=== PATIENT | female | born 1945 | race Caucasian/White ===

== ENCOUNTER → 2018-02-20 10:33 | Outpatient (CLI) | payer MEDICARE, OTHER, SELFPAY ==
[2018-02-20 10:48] LABS: Color, Urine Yellow (Yellow); Glucose, Dipstick Normal (Normal); Ketone-Dipstick Negative (Negative); Leukocyte Esterase-Dipstick 100 /ul (Negative); Nitrite-Dipstick Negative (Negative); Occult Blood-Urine 10 /ul (Negative); Protein-Dipstick 15 mg/dl (Negative); Specific Gravity, Urine 1.015 (1.002-1.030); Urine Bilirubin Dipstick Negative (Negative); Urine Clarity Sl. Cloudy (Clear); Urine Urobilinogen Normal (Normal)
== END ==
PROVIDERS: Visit Provider Family Medicine
DX: R30.0 Dysuria (principal)
CPT/HCPCS: 81002

== ENCOUNTER → 2018-05-22 10:32 | Outpatient (CLI) | payer MEDICARE, OTHER, SELFPAY ==
[2018-05-22 10:36] LABS: Bacteria 0 SEEN /hpf (None Seen); Mucous, Urine 0 SEEN /hpf (<or=2+); Red Blood Cells-Urine 0 SEEN /hpf (0-5); White Blood Cells 0 SEEN /hpf (0-5)
[2018-05-22 11:12] LABS: Color, Urine Yellow (Yellow); Glucose, Dipstick Normal (Normal); Ketone-Dipstick Negative (Negative); Leukocyte Esterase-Dipstick 25 /ul (Negative); Nitrite-Dipstick Negative (Negative); Occult Blood-Urine 25 /ul (Negative); Protein-Dipstick Negative (Negative); Urine Bilirubin Dipstick Negative (Negative); Urine Clarity Sl. Cloudy (Clear); Urine Urobilinogen Normal (Normal)
[2018-05-22 12:55] LABS: Squamous Epithelial Cells - UA 5-10 SEEN /hpf (5-10)
== END ==
PROVIDERS: Family Provider Family Medicine; PCP Family Medicine; Visit Provider Family Medicine
DX: R30.0 Dysuria (principal)
CPT/HCPCS: 81001

== ENCOUNTER → 2018-06-18 16:00 | Outpatient (CLI) | payer MEDICARE, OTHER, SELFPAY ==
--- NOTE | 2018-06-19 | LES_PTH ---
PATIENT: AMADO HILARIO LOC: [facility] U#:[id number] AGE/SX: 80/F ROOM: RE06/18/[address]: Dr. Jose Roberto Clark, : 1945 BED: DIS: SPEC #: [id number] RECD: 06/19/18 13:22 STATUS: RACIEL GUZMAN #: [id number] DOC: 06/19/18 00:[address]: Jose Roberto Clark DEPT: SURGICAL PATHOLOGY RECD BY: Bao Quiroga Tissues: Skin of arm Procedures: Special Stain Group I Surgery Specimen Level IV AFB Stain (control) GMS Stain (control) HEADER OPERATION: Not noted PRE-OP DIAGNOSIS: L98.9 TISSUE SUBMITTED: Right arm MICROSCOPIC DIAGNOSIS Right arm lesion, shave biopsy: Palisaded granuloma, favor granuloma annulare. See comment. Dermal chronic inflammation. Special stains for acid fast bacilli and fungi are negative for organisms; matched controls are appropriate. SJ:jaun 06/20/18 COMMENT Differential diagnosis also includes rheumatoid nodule or necrobiosis lipoidica. Case has been reviewed in consultation with Dr. Shepard who concurs with the above diagnosis. IDC:AM MICROSCOPIC DESCRIPTION Slides are reviewed. GROSS DESCRIPTION Received is one container labeled with the patient's name and not further designated. The specimen consists of two pieces of gresham-white skin measuring 0.3 x 0.3 x 0.1 cm and 0.8 x 0.3 x 0.1 cm. The entire specimen is submitted in one cassette. / SJ:jaun 06/19/18 TC:5 CPT: 69095, 11802 x2
== END ==
PROVIDERS: Family Provider Family Medicine; PCP Family Medicine; Referring Provider Family Medicine; Visit Provider Family Medicine
DX: L98.9 Disorder of the skin and subcutaneous tissue, unspecified (principal)
CPT/HCPCS: 88305; 88312

== ENCOUNTER → 2018-11-21 11:07 | Outpatient (CLI) | payer MEDICARE, OTHER, SELFPAY ==
[2018-11-21 10:42] VITALS: BMI 27.4
[2018-11-21 12:51] LABS: ALB/GLOB Ratio 1.1 RATIO (0.9-2.4); AST(SGOT) 20 U/L (15-37); Alanine Aminotransfer ALT/SGPT 33 U/L (13-56); Albumin, Serum 4.1 g/dL (3.2-5.0); Alkaline Phosphatase 93 U/L (45-117); Anion Gap 8 (5-15); BUN 18 mg/dL (7-18); BUN/Creat Ratio 20.8 RATIO (10-20); Chloride 103 mmol/L (98-107); Creatinine, Serum 0.87 mg/dL (0.55-1.02); EST Glomerular Filtration Rate 68 mL/min (>60); Est Glom Filt Rate - Afr Amer 83 mL/min (>60); Globulin 3.7 g/dL (2.2-4.2); Glucose 106 mg/dL (74-106); Potassium 4.3 mmol/L (3.5-5.1); Protein, Total 7.8 g/dL (6.4-8.2); Sodium Level 136 mmol/L (136-145); Thyroid Stim Hormone (TSH) 1.86 uIU/mL (0.358-3.74)
[2018-11-21 13:00] LABS: Cholesterol 250 mg/dL (200); High Density Lipoprotein 62 mg/dL; Triglycerides 108 mg/dL; Very Low Density Lipoprotein 22 mg/dL (5-40)
== END ==
PROVIDERS: Family Provider Family Medicine; PCP Family Medicine; Visit Provider Family Medicine
DX: D51.0 Vitamin B12 deficiency anemia due to intrinsic factor deficiency (principal); E03.9 Hypothyroidism, unspecified; E78.5 Hyperlipidemia, unspecified; E78.2 Mixed hyperlipidemia
CPT/HCPCS: 36415; 80053; 80061; 84443

== ENCOUNTER → 2019-02-20 | Outpatient (CLI) | payer MEDICARE, OTHER, SELFPAY ==
[2019-02-20 10:33] VITALS: BMI 27.4
== END | disposition home or self-care (01) ==
LOC: LABSPEC 14:41
PROVIDERS: Family Provider Family Medicine; PCP Family Medicine; Referring Provider Nurse Practitioner Women's Health; Visit Provider Nurse Practitioner Women's Health
DX: N94.9 Unspecified condition associated with female genital organs and menstrual cycle (principal)
CPT/HCPCS: 87070; 87205

== ENCOUNTER → 2019-06-11 | Outpatient (CLI) | payer MEDICARE, OTHER, SELFPAY ==
[2019-06-11 09:38] VITALS: BMI 28.8
[2019-06-11 13:33] LABS: Cholesterol 225 mg/dL (200); High Density Lipoprotein 55 mg/dL; Triglycerides 121 mg/dL; Very Low Density Lipoprotein 24 mg/dL (5-40)
[2019-06-11 13:38] LABS: Vitamin D,25 Hydroxy 60.7 ng/mL (29.95-100.01)
== END | disposition home or self-care (01) ==
LOC: BIMLAB 10:20
PROVIDERS: Family Provider Family Medicine; PCP Family Medicine; Visit Provider Family Medicine
DX: E78.5 Hyperlipidemia, unspecified (principal); E55.9 Vitamin D deficiency, unspecified
CPT/HCPCS: 36415; 80061; 82306

== ENCOUNTER → 2020-04-14 16:14 | Outpatient (CLI) | payer MEDICARE, OTHER, SELFPAY ==
[2020-04-14 15:38] VITALS: BMI 28.3
[2020-04-14 17:13] LABS: Absolute Lymphocyte Count 1.65 X10^3/uL (0.83-4.51); Absolute Neutrophil Count 5.3 X10^3/uL (2.0-7.7); Basophil# 0.03 X10^3/uL; Basophil% 0.4 % (0-1); Eosinophil# 0.11 X10^3/uL; Eosinophils% 1.4 % (0-5); Hematocrit 39.7 % (37-47); Hemoglobin 12.7 g/dL (12.0-15.0); Lymphocyte # 1.65 X10^3/ul (4.0); Lymphocyte % 21.6 % (19-41); Mean Corpuscular Volume 103.1 fL (81-99); Mean Platelet Vol. 10.9 fl (6.2-12.0); Monocyte# 0.51 X10^3/uL; Monocyte% 6.7 % (0-10); NRBC Flagged by Analyzer 0 % (0-5); Neutrophil # 5.32 X10^3/uL (2.7-7.7); Neutrophil % 69.6 % (47-70); Platelet Count 304 K/mm3 (150-450); RBC Distribution Width CV 13.2 % (11.6-14.6); RBC Distribution Width SD 50.2 fl (35.1-43.9); Red Blood Count 3.85 M/mm3 (4.2-5.4); White Blood Count 7.6 K/mm3 (4.4-11.0)
[2020-04-14 18:09] LABS: ALB/GLOB Ratio 1.1 RATIO (0.9-2.4); AST(SGOT) 20 U/L (15-37); Alanine Aminotransfer ALT/SGPT 30 U/L (13-56); Albumin, Serum 3.9 g/dL (3.2-5.0); Alkaline Phosphatase 88 U/L (45-117); Anion Gap 5 (5-15); BUN 20 mg/dL (7-18); BUN/Creat Ratio 26.9 RATIO (10-20); Chloride 105 mmol/L (98-107); Cholesterol 227 mg/dL (200); Creatinine, Serum 0.74 mg/dL (0.55-1.02); EST Glomerular Filtration Rate 81 mL/min (>60); Est Glom Filt Rate - Afr Amer 98 mL/min (>60); Globulin 3.7 g/dL (2.2-4.2); Glucose 95 mg/dL (74-106); High Density Lipoprotein 59 mg/dL; Protein, Total 7.6 g/dL (6.4-8.2); Sodium Level 138 mmol/L (136-145); Triglycerides 180 mg/dL; Very Low Density Lipoprotein 36 mg/dL (5-40)
== END ==
PROVIDERS: PCP Family Medicine; Referring Provider Family Medicine; Visit Provider Family Medicine
DX: E78.2 Mixed hyperlipidemia (principal); M54.6 Pain in thoracic spine; G89.29 Other chronic pain
CPT/HCPCS: 36415; 80053; 80061; 85025

== ENCOUNTER → 2020-04-27 | Outpatient (CLI) | payer MEDICARE, OTHER, SELFPAY ==
[2020-04-27 14:38] VITALS: BMI 27.7
[2020-04-27 15:21] LABS: Mucous, Urine 0 SEEN /hpf (<or=2+); Red Blood Cells-Urine 0 SEEN /hpf (0-5); White Blood Cells 0 SEEN /hpf (0-5)
[2020-04-27 17:06] LABS: Color, Urine Yellow (Yellow); Glucose, Dipstick Normal (Normal); Ketone-Dipstick 5 mg/dl (Negative); Leukocyte Esterase-Dipstick 25 /ul (Negative); Nitrite-Dipstick Negative (Negative); Occult Blood-Urine Negative /ul (Negative); Protein-Dipstick 15 mg/dl (Negative); Urine Bilirubin Dipstick Negative (Negative); Urine Clarity Cloudy (Clear); Urine Urobilinogen 1 mg/dl (Normal)
[2020-04-27 17:16] LABS: Squamous Epithelial Cells - UA 10-25 SEEN /hpf (5-10)
[2020-04-27 17:17] LABS: Bacteria 1+ /hpf (None Seen)
== END | disposition home or self-care (01) ==
LOC: LABSPEC 15:15
PROVIDERS: PCP Family Medicine; Referring Provider Nurse Practitioner Family; Visit Provider Nurse Practitioner Family
DX: M54.9 Dorsalgia, unspecified (principal); G89.29 Other chronic pain; R30.0 Dysuria
CPT/HCPCS: 81001; 87086; 87088; 87186

== ENCOUNTER → 2020-04-29 | Outpatient (CLI) | payer MEDICARE, OTHER, SELFPAY ==
[2020-04-29 16:10] VITALS: BMI 27.7
[2020-04-29 17:19] LABS: Absolute Lymphocyte Count 0.39 X10^3/uL (0.83-4.51); Absolute Neutrophil Count 5.9 X10^3/uL (2.0-7.7); Basophil# 0.02 X10^3/uL; Basophil% 0.3 % (0-1); Eosinophil# 0.08 X10^3/uL; Eosinophils% 1.2 % (0-5); Hematocrit 39.1 % (37-47); Hemoglobin 12.8 g/dL (12.0-15.0); Lymphocyte # 0.39 X10^3/ul (4.0); Lymphocyte % 5.8 % (19-41); Mean Corp Hgb Conc 32.7 g/dL (32-36); Mean Corpuscular Hgb 33.1 pg (27.0-32.0); Mean Platelet Vol. 10.9 fl (6.2-12.0); Monocyte# 0.34 X10^3/uL; NRBC Flagged by Analyzer 0 % (0-5); Neutrophil # 5.92 X10^3/uL (2.7-7.7); Neutrophil % 87.4 % (47-70); POSITIVE DIFFERENTIAL YES; Platelet Count 259 K/mm3 (150-450); RBC Distribution Width CV 13.2 % (11.6-14.6); RBC Distribution Width SD 48.8 fl (35.1-43.9); Red Blood Count 3.87 M/mm3 (4.2-5.4); White Blood Count 6.8 K/mm3 (4.4-11.0)
[2020-04-29 17:26] LABS: Differential Indicated SCAN CRITERIA MET
[2020-04-29 18:06] LABS: Differential Comment SCANNED
[2020-04-29 18:18] LABS: Anion Gap 7 (5-15); BUN 16 mg/dL (7-18); BUN/Creat Ratio 18.1 RATIO (10-20); Calcium,Total 9.1 mg/dL (8.5-10.1); Chloride 101 mmol/L (98-107); Creatinine, Serum 0.88 mg/dL (0.55-1.02); EST Glomerular Filtration Rate 67 mL/min (>60); Est Glom Filt Rate - Afr Amer 81 mL/min (>60); Glucose 109 mg/dL (74-106); Potassium 3.5 mmol/L (3.5-5.1); Sodium Level 134 mmol/L (136-145)
== END | disposition home or self-care (01) ==
LOC: BIMLAB 16:33
PROVIDERS: PCP Family Medicine; Referring Provider Internal Medicine; Visit Provider Internal Medicine
DX: N39.0 Urinary tract infection, site not specified (principal)
CPT/HCPCS: 36415; 80048; 85025

== ENCOUNTER 2020-05-06 13:20 | Emergency (ER) | payer MEDICARE, OTHER, SELFPAY ==
[2020-04-29 16:10] VITALS: BMI 27.7
[2020-05-06 13:21] VITALS: BP 125/70; PULSE 88; RESP 18; TEMP 36.6; O2SAT 97; BMI 25.4
[2020-05-06 13:22] VITALS: BP 125/70; PULSE 88; RESP 17; TEMP 36.6; O2SAT 97
[2020-05-06 13:58] LABS: Mucous, Urine 0 SEEN /hpf (<or=2+); White Blood Cells 0 SEEN /hpf (0-5)
[2020-05-06 14:04] LABS: Color, Urine SEE COMMENT BELOW (Yellow); Glucose, Dipstick Normal (Normal); Ketone-Dipstick Negative (Negative); Leukocyte Esterase-Dipstick Negative /ul (Negative); Nitrite-Dipstick Positive (Negative); Occult Blood-Urine 10 /ul (Negative); Protein-Dipstick 30 mg/dl (Negative); Specific Gravity, Urine 1.015 (1.002-1.030); Urine Bilirubin Dipstick 6 mg/dL (Negative); Urine Clarity Clear (Clear); Urine Urobilinogen 8 mg/dl (Normal)
[2020-05-06 14:09] LABS: Squamous Epithelial Cells - UA 10-25 SEEN /hpf (5-10)
--- NOTE | 2020-05-06 14:09 | ED.VISSUMM ---
- ER Visit Summary Date of Service: 05/06/20 Chief Complaint: Dysuria History of Present Illness: The patient is a 75 F who presents with dysuria that is been getting worse over the past 10 to 12 days. Patient states she was seen by her primary care physician who diagnosed her with a urinary tract infection. Patient states she had a culture done on that urine specimen. Patient states she was placed on Cipro. Patient states she has had minimal improvement with this. Patient denies any fevers or chills. Patient admits to nausea but denies any vomiting. Patient does admit to some bilateral low back pain. Patient also admits to some urinary frequency. Physical Examination: Vital signs are stable. Patient is afebrile. Patient is in no acute distress. Oral mucosa is pink and moist. Neck is supple. Trachea is midline. There is no JVD noted. Heart was regular rate and rhythm. Lungs are clear and equal bilaterally. Abdomen is soft. Bowel sounds are normal. There is no tenderness. There is no rebound or guarding noted. Skin is warm dry. Cranial nerves II through XII are intact. There are no focal motor or sensory deficits noted. Extremities are intact. There is no calf tenderness or edema. Test Results: CBC and comprehensive metabolic profile were within normal limits. Urinalysis shows positive nitrates with 10-25 epithelial cells. Occult blood was 10. There were 0 white blood cells and 0 red blood cells. Emergency Department Course and Treatment: Patient was given a dose of Rocephin initially. Patient was advised of her results. I discussed with the patient that this urine specimen appears to be contaminated. I reviewed her prior urine culture which was sensitive to Cipro. Patient states that she has gotten vaginal yeast infections with antibiotics in the past. Patient was advised that her dysuria may be due to a vaginal candidiasis. Patient was given a dose of Diflucan here. Patient was instructed to follow-up with her primary care physician in 5 to 7 days. Patient was advised she may need a repeat dose of the Diflucan if she is still having dysuria at that time. Patient understood and was agreeable with the plan. All questions were answered. Disposition: Discharge home Impression: 1. Dysuria 2. Vaginal candidiasis This note was generated with Opicosation software. It may contain incorrect words, spelling, and punctuation that were not noted in review of the chart prior to signing ED Disposition - Plan for ED Patient: Disposition: Home or Assisted Living Diagnosis: Dysuria, Vaginal candidiasis Instructions: ED Dysuria Uncertain Cause, ED ROMELIA VAGINITIS Referrals: Jose Roberto Clark DO [Primary Care Provider] - 5-7 Days
[2020-05-06 14:10] LABS: Bacteria RARE /hpf (None Seen)
[2020-05-06 14:11] LABS: Absolute Lymphocyte Count 2.41 X10^3/uL (0.83-4.51); Absolute Neutrophil Count 4.8 X10^3/uL (2.0-7.7); Basophil# 0.04 X10^3/uL; Basophil% 0.5 % (0-1); Eosinophil# 0.12 X10^3/uL; Eosinophils% 1.5 % (0-5); Hematocrit 39.1 % (37-47); Hemoglobin 12.7 g/dL (12.0-15.0); Lymphocyte # 2.41 X10^3/ul (4.0); Lymphocyte % 30.9 % (19-41); Mean Corp Hgb Conc 32.5 g/dL (32-36); Mean Corpuscular Hgb 33.1 pg (27.0-32.0); Mean Corpuscular Volume 101.8 fL (81-99); Monocyte# 0.38 X10^3/uL; Monocyte% 4.9 % (0-10); NRBC Flagged by Analyzer 0 % (0-5); Neutrophil # 4.78 X10^3/uL (2.7-7.7); Neutrophil % 61.4 % (47-70); Platelet Count 360 K/mm3 (150-450); RBC Distribution Width CV 13.2 % (11.6-14.6); RBC Distribution Width SD 49.2 fl (35.1-43.9); Red Blood Count 3.84 M/mm3 (4.2-5.4); White Blood Count 7.8 K/mm3 (4.4-11.0)
[2020-05-06 14:11] LABS: Red Blood Cells-Urine 0-5 SEEN /hpf (0-5)
[2020-05-06 14:26] LABS: AST(SGOT) 27 U/L (15-37); Alanine Aminotransfer ALT/SGPT 68 U/L (13-56); Albumin, Serum 3.7 g/dL (3.2-5.0); Alkaline Phosphatase 103 U/L (45-117); Anion Gap 3 (5-15); BUN 21 mg/dL (7-18); BUN/Creat Ratio 25.2 RATIO (10-20); Calcium,Total 9.2 mg/dL (8.5-10.1); Chloride 104 mmol/L (98-107); Creatinine, Serum 0.83 mg/dL (0.55-1.02); EST Glomerular Filtration Rate 71 mL/min (>60); Est Glom Filt Rate - Afr Amer 86 mL/min (>60); Estimated Creatinine Clearance 49.19 ml/min; Globulin 3.6 g/dL (2.2-4.2); Glucose 105 mg/dL (74-106); Potassium 4.1 mmol/L (3.5-5.1); Protein, Total 7.3 g/dL (6.4-8.2); Sodium Level 136 mmol/L (136-145)
[2020-05-06] MEDS: Ceftriaxone 1 GM/50 ML BAG IV (14:33)
[2020-05-06 15:52] VITALS: BP 162/67; PULSE 77; RESP 18; O2SAT 97
[2020-05-06] MEDS: Fluconazole 100 MG Tablet 150 MG PO (15:56)
== END 2020-05-06 15:58 | disposition home or self-care (01) ==
PROVIDERS: Emergency Provider Emergency Medicine; PCP Family Medicine
DX: B37.3 Candidiasis of vulva and vagina (principal); R30.0 Dysuria; E06.3 Autoimmune thyroiditis; Z87.440 Personal history of urinary (tract) infections; Z72.0 Tobacco use; Z79.899 Other long term (current) drug therapy
CPT/HCPCS: 80053; 81001; 85025; 96365; 96366; 99283; J7050; A4216

== ENCOUNTER → 2020-05-25 | Outpatient (CLI) | payer MEDICARE, OTHER, SELFPAY ==
[2020-05-25 16:32] VITALS: BMI 25.4
[2020-05-25 16:46] LABS: Mucous, Urine 0 SEEN /hpf (<or=2+); Red Blood Cells-Urine 0 SEEN /hpf (0-5); White Blood Cells 0 SEEN /hpf (0-5)
[2020-05-25 17:02] LABS: Color, Urine Yellow (Yellow); Glucose, Dipstick Normal (Normal); Ketone-Dipstick Negative (Negative); Leukocyte Esterase-Dipstick Negative /ul (Negative); Nitrite-Dipstick Negative (Negative); Occult Blood-Urine Negative /ul (Negative); Protein-Dipstick Negative (Negative); Urine Bilirubin Dipstick Negative (Negative); Urine Clarity Cloudy (Clear); Urine Urobilinogen Normal (Normal)
[2020-05-25 17:08] LABS: Squamous Epithelial Cells - UA 10-25 SEEN /hpf (5-10)
[2020-05-25 17:09] LABS: Bacteria 1+ /hpf (None Seen)
== END | disposition home or self-care (01) ==
LOC: LABSPEC 16:42
PROVIDERS: PCP Family Medicine; Referring Provider Nurse Practitioner Family; Visit Provider Nurse Practitioner Family
DX: R30.0 Dysuria (principal)
CPT/HCPCS: 81001; 87077; 87086; 87088; 87186

== ENCOUNTER → 2020-06-03 | Outpatient (CLI) | payer MEDICARE, OTHER, SELFPAY ==
[2020-06-03 15:03] VITALS: BMI 25.4
[2020-06-03 15:35] LABS: Bacteria 0 SEEN /hpf (None Seen); Mucous, Urine 0 SEEN /hpf (<or=2+); White Blood Cells 0 SEEN /hpf (0-5)
[2020-06-03 17:22] LABS: Color, Urine Yellow (Yellow); Glucose, Dipstick Normal (Normal); Ketone-Dipstick Negative (Negative); Leukocyte Esterase-Dipstick Negative /ul (Negative); Nitrite-Dipstick Negative (Negative); Occult Blood-Urine 10 /ul (Negative); Protein-Dipstick Negative (Negative); Specific Gravity, Urine 1.015 (1.002-1.030); Urine Bilirubin Dipstick Negative (Negative); Urine Clarity Sl. Cloudy (Clear); Urine Urobilinogen Normal (Normal)
[2020-06-03 17:50] LABS: Red Blood Cells-Urine 0-5 SEEN /hpf (0-5); Squamous Epithelial Cells - UA 0-5 SEEN /hpf (5-10)
== END | disposition home or self-care (01) ==
LOC: BIMLAB 15:34
PROVIDERS: PCP Family Medicine; Referring Provider Family Medicine; Visit Provider Family Medicine
DX: N39.0 Urinary tract infection, site not specified (principal)
CPT/HCPCS: 81001; 87086; 87088

== ENCOUNTER → 2020-07-01 | Outpatient (CLI) | payer MEDICARE, OTHER, SELFPAY ==
[2020-07-01 11:01] VITALS: BMI 26.4
[2020-07-01 11:24] LABS: Mucous, Urine 0 SEEN /hpf (<or=2+); Red Blood Cells-Urine 0 SEEN /hpf (0-5); White Blood Cells 0 SEEN /hpf (0-5)
[2020-07-01 12:16] LABS: Color, Urine Yellow (Yellow); Glucose, Dipstick Normal (Normal); Ketone-Dipstick Negative (Negative); Leukocyte Esterase-Dipstick Negative /ul (Negative); Nitrite-Dipstick Negative (Negative); Occult Blood-Urine Negative /ul (Negative); Protein-Dipstick Negative (Negative); Urine Bilirubin Dipstick Negative (Negative); Urine Clarity Sl. Cloudy (Clear); Urine Urobilinogen Normal (Normal)
[2020-07-01 12:26] LABS: Bacteria RARE /hpf (None Seen); Squamous Epithelial Cells - UA 5-10 SEEN /hpf (5-10)
== END | disposition home or self-care (01) ==
LOC: LABSPEC 11:23
PROVIDERS: PCP Family Medicine; Referring Provider Family Medicine; Visit Provider Family Medicine
DX: N34.3 Urethral syndrome, unspecified (principal); R30.0 Dysuria
CPT/HCPCS: 81001; 87077; 87086; 87088; 87186

== ENCOUNTER → 2020-07-22 | Outpatient (CLI) | payer MEDICARE, OTHER, SELFPAY ==
[2020-07-20 15:15] VITALS: BMI 26.2
[2020-07-22 11:50] LABS: Bacteria 0 SEEN /hpf (None Seen); Mucous, Urine 0 SEEN /hpf (<or=2+); Red Blood Cells-Urine 0 SEEN /hpf (0-5); White Blood Cells 0 SEEN /hpf (0-5)
[2020-07-22 13:04] LABS: Color, Urine Straw (Yellow); Glucose, Dipstick Normal (Normal); Ketone-Dipstick Negative (Negative); Leukocyte Esterase-Dipstick Negative /ul (Negative); Nitrite-Dipstick Negative (Negative); Occult Blood-Urine Negative /ul (Negative); Protein-Dipstick Negative (Negative); Urine Bilirubin Dipstick Negative (Negative); Urine Clarity Sl. Cloudy (Clear); Urine Urobilinogen Normal (Normal)
[2020-07-22 13:11] LABS: Squamous Epithelial Cells - UA 5-10 SEEN /hpf (5-10)
== END | disposition home or self-care (01) ==
LOC: LABSPEC 11:50
PROVIDERS: PCP Family Medicine; Referring Provider Family Medicine; Visit Provider Family Medicine
DX: R30.0 Dysuria (principal)
CPT/HCPCS: 81001

== ENCOUNTER → 2020-08-17 | Outpatient (CLI) | payer MEDICARE, OTHER, SELFPAY ==
[2020-08-17 11:38] VITALS: BMI 26.6
== END | disposition home or self-care (01) ==
LOC: LABSPEC 16:48
PROVIDERS: PCP Family Medicine; Visit Provider Obstetrics & Gynecology
DX: N89.8 Other specified noninflammatory disorders of vagina (principal)
CPT/HCPCS: 87070; 87205

== ENCOUNTER → 2021-02-01 13:43 | Outpatient (CLI) | payer MEDICARE, OTHER, SELFPAY ==
[2021-02-01 13:16] VITALS: BMI 26.7
[2021-02-01 15:47] LABS: Absolute Lymphocyte Count 1.62 X10^3/uL (0.83-4.51); Absolute Neutrophil Count 5.1 X10^3/uL (2.0-7.7); Basophil# 0.04 X10^3/uL; Basophil% 0.6 % (0-1); Eosinophils% 1.4 % (0-5); Hematocrit 39.2 % (37-47); Hemoglobin 12.8 g/dL (12.0-15.0); Lymphocyte # 1.62 X10^3/ul (0.83-4.51); Lymphocyte % 22.4 % (19-41); Mean Corp Hgb Conc 32.7 g/dL (32-36); Mean Corpuscular Hgb 33.6 pg (27.0-32.0); Mean Corpuscular Volume 102.9 fL (81-99); Monocyte# 0.38 X10^3/uL; Monocyte% 5.2 % (0-10); NRBC Flagged by Analyzer 0 % (0-5); Neutrophil # 5.08 X10^3/uL (2.7-7.7); Neutrophil % 70.1 % (47-70); Platelet Count 325 K/mm3 (150-450); RBC Distribution Width CV 12.9 % (11.6-14.6); RBC Distribution Width SD 48.9 fl (35.1-43.9); Red Blood Count 3.81 M/mm3 (4.2-5.4); White Blood Count 7.2 K/mm3 (4.4-11.0)
[2021-02-01 16:55] LABS: Anion Gap 5 (5-15); BUN 23 mg/dL (7-18); BUN/Creat Ratio 27.7 RATIO (10-20); Calcium,Total 9.6 mg/dL (8.5-10.1); Chloride 103 mmol/L (98-107); Creatinine, Serum 0.83 mg/dL (0.55-1.02); EST Glomerular Filtration Rate 71 mL/min (>60); Est Glom Filt Rate - Afr Amer 86 mL/min (>60); Glucose 95 mg/dL (74-106); Potassium 4.2 mmol/L (3.5-5.1); Sodium Level 134 mmol/L (136-145); T4 Free Direct 1.29 ng/dL (0.76-1.46); Thyroid Stim Hormone (TSH) 0.84 uIU/mL (0.358-3.74)
== END ==
PROVIDERS: PCP Family Medicine; Referring Provider Family Medicine; Visit Provider Family Medicine
DX: E03.9 Hypothyroidism, unspecified (principal); R55 Syncope and collapse
CPT/HCPCS: 36415; 80048; 84439; 84443; 85025

== ENCOUNTER → 2021-02-08 | Outpatient (CLI) | payer MEDICARE, OTHER, SELFPAY ==
[2021-02-08 13:31] VITALS: BMI 26.7
[2021-02-08 18:12] LABS: Bacteria 0 SEEN /hpf (None Seen); Mucous, Urine 0 SEEN /hpf (<or=2+); Red Blood Cells-Urine 0 SEEN /hpf (0-5)
[2021-02-08 18:30] LABS: Color, Urine Yellow (Yellow); Glucose, Dipstick Normal (Normal); Ketone-Dipstick 5 mg/dl (Negative); Leukocyte Esterase-Dipstick 25 /ul (Negative); Nitrite-Dipstick Negative (Negative); Occult Blood-Urine Negative /ul (Negative); Protein-Dipstick 30 mg/dl (Negative); Urine Bilirubin Dipstick Negative (Negative); Urine Clarity Sl. Cloudy (Clear); Urine Urobilinogen Normal (Normal)
[2021-02-08 18:44] LABS: Squamous Epithelial Cells - UA 0-5 SEEN /hpf (5-10); White Blood Cells 0-5 SEEN /hpf (0-5)
== END | disposition home or self-care (01) ==
LOC: LABSPEC 18:11
PROVIDERS: PCP Family Medicine; Visit Provider Physician Assistant
DX: R30.0 Dysuria (principal); N76.0 Acute vaginitis
CPT/HCPCS: 81001; 87077; 87086; 87088; 87186

== ENCOUNTER → 2021-03-18 | Outpatient (CLI) | payer MEDICARE, OTHER, SELFPAY ==
[2021-03-18 15:18] VITALS: BMI 26.7
== END | disposition home or self-care (01) ==
LOC: LABSPEC 16:33
PROVIDERS: PCP Family Medicine; Visit Provider Obstetrics & Gynecology
DX: R30.0 Dysuria (principal)
CPT/HCPCS: 87086; 87088; 87186

== ENCOUNTER → 2021-03-28 | Outpatient (CLI) | payer MEDICARE, OTHER, SELFPAY ==
[2021-03-28 13:47] VITALS: BMI 26.7
== END | disposition home or self-care (01) ==
LOC: LABSPEC 15:41
PROVIDERS: PCP Family Medicine; Referring Provider Obstetrics & Gynecology; Visit Provider Obstetrics & Gynecology
DX: N76.0 Acute vaginitis (principal); R30.9 Painful micturition, unspecified
CPT/HCPCS: 87070; 87086; 87088; 87205

== ENCOUNTER → 2021-04-14 | Outpatient (CLI) | payer MEDICARE, OTHER, SELFPAY ==
[2021-04-14 12:55] VITALS: BMI 26.7
== END | disposition home or self-care (01) ==
LOC: LABSPEC 15:49
PROVIDERS: PCP Family Medicine; Referring Provider Obstetrics & Gynecology; Visit Provider Obstetrics & Gynecology
DX: R30.0 Dysuria (principal)
CPT/HCPCS: 87086; 87088

== ENCOUNTER 2021-09-15 14:05 | Outpatient (CLI) | payer MEDICARE, OTHER, SELFPAY | END 2021-09-15 23:59 | disposition short-term general hospital (02) | LOC: LABSPEC 14:06 | PROVIDERS: PCP Family Medicine; Referring Provider Nurse Practitioner Family; Visit Provider Nurse Practitioner Family | DX: Z11.52 Encounter for screening for COVID-19 (principal) | CPT/HCPCS: 87635; U0003; U0005 ==

== ENCOUNTER 2021-09-19 14:38 | Emergency (ER) | payer MEDICARE, OTHER, SELFPAY ==
[2021-09-19 14:39] VITALS: BP 129/78; PULSE 91; RESP 20; TEMP 35.8; O2SAT 91; BMI 26.0
[2021-09-19 15:06] VITALS: BP 129/78; PULSE 91; RESP 20; TEMP 35.8; O2SAT 91
--- NOTE | 2021-09-19 15:11 | EDS_ITS ---
HPI History of Present Illness Chief Complaint: General Illness Informant: patient Onset/Context/Timing Onset: Days Context: Gradual Onset Timing: Continuous Current Severity: Mild Maximum Severity: Mild Narrative Narrative: 76-year-old female history of COPD, Crohn's and breast cancer 2009. Never had a DVT or PE. He is vaccinated against COVID. was recently hospitalized and discharged with COVID. She states she tested negative last . But has had just body aches not feeling well. She denies any vomiting or diarrhea. Really no significant fevers. No dysuria. Denies any abdominal pain. Prior similar symptoms: No Recent Illness/Hospitalization: No [facility] Medical History (Updated 09/19/21 @ 15:[address] Emiliano Larson MD) Chronic back pain Chronic bronchitis COPD (chronic obstructive pulmonary disease) Crohns disease GERD (gastroesophageal reflux disease) Frances's disease History of breast cancer History of colon polyps Hyperlipemia Hypothyroidism IBS (irritable bowel syndrome) Vitamin D deficiency Home Medications cyanocobalamin (vitamin B-12) 1,000 mcg/mL injection solution 100 mcg IM ONCE #1 ml 12/10/19 [Clinic Last Taken Unknown] estradiol 1 g VAGINAL QWEEK #42.5 g 11/24/20 [Rx Last Taken Unknown] escitalopram oxalate 20 mg tablet 20 mg PO DAILY #90 tablet 12/22/20 [Rx Last Taken Unknown] mometasone 0.1 % topical ointment 1 applic TOPICAL .COMPLEX #45 g 03/26/21 [Rx Last Taken Unknown] buspirone 7.5 mg tablet 7.5 mg PO TID #270 tab 04/04/21 [Rx Last Taken Unknown] levothyroxine 175 mcg tablet 175 mcg PO QDAY #90 tab 04/04/21 [Rx Last Taken Unknown] omeprazole 20 mg capsule,delayed release 20 mg PO DAILY #90 cap 04/04/21 [Rx Last Taken Unknown] gabapentin 100 mg capsule 100 mg PO QHS 05/18/21 [History Last Taken Unknown] cholecalciferol (vitamin D3) 1,250 mcg (50,000 unit) capsule 50,000 unit PO QWEEK #20 cap 06/15/21 [Rx Last Taken Unknown] budesonide-formoterol HFA 160 mcg-4.5 mcg/actuation aerosol inhaler 2 puff INHALATION BID #10.2 g 06/28/21 [Rx Last Taken Unknown] fluconazole 150 mg tablet 150 mg PO Q3D #2 tab 07/27/21 [Rx Last Taken Unknown] azithromycin 250 mg tablet See Rx Instructions PO .COMPLEX #6 tab 08/25/21 [Rx Last Taken Unknown] methylprednisolone 4 mg tablets in a dose pack See Rx Instructions PO PER PKG DIR #21 tab 08/25/21 [Rx Last Taken Unknown] tramadol 50 mg tablet 50 mg PO Q6H PRN #120 tab 08/25/21 [Rx Last Taken Unknown] dexamethasone [Decadron] 6 mg PO DAILY 7 Days #7 tab 09/19/21 [Rx Last Taken Unknown] Allergy/AdvReac Type Severity Reaction Status Date / Time Sulfa (Sulfonamide Allergy Rash Verified 09/19/21 14:41 Antibiotics) tolterodine [From Detrol] AdvReac Severe Rash Verified 09/19/21 14:41 Family History Mother Breast cancer Heart disease Father Colon cancer Brother Cancer multiple myloma Sister Heart disease Surgical History H/O bilateral oophorectomy History of colonoscopy History of hysterectomy History of lumpectomy History of small bowel obstruction Social History Smoking Status: Light Smoker (<10/day) alcohol intake: never substance use type: does not use caffeine: Yes what type of physical activity do you participate in: walking frequency: daily seatbelt use: always do you feel safe at home: Yes additional social history: [employer] ROS ROS ED ROS Narrative Body aches. Short of breath. No vomiting or diarrhea. No fever. No chest pain. Review of Systems ROS Unobtainable: Denies due to encephalopathy Constitutional Constitutional ED: Denies chills or fever(s) Eyes Eyes: Denies change in vision ENT ENT ED: Denies ear pain or sore throat Cardiovascular Cardiovascular: Denies chest pain or palpitations Respiratory/Chest Respiratory/Chest: Reports dyspnea; Denies cough Gastrointestinal Gastrointestinal: Denies abdominal pain, diarrhea, nausea or vomiting Genitourinary Genitourinary ED: Denies dysuria or hematuria Musculoskeletal Musculoskeletal: Reports myalgias Integumentary Denies rash Neurologic Neurologic: Denies headache(s) Psychiatric Psychiatric: Denies depression Endocrine Endocrinology: Denies polyuria EXAM Physical Exam Narrative Exam Narrative: Vital signs are stable and afebrile. Pulse ox 91% on room air no signs hypoxia. 76-year-old female no acute distress. HEENT exam unremarkable. Neck nontender no JVD. Lungs few scattered expiratory wheezes no rales or rhonchi. No distress. Equal symmetrical. Heart regular rhythm rate about 90 no murmur. Abdomen soft nontender. Moving all 4 extremities. No edema. Calves nontender. Equal symmetrical divorce mediator strength and dorsi and plantar flexion. Neurologically she is awake and alert with no focal motor deficits. Const Vital Signs: 09/19/21 14:39 09/19/21 15:06 09/19/21 15:20 Temperature 96.5 F L 96.5 F L Temperature Source Temporal Temporal Pulse Rate 91 91 Respiratory Rate 20 H 20 H Respiratory Effort Short of Breath Respiratory Pattern Normal Blood Pressure 129/78 H 129/78 H Blood Pressure Mean 95 95 Pulse Ox 91 91 92 Oxygen Delivery Method Room Air Room Air Room Air Positive well nourished and well developed; Negative for obese, cachectic, contractures or unkempt General Appearance ED: well developed and NAD; Negative for unkempt, cachectic, contractures or pallor Nutritional Appearance: Negative for cachectic or obese HEENT Reports moist mucous membranes Negative for trauma or tenderness Eyes PERRL and EOMs intact bilaterally Neck no lymphadenopathy, supple and no JVD General: Negative for tenderness Chest Wall inspection of chest normal and palpation of chest normal Resp normal respiratory effort and No clear to auscultation bilaterally Effort and Inspection: Negative for pain with movement Auscultation: wheezes; Negative for rales or rhonchi Cardio regular rate, regular rhythm, S1 normal heart sound, S2 normal heart sound and no murmurs GI normal to inspection, nondistended, normoactive bowel sounds, non-tender, non- distended and no masses Auscultation: normoactive bowel sounds Palpation: soft; Negative for tender, guarding or rebound tenderness present Back/Spine no CVA tenderness General Back: Negative for CVA tenderness Cervical Spine: Negative for cervical spine tenderness Thoracic Spine / Upper Back: Negative for thoracic spinal tenderness or paraspinal muscle tenderness Extremity normal to inspection General Extremety ED: Negative for edema or tenderness General Extremity: Negative for edema Neuro oriented x3 and CN's II-XII intact bilaterally Sensorium / Orientation: alert Motor Exam: strength 5/5 throughout Psych mental status grossly normal Appearance: Negative for unkempt Attitude: No agitated Mood & Affect: Negative for depressed, anxious or tearful Skin no rashes or lesions noted and no wounds General Skin Exam: Negative for jaundice or pallor MDM MDM MDM Narrative Medical decision making narrative: 80-year-old female with COPD not feeling well has COVID recently. She is vaccinated. Repeat exam at 3:59 PM patient is doing well. She was given p.o. Decadron here. She will be discharged home with a prescription for Decadron. She and I discussed all of her test results. Lab Data Attestation: I reviewed the patient's lab results. Lab results narrative: Rapid COVID antigen test is positive. CBC shows a white count of 4. Hemoglobin 12.7. Platelets 289. Electrolytes are unremarkable. Troponin normal. Labs: Laboratory Results - last 24 hr 09/19/21 09/19/21 15:15 15:15 WBC 4.2 L RBC 3.92 L Hgb 12.7 Hct 39.1 MCV 99.7 H MCH 32.4 H MCHC 32.5 RDW Std Deviation 49.9 H RDW Coeff of Antony 13.6 Plt Count 289 MPV 10.3 Immature Gran % (Auto) 0.500 Neut % (Auto) 72.2 H Lymph % (Auto) 18.6 L [place] % (Auto) 8.3 Eos % (Auto) 0.2 Baso % (Auto) 0.2 Absolute Neuts (auto) 3.0 Absolute Lymphs (auto) 0.78 L Nucleated RBC % 0 Sodium 136 Potassium 3.7 Chloride 103 Carbon Dioxide 26.0 Anion Gap 7 BUN 20 H Creatinine 0.70 Estim Creat Clear Calc 40.21 Est GFR (MDRD) Af Amer 105 Est GFR (MDRD) Non-Af 86 BUN/Creatinine Ratio 28.5 H Glucose 97 Calcium 9.0 Troponin I High Sens 9 Radiography Chest X-Ray - ED: 1 View, Read by ED Physician, Normal, Heart, Mediastinum, Bony Structures, Right Infiltrate and Left Infiltrate Diagnostic Testing: Clinical Impression(s) from Imaging Studies Chest X-Ray 09/19/21 15:25 IMPRESSION: Findings suggestive of early bibasilar pulmonary infiltrates. Electronically Signed: Faustino Vega MD at 15:42 EST , Service support , Bibasilar infiltrates consistent with COVID pneumonitis. Single view interpreted by myself and the radiologist. Rhythm Strip Rhythm Strip: Sinus Rhythm Rate: 81 Ectopy: PAC(s) EKG Initial EKG: Attestation: I personally reviewed and interpreted this EKG as follows: Interpretation: Sinus Rhythm and No Acute Injury Pattern Comments: Normal sinus rhythm rate 81 no acute signs of IN or ischemia. PACs. Prior EKG tracings: not available for review Discharge Plan Triage Chief Complaint: General Illness ED Provider: Emiliano Larson Dx/Rx/DC Orders Clinical Impression: COVID-19, Crohns disease, COPD (chronic obstructive pulmonary disease) Instructions: Human Coronaviruses Prescriptions: New dexamethasone [Decadron] 6 mg tablet 6 mg PO DAILY 7 Days Qty: 7 RF: 0 No Action cyanocobalamin (vitamin B-12) 1,000 mcg/mL solution 100 mcg IM ONCE Qty: 1 RF: 0 estradiol 0.01 % (0.1 mg/gram) cream 1 g VAGINAL QWEEK Qty: 42.5 RF: 2 escitalopram oxalate [Lexapro] 20 mg tablet 20 mg PO DAILY Qty: 90 RF: 1 gabapentin 100 mg capsule 100 mg PO QHS RF: 0 cholecalciferol (vitamin D3) 1,250 mcg (50,000 unit) capsule 50,000 unit PO QWEEK Qty: 20 RF: 2 fluconazole [Diflucan] 150 mg tablet 150 mg PO Q3D Qty: 2 RF: 2 azithromycin 250 mg tablet See Rx Instructions PO .COMPLEX Qty: 6 RF: 0 methylprednisolone [Medrol (Ross)] 4 mg tablets,dose pack See Rx Instructions PO PER PKG DIR Qty: 21 RF: 0 tramadol 50 mg tablet 50 mg PO Q6H PRN (Reason: pain) Qty: 120 RF: 0 mometasone 0.1 % ointment 1 applic TOPICAL .COMPLEX Qty: 45 RF: 3 levothyroxine 175 mcg tablet 175 mcg PO QDAY Qty: 90 RF: 1 omeprazole 20 mg capsule,delayed release(DR/EC) 20 mg PO DAILY Qty: 90 RF: 1 buspirone 7.5 mg tablet 7.5 mg PO TID Qty: 270 RF: 1 Symbicort 160-4.5 mcg/actuation HFA aerosol inhaler 2 puff INHALATION BID Qty: 10.2 RF: 12 Primary Care Provider: Jose Roberto Clark Referrals: Jose Roberto Clark, DO [Primary Care Provider] - 1 Week if not improving Activity Restrictions/Additional Instructions: Plenty of fluids and rest. Tylenol for fever and body aches Decadron for the wheezing and COVID inflammation in your lungs. Follow-up with your doctor if not improving or return emergency department if feeling worse. Disposition Disposition: Home, Self Care
[2021-09-19 15:20] VITALS: O2SAT 92
--- NOTE | 2021-09-19 15:25 | RAD_ITS ---
STUDY: X-RAY CHEST REASON FOR EXAM: Female, 76 years old. Body aches. Shortness of breath. TECHNIQUE: Single AP portable view of the chest. COMPARISON: Comparison is made with prior study dated 12/16/2013. FINDINGS: EKG electrodes are seen. Surgical clips are seen in the right axillary region. Increased markings in the medial aspects of both lower lobes. This may represent early bibasilar infiltrates. There is no demonstrated pleural abnormality. Normal size heart. Normal mediastinum and yeni. Normal visualized pulmonary arteries. There is atherosclerotic calcification of the aortic arch with tortuosity. There are diffuse degenerative changes of the visualized thoracic spine. Normal visualized ribs, clavicles, and shoulders. There is no demonstrated abnormality of the visualized soft tissue structures of the upper abdomen. RAD/Chest 1 View (Portable) IMPRESSION: Findings suggestive of early bibasilar pulmonary infiltrates. Electronically Signed: Faustino Vega MD at 15:42 EST , Service support ,
[2021-09-19 15:29] LABS: Absolute Lymphocyte Count 0.78 X10^3/uL (0.83-4.51); Basophil# 0.01 X10^3/uL; Basophil% 0.2 % (0-1); Eosinophil# 0.01 X10^3/uL; Eosinophils% 0.2 % (0-5); Hematocrit 39.1 % (37-47); Hemoglobin 12.7 g/dL (12.0-15.0); Lymphocyte # 0.78 X10^3/ul (0.83-4.51); Lymphocyte % 18.6 % (19-41); Mean Corp Hgb Conc 32.5 g/dL (32-36); Mean Corpuscular Hgb 32.4 pg (27.0-32.0); Mean Corpuscular Volume 99.7 fL (81-99); Mean Platelet Vol. 10.3 fl (6.2-12.0); Monocyte# 0.35 X10^3/uL; Monocyte% 8.3 % (0-10); NRBC Flagged by Analyzer 0 % (0-5); Neutrophil # 3.03 X10^3/uL (2.7-7.7); Neutrophil % 72.2 % (47-70); Platelet Count 289 K/mm3 (150-450); RBC Distribution Width CV 13.6 % (11.6-14.6); RBC Distribution Width SD 49.9 fl (35.1-43.9); Red Blood Count 3.92 M/mm3 (4.2-5.4); White Blood Count 4.2 K/mm3 (4.4-11.0)
[2021-09-19 15:49] LABS: Anion Gap 7 (5-15); BUN 20 mg/dL (7-18); BUN/Creat Ratio 28.5 RATIO (10-20); Chloride 103 mmol/L (98-107); EST Glomerular Filtration Rate 86 mL/min (>60); Est Glom Filt Rate - Afr Amer 105 mL/min (>60); Estimated Creatinine Clearance 40.21 ml/min; Glucose 97 mg/dL (74-106); Potassium 3.7 mmol/L (3.5-5.1); Sodium Level 136 mmol/L (136-145); Troponin-I HS 9 pg/mL (3.0-54.0)
[2021-09-19] MEDS: dexAMETHasone 4 MG Tablet 6 MG PO (16:16)
[2021-09-19 16:23] VITALS: BP 121/80; PULSE 87; RESP 18; O2SAT 93
== END 2021-09-19 16:23 | disposition home or self-care (01) ==
PROVIDERS: Emergency Provider Emergency Medicine; PCP Family Medicine; Visit Provider Emergency Medicine
DX: U07.1 COVID-19 (principal); J44.9 Chronic obstructive pulmonary disease, unspecified; K50.90 Crohn's disease, unspecified, without complications; F17.200 Nicotine dependence, unspecified, uncomplicated; E78.5 Hyperlipidemia, unspecified; Z79.899 Other long term (current) drug therapy; E06.3 Autoimmune thyroiditis; E55.9 Vitamin D deficiency, unspecified; K21.9 Gastro-esophageal reflux disease without esophagitis; Z85.3 Personal history of malignant neoplasm of breast
CPT/HCPCS: 71045; 80048; 84484; 85025; 87426; 93005; 99285; A4216

== ENCOUNTER 2021-09-23 14:33 | Outpatient (CLI) | payer MEDICARE, OTHER, SELFPAY ==
[2021-09-23 14:52] VITALS: BP 164/79; PULSE 86; RESP 16; TEMP 36.6; O2SAT 96; BMI 24.7
[2021-09-23] MEDS: 0.9% Saline Lock 10 ML Syringe IV (14:58)
[2021-09-23 15:29] VITALS: BP 143/64; PULSE 66; RESP 16; TEMP 36.9; O2SAT 96
[2021-09-23 16:29] VITALS: BP 163/74; PULSE 68; RESP 16; TEMP 36.7; O2SAT 94
== END 2021-09-23 23:59 | disposition home or self-care (01) ==
LOC: MS3OUT 14:33 → MS3 14:34
PROVIDERS: PCP Family Medicine; Referring Provider Nurse Practitioner Adult Health; Visit Provider Nurse Practitioner Adult Health
DX: Z23 Encounter for immunization (principal); U07.1 COVID-19
CPT/HCPCS: J7050; M0245; Q0245; A4216

== ENCOUNTER → 2022-01-27 | Outpatient (CLI) | payer MEDICARE, OTHER, SELFPAY ==
--- NOTE | 2022-01-27 15:09 | RAD_ITS ---
STUDY: X-RAY - LEFT FOOT CLINICAL: Female, 76 years old. left big toe pain, brusing, fall TECHNIQUE: 3 view(s) of the foot. COMPARISON: None. FINDINGS: Normal talus, calcaneus, and tarsal bones. Normal visualized subtalar, talonavicular, calcaneocuboid, tarsal and tarsometatarsal articulations. There is demineralization of the metatarsi. There is degenerative arthrosis of the metatarsophalangeal joint of the hallux . Normal tibial and fibular sesamoid bones. Normal interphalangeal joint of the great toe. Nondisplaced fracture (longitudinal) at the base of the first distal phalanx extending to the articular surface best seen on oblique view. Normal second through fifth metatarsophalangeal joints. Normal interphalangeal joints and phalanges of the lesser toes. Soft tissue swelling of the first digit. RAD/Foot min 3 Views IMPRESSION: Nondisplaced fracture of the first distal phalanx. Electronically Signed: Sergio Greenfield MD ([place]) at 15:33 EDT Reading Location ID and State: [id number] , Service support ,
--- NOTE | 2022-01-27 15:15 | RAD_ITS ---
STUDY: X-RAY - NASAL BONES REASON FOR EXAM: Female, 76 years old. fall, nose pain, epistaxis TECHNIQUE: 3 view(s) of the nasal bones. COMPARISON: None. FINDINGS: There is a non-displaced transverse fracture of the nasal bones. Normal anterior nasal spine. There is non-specific soft tissue swelling. The remaining visualized osseous structures are normal. Normal visualized paranasal sinuses. RAD/Nasal Bones min 3 Views IMPRESSION: Nondisplaced nasal bone fracture. Electronically Signed: Sergio Greenfield MD ([place]) at 15:32 EDT Reading Location ID and State: [id number] , Service support ,
== END | disposition home or self-care (01) ==
LOC: RAD 14:58
PROVIDERS: PCP Family Medicine; Referring Provider Physician Assistant; Visit Provider Physician Assistant
DX: R04.0 Epistaxis (principal); J34.89 Other specified disorders of nose and nasal sinuses; M79.676 Pain in unspecified toe(s); W19.XXXA Unspecified fall, initial encounter
CPT/HCPCS: 70160; 73630

== ENCOUNTER 2022-02-03 13:53 | Outpatient (CLI) | payer MEDICARE, OTHER, SELFPAY | END 2022-02-03 23:59 | disposition home or self-care (01) | LOC: LABSPEC 13:54 | PROVIDERS: PCP Family Medicine; Referring Provider Physician Assistant; Visit Provider Physician Assistant | DX: S92.912A Unspecified fracture of left toe(s), initial encounter for closed fracture (principal); S91.209A Unspecified open wound of unspecified toe(s) with damage to nail, initial encounter; S91.109A Unspecified open wound of unspecified toe(s) without damage to nail, initial encounter | CPT/HCPCS: 87070; 87205 ==

== ENCOUNTER → 2022-02-08 | Outpatient (CLI) | payer MEDICARE, OTHER, SELFPAY | END | disposition home or self-care (01) | PROVIDERS: PCP Family Medicine; Visit Provider Podiatrist | DX: L03.032 Cellulitis of left toe (principal) | CPT/HCPCS: 87070; 87075; 87077; 87186; 87205 ==

== ENCOUNTER → 2022-03-30 | Outpatient (CLI) | payer MEDICARE, OTHER, SELFPAY ==
[2022-03-30 14:44] LABS: Bacteria 0 SEEN /hpf (None Seen); Mucous, Urine 0 SEEN /hpf (<or=2+); Red Blood Cells-Urine 0 SEEN /hpf (0-5)
[2022-03-30 15:14] LABS: Color, Urine Yellow (Yellow); Glucose, Dipstick Normal (Normal); Ketone-Dipstick Negative (Negative); Leukocyte Esterase-Dipstick Negative /ul (Negative); Nitrite-Dipstick Negative (Negative); Occult Blood-Urine Negative /ul (Negative); Protein-Dipstick Negative (Negative); Urine Bilirubin Dipstick Negative (Negative); Urine Clarity Clear (Clear); Urine Urobilinogen Normal (Normal); Urine pH 6.5 (5.0 - 8.0)
[2022-03-30 15:20] LABS: Squamous Epithelial Cells - UA 25-50 SEEN /hpf (5-10); White Blood Cells 0-5 SEEN /hpf (0-5)
== END | disposition home or self-care (01) ==
LOC: LABSPEC 14:42
PROVIDERS: PCP Family Medicine; Referring Provider Physician Assistant; Visit Provider Physician Assistant
DX: R30.0 Dysuria (principal)
CPT/HCPCS: 81001; 87077; 87086; 87088; 87186

== ENCOUNTER 2022-05-16 11:00 | Outpatient (RCR) | payer MEDICARE, OTHER, SELFPAY ==
--- NOTE | 2022-04-11 12:44 | HP.PTEVAL ---
Patient's Visit Information AMADO HILARIO is a 77 year old F referred to Physical Therapy by ALEJANDRA Mendoza with a diagnosis of [place]. Date of Evaluation: 04/11/22 Physical Therapist: GO Brito - Visit Plan Frequency: 2x /Week Duration: 2 Months Plan: 2X/ week for 8 weeks for LE strengthening, gait training, static and dynamic balance, endurance, gait training with HEP - Subjective Pt reports that she has been having some falls. She fell January 26 going into [facility] and broke her nose and her toe. She does not know what is causing this. She does not feel steady on her feet. She loves to walk and has not done that because she is afraid that she will fall. She has a cane and does use that if she has to walk a long ways. Then she got to thinking what if this is neurological. Sometimes if she tries to get up, she can not get up the first time. She loves summer and is not getting out much. She feels that her off balance started in the winter. Both her and her had COVID and that knocked her out for awhile and both of them were sick all WINTER. She feels that her legs are wobbly. She has bad vericose veins and she did have them done when she was in her 50's. 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 Sometimes she feels that her R foot is getting neuropathy. Pt has no dizziness. She struggled to step over the bathtub to get into the shower and now they have a walk in but she still stumbles backward. Laundry is in the basement cause she has almost fell BW carrying laundry up the steps. She does ride her mower. She has back pain and hand pain and thinks she is getting arthritis. She is sometimes SOB but not all the time. - Pain back pain Pain Intensity (Out of 10): 5 B hand pain Pain Intensity (Out of 10): 5 - Objective Gait: walks with wide base of support and increase veering from time to time. LE MMT: Hip flex R 14.9 and L 15.3 and R Knee flex 11.3 and L 14.5 and R knee ext 19.5 and L 16.2. Sit to stand: Pt is able to sit to stand without the use of her arms. FGA: 15. Heel and Toe raises: Pt struggles with toe raises on the L but able to do them B especially with UE support. Stairs: up and the stairs recip with 1 hand rail and descends the steps leading with the R and B hand rails due to knee pain. Pt does get SOB with exercises during the eval today. - Balance/Special Test Scores Functional Gait Assessment Score: 15 % Disability: 50.0000 Lower Extremity Functional Score: 43 - Goals Goal 1:: I HEP Goal Time Frame: 6-8 Weeks Goal 2:: Increase FGA by 5 points to decrease fall risk (score at time of eval was 14) Goal Time Frame: 6-8 Weeks Goal 3:: Be able to walk with smaller SHE and no veering walking 100 feet with SBA and least restrictive device Goal Time Frame: 6-8 Weeks Goal 4:: Increase LE strength by 1/2 muscle grade (at time of the eval: LE MMT: Hip flex R 14.9 and L 15.3 and R Knee flex 11.3 and L 14.5 and R knee ext 19.5 and L 16.2). Goal Time Frame: 6-8 Weeks Goal 5:: Feel confident to resume a walking program with least restrictive device. Goal Time Frame: 6-8 Weeks - Rehabilitation Potential Rehabilitation Potential: Good - Anticipated Interventions Patient/Client Instruction: Educate patient on: Condition, Plan of Care For the Purpose of:: To improve nutrient delivery to tissue, To increase oxygenation perfusion, To improve muscle performance and motor function, To improve ability to perform ADL's, To increase tolerance to activity/condition/position, To improve performance and independence with ADL's, To decrease level of supervision to perform tasks, To improve ability of physical actions for home/community/work/leisure, To improve gait and locomotor functions, To increase flexibility/ROM, To improve endurance, To improve balance, To improve safety with gait Therapeutic Exercise to Include: Strength training, Endurance training, Balance training, Coordination, Flexibilty training, Gait and locomotor training, Neuromotor development, Passive ROM For the Purpose of:: To improve nutrient delivery to tissue, To increase oxygenation perfusion, To improve muscle performance and motor function, To improve ability to perform ADL's, To increase tolerance to activity/condition/position, To improve performance and independence with ADL's, To decrease level of supervision to perform tasks, To improve gait and locomotor functions, To decrease soft tissue restriction, To increase flexibility/ROM, To improve endurance, To improve balance, To improve safety with gait Functional Training to Include: Gait training For the Purpose of:: To improve gait and locomotor functions, To improve safety with gait Thank you for the opportunity to evaluate your patient. For Medicare and Medicare HMO plans, please review the plan of care and approve it. It will need to be FAXED BACK to us at [phone] for Medicare purposes. For Medicare only, by signing this I certify the plan of care. Please let me know if there are questions or concerns regarding this plan of care. Physician Signature: Date:
--- NOTE | 2022-05-16 11:28 | HP.PTDCSUM ---
It has been my pleasure to treat AMADO HILARIO referred by ALEJANDRA Mendoza, with the diagnosis of [place] for a total of 10 visit(s). Discharge Date: Please see the following information for a summary of their discharge status. Subjective: Pt 10 min late. She had to go to a [employer] and had to go down 2 flights of stairs and she was downstairs and then walked up the 2 flights of stairs and it almost killed her. She was in so much pain that night cause everything was in pain. Pt has been waking up with her hands red and inflammed. She has an appointment today at 1:[address] Clakr's office. She is still staggering all over the kitchen and she keeps stubbing her toe with walking. At this point she wants to be discharged and will discuss this with the Dr that refer her here in Jun. She can do the exercises but she has pain more than anything and poor balance and stumbling especially on the steps (trouble lifting her leg up to clear her foot). Pt feel that the weather is contributing to her pain back pain Pain Intensity (Out of 10): 6 B hand pain Pain Intensity (Out of 10): 6 L LE Pain Intensity (Out of 10): 6 Overall pain Pain Intensity (Out of 10): 6 % Improvement: 50 Objective/Function: LE MMT: R hip flex 12.7 and L 13.1#. R knee ext 17.9# and L knee ext 18.9#. R knee flex 14.5# and L knee flex 19#. FGA: 18 Goal 1:: I HEP Goal Progress: Progressing Goal 2:: Increase FGA by 5 points to decrease fall risk (score at time of eval was 14) Goal Progress: Goal Met Goal 3:: Be able to walk with smaller SHE and no veering walking 100 feet with SBA and least restrictive device Goal Progress: Progressing Goal 4:: Increase LE strength by 1/2 muscle grade (at time of the eval: LE MMT: Hip flex R 14.9 and L 15.3 and R Knee flex 11.3 and L 14.5 and R knee ext 19.5 and L 16.2). Goal Progress: Goal Met Goal 5:: Feel confident to resume a walking program with least restrictive device. Goal Progress: Not Progressing Plan: 2X/ week for 8 weeks for LE strengthening, gait training, static and dynamic balance, endurance, gait training with HEP If there are questions or concerns regarding this patient's physical therapy, please feel free to call me at [phone]. Thank you for the referral of this patient. Sincerely, Kaitlin Rodriguez, MPT Balance/Gait/Functional tests - Balance/Special Test Scores Functional Gait Assessment Score: 18 % Disability: 40.0000 Lower Extremity Functional Score: 43
== END 2022-05-16 19:00 | disposition home or self-care (01) ==
LOC: PT 11:00
PROVIDERS: PCP Family Medicine; Referring Provider Physician Assistant; Visit Provider Physician Assistant
DX: R29.6 Repeated falls (principal)
CPT/HCPCS: 97110; 97161; 97530

== ENCOUNTER → 2022-05-16 | Outpatient (CLI) | payer MEDICARE, OTHER, SELFPAY | END | disposition home or self-care (01) | LOC: LABSPEC 13:48 | PROVIDERS: PCP Family Medicine; Referring Provider Physician Assistant; Visit Provider Physician Assistant | DX: R05.9 Cough, unspecified (principal); R06.02 Shortness of breath | CPT/HCPCS: 87635; U0003; U0005 ==

== ENCOUNTER → 2022-10-04 | Outpatient (CLI) | payer MEDICARE, OTHER, SELFPAY ==
[2022-10-04 16:39] LABS: Absolute Lymphocyte Count 1.25 X10^3/uL (0.83-4.51); Absolute Neutrophil Count 4.7 X10^3/uL (2.0-7.7); Basophil# 0.03 X10^3/uL; Basophil% 0.5 % (0-1); Eosinophils% 1.5 % (0-5); Hematocrit 38.9 % (37-47); Hemoglobin 12.6 g/dL (12.0-15.0); Lymphocyte # 1.25 X10^3/ul (0.83-4.51); Lymphocyte % 19.2 % (19-41); Mean Corp Hgb Conc 32.4 g/dL (32-36); Mean Corpuscular Hgb 32.7 pg (27.0-32.0); Mean Platelet Vol. 10.6 fl (6.2-12.0); Monocyte# 0.43 X10^3/uL; Monocyte% 6.6 % (0-10); NRBC Flagged by Analyzer 0 % (0-5); Neutrophil # 4.69 X10^3/uL (2.7-7.7); Neutrophil % 71.9 % (47-70); Platelet Count 374 K/mm3 (150-450); RBC Distribution Width CV 13.8 % (11.6-14.6); RBC Distribution Width SD 51.9 fl (35.1-43.9); Red Blood Count 3.85 M/mm3 (4.2-5.4); White Blood Count 6.5 K/mm3 (4.4-11.0)
[2022-10-04 16:49] LABS: ALB/GLOB Ratio 0.8 RATIO (0.9-2.4); AST(SGOT) 18 U/L (15-37); Alanine Aminotransfer ALT/SGPT 27 U/L (13-56); Albumin, Serum 3.6 g/dL (3.2-5.0); Alkaline Phosphatase 96 U/L (45-117); Anion Gap 5 (5-15); BUN 26 mg/dL (7-18); BUN/Creat Ratio 34.4 RATIO (10-20); Calcium,Total 9.3 mg/dL (8.5-10.1); Chloride 108 mmol/L (98-107); Cholesterol 226 mg/dL (200); Creatinine, Serum 0.76 mg/dL (0.55-1.02); EST Glomerular Filtration Rate 79 mL/min (>60); Est Glom Filt Rate - Afr Amer 96 mL/min (>60); Globulin 4.3 g/dL (2.2-4.2); Glucose 110 mg/dL (74-106); High Density Lipoprotein 51 mg/dL; Potassium 4.2 mmol/L (3.5-5.1); Protein, Total 7.9 g/dL (6.4-8.2); Sodium Level 139 mmol/L (136-145); Triglycerides 212 mg/dL; Very Low Density Lipoprotein 42 mg/dL (5-40)
== END | disposition home or self-care (01) ==
LOC: BIMLAB 15:22
PROVIDERS: PCP Family Medicine; Referring Provider Family Medicine; Visit Provider Family Medicine
DX: E55.9 Vitamin D deficiency, unspecified (principal); J42 Unspecified chronic bronchitis; D51.0 Vitamin B12 deficiency anemia due to intrinsic factor deficiency; E78.2 Mixed hyperlipidemia
CPT/HCPCS: 36415; 80053; 80061; 85025

== ENCOUNTER → 2022-10-05 | Outpatient (CLI) | payer MEDICARE, OTHER, SELFPAY ==
[2022-10-05 13:07] LABS: Mucous, Urine 0 SEEN /hpf (<or=2+); Red Blood Cells-Urine 0 SEEN /hpf (0-5); White Blood Cells 0 SEEN /hpf (0-5)
[2022-10-05 15:23] LABS: Color, Urine Yellow (Yellow); Glucose, Dipstick NEGATIVE (Normal); Ketone-Dipstick Negative (Negative); Urine Bilirubin Dipstick Negative (Negative); Urine Clarity Clear (Clear)
[2022-10-05 15:24] LABS: Bacteria 1+ /hpf (None Seen); Leukocyte Esterase-Dipstick Negative /ul (Negative); Nitrite-Dipstick Negative (Negative); Occult Blood-Urine Negative /ul (Negative); Protein-Dipstick Negative (Negative); Squamous Epithelial Cells - UA 0-5 SEEN /hpf (5-10); Urine Urobilinogen Normal (Normal)
== END | disposition home or self-care (01) ==
LOC: LABSPEC 13:06
PROVIDERS: PCP Family Medicine; Referring Provider Family Medicine; Visit Provider Family Medicine
DX: N39.0 Urinary tract infection, site not specified (principal)
CPT/HCPCS: 81001

== ENCOUNTER → 2022-12-01 | Outpatient (CLI) | payer MEDICARE, OTHER, SELFPAY | END | disposition home or self-care (01) | PROVIDERS: PCP Family Medicine; Visit Provider Advanced Practice Midwife | DX: N89.8 Other specified noninflammatory disorders of vagina (principal) | CPT/HCPCS: 87070; 87205 ==

== ENCOUNTER → 2023-10-05 | Outpatient (CLI) | payer MEDICARE, SELFPAY ==
--- OUTSIDE RECORDS SUMMARY | 2023-10-05 16:59 | XMS RPT_ITS | CCD ---
Author Name Unknown Address [address] [place] [address] Organization [facility] Care Team Providers Care Gas Substation Operator Name Role Phone GOOD CLARK Unavailable Unavailable GOOD CLARK Unavailable Unavailable Good Clark DO Primary Care Provider GOOD CLARK Primary Care Unavailable BREANNA HENSON Referring Unavailable BREANNA HENSON Attending Unavailable GOOD CLARK Primary Care Unavailable LOLA RICHARDSON Referring Unavailable GOOD CLARK Primary Care Unavailable BREANNA HENSON Referring Unavailable GOOD CLARK Primary Care Unavailable Allergies Allergy Classification Reported Allergen(s) Allergy Type Date of Onset Reaction(s) Facility (5 sources) Amoxicillin; Translations: [AMOXICILLIN] Drug Allergy 0 [facility], Itching [facility] (5 sources) Erythromycin; Translations: [ERYTHROMYCIN] Drug Allergy 0 [facility] Work Phone: (5 sources) Pethidine analog; Translations: [OPIOIDS-MEPERID INE AND RELATED] Propensity to adverse reactions [address] [facility] Work Phone: (5 sources) Propoxyphene; Translations: [PROPOXYPHENE] Drug Allergy [address] [facility] (5 sources) Sulfonamides (Antibiotic); Translations: [SULFA (SULFONAMIDE ANTIBIOTICS)] Propensity to adverse reactions 0 [facility] (5 sources) tolterodine; Translations: [TOLTERODINE] Drug Allergy [address] [facility] Medications Completed/Discontinued Medications Medication Drug Class(es) Dates Sig (Normalized) Sig (Original) [id number] 200 actuat albuterol 0.09 mg/actuat metered dose inhaler (4 sources) beta2-Adrenergic Agonist Start: 10-17-2021 take 2 puff(s) by inhalation every six hours as needed albuterol HFA (PROVENTIL HFA, VENTOLIN HFA) 90 mcg/actuation inhaler Inhale 2 Puffs as instructed every 6 hours as needed. 1 Inhaler 1 10/17/2021 Active Problems Active Problems Problem Classification Problem Date Documented Date Episodic/Chronic Anxiety disorders (4 sources) Anxiety state; Translations: [Generalized anxiety disorder] 06-24-2010 Chronic Cancer of breast (4 sources) Malignant neoplasm of female breast; Translations: [Malignant neoplasm of unspecified site of unspecified female breast] Onset: 12-31-2009 12-31-2009 Chronic Chronic obstructive pulmonary disease and bronchiectasis (4 sources) Emphysematous bronchitis; Translations: [Chronic obstructive pulmonary disease, unspecified] 11-10-2019 Chronic Complications of surgical procedures or medical care (4 sources) Menopausal symptom; Translations: [Symptomatic postprocedural ovarian failure] Onset: 01-25-2004 06-24-2010 Chronic Disorders of lipid metabolism (4 sources) Hyperlipidemia; Translations: [Hyperlipidemia, unspecified] 06-24-2010 Chronic Esophageal disorders (4 sources) Gastroesophageal reflux disease; Translations: [Gastro-esophageal reflux disease without esophagitis] Onset: 01-25-2004 06-24-2010 Chronic Nonmalignant breast conditions (4 sources) Fibrocystic changes of bilateral breasts; Translations: [Diffuse cystic mastopathy of right breast] Onset: 06-20-2016 06-20-2016 Chronic Nutritional deficiencies (4 sources) Vitamin D deficiency; Translations: [Vitamin D deficiency, unspecified] Onset: 09-14-2011 09-14-2011 Chronic Other and unspecified benign neoplasm (4 sources) History of polyp of colon; Translations: [Personal history of colonic polyps] 06-24-2010 Episodic Other screening for suspected conditions (not mental disorders or infectious disease) (3 sources) Patient encounter status; Translations: [Encounter for screening mammogram for malignant neoplasm of breast] Onset: 01-08-2023 Episodic Regional enteritis and ulcerative colitis (4 sources) Crohn's disease; Translations: [Crohn's disease, unspecified, without complications] Onset: 07-26-2012 07-26-2012 Chronic Substance-related disorders (4 sources) Tobacco user; Translations: [Nicotine dependence, unspecified, uncomplicated] Onset: 11-30-2003 06-24-2010 Chronic Thyroid disorders (4 sources) Hypothyroidism; Translations: [Hypothyroidism, unspecified] Onset: 07-26-2012 07-26-2012 Chronic Unclassified (1 source) Acute cough; Translations: [Acute cough] Onset: 01-23-2023 Past or Other Problems Problem Classification Problem Date Documented Date Episodic/Chronic Biliary tract disease (4 sources) Gallstone; Translations: [Calculus of gallbladder without cholecystitis without obstruction] Onset: 07-17-2012 07-17-2012 Episodic Cancer of breast (7 sources) History of malignant neoplasm of breast; Translations: [Personal history of malignant neoplasm of breast] Onset: 05-21-2014 Episodic Nonmalignant breast conditions (8 sources) Inflammatory disorder of breast; Translations: [Mastitis without abscess] Onset: 10-27-2004 06-24-2010 Episodic Other and unspecified benign neoplasm (4 sources) Benign tumor of breast; Translations: [Benign neoplasm of unspecified breast] Onset: 05-02-2004 06-24-2010 Episodic Other and unspecified benign neoplasm (4 sources) Benign neoplasm of skin of lower limb; Translations: [Other benign neoplasm of skin of unspecified lower limb, including hip] Onset: 09-20-2005 06-24-2010 Episodic Other non-traumatic joint disorders (4 sources) Shoulder pain; Translations: [Pain in right shoulder] Onset: 10-18-2015 10-18-2015 Episodic Spondylosis; intervertebral disc disorders; other back problems (4 sources) Lumbago with sciatica; Translations: [Lumbago with sciatica, left side] Onset: 10-18-2015 10-18-2015 Episodic Results Test Name Value Interpretation Reference Range Facil ity Vital Signs Date Time Vital Sign Value Performing Clinician Faci lity 02-07-2023 11:43-0400 Body height 158 cm Breanna Henson APRN.CNP Work Phone: [facility] 02-07-2023 11:43-0400 Body temperature 98.49 [degF] Breanna Henson APRN.CNP Work Phone: [facility] 02-07-2023 11:43-0400 Body weight 65.32 kg Breanna Henson APRN.VIDEO GAMES MECHANIC Work Phone: [facility] 02-07-2023 11:43-0400 Diastolic blood pressure 72 mm[Hg] Breanna Henson MANUFACTURING WORKER.VIDEO GAMES MECHANIC Work Phone: [facility] 02-07-2023 11:43-0400 Heart rate 89 /min Breanna Henson MANUFACTURING WORKER.VIDEO GAMES MECHANIC Work Phone: [facility] 02-07-2023 11:43-0400 SaO2% (BldA) [Mass fraction] 95 % Breanna Henson MANUFACTURING WORKER.VIDEO GAMES MECHANIC Work Phone: [facility] 02-07-2023 11:43-0400 Systolic blood pressure 141 mm[Hg] Breanna Henson MANUFACTURING WORKER.VIDEO GAMES MECHANIC Work Phone: [facility] Encounters Encounter Date Encounter Type Care Provider Facility Start: 02-07-2023 End: 02-07-2023 ambulatory GOOD CLARK Facility:[facility] Start: 02-07-2023 End: 02-07-2023 ambulatory Breanna Henson MANUFACTURING WORKER.VIDEO GAMES MECHANIC Work Phone: Hematology/Oncology Plan of Treatment Date Care Activity Detail Author Start: 04-15-2024 DIABETES SCREEN DIABETES SCREEN [facility] Start: 09-10-2022 ADVANCE DIRECTIVE DISCUSSION ADVANCE DIRECTIVE DISCUSSION [facility] Start: 09-10-2022 DEPRESSION ASSESSMENT DEPRESSION ASSESSMENT [facility] Start: 05-11-2022 Influenza vaccination INFLUENZA (#1) [facility] Start: 01-28-2021 COVID-19 VACCINE (3 - Booster for Pfizer series) COVID-19 VACCINE (3 - Booster for Pfizer series) [facility] Start: 2006 HEPATITIS B (1 of 3 - Risk 3-dose series) HEPATITIS B (1 of 3 - Risk 3-dose series) [facility] Start: 09-11-1999 Urine microalbumin profile DTAP,TDAP,TD (1 - Tdap) [facility] Start: 02-05-1996 SHINGRIX VACCINE (1 of 2) SHINGRIX VACCINE (1 of 2) [facility] Start: 02-05-1964 ANNUAL PCP TEAM CHRONIC DISEASE VISIT ANNUAL PCP TEAM CHRONIC DISEASE VISIT [facility] Start: 02-05-1964 HEPATITIS C SCREENING HEPATITIS C SCREENING [facility] Start: 02-05-1964 MMR (1 of 2 - Risk 2-dose series) MMR (1 of 2 - Risk 2-dose series) [facility] Start: 02-05-1956 MENINGOCOCCAL B: Consider based on risk (1 of 4 - Increased Risk Bexsero 2-dose series) MENINGOCOCCAL B: Consider based on risk (1 of 4 - Increased Risk Bexsero 2-dose series) [facility] Start: 02-05-1952 PNEUMOCOCCAL: 65+ (1 - PCV) PNEUMOCOCCAL: 65+ (1 - PCV) [facility] Start: 1947 HEPATITIS A (1 of 2 - Risk 2-dose series) HEPATITIS A (1 of 2 - Risk 2-dose series) [facility] End: 12-13-2023 DAMIAN SCREENING W AGUEDA DAMIAN SCREENING W AGUEDA Radiology Routine Personal history of breast cancer Encounter for screening mammogram for high-risk patient 1 Occurrences starting 11/14/2022 until 12/13/2023 [facility] Work Phone: Immunizations Immunization Date Immunization Notes Care Provider Phil bennett 06-29-2021 influenza, high dose seasonal, preservative-free Breanna Henson MANUFACTURING WORKER.VIDEO GAMES MECHANIC Work Phone: [facility] Work Phone: 12-03-2020 COVID-19 original vaccine, age 12+ yr, monovalent (PFIZER-BIONTECH - PURPLE TOP) Maybee Henson MANUFACTURING WORKER.VIDEO GAMES MECHANIC Work Phone: [facility] 11-12-2020 COVID-19 original vaccine, age 12+ yr, monovalent (PFIZER-BIONTECH - PURPLE TOP) Breanna Henson MANUFACTURING WORKER.VIDEO GAMES MECHANIC Work Phone: [facility] Work Phone: 06-24-2020 influenza, high dose seasonal, preservative-free Maybee Henson MANUFACTURING WORKER.VIDEO GAMES MECHANIC Work Phone: [facility] Work Phone: 06-23-2010 influenza virus vaccine, unspecified formulation Breanna Henson MANUFACTURING WORKER.VIDEO GAMES MECHANIC Work Phone: [facility] Work Phone: 09-10-1999 tetanus and diphther ia toxoids, adsorbed, preservative free, for adult use (2 Lf of tetanus toxoid and 2 Lf of diphtheria toxoid) Breanna Henson APRN.VIDEO GAMES MECHANIC Work Phone: [facility] Payers Date Payer Category Payer Medicare [id number] 2019 Unknown MMO MMO MEDICARE SUPPLEMENT [id number] 2019-Present [phone] [address] [place] [address] Indemnity [id number] 2017 Medicare [id number] 2011 Medicare MEDICARE MEDICAR E A AND B [id number] 2011-Present [phone] [place] [address] Medicare [id number] 2011 Medicare [id number] Social History Date Type Detail Facility Start: 04-15-2021 End: 01-23-2023 Tobacco smoking status NHIS Smokes tobacco daily [facility] History of tobacco use Cigarette Smoker C [facility] Start: 04-15-2021 End: 01-23-2023 Cigarettes smoked current (pack per day) - Reported 0.[address] [facility] Start: 04-15-2021 End: 01-23-2023 Tobacco use and exposure Smokeless tobacco non-user [facility] Start: 11-21-2021 End: 02-07-2023 Alcohol intake Current drinker of alcohol (finding) [facility] Start: 11-15-2020 End: 01-23-2023 Tobacco Comment Pt has cut back to 5-6 cigarettes daily[address] [facility] Start: 04-15-2021 Alcohol Comment social [facility] Start: 1945 Sex Assigned At Not on file C [facility] Clinical Notes 02-08-2011 to 02-20-2023 Breanna Henson APRN.CNP - 02/07/2023 11:52 AM EDTLetter - Mammography Coordinator - 01/08/2023 12:45 PM EDTAddendum Note - Chano Nino MD - 12/01/2022 1:25 PM EDT Note Date & Type Note Facility 02-20-2023 Note HNO ID: [id number] Author: Chano Nino MD Service: ? Author Type: Physician Type: Progress Notes Filed: 02/20/2023 12:42 PM Note Text: Telephone visit, 20 minutes, patient agreed I have communicated my name and active licensure. The patient's identity and physical location were verified at the time of this visit. Either the patient or their legal applications sales representative has been informed of the risks and benefits of -- and alternatives to -- treatment through a remote evaluation and consents to proceed with the evaluation remotely. This 78 year old female patient with Crohn's dsiease, s/p 2 resections, currently on no meds. 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 +abd pain, better with a bm. Moving bowels up 2x/day, but mostly every other day. On a stool softener, and mom one teaspoon daily. Wt stable, +bleeding. Labs and colonoscopy polyps in 2018 Constipation/Crohn's disease - Continue MoM nightly. Pt would prefer to wait for surveillance colonoscopy. Chano Nino MD [facility] 02-07-2023 Note HNO ID: [id number] Author: Breanna Henson APRN.[facility] Service: ? Author Type: Nurse Practitioner Type: Progress Notes Filed: 02/08/2023 12:40 PM Note Text: Chief Complaint Patient presents with: Established Patient HPI: Ana Hilario is a 78 year old female who presents here today for follow up breast cancer. Per Dr. Mayer's previous note: H/o underwent right partial mastectomy and SLN biopsy followed by limited axillary LN dissection and left partial mastectomy on 12/23/09. Previous therapy: 1) Dose dense AC followed by T completed 05/19/10. 2) Radiation completed 08/03/10. Started anastrozole after radiation, but had shaking panic attacks. Then changed to tamoxifen, but stopped end of July as she was having more panic attacks. They have eased since stopping tamoxifen. Started tamoxifen again March 2012, but then stopped again a few weeks later. She restarted for a few weeks then stopped again-fall 2011. Started tamoxifen again-05/2013. Admits to not taking regularly. Stopped tamoxifen again early 2014. Had colonoscopy December 2017. Next due in 2020. No new concerns today. Appetite: Too good. Energy level: Pretty. Denies fevers. Resp:+cough-on Doxy by PCP, denies sob Cardiac:denies chest pain/palpitations GI:+abd pain r/t crohn's disease-followed by Dr. Nino, +nausea-takes compazine prn, denies vomiting, bowels fluctuate :denies dysuria/hematuria Extrem:low back pain and leg pain-chronic Neuro:+neuropathy to feet- It's still there. I just keep walking. Endo:denies hot flashes Skin:denies rashes/lesions Heme:no recent rectal bleeding with the Crohn's. The ROS is otherwise negative. Past medical history, appointments, medications, allergies reviewed. No changes. EXAM: BP 141/72 Pulse 89 Temp 36.9 ?C (98.5 ?F) Ht 158 cm (5' 2.21 ) Wt 65.3 kg (144 lb) SpO2 95% BMI 26.16 kg/m? APPEARANCE Well appearing, alert, in no acute distress, well-hydrated, well nourished. HEART RRR with normal S1 and S2, no murmurs LUNG clear to auscultation BREAST FEMALE no mass/nodule b/l, multiple surgical scars b/l, b/l tenderness stable LYMPH NODES No cervical lymphadenopathy, No supraclavicular lymphadenopathy, and No axillary lymphadenopathy. ABDOMEN bowel sounds normoactive, soft, non-tender EXTREMITIES No edema NEURO Awake, alert and oriented x 3, Normal gait, and No involuntary motions. SKIN Skin color, texture, turgor normal, no suspicious rashes or lesions RADIOLOGY: Mammogram 01/08/23: IMPRESSION: BENIGN FINDING There is no mammographic evidence of malignancy. A 1 year screening mammogram is recommended. ASSESSMENT/PLAN: 1. 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 - No concerning findings on exam. - Pt. stopped AI/tamox therapy prematurely. - Reviewed mammogram with pt. - Follow up with GI/Dr. Nino. - Mammogram due in January 2024. - Follow up in one year. - Pt. aware to call office with any questions/concerns. The patient indicates understanding of these issues and agrees with the plan. All documentation from previous visit of 11/16/21-Dr. Mayer/myself was copied and pasted, documentation has been reviewed and edited as necessary for today's visit. Breanna Henson APRN.[facility] 02-07-2023 History of Presen t illness Narrative Chief Complaint Patient presents with: Established Patient HPI: Ana Hilario is a 78 year old female who presents here today for follow up breast cancer. Per Dr. Mayer's previous note: H/o underwent right partial mastectomy and SLN biopsy followed by limited axillary LN dissection and left partial mastectomy on 12/23/09. Previous therapy: 1) Dose dense AC followed by T completed 05/19/10. 2) Radiation completed 08/03/10. Started anastrozole after radiation, but had shaking panic attacks. Then changed to tamoxifen, but stopped end of July as she was having more panic attacks. They have eased since stopping tamoxifen. Started tamoxifen again March 2012, but then stopped again a few weeks later. She restarted for a few weeks then stopped again-fall 2011. Started tamoxifen again-05/2013. Admits to not taking regularly. Stopped tamoxifen again early 2014. Had colonoscopy December 2017. Next due in 2020. No new concerns today. Appetite: Too good. Energy level: Pretty. Denies fevers. Resp:+cough-on Doxy by PCP, denies sob Cardiac:denies chest pain/palpitations GI:+abd pain r/t crohn's disease-followed by Dr. Nino, +nausea-takes compazine prn, denies vomiting, bowels fluctuate :denies dysuria/hematuria Extrem:low back pain and leg pain-chronic Neuro:+neuropathy to feet- It's still there. I just keep walking. Endo:denies hot flashes Skin:denies rashes/lesions Heme:no recent rectal bleeding with the Crohn's. The ROS is otherwise negative. Past medical history, appointments, medications, allergies reviewed. No changes. EXAM: BP 141/72 Pulse 89 Temp 36.9 C (98.5 F) Ht 158 cm (5' 2.21 ) Wt 65.3 kg (144 lb) SpO2 95% BMI 26.16 kg/m APPEARANCE Well appearing, alert, in no acute distress, well-hydrated, well nourished. HEART RRR with normal S1 and S2, no murmurs LUNG clear to auscultation BREAST FEMALE no mass/nodule b/l, multiple surgical scars b/l, b/l tenderness stable LYMPH NODES No cervical lymphadenopathy, No supraclavicular lymphadenopathy, and No axillary lymphadenopathy. ABDOMEN bowel sounds normoactive, soft, non-tender EXTREMITIES No edema NEURO Awake, alert and oriented x 3, Normal gait, and No involuntary motions. SKIN Skin color, texture, turgor normal, no suspicious rashes or lesions RADIOLOGY: Mammogram 01/08/23: IMPRESSION: BENIGN FINDING There is no mammographic evidence of malignancy. A 1 year screening mammogram is recommended. ASSESSMENT/PLAN: 1. 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 - No concerning findings on exam. - Pt. stopped AI/tamox therapy prematurely. - Reviewed mammogram with pt. - Follow up with GI/Dr. Nino. - Mammogram due in January 2024. - Follow up in one year. - Pt. aware to call office with any questions/concerns. The patient indicates understanding of these issues and agrees with the plan. All documentation from previous visit of 11/16/21-Dr. Mayer/myself was copied and pasted, documentation has been reviewed and edited as necessary for today's visit. Breanna Henson APRN.[facility]AS[facility] documented in this encounter [facility] 01-23-2023 Note HNO ID: [id number] Author: RT Wendy(R) Service: Radiology Author Type: Technologist Type: Progress Notes Filed: 01/23/2023 1:34 PM Note Text: Radiology Service Progress Note PATIENT NAME: Ana Hilario DATE OF SERVICE: January 23, 2023 TIME: 1:24 PM PATIENT IDENTITY VERIFICATION COMPLETED USING TWO (2) IDENTIFIERS: Name and Date of confirmed by patient verbally. FALL SCREENING: Has the patient had 2 falls in the last year or 1 fall with injury or currently using an Ambulatory Assistive Device (Walker, Cane, Wheelchair, Crutches, etc.)? No PATIENT GENDER DATA: Female. status: : No status: NO. PATIENT RELEVANT IMPLANT DATA REVIEWED: Yes RADIOLOGY DEPARTMENT: General X-ray: Exam(s) Completed: Chest X-Ray PERIPHERAL IV DATA: Not applicable SIGNED BY: RT Wendy(R) January 23, 2023 1:24 PM [facility] 01-23-2023 Note HNO ID: [id number] Author: Lola Richardson APRN.VIDEO GAMES MECHANIC Service: ? Author Type: Nurse Practitioner Type: Progress Notes Filed: 01/23/2023 1:52 PM Note Text: CC: Patient presents with: Cough: Pt reported chest congestion x1 wk. HPI: Ana Hilario is a 77 year old female who presents to the office with complaint of chest congestion, head congestion, cough, nonproductive, and wheezing for a week. Symptoms are staying the same. Associated symptoms includes nasal congestion and facial pain/pressure. Denies fever, nausea, vomiting , and diarrhea. Treatments tried include nothing so far. with no relief of symptoms. Sick contacts: unknown. History of asthma, frequent episodes of bronchitis, chronic bronchitis, bronchiectasis or COPD: Yes COPD Smoker: No Seasonal/environmental allergies: No The ROS is otherwise negative. The patient's pmh, medications, allergies, and past visits are reviewed. PHYSICAL EXAM: BP 142/74 Pulse 102 Temp 36.4 ?C (97.6 ?F) (Tympanic) Resp 18 Wt 64.4 kg (142 lb) SpO2 97% BMI 25.76 kg/m? General appearance: alert, cooperative, pleasant, in no acute distress Head: Normocephalic Eyes: EOM's intact, conjunctiva pink and moist, no icterus, sclera white, non-injected Ears: Right ear: External ear/canal- Normal, TM - clear with good landmarks. Left ear: External ear/canal- Normal, TM - clear with good landmarks Oropharynx:moist without lesions, No erythema, exudates or tonsillar hypertrophy. Heart: Negative. RRR without obvious murmur, gallop, or rubs. No ectopy. Lungs: clear to auscultation, without rales or wheeze, good air exchange PAST MEDICAL HISTORY Diagnosis Date Anxiety states 1981 psych hospitalization Breast cancer (HCC) 2010 COPD with chronic bronchitis (HCC) Crohn's disease (HCC) Diffuse cystic mastopathy Hypothyroidism Incontinence of feces Irritable bowel syndrome Irritable bowel Other and unspecified hyperlipidemia good HDL Other and unspecified ovarian cyst bilateral oophorectomy Peritonitis and retroperitoneal infections Associated with an SBO Personal history of colonic polyps Colon polyps-TUBULAR ADENOMA Urinary incontinence PAST SURGICAL HISTORY Procedure Laterality Date ANTERIOR COLPORRAPHY RPR CYSTOCELE W/CYSTO 1995 Cystocele repair APPENDECTOMY 1974 BREAST BIOPSY INCISIONAL Left 12/23/2009 left breast with prior needle localization BREAST LEFT FINE NEEDLE ASPIRATION 09-21-03 left breast u/s guided FNA BX BREAST NEEDLE CORE W/O IMAGING GUIDANCE SPX right breast stereo bx. - benign COLONOSCOPY FLX DX W/COLLJ SPEC WHEN PFRMD 12/1998 Colonoscopy, 2 TA COLONOSCOPY FLX DX W/COLLJ SPEC WHEN PFRMD 02/09 Colonoscopy normal COLONOSCOPY FLX DX W/COLLJ SPEC WHEN PFRMD 02/2016 Colonoscopy COLONOSCOPY FLX DX W/COLLJ SPEC WHEN PFRMD 12/19/2017 Colonoscopy EXC BREAST LES PREOP PLMT RAD MARKER OPEN 1 LES Left 10-29-03 left breast with prior needle localization INSJ TUNNELED CTR VAD W/SUBQ PORT AGE 5 YR/> 5/30/06 Left Subclavian MASTECTOMY, PARTIAL Right 12/23/2009 right breast with prior needle localization; SLND MASTOTOMY W/EXPLORATION/DRAINAGE ABSCESS DEEP Left 10-26-04 left breast abscess I AND D NIPPLE EXPLORATION Left 04-26-04 left breast ductogram, left duct exc., and excision of left breast lesion. OOPHORECTOMY PARTIAL/TOTAL UNI/BI Bilateral oophrectomy- bilateral; cystocele and rectocele repair SALPINGO-OOPHORECTOMY COMPL/PRTL UNI/BI SPX 1995 Salpingo-oophorectomy for cysts TOTAL ABDOMINAL HYSTERECT W/WO RMVL TUBE OVARY 1991 Hysterectomy, COURTNEY for fibroids VAGINAL HYSTERECTOMY UTERUS 250 GM/< 1980's ALLERGIES Tolterodine, Amoxicillin, Erythromycin, Opioids-Meperidine And Related, Propoxyphene, and Sulfa (Sulfonamide Antibiotics) MEDICATIONS prochlorperazine (COMPAZINE) 5 mg tablet Take 2 tablets by mouth twice daily as needed. ascorbic acid, vitamin C, (VITAMIN C) 500 mg tablet Take 500 mg by mouth once daily. elderberry fruit (ELDERBERRY ORAL) Take 1 tablet by mouth once daily. ZINC ORAL Take 1 tablet by mouth once daily. albuterol HFA (PROVENTIL HFA, VENTOLIN HFA) 90 mcg/actuation inhaler Inhale 2 Puffs as instructed every 6 hours as needed. prochlorperazine (COMPAZINE) 10 mg tablet Take 1 tablet by mouth as needed. budesonide-formoterol (SYMBICORT) 160-4.5 mcg/actuation inhaler Inhale 2 Puffs as instructed twice daily. cholecalciferol, Vitamin D3, (VITAMIN D3) 1,250 mcg (50,000 unit) cap capsule Take 1 capsule by mouth one time a week. estradiol (ESTRACE) 0.01 % (0.1 mg/gram) vaginal cream Use 1 g vaginally two times a week. cyanocobalamin, vitamin B-12, 1,000 mcg/mL kit by INJECTION(UNSPECIFIED PARENTERAL ROUTES) route once every month. omeprazole (PRILOSEC) 20 mg capsule Take 1 capsule by mouth once daily. levothyroxine (SYNTHROID) 175 mcg tablet Take 175 mcg by mouth once daily. BUSPIRONE HCL 7.5 mg tablet Take 7.5 mg by mouth thre (more content not included)... [facility] 01-08-2023 Note HNO ID: [id number] Author: RT Danita(R) Service: ? Author Type: Technologist Type: Progress Notes Filed: 01/08/2023 10:37 AM Note Text: Radiology Service Progress Note PATIENT NAME: Ana Hilario DATE OF SERVICE: January 08, 2023 TIME: 10:36 AM PATIENT IDENTITY VERIFICATION COMPLETED USING TWO (2) IDENTIFIERS: Name and Date of confirmed by patient verbally. FALL SCREENING: Has the patient had 2 falls in the last year or 1 fall with injury or currently using an Ambulatory Assistive Device (Walker, Cane, Wheelchair, Crutches, etc.)? No PATIENT GENDER DATA: Female. status: : No status: NO. PATIENT RELEVANT IMPLANT DATA REVIEWED: Not Applicable RADIOLOGY DEPARTMENT: Mammography PERIPHERAL IV DATA: Not applicable SIGNED BY: RT Danita(R) January 08, 2023 10:36 AM [facility] 01-08-2023 Miscellaneous Notes January 09, 2023 PID: [id number] Ana Hilario [address] [place] [id number] Dear Shazia Hilario, We are pleased to inform you that the results of your recent breast imaging exam on 01/08/2023 are normal. Early detection of cancer is very important. We also understand recommendations regarding breast cancer screening are controversial. Please discuss with your primary care provider which strategy is best for you and whether a mammogram is right for you. Your imaging studies and report will be kept on file at [facility] as part of your permanent medical record and are available for your continuing care. Thank you for allowing us to help in meeting your health care needs. Sincerely, Dr. Woodson Interpreting Radiologist [facility] (Normal over 40) documented in this encounter [facility] 12-01-2022 Miscellaneous Notes Addended by: CHANO NINO on: 12/01/2022 01:25 PM Modules accepted: Orders Patient phones stating she has had dry heaves for the past 2 days (no vomiting) She's requesting a prescription for compazine Done. Chano Nino MD documented in this encounter [facility] 11-14-2022 Miscellaneous Notes Spoke with patient and rescheduled. Sabine Real Done. Breanna Henson APRN.ERASMO Order pended. Cristina Cardona LPN Please file new Tomography Mammogram Order as current order will before there is an opening. Sabine Real Pts apt with Breanna on 11/13 has been canceled due to missing DAMIAN. Pt needs DAMIAN and OV rescheduled. 1st attempt: LM When pt returns call please assist is rescheduling the missed DAMIAN and OV(a few days later) Once completed please document in this encounter. Thank you! documented in this encounter [facility] documented as of this encounter (statuses as of 11/14/2022) 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 Diagnosis Personal history of breast cancer- Primary Personal history of malignant neoplasm of breast Encounter for screening mammogram for high-risk patient [facility] Diagnosis Personal history of breast cancer- Primary Personal history of malignant neoplasm of breast Encounter for screening mammogram for high-risk patient documented in this encounter [facility] for referral (narrative)* Diagnostic Procedure Only (Routine) - Authorized Specialty Diagnoses / Procedures Referred By Gerardo escobedo Referred To Contact [facility] Diagnoses Personal history of breast cancer Encounter for screening mammogram for high-risk patient Procedures DAMIAN SCREENING W AGUEDA SCREENING DIGITAL BREAST TOMOSYNTHESIS BI SCREENING MAMMOGRAPHY BI 2-VIEW BREAST INC Breanna Gee APRN.VIDEO GAMES MECHANIC [address] [place] [address] [facility] [address] [place] [address] Referral ID Status Reason Start Date Expiration Date Visits Requested Visits Authorized [id number] Authorized Auto-Generat ed Referral 11/14/2022 12/13/2023 1 1 [facility] for referral (narrative)* Diagnostic Procedure Only (Routine) - Authorized Specialty Diagnoses / Procedures Referred By Gerardo escobedo Referred To Contact [facility] Diagnoses Personal history of breast cancer Encounter for screening mammogram for high-risk patient Procedures DAMIAN SCREENING W AGUEDA SCREENING DIGITAL BREAST TOMOSYNTHESIS BI SCREENING MAMMOGRAPHY BI 2-VIEW BREAST INC Breanna Gee APRN.VIDEO GAMES MECHANIC [address] [place] [address] [facility] [address] [place] [address] Referral ID Status Reason Start Date Expiration Date Visits Requested Visits Authorized [id number] Authorized Auto-Generat ed Referral 02/07/2023 03/08/2024 [address] [facility] Summary Purpose Family History No Family History Records FoundNo Family History Records FoundNo Family History Records Found Advance Directives No Advanced Directives Records FoundNo Advanced Directives Records FoundNo Advanced Directives Records Found Additional Source Comments INFORMATION SOURCE (unrecogn ized section and content) DATE CREATED AUTHOR AUTHOR'S ORGANIZ ATION 12/18/2020 [facility] DATE CREATED AUTHOR AUTHOR'S ORGANIZ ATION 02/21/2023 [facility] Source Comments (unrecognize d section and content) In the event this informatio n is protected by the Federal Confidentiality of Alcohol and Drug Abuse Patient Records regulations: The Federal rules restrict any use of the information to criminally investigate or prosecute any alcohol or drug abuse patient.[facility] the event this information is protected by the Federal Confidentiality of Alcohol and Drug Abuse Patient Records regulations: The Federal rules restrict any use of the information to criminally investigate or prosecute any alcohol or drug abuse patient.[facility] the event this information is protected by the Federal Confidentiality of Alcohol and Drug Abuse Patient Records regulations: The Federal rules restrict any use of the information to criminally investigate or prosecute any alcohol or drug abuse patient.[facility] the event this information is protected by the Federal Confidentiality of Alcohol and Drug Abuse Patient Records regulations: The Federal rules restrict any use of the information to criminally investigate or prosecute any alcohol or drug abuse patient.[facility] Reason for Visit (unrecogniz ed section and content) Reason Comments Patient Update Medication request Reason Comments Established Patient Care Teams (unrecognized sec tion and content) Gas Substation Operator Relationship Specialty Start Date End Date Good Clark DO PCP - General 11/24/09 Gas Substation Operator Relationship Specialty Start Date End Date Good Clark DO PCP - General 11/24/09 FOR RECORDS PERTAINING TO PATIENTS WHO ARE OR HAVE BEEN ENROLLED IN A CHEMICAL DEPENDENCY/SUBSTANCEABUSE PROGRAM, SOME INFORMATION MAY BE OMITTED. This clinical summary was aggregated from multiple sources. Caution should be exercised in using it in the provision of clinical care. This summary normalizes information from multiple sources, and as a consequence, information in this document may materially change the coding, format and clinical context of patient data. In addition, data may be omitted in some cases. CLINICAL DECISIONS SHOULD BE BASED ON THE PRIMARY CLINICAL RECORDS. [facility] [employer] [facility]. provides no warranty or guarantee of the accuracy or completeness of information in this document.
== END | disposition home or self-care (01) ==
LOC: LABSPEC 16:57
PROVIDERS: PCP Family Medicine; Referring Provider Obstetrics & Gynecology; Visit Provider Obstetrics & Gynecology
DX: N76.0 Acute vaginitis (principal)
CPT/HCPCS: 87070; 87186; 87205

== ENCOUNTER → 2023-10-15 | Outpatient (CLI) | payer MEDICARE, SELFPAY ==
[2023-10-15 16:20] LABS: Mucous, Urine 0 SEEN /hpf (<or=2+); Red Blood Cells-Urine 0 SEEN /hpf (0-5)
[2023-10-15 16:53] LABS: Color, Urine Yellow (Yellow); Glucose, Dipstick Normal (Normal); Ketone-Dipstick 5 mg/dl (Negative); Leukocyte Esterase-Dipstick 25 /ul (Negative); Nitrite-Dipstick Negative (Negative); Occult Blood-Urine Negative /ul (Negative); Protein-Dipstick 30 mg/dl (Negative); Specific Gravity, Urine 1.015 (1.002-1.030); Urine Bilirubin Dipstick Negative (Negative); Urine Clarity Sl. Cloudy (Clear); Urine Urobilinogen 1 mg/dl (Normal)
[2023-10-15 17:03] LABS: Squamous Epithelial Cells - UA 10-25 SEEN /hpf (5-10)
[2023-10-15 17:04] LABS: Bacteria 2+ /hpf (None Seen); White Blood Cells 0-5 SEEN /hpf (0-5)
== END | disposition home or self-care (01) ==
LOC: LABSPEC 16:16
PROVIDERS: PCP Family Medicine; Referring Provider Nurse Practitioner; Visit Provider Nurse Practitioner
DX: N39.0 Urinary tract infection, site not specified (principal); N76.0 Acute vaginitis
CPT/HCPCS: 81001; 87077; 87086; 87088

== ENCOUNTER → 2023-10-24 | Outpatient (CLI) | payer MEDICARE, SELFPAY ==
[2023-10-24 16:58] LABS: Absolute Lymphocyte Count 1.75 X10^3/uL (0.83-4.51); Basophil# 0.03 X10^3/uL; Basophil% 0.3 % (0-1); Eosinophils% 1.1 % (0-5); Hematocrit 40.4 % (37-47); Lymphocyte # 1.75 X10^3/ul (0.83-4.51); Lymphocyte % 18.5 % (19-41); Mean Corp Hgb Conc 32.2 g/dL (32-36); Mean Corpuscular Hgb 33.4 pg (27.0-32.0); Mean Corpuscular Volume 103.9 fL (81-99); Monocyte% 6.3 % (0-10); NRBC Flagged by Analyzer 0 % (0-5); Neutrophil # 6.95 X10^3/uL (2.7-7.7); Neutrophil % 73.5 % (47-70); Platelet Count 372 K/mm3 (150-450); RBC Distribution Width CV 13.5 % (11.6-14.6); Red Blood Count 3.89 M/mm3 (4.2-5.4); White Blood Count 9.5 K/mm3 (4.4-11.0)
[2023-10-24 17:18] LABS: ALB/GLOB Ratio 0.9 RATIO (0.9-2.4); AST(SGOT) 18 U/L (15-37); Alanine Aminotransfer ALT/SGPT 32 U/L (13-56); Albumin, Serum 3.7 g/dL (3.2-5.0); Alkaline Phosphatase 88 U/L (45-117); Anion Gap 5 (5-15); BUN 24 mg/dL (7-18); BUN/Creat Ratio 29.7 RATIO (10-20); Calcium,Total 9.5 mg/dL (8.5-10.1); Chloride 106 mmol/L (98-107); Cholesterol 214 mg/dL (200); Creatinine, Serum 0.81 mg/dL (0.55-1.02); EST Glomerular Filtration Rate 73 mL/min (>60); Est Glom Filt Rate - Afr Amer 88 mL/min (>60); Globulin 4.1 g/dL (2.2-4.2); Glucose 83 mg/dL (74-106); High Density Lipoprotein 56 mg/dL; Potassium 4.6 mmol/L (3.5-5.1); Protein, Total 7.8 g/dL (6.4-8.2); Sodium Level 136 mmol/L (136-145); Triglycerides 155 mg/dL; Very Low Density Lipoprotein 31 mg/dL (5-40)
== END | disposition home or self-care (01) ==
LOC: BIMLAB 14:38
PROVIDERS: PCP Family Medicine; Visit Provider Family Medicine
DX: E78.2 Mixed hyperlipidemia (principal); E55.9 Vitamin D deficiency, unspecified; D51.0 Vitamin B12 deficiency anemia due to intrinsic factor deficiency
CPT/HCPCS: 36415; 80053; 80061; 85025

== ENCOUNTER 2023-11-13 08:45 | Day surgery (SDC) | payer MEDICARE, OTHER, SELFPAY ==
--- NOTE | 2023-11-05 12:09 | EKG12_ITS ---
Test Reason : PRE OP Blood Pressure : / mmHG Vent. Rate : 078 BPM Atrial Rate : 078 BPM P-R Int : 166 ms QRS Dur : 082 ms QT Int : 418 ms P-R-T Axes : 069 063 079 degrees QTc Int : 476 ms Normal sinus rhythm Normal ECG Confirmed by FELICITAS COATES, SANTA ([id number]), news editor STEFFANY GARCIA ([id number]) on 11/05/2023 1:01:36 PM Referred By: Kenyetta Mendoza Confirmed By:PRANAV POLK MD
[2023-11-13] VITALS (13 sets, daily range): BP systolic 130–189; BP diastolic 64–94; PULSE 16–90; RESP 16–19; TEMP 36.5–36.9; O2SAT 92–100; BMI 24.5
--- NOTE | 2023-11-13 08:59 | PCM.HP.BLA ---
History and Physical Vital Signs 10/15/2414:42 10/24/2413:03 11/05/2412:35 11/05/2412:38 Height 5 ft 3 in 5 ft 3 in 5 ft 3 in 5 ft 3 in Weight: 141 lb 143 lb 2 oz 141 lb BMI 25.0 25.3 25.0 BP 120/80 122/78 H 149/80 H Blood Pressure Location Lt brachial Lt brachial Position Sitting Sitting Respiration 14 16 Pulse 64 97 Pulse Source Monitor Monitor Temp 98.3 F 97.6 F L Pulse Oximetry (%) 96 97 Oxygen Delivery Method room air room air Intake Visit Reasons: vulvar lesion Document Image Technician Required: No Is patient in pain?: No Allergies tolterodine [From Detrol] Allergy (Severe, Verified 11/05/23 13:36) RashSulfa (Sulfonamide Antibiotics) Allergy (Verified 11/05/23 13:36) Rash Medications ibuprofen 200 mg tablet (Advil) 200 mg PO Q6H PRN pain 08/30/22 [History Confirmed 11/02/23] elderberry fruit 200 mg capsule 600 mg PO .PAIN 11/02/23 [History Confirmed 11/02/23] multivitamin 1 tab PO DAILY 11/02/23 [History Confirmed 11/02/23] acetaminophen 650 mg tablet,extended release (Tylenol Arthritis Pain) 650 mg PO Q12H PRN pain #100 tabs 11/06/23 [Rx] budesonide-formoterol HFA 160 mcg-4.5 mcg/actuation aerosol inhaler (Symbicort) 2 puff inhalation BID #10.2 grams 11/06/23 [Rx] buspirone 10 mg tablet 10 mg PO TID 3 months #270 tabs 11/06/23 [Rx] cholecalciferol (vitamin D3) 1,250 mcg (50,000 unit) capsule 50,000 unit PO .COMPLEX #20 caps 11/06/23 [Rx] escitalopram oxalate 20 mg tablet (Lexapro) 20 mg PO DAILY #90 tabs 11/06/23 [Rx] estradiol 0.01% (0.1 mg/gram) vaginal cream 1 g vaginal QWEEK #42.5 grams 11/06/23 [Rx] levothyroxine 175 mcg tablet 175 mcg PO QDAY #90 tabs 11/06/23 [Rx] magnesium 250 mg tablet 250 mg PO DAILY #90 tabs 11/06/23 [Rx] methenamine-sodium salicylate 162 mg-162.5 mg tablet (AZO Urinary Tract Defense) See Rx Instructions PO .COMPLEX #90 tabs 11/06/23 [Rx] omeprazole 20 mg capsule,delayed release 20 mg PO QHS #90 caps 11/06/23 [Rx] tramadol 50 mg tablet 50 mg PO Q6H PRN pain #120 tabs 11/06/23 [Rx] fluticasone 100 mcg-salmeterol 50 mcg/dose blistr powdr for inhalation (Advair Diskus) 1 inh inhalation BID #60 ea 11/07/23 [Rx] Is last menstrual period known: No Post menopausal: Yes Patient : No : No PFSH Medical History (Updated 11/02/23 @ 10:43 by Hillary Kothari) Arthritis Back pain Cancer Chronic back pain Chronic bronchitis COPD (chronic obstructive pulmonary disease) Crohns disease Dysuria Former smoker Gastric reflux GERD (gastroesophageal reflux disease) Frances's disease History of breast cancer History of colon polyps History of Crohn's disease History of edema Hx of pilonidal cyst Hyperlipemia Hypothyroidism IBS (irritable bowel syndrome) Post-menopausal Thyroid disease Vitamin B12 deficiency Vitamin D deficiency Wears dentures Surgical History (Updated 11/02/23 @ 10:43 by Hillary Kothari) H/O bilateral oophorectomy History of colonoscopy History of hysterectomy History of lumpectomy History of small bowel obstruction Hx of surgical procedure Family History Mother Breast cancer Heart diseaseFather Colon cancerBrother Cancer multiple mylomaSister Heart disease Social History Smoking Status: Light Smoker (<10/day) alcohol intake: never substance use type: does not use caffeine: Yes what type of physical activity do you participate in: walking frequency: daily seatbelt use: always do you feel safe at home: Yes additional social history: [employer] HPI vulvar lesion Details: AMADO HILARIO is a 78 year old who presents for preop visit. she has a vulvar lesion she wants removed causing discomfort. History 5 Elective abortions Hx Para 1 Spontaneous abortions Hx # Term Pregnancies Ectopic pregnancies Hx # Pregnancies Multiple births # of living children ROS Const Constitutional: Denies fatigue, fever(s), headache(s), increased appetite, poor appetite, weight gain or weight loss Cardio Card: Denies chest pain Resp Resp: Denies cough or dyspnea GI GI: Reports as per HPI and other (stool incontinence); Denies abdominal pain, constipation, nausea or vomiting : Reports as per HPI, vaginal discharge, vaginal dryness, vaginal odor and vaginal pruritus; Denies difficulty voiding, dysuria, urinary frequency, urinary incontinence, urinary hesitancy or urinary urgency Skin Skin/Breast: Denies change in hair, breast mass, breast pain or breast skin changes Exam Const General: cooperative, healthy appearing, comfortable, no acute distress and well developed Nutritional Appearance: average body habitus Orientation: alert HENMT Head: normal to inspection and normocephalic Neck Neck: normal visual inspection and trachea midline Thyroid: thyroid normal Resp Effort & Inspection: normal respiratory effort GI Inspection: normal to inspection and non-distended Palpation: soft and no hepatosplenomegaly General: bladder normal to palpation External Female Exam: abnormal external appearance, normal appearance of the urethra and lesion (supraclitoral lump 3 cm in size freely mobile) Urethra: normal appearance of the urethra, normal palpation and no discharge Speculum Exam - Vagina: normal appearance of the vagina, normal vaginal discharge and abnormal vaginal discharge Bimanual Exam- Vagina & Uterus: bladder normal to palpation Bimanual Exam- Adnexa, other: normal adnexae, adnexae mobile and no masses Skin General: no rashes or lesions noted Coding Level of Care Code No Charge Diagnoses Vulvar lesion N90.89 Assessment and Plan Assessment and Plan (1) Vulvar lesion: Status: Acute Comment: recommend removal in or, may be inclusion cyst or nodule Plan After discussing the patient's diagnosis and treatment plan options, patient wishes to proceed with surgical management. I have discussed with the patient the risks, benefits, and alternatives of the procedure which include but are not limited to risks of anesthesia, bleeding, infection, possible damage to bowel, bladder, or surrounding vasculature which could lead to additional surgery to evaluate any complications. Patient agrees to procedure and wishes to proceed. ACOG/uptodate references given for additional information regarding procedure. UPDATE- I have seen the patient and performed any clinically relevant updates to the history and physical exam. Kenyetta Mendoza MD
[2023-11-13] MEDS: Lactated Ringers 1,000 ML 15 ML IV (09:16)
[2023-11-13] MEDS: Cefotetan 2 GM in 0.9% NS 100 ML IV (10:32)
--- NOTE | 2023-11-13 10:40 | CYST_PTH ---
PATHOLOGY RESULTS PATIENT: AMADO HILARIO [place] [facility] [id number] AGE/SX: 78/F ROOM: RE11/13/[address]: Dr. Kenyetta Mendoza MD : 1945 BED: DIS: 11/13/2023 SPEC #: [id number] RECD: 11/13/23 13:11 STATUS: RACIEL HINDS #: [id number] DOC: 11/13/23 10:[address]: Kenyetta Mendoza DEPT: SURGICAL PATHOLOGY RECD BY: Aaliyah Benson ENTERED: 11/13/23 13:12 SP TYPE: Cyst OTHR DR: Dr. Jose Roberto Clark, DO Tissues: CYST Procedures: Surgery Specimen Level III HEADER OPERATION: Excision vulvar lesion removal PRE-OP DIAGNOSIS: Vulvar lesion TISSUE SUBMITTED: Clitoral cyst MICROSCOPIC DIAGNOSIS Clitoral cyst, excision: Fragments of benign epidermal inclusion cyst. AM:jaun 11/14/2023 MICROSCOPIC DESCRIPTION Slides are reviewed. GROSS DESCRIPTION Received in fixative is one container labeled with the patient's name and designated clitoral cyst. The specimen consists of an irregular piece of gresham-pink soft tissue measuring 1.0 x 0.5 x 0.2 cm. The entire specimen is submitted in one cassette. / SJ:rg 11/13/2023 TC:5 CPT: 82122
[2023-11-13] MEDS: Bupiv/Epi 0.25% 30 ML Vial (10:49)
--- NOTE | 2023-11-13 11:12 | PCM.OPRPT ---
Problems Associated Problem List Diagnoses (1) Vulvar cyst: Report of Operation Date of Procedure: 11/13/23 Pre-Operative Diagnosis: vulvar inclusion cyst Post-Operative Diagnosis: same Surgery/Procedure Performed:: removal clitoral 3 cm inclusion cyst Description of Surgical Findings:: left multiple drainage of sebaceous cysts and excision of 3 cm clitoral inclusion cyst Surgeon: Kenyetta Mendoza Special Medications: none Specimen's removed: inclusion cyst Estimated Blood Loss (mL): 20 Fluids Replaced: crystalloid Description of Procedure: Patient was prepped draped in sterile fashion in the dorsolithotomy position. Multiple small sebaceous cysts were drained manually on the left vulva and Betadine prepped over the area to reduce the risk for infection. The area over the lump was injected with lidocaine and then incision made and the underlying cyst wall dissected out and sebaceous material expressed and removed. After the entire cyst wall was removed a subcutaneous stitch was placed a 4-0 Monocryl and Dermabond placed over the skin. Excellent hemostasis was noted patient was awoken and taken recovery in stable condition. Procedure Start Time: 10:49 Procedure Stop Time: 11:11 Procedures Urinary/Genital [id number]: [id number] REMOVE VAGINA LESION (3 cm clitoral)
--- NOTE | 2023-11-13 11:45 | DCINST_ITS ---
Discharge Instructions Diet Discharge Diet: No restrictions Activity Discharge Activity: Return to Normal Activity, May Shower and May Take a Tub Bath (after 4 week) May resume sexual activity in: 1-2 weeks Weight Bearing Status: Weight bearing as tolerated Lifting Restrictions: none Dressing / Incision Call your doctor if you observe: Fever of 101 or Higher, Using more than 1 pad per hour, Shortness of breath and Uncontrolled pain Follow Up Care Please Follow Up With: Kenyetta Mendoza MD When: Call [phone] to schedule appointment. Test Results: Test results from this visit will be discussed in further detail at your follow- up appointment, if applicable. Discharge Plan Admission Attending Provider: Kenyetta Mendoza Primary Care Provider: Jose Roberto Clark Discharge Orders/Prescriptions Prescriptions: No Action ibuprofen [Advil] 200 mg tablet 200 mg PO Q6H PRN (Reason: pain) cyanocobalamin (vitamin B-12) 1,000 mcg/mL solution 1,000 mcg IM ONCE Qty: 1 0RF multivitamin Tablet 1 tab PO DAILY elderberry fruit 200 mg capsule 600 mg PO .PAIN acetaminophen [Tylenol Arthritis Pain] 650 mg tablet extended release 650 mg PO Q12H PRN (Reason: pain) Qty: 100 2RF Symbicort 160-4.5 mcg/actuation HFA aerosol inhaler 2 puff INHALATION BID Qty: 10.2 12RF Rx Instructions: May get 3 units at a time buspirone 10 mg tablet 10 mg PO TID 90 Days Qty: 270 1RF cholecalciferol (vitamin D3) 1,250 mcg (50,000 unit) capsule 50,000 unit PO .COMPLEX Qty: 20 2RF Rx Instructions: 50,000 units orally every other week; escitalopram oxalate [Lexapro] 20 mg tablet 20 mg PO DAILY Qty: 90 1RF levothyroxine 175 mcg tablet 175 mcg PO QDAY Qty: 90 1RF omeprazole 20 mg capsule,delayed release(DR/EC) 20 mg PO QHS Qty: 90 2RF tramadol 50 mg tablet 50 mg PO Q6H PRN (Reason: pain) Qty: 120 0RF fluticasone propion-salmeterol [Advair Diskus] 100-50 mcg/dose blister with device 1 inh inhalation BID Qty: 60 6RF Referrals / Follow Up: Jose Roberto Clark DO [Primary Care Provider] - Disposition Disposition (needs filled in before D/C Order can be placed): Home, Self Care
[2023-11-13] MEDS: Ipratropium/Albuterol Sulfate 3 ML AMPUL.NEB INHALATION (11:52)
[2023-11-13] MEDS: Oxycodone/Apap 5/325 Tablet PO (12:30)
== END 2023-11-13 13:05 | disposition home or self-care (01) ==
LOC: SDC 08:46 → AC 08:48
PROVIDERS: PCP Family Medicine; Referring Provider Obstetrics & Gynecology; Visit Provider Obstetrics & Gynecology
PROC: (CPT 57135; principal; 2023-11-13 10:25)
DX: N90.7 Vulvar cyst (principal); J44.9 Chronic obstructive pulmonary disease, unspecified; E78.5 Hyperlipidemia, unspecified; L72.3 Sebaceous cyst; K21.9 Gastro-esophageal reflux disease without esophagitis; Z79.890 Hormone replacement therapy; Z79.899 Other long term (current) drug therapy; E06.3 Autoimmune thyroiditis; F17.200 Nicotine dependence, unspecified, uncomplicated
CPT/HCPCS: 57135; 10060; 00940; 36415; 86850; 86900; 86901; 88304; 93005; 94640; J7120; J2405

== ENCOUNTER → 2023-11-21 | Outpatient (CLI) | payer MEDICARE, OTHER, SELFPAY ==
[2023-11-21 17:15] LABS: Vitamin D,25 Hydroxy 88.1 ng/mL
== END | disposition home or self-care (01) ==
LOC: BIMLAB 15:26
PROVIDERS: PCP Family Medicine; Visit Provider Family Medicine
DX: E55.9 Vitamin D deficiency, unspecified (principal)
CPT/HCPCS: 36415; 82306

== ENCOUNTER → 2023-12-21 | Outpatient (CLI) | payer MEDICARE, OTHER, SELFPAY ==
[2023-12-21 13:49] LABS: Red Blood Cells-Urine 0 SEEN /hpf (0-5)
--- NOTE | 2023-12-21 14:02 | RAD_ITS ---
STUDY: X-RAY - ABDOMEN/PELVIS REASON FOR EXAM: Female, 78 years old. vomiting TECHNIQUE: Single AP view of the abdomen / pelvis. COMPARISON: None. FINDINGS: Normal visualized lung bases. There is a moderate amount of colonic fecal material. There is no demonstrated free abdominal air. The visualized liver, spleen and kidneys are grossly normal in size and morphology. Normal soft tissue structures. There are diffuse degenerative changes of the visualized lumbar spine. RAD/Abdomen Single View IMPRESSION: No acute findings, retained stool Electronically Signed: Placido Mtz MD at 14:41 EDT ,
[2023-12-21 15:43] LABS: Color, Urine Yellow (Yellow); Glucose, Dipstick Normal (Normal); Ketone-Dipstick 15 mg/dl (Negative); Leukocyte Esterase-Dipstick 100 /ul (Negative); Nitrite-Dipstick Negative (Negative); Occult Blood-Urine 10 /ul (Negative); Protein-Dipstick 30 mg/dl (Negative); Urine Bilirubin Dipstick 1 mg/dL (Negative); Urine Clarity Cloudy (Clear); Urine Urobilinogen 1 mg/dl (Normal)
[2023-12-21 15:45] LABS: Absolute Lymphocyte Count 1.77 X10^3/uL (0.83-4.51); Absolute Neutrophil Count 6.8 X10^3/uL (2.0-7.7); Basophil# 0.03 X10^3/uL; Basophil% 0.3 % (0-1); Eosinophil# 0.19 X10^3/uL; Hematocrit 39.4 % (37-47); Hemoglobin 12.7 g/dL (12.0-15.0); Lymphocyte # 1.77 X10^3/ul (0.83-4.51); Mean Corp Hgb Conc 32.2 g/dL (32-36); Mean Corpuscular Hgb 32.6 pg (27.0-32.0); Mean Corpuscular Volume 101.3 fL (81-99); Mean Platelet Vol. 10.9 fl (6.2-12.0); Monocyte# 0.52 X10^3/uL; Monocyte% 5.6 % (0-10); NRBC Flagged by Analyzer 0 % (0-5); Neutrophil # 6.78 X10^3/uL (2.7-7.7); Neutrophil % 72.8 % (47-70); Platelet Count 395 K/mm3 (150-450); RBC Distribution Width CV 14.1 % (11.6-14.6); RBC Distribution Width SD 53.1 fl (35.1-43.9); Red Blood Count 3.89 M/mm3 (4.2-5.4); White Blood Count 9.3 K/mm3 (4.4-11.0)
[2023-12-21 15:49] LABS: Bacteria 2+ /hpf (None Seen); Mucous, Urine 1+ /hpf (<or=2+); Squamous Epithelial Cells - UA 10-25 SEEN /hpf (5-10)
[2023-12-21 15:50] LABS: White Blood Cells 0-5 SEEN /hpf (0-5)
[2023-12-21 16:00] LABS: Erythrocyte Sedimentation Rate 34 mm/hr (0-30)
[2023-12-21 16:15] LABS: ALB/GLOB Ratio 0.9 RATIO (0.9-2.4); AST(SGOT) 20 U/L (15-37); Alanine Aminotransfer ALT/SGPT 31 U/L (13-56); Albumin, Serum 3.8 g/dL (3.2-5.0); Alkaline Phosphatase 89 U/L (45-117); Anion Gap 3 (5-15); BUN 19 mg/dL (7-18); BUN/Creat Ratio 26.5 RATIO (10-20); CRP 3.94 mg/L (0.0-3.0); Calcium,Total 9.6 mg/dL (8.5-10.1); Chloride 106 mmol/L (98-107); Creatinine, Serum 0.72 mg/dL (0.55-1.02); EST Glomerular Filtration Rate 84 mL/min (>60); Est Glom Filt Rate - Afr Amer 101 mL/min (>60); Globulin 4.2 g/dL (2.2-4.2); Glucose 104 mg/dL (74-106); Lipase 12 U/L (13-75); Potassium 4.2 mmol/L (3.5-5.1); Sodium Level 135 mmol/L (136-145); T4 Free Direct 1.16 ng/dL (0.76-1.46); Thyroid Stim Hormone (TSH) 1.26 uIU/mL (0.358-3.74)
== END | disposition home or self-care (01) ==
LOC: BIMLAB 13:40
PROVIDERS: PCP Family Medicine; Referring Provider Nurse Practitioner; Visit Provider Nurse Practitioner
DX: R11.10 Vomiting, unspecified (principal); E03.9 Hypothyroidism, unspecified; N39.0 Urinary tract infection, site not specified; N76.0 Acute vaginitis
CPT/HCPCS: 36415; 74018; 80053; 81001; 83690; 84439; 84443; 85025; 85652; 86140; 87086; 87088

== ENCOUNTER 2023-12-24 01:04 | Inpatient (IN) | payer MEDICARE, OTHER, SELFPAY ==
[2023-12-24] VITALS (33 sets, daily range): BP systolic 125–192; BP diastolic 57–100; PULSE 81–108; RESP 16–20; TEMP 36.2–37.2; O2SAT 90–98; BMI 25.0; BMI 24.7
--- NOTE | 2023-12-24 01:56 | CT_ITS ---
We are attempting to reach an attending provider to discuss findings. An addendum with communication details will be sent when the communication is complete. EXAM: CT ABDOMEN AND PELVIS WITH INTRAVENOUS CONTRAST CLINICAL INDICATION: abd pain abd pain TECHNIQUE: Helically acquired images were obtained of the abdomen and pelvis with intravenous contrast. This CT exam was performed using one or more of the following dose reduction techniques: automated exposure control, adjustment of the mA and/or kV according to patient size, and/or use of iterative reconstruction technique. CONTRAST: IV 100mL Isovue-370 RADIATION DOSE: CTDIvol = 13.07 mGy, DLP = 760.43 mGy-cm COMPARISON: Abdominal ultrasound 07/27/2012. Abdominal x-ray 12/21/2023. FINDINGS: LOWER THORAX: There are coronary artery calcifications. Lung bases are clear. No cardiomegaly. No significant pericardial effusion. ABDOMEN: LIVER: There is decreased attenuation of liver consistent with fatty infiltration. GALLBLADDER AND BILE DUCTS: There are numerous gallstones within a contracted gallbladder. This finding was also present on the 2011 abdominal ultrasound. No gallbladder distention or wall edema. No intra- or extrahepatic biliary ductal dilation. PANCREAS: The pancreas is atrophic. No focal cystic or solid mass. SPLEEN: Unremarkable. Normal size without focal cystic or solid mass. ADRENALS: Unremarkable. No nodules. KIDNEYS AND URETERS: Unremarkable. Normal renal size and position. No hydronephrosis. STOMACH AND BOWEL: There are colonic diverticula.. There is mural thickening of long segments of mid and proximal sigmoid colon, with minimal surrounding fat infiltration. I suspect this represents an inflammatory colitis rather than acute diverticulitis. There is prominent fecal material in the long segments of colon which is suspicious for partial colonic obstruction. There is mural thickening of the duodenal sweep, multiple loops of jejunum, as well as some loops of ileum. Findings are suspicious for an inflammatory enterocolitis, possibly Crohn''s disease. Acute infectious process is not excluded but is thought to be less likely. PELVIS: APPENDIX: The appendix is not visualized. There is no evidence for appendicitis. BLADDER: Unremarkable. REPRODUCTIVE: Uterus is absent. ABDOMEN and PELVIS: INTRAPERITONEAL SPACE: Unremarkable. No ascites or other fluid collection. No free air. BONES/JOINTS: There are multilevel degenerative changes in the visualized spine. There is grade 1 anterolisthesis at the L5-S1 level, on a degenerative basis. No suspicious lytic or blastic abnormality. SOFT TISSUES: Unremarkable. No discrete abdominal or pelvic wall hernia. VASCULATURE: There is atherosclerotic calcification of the abdominal aorta. LYMPH NODES: Unremarkable. No enlarged lymph nodes. CT/Abdomen/Pelvis W IV Cont ONLY IMPRESSION: 1. Mural thickening of a long segment of mid and proximal sigmoid colon is suspicious for an inflammatory colitis. Acute diverticulitis is thought to be much less likely. Sigmoid colon neoplasm is also thought to be less likely but cannot be entirely excluded. Would suggest follow-up sigmoidoscopy. There is fecal distention of more proximal colonic segment suggesting partial obstruction. 2. Mural thickening of multiple small bowel loops is also suspicious for inflammatory disease, possibly Crohn''s disease. An acute infectious enterocolitis is thought to be less likely. 3. Contracted gallbladder filled with gallstones. This finding is chronic. 4. Fatty liver. 5. Atrophic pancreas. 6. Atherosclerosis. 7. Previous hysterectomy. Electronically Signed: Vamshi Urrutia MD at 4:23 EDT ,
[2023-12-24] MEDS: proCHLORPERazine 10 MG/2 ML Vial IV (02:22)
[2023-12-24] MEDS: 0.9% Normal Saline (1000mL) 1,000 ML 999 ML IV (02:22)
[2023-12-24 02:33] LABS: Absolute Lymphocyte Count 1.77 X10^3/uL (0.83-4.51); Absolute Neutrophil Count 11.3 X10^3/uL (2.0-7.7); Basophil# 0.04 X10^3/uL; Basophil% 0.3 % (0-1); Eosinophil# 0.13 X10^3/uL; Eosinophils% 0.9 % (0-5); Hematocrit 39.6 % (37-47); Hemoglobin 12.7 g/dL (12.0-15.0); Lymphocyte # 1.77 X10^3/ul (0.83-4.51); Lymphocyte % 12.6 % (19-41); Mean Corp Hgb Conc 32.1 g/dL (32-36); Mean Corpuscular Hgb 32.8 pg (27.0-32.0); Mean Corpuscular Volume 102.3 fL (81-99); Mean Platelet Vol. 10.2 fl (6.2-12.0); Monocyte# 0.78 X10^3/uL; Monocyte% 5.5 % (0-10); NRBC Flagged by Analyzer 0 % (0-5); Neutrophil # 11.33 X10^3/uL (2.7-7.7); Neutrophil % 80.3 % (47-70); Platelet Count 371 K/mm3 (150-450); RBC Distribution Width SD 53.1 fl (35.1-43.9); Red Blood Count 3.87 M/mm3 (4.2-5.4); White Blood Count 14.1 K/mm3 (4.4-11.0)
[2023-12-24 02:54] LABS: AST(SGOT) 21 U/L (15-37); Alanine Aminotransfer ALT/SGPT 30 U/L (13-56); Albumin, Serum 3.7 g/dL (3.2-5.0); Alkaline Phosphatase 96 U/L (45-117); Anion Gap 7 (5-15); BUN 21 mg/dL (7-18); BUN/Creat Ratio 28.5 RATIO (10-20); Bilirubin, Direct 0.11 mg/dL (0.00-0.30); Calcium,Total 9.4 mg/dL (8.5-10.1); Chloride 104 mmol/L (98-107); Creatinine, Serum 0.74 mg/dL (0.55-1.02); EST Glomerular Filtration Rate 81 mL/min (>60); Est Glom Filt Rate - Afr Amer 98 mL/min (>60); Estimated Creatinine Clearance 53.44 ml/min; Globulin 4.1 g/dL (2.2-4.2); Glucose 149 mg/dL (74-106); Magnesium 2.7 mg/dL (1.6-2.6); Potassium 4.4 mmol/L (3.5-5.1); Protein, Total 7.8 g/dL (6.4-8.2); Sodium Level 135 mmol/L (136-145)
--- NOTE | 2023-12-24 06:03 | RAD_ITS ---
ACR Level 3 findings have been noted. An addendum which confirms receipt of the report will follow. EXAM: XR ABDOMEN, 1 VIEW CLINICAL INDICATION: S/P NG tube -- KUB with both diaphragms for NG/OG Verification S/P NG tube -- KUB with both diaphragms for NG/OG Verification TECHNIQUE: Frontal supine view of the abdomen/pelvis. COMPARISON: Abdominal x-ray 12/21/2023. FINDINGS: LOWER THORAX: See below. GASTROINTESTINAL TRACT: Unremarkable. Non-obstructive. No bowel or stomach distention. ORGANS: Unremarkable as visualized. No organomegaly. No abnormal calcifications. BONES/JOINTS: No acute pathology. SOFT TISSUES: No acute pathology. TUBES, LINES AND DEVICES: There is a nasogastric tube which extends into the right lower lung field with its tip overlying the right lung base. The tube is apparently malpositioned within the airway and its tip is within a branch of the right lower lobe bronchus. RAD/Abdomen Single View (Portable) IMPRESSION: Nasogastric tube is malpositioned, within the airway. Tube should be removed and replaced. Electronically Signed: Vamshi Urrutia MD at 7:51 EDT Reading Location ID and State: [facility] / [place] , Service support ,
[2023-12-24] MEDS: Piperacil/Tazobactam 3.375 GM in 0.9% Normal Saline (50mL MB+) 50 ML IV ×3 (06:28→22:05)
[2023-12-24] MEDS: Oxymetazoline 0.05% 1 SPRAY SPRAY.BTL 2 SPRAY NASAL (06:28)
[2023-12-24] MEDS: Ondansetron 4 MG/2 ML Vial IV ×2 (06:28→20:34)
[2023-12-24] MEDS: HYDROmorphone 0.5 MG/0.5 ML SYRINGE IV ×2 (06:28→20:28)
--- NOTE | 2023-12-24 07:28 | ED.RN ---
ATTEMPTED PLACEMENT OF NG TUBE. INITIAL XRAY INDICATED IT WAS IN THE INCORRECT LOCATION. TOOK NG OUT. PT REFUSED ANY ADDITIONAL ATTEMPTS.
--- NOTE | 2023-12-24 07:31 | EDS_ITS ---
HPI History of Present Illness Chief Complaint: Constipation Informant: patient and spouse/S.O. Narrative Narrative: Patient is a 78-year-old female with past medical history of COPD and Crohn's disease. She states that she developed generalized abdominal discomfort and constipation on Sunday. She states she does have remote history of bowel obstruction multiple years ago. She states she then began to have bouts of vomiting and went and saw her physician who gave her an enema as well as suppository but despite this she has not been able to have a bowel movement. She also reports she had a recent KUB obtained which revealed no obvious signs of obstruction but that she has a large amount of stool. She states that despite taking symptomatic medications that the abdomen has become more distended that she is having persistent bouts of vomiting and no longer passing gas and has concerned that an obstruction may have occurred and therefore comes in for evaluation [facility] Medical History Arthritis Back pain Cancer Chronic back pain Chronic bronchitis COPD (chronic obstructive pulmonary disease) Crohns disease Dysuria Former smoker Gastric reflux GERD (gastroesophageal reflux disease) Frances's disease History of breast cancer History of colon polyps History of Crohn's disease History of edema Hx of pilonidal cyst Hyperlipemia Hypothyroidism IBS (irritable bowel syndrome) Inclusion cyst of vulva Post-menopausal Thyroid disease Vitamin B12 deficiency Vitamin D deficiency Vulvar cyst Wears dentures Home Medications ibuprofen 200 mg tablet (Advil) 200 mg PO Q6H PRN pain 08/30/22 [History Last Taken Unknown] elderberry fruit 200 mg capsule 600 mg PO .PAIN 11/02/23 [History Last Taken 11/12/23] budesonide-formoterol HFA 160 mcg-4.5 mcg/actuation aerosol inhaler (Symbicort) 2 puff inhalation BID #10.2 grams 11/06/23 [Rx Last Taken 11/13/23] tramadol 50 mg tablet 50 mg PO Q6H PRN pain #120 tabs 12/19/23 [Rx Last Taken Unknown] acetaminophen 650 mg tablet,extended release (Tylenol Arthritis Pain) 650 mg PO Q12H PRN pain 90 days #100 tabs 12/21/23 [Rx Last Taken Unknown] bisacodyl 10 mg rectal suppository (Dulcolax (bisacodyl)) [address] DAILY PRN constipation #12 ea 12/21/23 [Rx Last Taken Unknown] buspirone 10 mg tablet 10 mg PO TID 3 months #270 tabs 12/21/23 [Rx Last Taken Unknown] cholecalciferol (vitamin D3) 1,250 mcg (50,000 unit) capsule 50,000 unit PO .COMPLEX #20 caps 12/21/23 [Rx Last Taken Unknown] escitalopram oxalate 20 mg tablet (Lexapro) 20 mg PO DAILY #90 tabs 12/21/23 [Rx Last Taken Unknown] levothyroxine 175 mcg tablet 175 mcg PO QDAY #90 tabs 12/21/23 [Rx Last Taken Unknown] multivitamin 1 tab PO DAILY #90 tabs 12/21/23 [Rx Last Taken Unknown] omeprazole 20 mg capsule,delayed release 20 mg PO QHS #90 caps 12/21/23 [Rx Last Taken Unknown] ondansetron HCl 4 mg tablet 4 mg PO Q6H PRN nausea and vomiting #30 tabs 4 [Rx Last Taken Unknown] ciprofloxacin HCl 500 mg tablet 500 mg PO BID #14 tabs 12/22/23 [Rx Last Taken Unknown] fluconazole 100 mg tablet 100 mg PO DAILY 3 days #3 tabs 12/22/23 [Rx Last Taken Unknown] cholecalciferol (vitamin D3) 1,250 mcg (50,000 unit) oral wafer 50,000 unit PO QWEEK 12/24/23 [History Last Taken Unknown] Allergy/AdvReac Type Severity Reaction Status Date / Time tolterodine [From Detrol] Allergy Severe Rash Verified 12/21/23 12:52 Sulfa (Sulfonamide Allergy Rash Verified 12/21/23 12:52 Antibiotics) Family History Mother Breast cancer Heart disease Father Colon cancer Brother Cancer multiple myloma Sister Heart disease Surgical History H/O bilateral oophorectomy History of colonoscopy History of hysterectomy History of lumpectomy History of small bowel obstruction Hx of surgical procedure Social History Smoking Status: Current every day smoker tobacco type: cigarettes alcohol intake: never substance use type: does not use caffeine: Yes what type of physical activity do you participate in: walking frequency: daily seatbelt use: always do you feel safe at home: Yes additional social history: [employer] ROS ROS ED Constitutional Constitutional ED: Denies chills or fever(s) ENT ENT ED: Denies sore throat Cardiovascular Cardiovascular: Denies chest pain Respiratory/Chest Respiratory/Chest: Denies cough or dyspnea Gastrointestinal Gastrointestinal: Reports abdominal pain, constipation, nausea and vomiting; Denies diarrhea Genitourinary Genitourinary ED: Denies dysuria Musculoskeletal Musculoskeletal: Denies myalgias Integumentary Denies rash Neurologic Neurologic: Denies headache(s) Hematologic/Lymphatic Hematologic/Lymphatic: Denies easy bleeding or easy bruising EXAM Physical Exam Const Vital Signs: 12/24/23 01:04 12/24/23 03:04 12/24/23 03:16 Temperature 97.7 F L Temperature Source Temporal Pulse Rate 90 108 H Respiratory Rate 20 H 19 H 20 H Blood Pressure 163/67 H 128/85 H 179/68 H Blood Pressure Mean 99 99 101 Pulse Ox 90 96 95 Oxygen Delivery Method Room Air Room Air 12/24/23 04:00 12/24/23 05:00 12/24/23 06:01 Temperature Temperature Source Pulse Rate Respiratory Rate 20 H 20 H Blood Pressure 178/78 H 192/89 H 181/99 H Blood Pressure Mean 107 116 107 Pulse Ox 92 90 91 Oxygen Delivery Method 12/24/23 06:15 Temperature Temperature Source Pulse Rate Respiratory Rate Blood Pressure Blood Pressure Mean Pulse Ox 90 Oxygen Delivery Method Positive well nourished and well developed General Appearance ED: well developed; Negative for pallor HEENT Reports dry mucous membranes HEENT Narrative: Mucous membranes are dry and tacky without secondary changes to suggest infection No tongue or lip swelling no oral lesions no airway edema or compromise Mouth ED: Yes dry mucous membranes Mouth: dry mucous membranes Eyes PERRL and EOMs intact bilaterally General Eye ED: Negative for scleral icterus Neck supple Neck Narrative: No nuchal rigidity or meningeal signs Resp normal respiratory effort Resp Narrative: Breath sounds are diminished throughout with faint expiratory wheeze but otherwise no nasal flaring retractions tachypnea or accessory muscle use Cardio regular rate and regular rhythm Rate: other Other Details: Heart is regular rate and rhythm Radial and carotid pulses are equal and symmetric GI GI Narrative: Abdomen is soft but distended with hypoactive bowel sounds. There is mild diffuse pain with palpation without voluntary guarding or rigidity. No pu lsatile mass or fluid wave noted. No obvious increase in tympany Extremity normal to inspection Extremity Narrative: Negative Homans' sign bilaterally Neuro oriented x3, CN's II-XII intact bilaterally and no sensory deficits noted Sensorium / Orientation: alert Motor Exam: strength 5/5 throughout Psych mental status grossly normal Skin no rashes or lesions noted and no wounds General Skin Exam: Negative for jaundice or pallor MDM MDM MDM Narrative Medical decision making narrative: Patient arrived to the ER hypertensive otherwise with stable vitals. As she has had persistent abdominal distention and constipation differential diagnosis is for obstruction versus ileus versus Crohn's exacerbation. Patient blood work was obtained which shows elevation to the white count at 14 but otherwise no clinically significant findings. CT scan showed inflammatory changes concerning for Crohn's disease versus cancer as well as large bowel obstruction. Secondary to this case was discussed with general surgery on-call Dr. Stewart. He feels that with her history of Crohn's disease as well as the fact that the obstruction may be secondary to an intestinal cancer this would warrant evaluation by colorectal surgery and transfer out of the hospital. Patient follows with GI at [facility] and therefore she wishes to go to their facility. [facility] was contacted and the case was discussed with colorectal surgeon Dr. Roberts. At this time based on her history and exam he does agree with transfer to their facility for continued workup. As patient has an elevated white blood cell count there is concern that there could be developing infection based on the inflammatory changes on CT scan and therefore 1 dose of Zosyn was given. At this time the patient is overall hemodynamically stable and therefore safe for transfer to [facility] for further care History & Record Review Discussion w/independent historian: Patient and Significant other Lab Data Attestation: I reviewed the patient's lab results. Labs: Laboratory Results - last 24 hr 12/24/23 02:25 WBC 14.1 H RBC 3.87 L Hgb 12.7 Hct 39.6 MCV 102.3 H MCH 32.8 H MCHC 32.1 RDW Std Deviation 53.1 H RDW Coeff of Antony 14.0 Plt Count 371 MPV 10.2 Immature Gran % (Auto) 0.400 Neut % (Auto) 80.3 H Lymph % (Auto) 12.6 L Riley % (Auto) 5.5 Eos % (Auto) 0.9 Baso % (Auto) 0.3 Absolute Neuts (auto) 11.3 H Absolute Lymphs (auto) 1.77 Nucleated RBC % 0 Sodium 135 L Potassium 4.4 Chloride 104 Carbon Dioxide 24.0 Anion Gap 7 BUN 21 H Creatinine 0.74 Estim Creat Clear Calc 53.44 Est GFR (MDRD) Af Amer 98 Est GFR (MDRD) Non-Af 81 BUN/Creatinine Ratio 28.5 H Glucose 149 H Calcium 9.4 Magnesium 2.7 H Total Bilirubin 0.30 Direct Bilirubin 0.11 AST 21 ALT 30 Alkaline Phosphatase 96 Total Protein 7.8 Albumin 3.7 Globulin 4.1 Radiography Diagnostic Testing: Clinical Impression(s) from Imaging Studies Abdomen/Pelvis CT 12/24/23 01:56 IMPRESSION: 1. Mural thickening of a long segment of mid and proximal sigmoid colon is suspicious for an inflammatory colitis. Acute diverticulitis is thought to be much less likely. Sigmoid colon neoplasm is also thought to be less likely but cannot be entirely excluded. Would suggest follow-up sigmoidoscopy. There is fecal distention of more proximal colonic segment suggesting partial obstruction. 2. Mural thickening of multiple small bowel loops is also suspicious for inflammatory disease, possibly Crohn''s disease. An acute infectious enterocolitis is thought to be less likely. 3. Contracted gallbladder filled with gallstones. This finding is chronic. 4. Fatty liver. 5. Atrophic pancreas. 6. Atherosclerosis. 7. Previous hysterectomy. Electronically Signed: Vamshi Urrutia MD at 4:23 EDT , ADDENDUM: 12/24/23 1386 IMPRESSION: 1. Mural thickening of a long segment of mid and proximal sigmoid colon is suspicious for an inflammatory colitis. Acute diverticulitis is thought to be much less likely. Sigmoid colon neoplasm is also thought to be less likely but cannot be entirely excluded. Would suggest follow-up sigmoidoscopy. There is fecal distention of more proximal colonic segment suggesting partial obstruction. 2. Mural thickening of multiple small bowel loops is also suspicious for inflammatory disease, possibly Crohn''s disease. An acute infectious enterocolitis is thought to be less likely. 3. Contracted gallbladder filled with gallstones. This finding is chronic. 4. Fatty liver. 5. Atrophic pancreas. 6. Atherosclerosis. 7. Previous hysterectomy. N.B. : The above Results were Read Back by Vamshi Urrutia MD to Parvez Ma DO, and understanding confirmed on 12/24/2023 04:46:09 (ET). Electronically Signed: Vamshi Urrutia MD at 4:23 EDT , ADDENDUM: 12/24/23 0454 IMPRESSION: On additional review images, I more strongly suspect sigmoid colon neoplasm rather than Crohn''s colitis as a source for the patient''s acute colonic obstruction. Crohn''s disease involving small bowel loops is still thought to be likely. Electronically Signed: Vamshi Urrutia MD at 4:47 EDT , N.B. : The above Results were Read Back by Vamshi Urrutia MD to Parvez Ma DO, and understanding confirmed on 12/24/2023 04:46:09 (ET). Discharge Plan Triage Chief Complaint: Constipation ED Provider: Parvez Ma Dx/Rx/DC Orders Clinical Impression: Crohns disease, Large bowel obstruction, COPD (chronic obstructive pulmonary disease) Prescriptions: No Action ibuprofen [Advil] 200 mg tablet 200 mg PO Q6H PRN (Reason: pain) tramadol 50 mg tablet 50 mg PO Q6H PRN (Reason: pain) Qty: 120 0RF cholecalciferol (vitamin D3) 1,250 mcg (50,000 unit) wafer 50,000 unit PO QWEEK elderberry fruit 200 mg capsule 600 mg PO .PAIN Symbicort 160-4.5 mcg/actuation HFA aerosol inhaler 2 puff INHALATION BID Qty: 10.2 12RF Rx Instructions: May get 3 units at a time buspirone 10 mg tablet 10 mg PO TID 90 Days Qty: 270 1RF escitalopram oxalate [Lexapro] 20 mg tablet 20 mg PO DAILY Qty: 90 1RF levothyroxine 175 mcg tablet 175 mcg PO QDAY Qty: 90 1RF multivitamin Tablet 1 tab PO DAILY Qty: 90 0RF omeprazole 20 mg capsule,delayed release(DR/EC) 20 mg PO QHS Qty: 90 2RF acetaminophen [Tylenol Arthritis Pain] 650 mg tablet extended release 650 mg PO Q12H PRN (Reason: pain) 90 Days Qty: 100 2RF cholecalciferol (vitamin D3) 1,250 mcg (50,000 unit) capsule 50,000 unit PO .COMPLEX Qty: 20 2RF Rx Instructions: 50,000 units orally every other week; ondansetron HCl 4 mg tablet 4 mg PO Q6H PRN (Reason: nausea and vomiting) Qty: 30 0RF bisacodyl [Dulcolax (bisacodyl)] 10 mg suppository [address] DAILY PRN (Reason: constipation) Qty: 12 0RF fluconazole 100 mg tablet 100 mg PO DAILY 3 Days Qty: 3 0RF ciprofloxacin HCl 500 mg tablet 500 mg PO BID Qty: 14 0RF Primary Care Provider: Jose Roberto Clark Referrals: Jose Roberto Clark, [Primary Care Provider] - Disposition Disposition: Acute Care Hospital Discharge Location: [facility]
--- NOTE | 2023-12-24 15:02 | PCM.HP.STD ---
HPI - General General Date of Admission: 12/24/23 Date of Service: 12/24/23 Chief Complaint: Abdominal pain, distention, N/V HPI Narrative The patient is a 78 y/o F w/ PMHx: COPD, Crohn's disease, HTN, HLD, Hx Breast CA, HTN, HLD, Hypothyroidism, Hx prior SBO, Tobacco use who presents to the [facility] ED on 12/24/23 with onset of generalized abdominal discomfort and constipation starting on Sunday of the week of presentation with bouts of nausea and emesis with PCP evaluation with enema administration and suppository however patient had no successful bowel movement following this with KUB outpatient with no obvious bowel obstruction but large amount of stool and despite taking [id number] medications had worsening abdominal distention and ongoing nausea and emesis with lack of flatus and ongoing lack of bowel movement prompting referral eventually to ED for evaluation. Patient currently rating her abdominal discomfort 7 out of 10 in severity but notes if she moves it is worse. Patient did have unfortunately several attempts in the ED for NG tube placement that were unsuccessful and patient eventually refused any further attempts. Workup in the ED upon initial evaluation included T97.7, heart rate 90, BP 163/67, respiratory rate 20, 90% on room air and most recent repeat vital assessments BP 187/79, oxygenation 94% on room air, CBC with WBC 14.1, hemoglobin 12.7, MCV 102.3, platelet 371 with left shift, CMP with sodium 135, BUN/creatinine 21/0.74, glucose 149, magnesium 2.7, hepatic profile unremarkable, CT abdomen and pelvis with mural thickening of the long segment of the mid and proximal sigmoid colon with multiple small loops, contracted gallbladder filled with stones, fatty liver, atrophic pancreas, atherosclerosis, evidence previous hysterectomy, an abrupt transition from the thickened sigmoid colon to the normal sigmoid colon very concerning for sigmoid colon neoplasm rather than Crohn's colitis as etiology for bowel obstruction, KUB with NG tube malposition within the airway with tube recommendation for removal and replacement with no follow-up KUB noted. ED did discuss case with general surgeon Dr. 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 Patient requested [facility] with whom she follows with acceptance by colorectal surgeon Dr. Roberts. The colorectal surgeon was concern for possible infection given inflammatory changes on CT and requested continue IV Zosyn therapy. Patient unfortunately still awaiting [facility] bed. In the ED patient ministered maintenance IV fluids, 1 L normal saline, prochlorperazine 10 mg IV x 1, IV Zosyn 3.375 g IV x 1, Zofran 4 mg IV x 1, hydromorphone 0.5 mg IV x 1 as well as morphine 4 mg IV x 1. [facility] Medical History (Updated 12/24/23 @ 17:[address] Deysi Thomas MD) Arthritis Chronic back pain Chronic bronchitis COPD (chronic obstructive pulmonary disease) Crohns disease GERD (gastroesophageal reflux disease) Frances's disease History of breast cancer History of colon polyps History of Crohn's disease History of left breast cancer Hx of pilonidal cyst Hyperlipemia Hypothyroidism Hypothyroidism IBS (irritable bowel syndrome) Inclusion cyst of vulva Post-menopausal Tobacco use Vitamin B12 deficiency Vitamin D deficiency Vulvar cyst Wears dentures Home Medications ibuprofen 200 mg tablet (Advil) 200 mg PO Q6H PRN pain 08/30/22 [History Last Taken Unknown] elderberry fruit 200 mg capsule 600 mg PO .PAIN 11/02/23 [History Last Taken 11/12/23] budesonide-formoterol HFA 160 mcg-4.5 mcg/actuation aerosol inhaler (Symbicort) 2 puff inhalation BID #10.2 grams 11/06/23 [Rx Last Taken 11/13/23] tramadol 50 mg tablet 50 mg PO Q6H PRN pain #120 tabs 12/19/23 [Rx Last Taken Unknown] acetaminophen 650 mg tablet,extended release (Tylenol Arthritis Pain) 650 mg PO Q12H PRN pain 90 days #100 tabs 12/21/23 [Rx Last Taken Unknown] bisacodyl 10 mg rectal suppository (Dulcolax (bisacodyl)) 10 mg RI DAILY PRN constipation #12 ea 12/21/23 [Rx Last Taken Unknown] buspirone 10 mg tablet 10 mg PO TID 3 months #270 tabs 12/21/23 [Rx Last Taken Unknown] cholecalciferol (vitamin D3) 1,250 mcg (50,000 unit) capsule 50,000 unit PO .COMPLEX #20 caps 12/21/23 [Rx Last Taken Unknown] escitalopram oxalate 20 mg tablet (Lexapro) 20 mg PO DAILY #90 tabs 12/21/23 [Rx Last Taken Unknown] levothyroxine 175 mcg tablet 175 mcg PO QDAY #90 tabs 12/21/23 [Rx Last Taken Unknown] multivitamin 1 tab PO DAILY #90 tabs 12/21/23 [Rx Last Taken Unknown] omeprazole 20 mg capsule,delayed release 20 mg PO QHS #90 caps 12/21/23 [Rx Last Taken Unknown] ondansetron HCl 4 mg tablet 4 mg PO Q6H PRN nausea and vomiting #30 tabs 12/21/23 [Rx Last Taken Unknown] ciprofloxacin HCl 500 mg tablet 500 mg PO BID #14 tabs 12/22/23 [Rx Last Taken Unknown] fluconazole 100 mg tablet 100 mg PO DAILY 3 days #3 tabs 12/22/23 [Rx Last Taken Unknown] cholecalciferol (vitamin D3) 1,250 mcg (50,000 unit) oral wafer 50,000 unit PO QWEEK 12/24/23 [History Last Taken Unknown] Allergy/AdvReac Type Severity Reaction Status Date / Time tolterodine [From Detrol] Allergy Severe Rash Verified 12/21/23 12:52 Sulfa (Sulfonamide Allergy Rash Verified 12/21/23 12:52 Antibiotics) Family History Mother Breast cancer Heart disease Father Colon cancer Brother Cancer multiple myloma Sister Heart disease Surgical History H/O bilateral oophorectomy History of colonoscopy History of hysterectomy History of lumpectomy History of small bowel obstruction Hx of surgical procedure Social History (Updated 12/24/23 @ 17:[address] Deysi Thomas MD) household members: spouse Smoking Status: Current every day smoker tobacco type: cigarettes alcohol intake: never substance use type: does not use caffeine: Yes what type of physical activity do you participate in: walking frequency: daily seatbelt use: always do you feel safe at home: Yes additional social history: [employer] ROS ROS Narrative Admission Review of Systems: CONSTITUTIONAL: No weight loss, fever, chills, + weakness or fatigue. HEENT: Eyes: No visual loss, blurred vision, double vision or yellow sclerae. Ears, Nose, Throat: No hearing loss, sneezing, congestion, runny nose or sore throat. SKIN: No rash or itching, lesions, wounds. CARDIOVASCULAR: No chest pain, chest pressure or chest discomfort, palpitations, edema, orthopnea, syncopal events. RESPIRATORY: No shortness of breath, cough or sputum, wheezing, hemoptysis. GASTROINTESTINAL: + anorexia, nausea, vomiting, abdominal distention, cramping abdominal pain, lack of flatus and bowel movement. No melena, BRBPR. GENITOURINARY: + Recent reported dysuria/outpatient dx UTI, UCx no marked. No current dysuria, frequency, urgency or retention. NEUROLOGICAL: No headache, dizziness, syncope, paralysis, ataxia, numbness or tingling in the extremities, focal weakness, change in bowel or bladder control, seizure. MUSCULOSKELETAL: + muscle, back pain, joint pain or stiffness. HEMATOLOGIC: + anemia, no bleeding or bruising. LYMPHATICS: No enlarged nodes. No history of splenectomy. PSYCHIATRIC: + History of depression and anxiety. ENDOCRINOLOGIC: + reports of sweating. No cold or heat intolerance. No polyuria or polydipsia. ALLERGIES: No history of asthma, hives, eczema or rhinitis. Vital Signs Vital Signs Vital Signs: 12/24/23 01:04 12/24/23 03:04 12/24/23 03:16 Temperature 97.7 F L Temperature Source Temporal Pulse Rate 90 108 H Respiratory Rate 20 H 19 H 20 H Blood Pressure 163/67 H 128/85 H 179/68 H Blood Pressure Mean 99 99 101 Pulse Ox 90 96 95 Oxygen Delivery Method Room Air Room Air 12/24/23 04:00 12/24/23 05:00 12/24/23 06:01 Temperature Temperature Source Pulse Rate Respiratory Rate 20 H 20 H Blood Pressure 178/78 H 192/89 H 181/99 H Blood Pressure Mean 107 116 107 Pulse Ox 92 90 91 Oxygen Delivery Method 12/24/23 06:15 12/24/23 08:00 12/24/23 10:00 Temperature 97.2 F L 97.4 F L Temperature Source Temporal Oral Pulse Rate 88 81 Respiratory Rate 16 17 Blood Pressure 179/71 H 185/82 H Blood Pressure Mean 107 116 Pulse Ox 90 97 96 Oxygen Delivery Method Room Air 12/24/23 10:00 12/24/23 10:30 12/24/23 11:00 Temperature Temperature Source Pulse Rate Respiratory Rate Blood Pressure 185/82 H 185/81 H 172/74 H Blood Pressure Mean 110 110 103 Pulse Ox 96 96 Oxygen Delivery Method 12/24/23 11:30 12/24/23 12:00 12/24/23 12:15 Temperature Temperature Source Pulse Rate Respiratory Rate Blood Pressure 159/76 H 179/83 H Blood Pressure Mean 99 109 Pulse Ox 95 97 Oxygen Delivery Method 12/24/23 12:30 12/24/23 13:00 12/24/23 13:30 Temperature Temperature Source Pulse Rate Respiratory Rate Blood Pressure 181/81 H 165/72 H 166/69 H Blood Pressure Mean 108 100 98 Pulse Ox 94 93 96 Oxygen Delivery Method 12/24/23 14:00 Temperature Temperature Source Pulse Rate Respiratory Rate Blood Pressure 187/79 H Blood Pressure Mean 110 Pulse Ox 94 Oxygen Delivery Method Weight Weight: 143 lb 8.335 oz Body Mass Index (BMI) 25.0 Physical Exam Narrative Physical Examination: General: Awake, alert, oriented x 3 and cooperative, seated upright in the ED bed, fatigued, notes ongoing abdominal cramping, currently rated 6-7 out of 10 in severity. Skin: Normal color, normal turgor, no icterus, no cyanosis except occasional staged ecchymoses HEENT: AT/NC, EOMI, PERRLA, dry MM, no carotid bruits or JVD noted. Lungs: Diminished, greater bases, no evidence any distress, mild supplemental oxygen in place, occasional end expiratory wheeze, no rales or rhonchi. Heart: Currently mildly tachycardic with regular rhythm; no gallop, rub audible. Abdomen: Soft, generalized discomfort worse in bilateral lower quadrants, distended, tympanitic, absent bowel sounds, no obvious appreciated HSM but with distention and pain exam is difficult. Extremities: No cyanosis, clubbing, or edema. Neurological: Patient awake, alert, oriented as noted, cognitive function intact; pupils equally reactive to light and accommodation, cranial nerves grossly normal, moving all 4 extremities, no focal deficits, strength severely globally decreased secondary to acute presentation complaints. Psychiatric: Affect appears flat, fatigued, uncomfortable appearing, no acute evidence of depressive or anxiety feelings but does have underlying history. Results Lab / Micro Data 12/24/23 02:25 12/24/23 02:25 Labs: Laboratory Results - last 24 hr 12/24/23 02:25: WBC 14.1 H, RBC 3.87 L, Hgb 12.7, Hct 39.6, MCV 102.3 H, MCH 32.8 H, MCHC 32.1, RDW Std Deviation 53.1 H, RDW Coeff of Antony 14.0, Plt Count 371, MPV 10.2, Immature Gran % (Auto) 0.400, Neut % (Auto) 80.3 H, Lymph % (Auto) 12.6 L, [place] % (Auto) 5.5, Eos % (Auto) 0.9, Baso % (Auto) 0.3, Absolute Neuts (auto) 11.3 H, Absolute Lymphs (auto) 1.77, Nucleated RBC % 0, Sodium 135 L, Potassium 4.4, Chloride 104, Carbon Dioxide 24.0, Anion Gap 7, BUN 21 H, Creatinine 0.74, Estim Creat Clear Calc 53.44, Est GFR (MDRD) Af Amer 98, Est GFR (MDRD) Non-Af 81, BUN/Creatinine Ratio 28.5 H, Glucose 149 H, Calcium 9.4, Magnesium 2.7 H, Total Bilirubin 0.30, Direct Bilirubin 0.11, AST 21, ALT 30, Alkaline Phosphatase 96, Total Protein 7.8, Albumin 3.7, Globulin 4.1 Imaging Radiology Impression Abdomen/Pelvis CT 12/24/23 01:56 IMPRESSION: 1. Mural thickening of a long segment of mid and proximal sigmoid colon is suspicious for an inflammatory colitis. Acute diverticulitis is thought to be much less likely. Sigmoid colon neoplasm is also thought to be less likely but cannot be entirely excluded. Would suggest follow-up sigmoidoscopy. There is fecal distention of more proximal colonic segment suggesting partial obstruction. 2. Mural thickening of multiple small bowel loops is also suspicious for inflammatory disease, possibly Crohn''s disease. An acute infectious enterocolitis is thought to be less likely. 3. Contracted gallbladder filled with gallstones. This finding is chronic. 4. Fatty liver. 5. Atrophic pancreas. 6. Atherosclerosis. 7. Previous hysterectomy. Electronically Signed: Vamshi Urrutia MD at 4:23 EDT , ADDENDUM: 12/24/23 0453 IMPRESSION: 1. Mural thickening of a long segment of mid and proximal sigmoid colon is suspicious for an inflammatory colitis. Acute diverticulitis is thought to be much less likely. Sigmoid colon neoplasm is also thought to be less likely but cannot be entirely excluded. Would suggest follow-up sigmoidoscopy. There is fecal distention of more proximal colonic segment suggesting partial obstruction. 2. Mural thickening of multiple small bowel loops is also suspicious for inflammatory disease, possibly Crohn''s disease. An acute infectious enterocolitis is thought to be less likely. 3. Contracted gallbladder filled with gallstones. This finding is chronic. 4. Fatty liver. 5. Atrophic pancreas. 6. Atherosclerosis. 7. Previous hysterectomy. N.B. : The above Results were Read Back by Vamshi Urrutia MD to Parvez Ma DO, and understanding confirmed on 12/24/2023 04:46:09 (ET). Electronically Signed: Vamshi Urrutia MD at 4:23 EDT , ADDENDUM: 12/24/23 4749 IMPRESSION: On additional review images, I more strongly suspect sigmoid colon neoplasm rather than Crohn''s colitis as a source for the patient''s acute colonic obstruction. Crohn''s disease involving small bowel loops is still thought to be likely. Electronically Signed: Vamshi Urrutia MD at 4:47 EDT , N.B. : The above Results were Read Back by Vamshi Urrutia MD to Parvez Ma DO, and understanding confirmed on 12/24/2023 04:46:09 (ET). KUB X-Ray 12/24/23 06:03 IMPRESSION: Nasogastric tube is malpositioned, within the airway. Tube should be removed and replaced. Electronically Signed: Vamshi Urrutia MD at 7:51 EDT , ADDENDUM: 12/24/23 0800 IMPRESSION: Nasogastric tube is malpositioned, within the airway. Tube should be removed and replaced. N.B. : Parvez Ma DO, confirmed on 12/24/2023 07:54:03 (ET) that the healthcare facility has received the radiology report. Electronically Signed: Vamshi Urrutia MD at 7:51 EDT , Assessment & Plan Assessment/Plan (1) Bowel obstruction: PLAN: Plan The patient is a 78 y/o F w/ PMHx: COPD, Crohn's disease, HTN, HLD, Hx Breast CA, HTN, HLD, Hypothyroidism, Hx prior SBO, Tobacco use who presents to the [facility] ED on 12/24/23 with onset of generalized abdominal discomfort and constipation starting on Sunday of the week of presentation with bouts of nausea and emesis with PCP evaluation with enema administration and suppository however patient had no successful bowel movement following this with KUB outpatient with no obvious bowel obstruction but large amount of stool and despite taking mqsc-tje-qeglath medications had worsening abdominal distention and ongoing nausea and emesis with lack of flatus and ongoing lack of bowel movement prompting referral eventually to ED for evaluation. #1. Abdominal pain, nausea, emesis secondary to bowel obstruction wtth concern for possible associated neoplasm complicated by underlying Crohn's disease with concern for component of colitis: Unfortunately several times in the ED were unsuccessful for NG tube placement. Patient even did have placement of NG into the lung which was removed. Unfortunately there are no tertiary beds at [facility] as patient has already been accepted by colorectal surgery however in the interim until bed available will admit to medical surgical floor, maintain on IVFs, strict I&Os, IV pain/anti-emetics PRN, serial KUB as needed to montior bowel function, maintain on IV Zosyn therapy, PPI IV, maintain NPO on bowel rest. Given several times in the ED for NG tube unsuccessful patient has refused any further attempts at this time. General surgery aware patient is awaiting a tertiary bed and will evaluate during her admission until transfer obtained. #2. Elevated BP without hypertensive diagnosis: Potentially related with acute presentation with pain as noted #1, will continue to monitor and in the interim will maintain on IV as needed hydralazine. #3. Recent reported questionable UTI: Patient's per medications had been on ciprofloxacin and oral fluconazole for reported UTI however urine culture in the system has been reviewed from 12/21/2023 and has mixed gram-positive and gram-negative organisms with no significant colony count and no marked evidence of candidal component thus we will discontinue both of these agents. #4. Chronic COPD: Will maintain on oxygen with wean as tolerated to room air, temporally hold home inhalers in the interim maintain on ATC budesonide therapy, PRN albuterol, HOB, IS parameters. #5. Hypothyroidism: We will temporarily hold patient home levothyroxine regimen given significant absence of bowel sounds, distention however prolonged may consider one half IV dosing. #6. Anxiety and depression: We will temporally hold patient home escitalopram/buspirone regimen. If patient is very anxious may consider IV low-dose as needed Ativan addition if necessary. #7. Tobacco Abuse: Encouraged cessation, inpatient consultation per RT, NR if desired. #8. Hyperlipidemia: Per current list not on regimen, defer to outpatient. #9. History of breast cancer: Unclear specific type, status post previous lumpectomy, unclear exact interventions, considered in remission, encourage continued outpatient follow-up as previously arranged. #10. GERD: Will maintain on IV PPI. #11. DVT prophylaxis: SCDs in case of operative intervention needs awaiting transfer to tertiary facility as noted. #12. CODE status: Patient TODDOA is her who is present and living will is currently in place. Discussed CODE status at length including difference between FULL code, DNR-CCA and DNR-CC status. Following discussions about the differences in these status, requested Full Code status. Advanced Care Planning Face to Face Time: 16 minutes. Charges/Coding Visit Charges Inpatient E&M: 16415 Init Hosp L3 Procedures Hospitalists Procedures: 48639 Advncd Care Plan 30 Min
[2023-12-24] MEDS: Morphine 4 MG/ML Syringe IV (15:50)
[2023-12-24] MEDS: Pantoprazole Sodium 40 MG in 0.9% Normal Saline (100mL MB+) 100 ML 330 MG IV ×2 (17:24→21:41)
[2023-12-24] MEDS: 0.9% Normal Saline (1000mL) 1,000 ML 100 ML IV (17:24)
[2023-12-24] MEDS: hydrALAZINE 20 MG/ML Vial 10 MG IV (17:26)
[2023-12-24] MEDS: 0.9% Saline Lock 10 ML Syringe IV (17:27)
[2023-12-24 17:40] LABS: Procalcitonin 0.11 ng/mL (0.00-0.09)
[2023-12-24] MEDS: Albuterol 2.5 MG/3 ML VIAL.NEB. INHALATION (19:41)
[2023-12-24] MEDS: Budesonide Respules 0.5 MG/2 ML AMPUL.NEB. INHALATION (19:41)
[2023-12-25] VITALS (7 sets, daily range): BP systolic 135–173; BP diastolic 56–66; PULSE 75–91; RESP 16–18; TEMP 36.6–37; O2SAT 94–98; BMI 24.7
[2023-12-25] MEDS: HYDROmorphone 0.5 MG/0.5 ML SYRINGE IV ×3 (01:05→17:33)
[2023-12-25] MEDS: Piperacil/Tazobactam 3.375 GM in 0.9% Normal Saline (50mL MB+) 50 ML IV ×2 (05:17→14:04)
--- NOTE | 2023-12-25 05:55 | RAD_ITS ---
EXAM: XR ABDOMEN, 1 VIEW CLINICAL INDICATION: SBO TECHNIQUE: Frontal supine view of the abdomen/pelvis. COMPARISON: CT abdomen and pelvis 12/24/2023. FINDINGS: LOWER THORAX: No acute pathology. GASTROINTESTINAL TRACT: Some distended small bowel loops. Moderate amount of stool in the colon. ORGANS: Multiple stones in the gallbladder. No organomegaly. BONES/JOINTS: No acute pathology. SOFT TISSUES: No acute pathology. RAD/Abdomen Single View (Portable) IMPRESSION: 1. Some distended small bowel loops. 2. Multiple stones in the gallbladder. Electronically Signed: Jem Marks MD at 6:44 EDT ,
--- NOTE | 2023-12-25 06:51 | CON.PCM.SX_ITS ---
Assessment & Plan Assessment/Plan (1) Large bowel obstruction: PLAN: The patient has obstruction at the level of the rectosigmoid junction. She also reported that she has had rectal surgery in the past for prolapse. This was concerning for malignancy versus inflammation. The patient does have Crohn's disease and she has not had a colonoscopy in 7 years and does not see a GI doctor. I discussed this with the patient. 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 She is distended but there is no acute peritoneal signs. I recommended transfer to tertiary center as the area of obstruction is too low for me to reach I believe it is down in the rectum and is below the sacral promontory. May be helpful to consult GI and see if they would be able to stent her while we wait for transfer or at least evaluate the sigmoid and biopsy. Marv Clarke MD Pager: [facility] [address] [place] [address], [address] [place] [address] Office: HPI Consult Data Date of Consult: 12/25/23 HPI Narrative HPI Narrative: AMADO HILARIO, is a 78 F who presents with abdominal pain. Patient presented to the emergency room yesterday with abdominal pain and CT scan showed obstruction at the level of the rectosigmoid junction with inflammation of the small bowel loops due to patient's Crohn's disease. This morning the patient reports she is having some abdominal pain that is diffuse it is not severe. She is not passing any gas. Denies any vomiting but she is nauseous. [facility] Medical History (Updated 12/24/23 @ 17:[address] Deysi Thomas MD) Arthritis Chronic back pain Chronic bronchitis COPD (chronic obstructive pulmonary disease) Crohns disease GERD (gastroesophageal reflux disease) Frances's disease History of breast cancer History of colon polyps History of Crohn's disease History of left breast cancer Hx of pilonidal cyst Hyperlipemia Hypothyroidism Hypothyroidism IBS (irritable bowel syndrome) Inclusion cyst of vulva Post-menopausal Tobacco use Vitamin B12 deficiency Vitamin D deficiency Vulvar cyst Wears dentures Home Medications ibuprofen 200 mg tablet (Advil) 200 mg PO Q6H PRN pain 08/30/22 [History Last Taken Unknown] elderberry fruit 200 mg capsule 600 mg PO .PAIN 02/23/24 [History Last Taken 11/12/23] budesonide-formoterol HFA 160 mcg-4.5 mcg/actuation aerosol inhaler (Symbicort) 2 puff inhalation BID #10.2 grams 11/06/23 [Rx Last Taken 11/13/23] tramadol 50 mg tablet 50 mg PO Q6H PRN pain #120 tabs 12/19/23 [Rx Last Taken Unknown] acetaminophen 650 mg tablet,extended release (Tylenol Arthritis Pain) 650 mg PO Q12H PRN pain 90 days #100 tabs 12/21/23 [Rx Last Taken Unknown] bisacodyl 10 mg rectal suppository (Dulcolax (bisacodyl)) 10 mg ME DAILY PRN constipation #12 ea 12/21/23 [Rx Last Taken Unknown] buspirone 10 mg tablet 10 mg PO TID 3 months #270 tabs 12/21/23 [Rx Last Taken Unknown] cholecalciferol (vitamin D3) 1,250 mcg (50,000 unit) capsule 50,000 unit PO .COMPLEX #20 caps 12/21/23 [Rx Last Taken Unknown] escitalopram oxalate 20 mg tablet (Lexapro) 20 mg PO DAILY #90 tabs 12/21/23 [Rx Last Taken Unknown] levothyroxine 175 mcg tablet 175 mcg PO QDAY #90 tabs 12/21/23 [Rx Last Taken Unknown] multivitamin 1 tab PO DAILY #90 tabs 12/21/23 [Rx Last Taken Unknown] omeprazole 20 mg capsule,delayed release 20 mg PO QHS #90 caps 12/21/23 [Rx Last Taken Unknown] ondansetron HCl 4 mg tablet 4 mg PO Q6H PRN nausea and vomiting #30 tabs 12/21/23 [Rx Last Taken Unknown] ciprofloxacin HCl 500 mg tablet 500 mg PO BID #14 tabs 12/22/23 [Rx Last Taken Unknown] fluconazole 100 mg tablet 100 mg PO DAILY 3 days #3 tabs 12/22/23 [Rx Last Taken Unknown] cholecalciferol (vitamin D3) 1,250 mcg (50,000 unit) oral wafer 50,000 unit PO QWEEK 12/24/23 [History Last Taken Unknown] Allergy/AdvReac Type Severity Reaction Status Date / Time tolterodine [From Detrol] Allergy Severe Rash Verified 12/21/23 12:52 Sulfa (Sulfonamide Allergy Rash Verified 12/21/23 12:52 Antibiotics) Family History Mother Breast cancer Heart disease Father Colon cancer Brother Cancer multiple myloma Sister Heart disease Surgical History H/O bilateral oophorectomy History of colonoscopy History of hysterectomy History of lumpectomy History of small bowel obstruction Hx of surgical procedure Social History (Updated 12/24/23 @ 17:[address] Deysi Thomas MD) household members: spouse Smoking Status: Current every day smoker tobacco type: cigarettes alcohol intake: never substance use type: does not use caffeine: Yes what type of physical activity do you participate in: walking frequency: daily seatbelt use: always do you feel safe at home: Yes additional social history: [employer] Constitutional Constitutional: Denies anorexia or chills Eyes Eyes: Denies blurry vision ENT HEENT: Denies abnormal hearing Cardiovascular Cardiovascular: Denies chest pain Respiratory/Chest Respiratory/Chest: Denies cough or dyspnea Gastrointestinal Gastrointestinal: Reports abdominal pain, nausea and vomiting; Denies constipation Genitourinary Genitourinary: Denies change in urinary stream Musculoskeletal Musculoskeletal: Denies abnormal gait Neurologic Neurologic: Denies abnormal gait Psychiatric Psychiatric: Denies anxiety Physical Exam Const alert and oriented x3 HEENT normocephalic Head and Scalp: normal to inspection Eyes PERRL Chest inspection of chest normal Resp normal respiratory effort Cardio Rate: regular rate Rhythm: regular rhythm GI soft to palpation Inspection: abdominal distention Palpation: tender Extremity normal to inspection Lab / Micro Data 12/24/23 02:25 12/24/23 02:25 Labs: Laboratory Results - last 24 hr 12/24/23 16:25: Procalcitonin 0.11 H Imaging Radiology Impression KUB X-Ray 12/24/23 06:03 IMPRESSION: Nasogastric tube is malpositioned, within the airway. Tube should be removed and replaced. Electronically Signed: Vamshi Urrutia MD at 7:51 EDT [place] Location ID and State: [facility] / [place] , Service support , ADDENDUM: 12/24/23 0800 IMPRESSION: Nasogastric tube is malpositioned, within the airway. Tube should be removed and replaced. N.B. : Parvez Ma DO, confirmed on 12/24/2023 07:54:03 (ET) that the healthcare facility has received the radiology report. Electronically Signed: Vamshi Urrutia MD at 7:51 EDT , KUB X-Ray 12/25/23 05:55 IMPRESSION: 1. Some distended small bowel loops. 2. Multiple stones in the gallbladder. Electronically Signed: Jem Marks MD at 6:44 EDT ,
[2023-12-25 07:12] LABS: Absolute Lymphocyte Count 1.58 X10^3/uL (0.83-4.51); Absolute Neutrophil Count 8.9 X10^3/uL (2.0-7.7); Basophil# 0.02 X10^3/uL; Basophil% 0.2 % (0-1); Eosinophil# 0.04 X10^3/uL; Eosinophils% 0.4 % (0-5); Hemoglobin 10.6 g/dL (12.0-15.0); Lymphocyte # 1.58 X10^3/ul (0.83-4.51); Mean Corp Hgb Conc 32.1 g/dL (32-36); Mean Corpuscular Hgb 32.6 pg (27.0-32.0); Mean Corpuscular Volume 101.5 fL (81-99); Mean Platelet Vol. 10.8 fl (6.2-12.0); Monocyte# 0.67 X10^3/uL; Monocyte% 5.9 % (0-10); NRBC Flagged by Analyzer 0 % (0-5); Neutrophil # 8.92 X10^3/uL (2.7-7.7); Neutrophil % 79.1 % (47-70); Platelet Count 311 K/mm3 (150-450); RBC Distribution Width CV 13.9 % (11.6-14.6); RBC Distribution Width SD 51.7 fl (35.1-43.9); Red Blood Count 3.25 M/mm3 (4.2-5.4); White Blood Count 11.3 K/mm3 (4.4-11.0)
[2023-12-25] MEDS: Budesonide Respules 0.5 MG/2 ML AMPUL.NEB. INHALATION (07:28)
[2023-12-25 07:44] LABS: ALB/GLOB Ratio 0.8 RATIO (0.9-2.4); AST(SGOT) 14 U/L (15-37); Alanine Aminotransfer ALT/SGPT 19 U/L (13-56); Albumin, Serum 2.8 g/dL (3.2-5.0); Alkaline Phosphatase 97 U/L (45-117); Anion Gap 3 (5-15); BUN 21 mg/dL (7-18); BUN/Creat Ratio 34.4 RATIO (10-20); Calcium,Total 8.4 mg/dL (8.5-10.1); Chloride 108 mmol/L (98-107); Creatinine, Serum 0.61 mg/dL (0.55-1.02); EST Glomerular Filtration Rate 101 mL/min (>60); Est Glom Filt Rate - Afr Amer 122 mL/min (>60); Estimated Creatinine Clearance 53.14 ml/min; Globulin 3.4 g/dL (2.2-4.2); Glucose 109 mg/dL (74-106); Potassium 3.8 mmol/L (3.5-5.1); Protein, Total 6.2 g/dL (6.4-8.2); Sodium Level 136 mmol/L (136-145)
--- NOTE | 2023-12-25 07:44 | PN.HOSP_ITS ---
Reason for Visit Reason for Visit: Diagnoses Unspecified intestinal obstruction, unspecified as to partial versus complete o bstruction (12/24/23) Subjective Subjective Still with abdominal pain. Objective Data Objective Data Vital Signs: Vital Signs Temp Pulse Resp BP Pulse Ox O2 Del Method O2 Flow Rate 36.7 C 98 16 141/57 H 95 Nasal Cannula 2 12/24/23 19:08 12/24/23 19:43 12/24/23 19:43 12/24/23 19:08 12/24/23 19:43 12/25/23 02:10 12/25/23 02:10 Oxygen Flow Rate (L/min) 2 Oxygen Delivery Method Nasal Cannula Weight: 64.3 kg Body Mass Index (BMI) 24.7 Intake & Output: Intake and Output for Last 24 Hours 12/23/23 12/24/23 12/25/23 23:59 23:59 23:59 Intake Total 1320 / 1320 1050 / 1050 Balance 1320 / 1320 1050 / 1050 Lab / Micro Data 12/25/23 06:55 12/25/23 06:55 Labs: Laboratory Results - last 24 hr 12/24/23 16:25: Procalcitonin 0.11 H 12/25/23 06:55: WBC 11.3 H, RBC 3.25 L, Hgb 10.6 L, Hct 33.0 L, MCV 101.5 H, MCH 32.6 H, MCHC 32.1, RDW Std Deviation 51.7 H, RDW Coeff of Antony 13.9, Plt Count 311, MPV 10.8, Immature Gran % (Auto) 0.400, Neut % (Auto) 79.1 H, Lymph % (Auto) 14.0 L, Cache % (Auto) 5.9, Eos % (Auto) 0.4, Baso % (Auto) 0.2, Absolute Neuts (auto) 8.9 H, Absolute Lymphs (auto) 1.58, Nucleated RBC % 0, Sodium 136, Potassium 3.8, Chloride 108 H, Carbon Dioxide 25.0, Anion Gap 3 L, BUN 21 H, Creatinine 0.61, Estim Creat Clear Calc 53.14, Est GFR (MDRD) Af Amer 122, Est GFR (MDRD) Non-Af 101, BUN/Creatinine Ratio 34.4 H, Glucose 109 H, Calcium 8.4 L , Total Bilirubin 0.40, AST 14 L, ALT 19, Alkaline Phosphatase 97, Total Protein 6.2 L, Albumin 2.8 L, Globulin 3.4, Albumin/Globulin Ratio 0.8 L Radiography Diagnostic Testing: Radiology Impression KUB X-Ray 12/24/23 06:03 IMPRESSION: Nasogastric tube is malpositioned, within the airway. Tube should be removed and replaced. Electronically Signed: Vamshi Urrutia MD at 7:51 EDT , ADDENDUM: 12/24/23 0800 IMPRESSION: Nasogastric tube is malpositioned, within the airway. Tube should be removed and replaced. N.B. : Parvez Ma DO, confirmed on 12/24/2023 07:54:03 (ET) that the healthcare facility has received the radiology report. Electronically Signed: Vamshi Urrutia MD at 7:51 EDT , KUB X-Ray 12/25/23 05:55 IMPRESSION: 1. Some distended small bowel loops. 2. Multiple stones in the gallbladder. Electronically Signed: Jem Marks MD at 6:44 EDT , Physical Exam Const alert and no apparent distress HEENT head/scalp atraumatic and moist oral mucous membranes Resp normal respiratory effort, no retractions, no use of accessory muscles and clear to auscultation bilaterally Cardio regular rate, regular rhythm, S1 normal heart sound and S2 normal heart sound GI GI Narrative: slightly distended. hypoactive BS. Assessment & Plan Assessment/Plan (1) Bowel obstruction: PLAN: Plan Sigmoid bowel obstruction * CT: abrupt transition from thickened. sigmoid colon to normal sigmoid colon. This abrupt transition increases index of suspicion for sigmoid colon neoplasm rather than Crohn''s colitis as etiology for bowel obstruction. * Seen by General surgery. Pt has been accepted by [facility] by Dr. Roberts. TF today. * on pip/tazo Chronic conditions * Chronic COPD: Will maintain on oxygen with wean as tolerated to room air, t emporally hold home inhalers in the interim maintain on ATC budesonide therapy, PRN albuterol, HOB, IS parameters. * Hypothyroidism:IV levothyroxine. * Anxiety and depression: We will temporally hold patient home escitalopram/buspirone regimen. * Tobacco Abuse: Encouraged cessation, inpatient consultation per RT, NR if desired. * Hyperlipidemia: Per current list not on regimen, defer to outpatient. * History of breast cancer: Unclear specific type, status post previous lumpectomy, unclear exact interventions, considered in remission, encourage continued outpatient follow-up as previously arranged. * GERD: Will maintain on IV PPI. DVT prophylaxis: SCDs in case of operative intervention needs awaiting transfer to tertiary facility as noted. CODE status: Full DW family at bedside.
--- NOTE | 2023-12-25 09:38 | CASEMGMT ---
According to [employer]'s website the following tertiary facilities are in network: [facility], [place], [facility], [facility], [facility], [facility] and .
[2023-12-25] MEDS: Pantoprazole Sodium 40 MG in 0.9% Normal Saline (100mL MB+) 100 ML 330 MG IV (10:39)
--- NOTE | 2023-12-25 12:57 | DS.PCM_ITS ---
Providers Date of Admission: 12/24/23 Primary Care Physician: Dr. Jose Roberto Clark, DO Consultations 12/24/23 16:15 Consult: General Surgery Routine Consulting Provider: Marv Clarke Reason for Consult: SBO, suspect CA, pending transfer bed EMERGENT Consult: No MD Notified: Yes Date Notified: 12/24/23 Time Notified: 15:57 Method of Notification: ED Physician Initiated Reason For Visit: BOWEL OBSTRUCTION, ? COLITIS, ? NEOPLASM Diagnosis Discharge Diagnosis (1) Bowel obstruction: Status: Acute Code(s): K56.609 - Unspecified intestinal obstruction, unspecified as to partial versus complete obstruction Plan Sigmoid bowel obstruction * CT: abrupt transition from thickened. sigmoid colon to normal sigmoid colon. This abrupt transition increases index of suspicion for sigmoid colon neoplasm rather than Crohn''s colitis as etiology for bowel obstruction. * Seen by General surgery. Pt has been accepted by [facility] by Dr. Roberts. TF today. * on pip/tazo Chronic conditions * Chronic COPD: Will maintain on oxygen with wean as tolerated to room air, t emporally hold home inhalers in the interim maintain on ATC budesonide therapy, PRN albuterol, HOB, IS parameters. * Hypothyroidism:IV levothyroxine. * Anxiety and depression: We will temporally hold patient home escitalopram/buspirone regimen. * Tobacco Abuse: Encouraged cessation, inpatient consultation per RT, NR if desired. * Hyperlipidemia: Per current list not on regimen, defer to outpatient. * History of breast cancer: Unclear specific type, status post previous lumpectomy, unclear exact interventions, considered in remission, encourage continued outpatient follow-up as previously arranged. * GERD: Will maintain on IV PPI. * Patient with a diagnosis of Crohn's disease but has never been biopsied and has never been treated for that. She states that she was diagnosed with that because she was having intermittent constipation and diarrhea. Fidelia sounds more like irritable bowel syndrome rather than Crohn's disease. DVT prophylaxis: SCDs in case of operative intervention needs awaiting transfer to tertiary facility as noted. CODE status: Full DW family at bedside. Medications at Discharge Home Medications ibuprofen 200 mg tablet (Advil) 200 mg PO Q6H PRN pain 08/30/22 elderberry fruit 200 mg capsule 600 mg PO .PAIN 11/02/23 budesonide-formoterol HFA 160 mcg-4.5 mcg/actuation aerosol inhaler (Symbicort) 2 puff inhalation BID #10.2 grams 11/06/23 tramadol 50 mg tablet 50 mg PO Q6H PRN pain #120 tabs 12/19/23 acetaminophen 650 mg tablet,extended release (Tylenol Arthritis Pain) 650 mg PO Q12H PRN pain 90 days #100 tabs 12/21/23 bisacodyl 10 mg rectal suppository (Dulcolax (bisacodyl)) 10 mg DC DAILY PRN constipation #12 ea 12/21/23 buspirone 10 mg tablet 10 mg PO TID 3 months #270 tabs 12/21/23 cholecalciferol (vitamin D3) 1,250 mcg (50,000 unit) capsule 50,000 unit PO .COMPLEX #20 caps 12/21/23 escitalopram oxalate 20 mg tablet (Lexapro) 20 mg PO DAILY #90 tabs 12/21/23 levothyroxine 175 mcg tablet 175 mcg PO QDAY #90 tabs 12/21/23 multivitamin 1 tab PO DAILY #90 tabs 12/21/23 omeprazole 20 mg capsule,delayed release 20 mg PO QHS #90 caps 12/21/23 ondansetron HCl 4 mg tablet 4 mg PO Q6H PRN nausea and vomiting #30 tabs 12/21/23 ciprofloxacin HCl 500 mg tablet 500 mg PO BID #14 tabs 12/22/23 fluconazole 100 mg tablet 100 mg PO DAILY 3 days #3 tabs 12/22/23 cholecalciferol (vitamin D3) 1,250 mcg (50,000 unit) oral wafer 50,000 unit PO QWEEK 12/24/23 Hospital Course Operations None Procedures None Summary of Care Provided Minutes Spent on Discharge: 45 Weight / BMI Weight Weight: 64.3 kg Body Mass Index (BMI) 24.7 ABG / Lab / Microbiology Data 12/25/23 06:55 12/25/23 06:55 Laboratory: Laboratory Results - last 24 hr 12/24/23 16:25: Procalcitonin 0.11 H 12/25/23 06:55: WBC 11.3 H, RBC 3.25 L, Hgb 10.6 L, Hct 33.0 L, MCV 101.5 H, MCH 32.6 H, MCHC 32.1, RDW Std Deviation 51.7 H, RDW Coeff of Antony 13.9, Plt Count 311, MPV 10.8, Immature Gran % (Auto) 0.400, Neut % (Auto) 79.1 H, Lymph % (Auto) 14.0 L, Mckean % (Auto) 5.9, Eos % (Auto) 0.4, Baso % (Auto) 0.2, Absolute Neuts (auto) 8.9 H, Absolute Lymphs (auto) 1.58, Nucleated RBC % 0, Sodium 136, Potassium 3.8, Chloride 108 H, Carbon Dioxide 25.0, Anion Gap 3 L, BUN 21 H, Creatinine 0.61, Estim Creat Clear Calc 53.14, Est GFR (MDRD) Af Amer 122, Est GFR (MDRD) Non-Af 101, BUN/Creatinine Ratio 34.4 H, Glucose 109 H, Calcium 8.4 L , Total Bilirubin 0.40, AST 14 L, ALT 19, Alkaline Phosphatase 97, Total Protein 6.2 L, Albumin 2.8 L, Globulin 3.4, Albumin/Globulin Ratio 0.8 L Radiography Diagnostic Testing: Radiology Impression KUB X-Ray 12/25/23 05:55 IMPRESSION: 1. Some distended small bowel loops. 2. Multiple stones in the gallbladder. Electronically Signed: Jem Marks MD at 6:44 EDT , D/C Instructions Discharge Diet: - (NPO) Meaningful Use Info Meaningful Use Diagnoses (Choose all that apply): None applicable Discharge Plan Admission Admit Date/Time: 12/24/23 15:08 Primary Reason for Your Visit: Sigmoid bowel obstruction. Attending Provider: Huber Kim Primary Care Provider: Jose Roberto Clark Consulting Providers: Marv Clarke; Deysi Thomas Discharge Orders/Prescriptions Prescriptions: No Action ibuprofen [Advil] 200 mg tablet 200 mg PO Q6H PRN (Reason: pain) tramadol 50 mg tablet 50 mg PO Q6H PRN (Reason: pain) Qty: 120 0RF cholecalciferol (vitamin D3) 1,250 mcg (50,000 unit) wafer 50,000 unit PO QWEEK elderberry fruit 200 mg capsule 600 mg PO .PAIN Symbicort 160-4.5 mcg/actuation HFA aerosol inhaler 2 puff INHALATION BID Qty: 10.2 12RF Rx Instructions: May get 3 units at a time buspirone 10 mg tablet 10 mg PO TID 90 Days Qty: 270 1RF escitalopram oxalate [Lexapro] 20 mg tablet 20 mg PO DAILY Qty: 90 1RF levothyroxine 175 mcg tablet 175 mcg PO QDAY Qty: 90 1RF multivitamin Tablet 1 tab PO DAILY Qty: 90 0RF omeprazole 20 mg capsule,delayed release(DR/EC) 20 mg PO QHS Qty: 90 2RF acetaminophen [Tylenol Arthritis Pain] 650 mg tablet extended release 650 mg PO Q12H PRN (Reason: pain) 90 Days Qty: 100 2RF cholecalciferol (vitamin D3) 1,250 mcg (50,000 unit) capsule 50,000 unit PO .COMPLEX Qty: 20 2RF Rx Instructions: 50,000 units orally every other week; ondansetron HCl 4 mg tablet 4 mg PO Q6H PRN (Reason: nausea and vomiting) Qty: 30 0RF bisacodyl [Dulcolax (bisacodyl)] 10 mg suppository 10 mg DC DAILY PRN (Reason: constipation) Qty: 12 0RF fluconazole 100 mg tablet 100 mg PO DAILY 3 Days Qty: 3 0RF ciprofloxacin HCl 500 mg tablet 500 mg PO BID Qty: 14 0RF Referrals / Follow Up: Jose Roberto Clark DO [Primary Care Provider] - Disposition Disposition (needs filled in before D/C Order can be placed): Acute Care Hospital Charges/Coding Visit Charges Inpatient E&M: 44622 Disch Hosp >30min
--- NOTE | 2023-12-25 13:03 | NURSING ---
REPORT CALLED TO [facility] AND SPOKE WITH MADY PATE
[2023-12-25] MEDS: 0.9% Saline Lock 10 ML Syringe IV ×3 (14:03→17:34)
[2023-12-25] MEDS: Ondansetron 4 MG/2 ML Vial IV (14:04)
[2023-12-25] MEDS: hydrALAZINE 20 MG/ML Vial 10 MG IV (15:03)
--- NOTE | 2023-12-25 16:14 | CHAPLAIN ---
Type of Pastoral Visit _x__ Initial Visit ___ Follow-up Visit ___ On-call Visit ___ General Patient Visit ___ Spiritual Assessment ___ Family Conference ___ Bereavement ___ Rapid Response ___ Code Blue ___ Other (describe below) Pastoral Care Referral From _x__ Patient ___ Family ___ Nurse ___ Physician ___ Nurse Gynecology ___ Food Service Team Member ___ Other (describe below) Sacrament/Intervention _x__ Active listening ___ Anointing ___ Jain ___ Bereavement ___ Communion ___ Joellen exploration ___ _x__ Life review _x__ Prayer ___ Reconciliation ___ Sacrament of Sick _x__ Supportive presence ___ Wedding ___ Other (describe below) Pastoral Comments patient and spouse are in the room and welcoming; pt states that she is to be transferred as soon as the transport team arrives; spouse says that pt needs to go elsewhere due to issue undetermined and possibly greater than what can be handled here; asked about how pt is doing with information and uncertainly and both respond that pt is brave and faces the obstacles well and with joellen; some life review and joellen community explanation given; prayer and presence welcomed
--- NOTE | 2023-12-25 19:20 | NURSING ---
REPORT CALLED TO [facility] AT [id number]
== END 2023-12-25 17:35 | disposition short-term general hospital (02) | DRG 387 ==
LOC: ED 07:38 → MS3 15:28
PROVIDERS: Admitting Provider Family Medicine; Emergency Provider Emergency Medicine; PCP Family Medicine
DX: K50.112 Crohn's disease of large intestine with intestinal obstruction (principal); E03.9 Hypothyroidism, unspecified; J44.9 Chronic obstructive pulmonary disease, unspecified; I10 Essential (primary) hypertension; E78.5 Hyperlipidemia, unspecified; K21.9 Gastro-esophageal reflux disease without esophagitis; F41.8 Other specified anxiety disorders; F17.210 Nicotine dependence, cigarettes, uncomplicated; Z85.3 Personal history of malignant neoplasm of breast; Z90.710 Acquired absence of both cervix and uterus; Z79.51 Long term (current) use of inhaled steroids; Z79.899 Other long term (current) drug therapy; Z90.722 Acquired absence of ovaries, bilateral
CPT/HCPCS: 36415; 74018; 74177; 80048; 80053; 80076; 81001; 83690; 83735; 84145; 84439; 84443; 85025; 85652; 86140; 87086; 87088; 94640; 94668; 99252; 99284; 99406; J7030; Q9967; A4216; G0463; J2405

== ENCOUNTER → 2023-12-31 | Outpatient (CLI) | payer MEDICARE, OTHER, SELFPAY ==
[2023-12-31 16:51] LABS: Absolute Lymphocyte Count 1.78 X10^3/uL (0.83-4.51); Absolute Neutrophil Count 5.6 X10^3/uL (2.0-7.7); Basophil# 0.03 X10^3/uL; Basophil% 0.4 % (0-1); Eosinophil# 0.11 X10^3/uL; Eosinophils% 1.4 % (0-5); Hematocrit 36.2 % (37-47); Hemoglobin 11.7 g/dL (12.0-15.0); Lymphocyte # 1.78 X10^3/ul (0.83-4.51); Lymphocyte % 21.9 % (19-41); Mean Corp Hgb Conc 32.3 g/dL (32-36); Mean Corpuscular Hgb 32.7 pg (27.0-32.0); Mean Corpuscular Volume 101.1 fL (81-99); Monocyte# 0.56 X10^3/uL; Monocyte% 6.9 % (0-10); NRBC Flagged by Analyzer 0 % (0-5); Neutrophil # 5.61 X10^3/uL (2.7-7.7); Neutrophil % 68.9 % (47-70); Platelet Count 366 K/mm3 (150-450); RBC Distribution Width CV 13.8 % (11.6-14.6); RBC Distribution Width SD 50.9 fl (35.1-43.9); Red Blood Count 3.58 M/mm3 (4.2-5.4); White Blood Count 8.1 K/mm3 (4.4-11.0)
[2023-12-31 16:56] LABS: ALB/GLOB Ratio 0.9 RATIO (0.9-2.4); AST(SGOT) 50 U/L (15-37); Alanine Aminotransfer ALT/SGPT 59 U/L (13-56); Albumin, Serum 3.3 g/dL (3.2-5.0); Alkaline Phosphatase 74 U/L (45-117); Anion Gap 6 (5-15); BUN 20 mg/dL (7-18); Calcium,Total 9.2 mg/dL (8.5-10.1); Chloride 103 mmol/L (98-107); Creatinine, Serum 0.77 mg/dL (0.55-1.02); EST Glomerular Filtration Rate 77 mL/min (>60); Est Glom Filt Rate - Afr Amer 93 mL/min (>60); Globulin 3.8 g/dL (2.2-4.2); Glucose 101 mg/dL (74-106); Magnesium 2.1 mg/dL (1.6-2.6); Potassium 3.8 mmol/L (3.5-5.1); Protein, Total 7.1 g/dL (6.4-8.2); Sodium Level 135 mmol/L (136-145)
== END | disposition home or self-care (01) ==
LOC: BIMLAB 16:05
PROVIDERS: PCP Family Medicine; Visit Provider Nurse Practitioner
DX: K56.609 Unspecified intestinal obstruction, unspecified as to partial versus complete obstruction (principal); R11.10 Vomiting, unspecified
CPT/HCPCS: 36415; 80053; 83735; 85025

== ENCOUNTER → 2024-01-08 | Outpatient (CLI) | payer MEDICARE, OTHER, SELFPAY ==
[2024-01-08 16:11] LABS: Bacteria 0 SEEN /hpf (None Seen); Mucous, Urine 0 SEEN /hpf (<or=2+); White Blood Cells 0 SEEN /hpf (0-5)
--- NOTE | 2024-01-08 16:35 | RAD_ITS ---
INDICATION: abnormal lung sounds EXAMINATION/TECHNIQUE: X-RAY - XR Chest 2 Views COMPARISON: September 19, 2021. FINDINGS: LINES/DEVICES: None. LUNGS: Mild increased fullness of likely scarring in the right lateral midlung compared with September 19, 2021. Mild diffuse interstitial coarsening. No consolidation, edema or effusion. No pneumothorax. MEDIASTINUM AND CARDIOVASCULAR STRUCTURES: Cardiac silhouette not enlarged. BONES AND SOFT TISSUES: Unremarkable. Right axillary surgical clips. RAD/Chest PA and Lateral IMPRESSION: Diffuse interstitial coarsening as can be seen with chronic obstructive pulmonary disease or other interstitial lung disease. Consider high-resolution chest CT. Mild increased fullness in chronic likely right lateral midlung scarring. This can be further assessed on CT recommended above. Aortic atherosclerosis. Electronically Signed: Christiano Mckenzie MD at 17:18 EDT ,
[2024-01-08 16:38] LABS: Color, Urine Yellow (Yellow); Glucose, Dipstick Normal (Normal); Ketone-Dipstick 5 mg/dl (Negative); Leukocyte Esterase-Dipstick 100 /ul (Negative); Nitrite-Dipstick Negative (Negative); Occult Blood-Urine 10 /ul (Negative); Protein-Dipstick 30 mg/dl (Negative); Specific Gravity, Urine 1.015 (1.002-1.030); Urine Clarity Sl. Cloudy (Clear); Urine Urobilinogen 1 mg/dl (Normal)
[2024-01-08 16:45] LABS: Red Blood Cells-Urine 0-5 SEEN /hpf (0-5); Squamous Epithelial Cells - UA 0-5 SEEN /hpf (5-10); Urine Bilirubin Dipstick 1 mg/dL (Negative)
== END | disposition home or self-care (01) ==
PROVIDERS: Nurse Practitioner; PCP Family Medicine; Referring Provider Family Medicine; Visit Provider Family Medicine
DX: R30.0 Dysuria (principal); N76.0 Acute vaginitis; R09.89 Other specified symptoms and signs involving the circulatory and respiratory systems
CPT/HCPCS: 71046; 81001; 87086; 87088

== ENCOUNTER 2024-06-18 14:26 | Emergency (ER) | payer MEDICARE, OTHER, SELFPAY ==
[2024-06-18] VITALS (13 sets, daily range): BP systolic 123–180; BP diastolic 51–79; PULSE 66–78; RESP 13–21; TEMP 36.2–36.7; O2SAT 91–100; BMI 26.0
--- NOTE | 2024-06-18 14:42 | CT_ITS ---
STUDY: CT CERVICAL SPINE WITHOUT CONTRAST REASON FOR EXAM: Female, 79 years old. Trauma due to a fall. RADIATION DOSAGE (If Supplied By Facility): CTDIvol = ( 17.41 ) mGy, DLP = ( 294.52 ) mGycm TECHNIQUE: High resolution transaxial imaging was performed without contrast material. Sagittal and coronal images were reconstructed. Individualized dose optimization techniques were used for this CT. COMPARISON: None FINDINGS: Normal craniovertebral junction. There are degenerative changes of the anterior atlantoaxial articulation. Normal odontoid process. There is straightening of the normal cervical lordosis. Normal vertebral bodies and posterior osseous elements. C2-3: Facet osteoarthritis and hypertrophy. No significant stenosis seen. C3-4: Facet joint osteoarthritis and hypertrophy. No significant stenosis seen. C4-5: Marked degree of disc space narrowing with spondylosis. Uncovertebral arthrosis. Bilateral neural foraminal stenosis more prominent on the right side. C5-6: Marked degree of disc space narrowing with spondylosis. Uncovertebral arthrosis. Mild degree of bilateral neural foraminal stenosis. C6-7: Moderate degree of disc space narrowing. Spondylosis. C7-T1: Normal endplates. Normal disc height and morphology. Normal central canal and intervertebral neuroforamina. Calcification of the carotid bifurcations bilaterally. CT/Spine Cervical without Contras IMPRESSION: Multilevel degenerative changes, as described above. Electronically Signed: Faustino Vega MD at 15:27 EDT ,
--- NOTE | 2024-06-18 14:42 | CT_ITS ---
STUDY: CT BRAIN WITHOUT CONTRAST REASON FOR EXAM: Female, 79 years old. Head injury due to a fall. RADIATION DOSAGE (If Supplied By Facility): CTDIvol = ( 44.99 ) mGy, DLP = ( 812.98 ) mGycm TECHNIQUE: Transaxial CT imaging of the brain was performed without administration of intravenous contrast material. Individualized dose optimization techniques were used for this CT. COMPARISON: No relevant priors. FINDINGS: Moderate sized scalp hematoma overlying the right orbital region and anterior right frontal parietal bone. Normal calvarium. There is mild cerebral atrophy with widening of the extra-axial spaces and ventricular dilatation. There are areas of decreased attenuation within the white matter tracts of the supratentorial brain, consistent with microvascular disease changes. Normal basal ganglia and thalami. Normal brainstem. Normal cerebellum. There is no intracranial hemorrhage. There are no findings of an acute ischemic infarction. Atherosclerotic plaque formation of the cavernous portions of the internal carotid arteries bilaterally. Normal visualized paranasal sinuses. CT/Brain/Head without Contrast IMPRESSION: Chronic involutional changes of the brain. Scalp hematoma overlying the right orbital and right frontal parietal bones. Electronically Signed: Faustino Vega MD at 15:26 EDT ,
--- NOTE | 2024-06-18 14:42 | RAD_ITS ---
STUDY: X-RAY - RIGHT WRIST REASON FOR EXAM: Female, 79 years old. Deformity and pain following a fall. TECHNIQUE: 3 view(s) of the wrist were obtained. COMPARISON: None. FINDINGS: Comminuted fracture of the distal radial metaphysis as well as the distal ulna metaphysis and avulsion fracture of the ulnar styloid. Minimal dorsal facing. Normal radiocarpal articulation. Normal distal radioulnar articulation. Normal carpal bones. Normal carpal articulations. Normal carpometacarpal articulation of the thumb. Normal second through fifth carpometacarpal articulations. Normal visualized metacarpal bones. Soft tissue swelling. RAD/Wrist min 3 Views IMPRESSION: Comment a fracture of the distal radial metaphysis extending to the articular surface. Fracture through the distal ulnar metaphysis and avulsion of the ulnar styloid. Minimal dorsal facing. Diffuse soft tissue swelling. Electronically Signed: Faustino Vega MD at 15:36 EDT ,
--- NOTE | 2024-06-18 14:45 | EDS_ITS ---
HPI HPI - Fall History of Present Illness Chief Complaint: Fall Informant: patient, spouse/S.O. and EMS Narrative Narrative: 79-year-old female presenting to the emergency room following a fall. Patient was walking into the [employer] restaurant when she tripped on the curb fell forward struck her head and sustained a loss of consciousness. states that she was unconscious for at least 5 minutes. He denies any seizure activity . She notes she believes she broke her wrist. She has no local orthopedist that she can recall. She denies taking any blood thinners. Patient denies any leg injuries. Patient transported by EMS. [facility] Medical History Tobacco use Hypothyroidism History of left breast cancer Inclusion cyst of vulva Wears dentures Post-menopausal Arthritis History of Crohn's disease Hx of pilonidal cyst Vulvar cyst Vitamin B12 deficiency COPD (chronic obstructive pulmonary disease) Frances's disease History of colon polyps Chronic back pain Hyperlipemia Chronic bronchitis Vitamin D deficiency IBS (irritable bowel syndrome) GERD (gastroesophageal reflux disease) History of breast cancer Crohns disease Hypothyroidism Home Medications ?Medication ?Instructions ?Recorded ?Last Taken ?Type ibuprofen 200 mg tablet (Advil) 200 mg PO Q6H PRN pain 08/30/22 Unknown History elderberry fruit 200 mg capsule 600 mg PO .PAIN 11/02/23 11/12/23 History budesonide-formoterol HFA 160 2 puff inhalation BID #10.2 grams 11/06/23 11/13/23 Rx mcg-4.5 mcg/actuation aerosol inhaler (Symbicort) acetaminophen 650 mg 650 mg PO Q12H PRN pain 90 days 12/21/23 Unknown Rx tablet,extended release (Tylenol #100 tabs Arthritis Pain) buspirone 10 mg tablet 10 mg PO TID 3 months #270 tabs 12/21/23 Unknown Rx ondansetron HCl 4 mg tablet 4 mg PO Q6H PRN nausea and 12/21/23 Unknown Rx vomiting #30 tabs cholecalciferol (vitamin D3) 1,250 50,000 unit PO QWEEK 12/24/23 Unknown History mcg (50,000 unit) oral wafer albuterol sulfate 90 mcg/actuation 2 puff inhalation Q6H PRN 01/08/24 Unknown Rx aerosol inhaler shortness of breath or wheezing #8.5 grams cholecalciferol (vitamin D3) 1,250 50,000 unit PO .COMPLEX 02/20/24 Unknown History mcg (50,000 unit) capsule magnesium 250mg PO 02/20/24 Unknown History redding milk of magnesia PO 02/20/24 Unknown History tramadol 50 mg tablet 50 mg PO Q6H PRN pain #120 tabs 05/09/24 Unknown Rx escitalopram oxalate 20 mg tablet 20 mg PO DAILY #90 tabs 05/14/24 Unknown Rx (Lexapro) levothyroxine 175 mcg tablet 175 mcg PO QDAY #90 tabs 05/14/24 Unknown Rx omeprazole 20 mg capsule,delayed 20 mg PO QHS #90 caps 05/14/24 Unknown Rx release ondansetron 4 mg disintegrating 4 mg PO Q6H PRN PRN Nausea #15 tabs 06/18/24 Unknown Rx tablet oxycodone-acetaminophen 5 mg-325 1 tab PO Q6H PRN PRN Pain 3 days 06/18/24 Unknown Rx mg tablet #12 TABLETS Allergy/AdvReac Type Severity Reaction Status Date / Time tolterodine (From Detrol) Allergy Severe Rash Verified 06/18/24 14:30 Sulfa (Sulfonamide Allergy Rash Verified 06/18/24 14:30 Antibiotics) Family History Mother Breast cancer Heart disease Father Colon cancer Brother Cancer multiple myloma Sister Heart disease Surgical History Hx of surgical procedure H/O bilateral oophorectomy History of colonoscopy History of lumpectomy History of hysterectomy History of small bowel obstruction Social History household members: spouse Smoking Status: Current every day smoker tobacco type: cigarettes alcohol intake: never substance use type: does not use caffeine: Yes what type of physical activity do you participate in: walking frequency: daily seatbelt use: always do you feel safe at home: Yes additional social history: [employer] ROS ROS ED Constitutional Constitutional ED: Denies chills, fever(s) or weight loss Eyes Eyes: Denies change in vision or diplopia ENT ENT ED: Denies ear pain, rhinorrhea or sore throat Cardiovascular Cardiovascular: Denies chest pain, orthopnea, palpitations or racing heartbeat Respiratory/Chest Respiratory/Chest: Denies cough, dyspnea or orthopnea Gastrointestinal Gastrointestinal: Denies abdominal pain, diarrhea, nausea or vomiting Genitourinary Genitourinary ED: Denies dysuria, hematuria or urinary frequency Musculoskeletal Musculoskeletal: Reports other Details: See history of present illness ; Denies arthralgias or myalgias Integumentary Reports Abrasions; Denies abscess or rash Neurologic Neurologic: Denies headache(s) or weakness Psychiatric Psychiatric: Denies anxiety, depression, suicidal ideation or suicidal thoughts Endocrine Endocrinology: Denies polydipsia, polyphagia or polyuria Allergic/Immunologic Allergic/Immunologic ED: Denies mouth swelling, tongue swelling or urticaria EXAM Physical Exam Const Vital Signs: 06/18/24 14:27 06/18/24 14:32 06/18/24 15:26 Temperature 98.0 F Temperature Source Temporal Pulse Rate 78 78 Pulse Rate [1 (Initial Baseline)] Pulse Rate [2] Pulse Rate [3] Respiratory Rate 13 16 Respiratory Rate [1 (Initial Baseline)] Respiratory Rate [2] Respiratory Rate [3] Respiratory Effort Normal Blood Pressure 173/73 H 180/60 H Blood Pressure [1 (Initial Baseline)] Blood Pressure [2] Blood Pressure Mean 106 100 Pulse Ox 95 100 Oxygen Delivery Method Room Air Nasal Cannula Oxygen Delivery Method [1 (Initial Baseline)] Oxygen Delivery Method [2] Oxygen Delivery Method [3] Oxygen Flow Rate (L/min) Oxygen Flow Rate (L/min) [1 (Initial Baseline)] Oxygen Flow Rate (L/min) [3] Fraction of Inspired Oxygen (FIO2) [2] EtCo2 (Normal 35-45 , high quality CPR 10-20 & ROSC>/=40mmHg EtCo2 (Normal 35-45 , high quality CPR 10-20 & ROSC>/=40mmHg [1 (Initial Baseline)] EtCo2 (Normal 35-45 , high quality CPR 10-20 & ROSC>/=40mmHg [2] EtCo2 (Normal 35-45 , high quality CPR 10-20 & ROSC>/=40mmHg [3] 06/18/24 16:00 06/18/24 16:13 06/18/24 16:14 Temperature Temperature Source Pulse Rate 77 75 Pulse Rate [1 (Initial Baseline)] Pulse Rate [2] Pulse Rate [3] Respiratory Rate 18 Respiratory Rate [1 (Initial Baseline)] Respiratory Rate [2] Respiratory Rate [3] Respiratory Effort Blood Pressure 174/69 H 165/63 H Blood Pressure [1 (Initial Baseline)] Blood Pressure [2] Blood Pressure Mean 104 Pulse Ox 98 99 Oxygen Delivery Method Nasal Cannula Nasal Cannula Oxygen Delivery Method [1 (Initial Baseline)] Oxygen Delivery Method [2] Oxygen Delivery Method [3] Oxygen Flow Rate (L/min) 3 Oxygen Flow Rate (L/min) [1 (Initial Baseline)] Oxygen Flow Rate (L/min) [3] Fraction of Inspired Oxygen (FIO2) [2] EtCo2 (Normal 35-45 , high quality CPR 10-20 & ROSC>/=40mmHg 15 33 EtCo2 (Normal 35-45 , high quality CPR 10-20 & ROSC>/=40mmHg [1 (Initial Baseline)] EtCo2 (Normal 35-45 , high quality CPR 10-20 & ROSC>/=40mmHg [2] EtCo2 (Normal 35-45 , high quality CPR 10-20 & ROSC>/=40mmHg [3] 06/18/24 16:30 06/18/24 16:39 06/18/24 16:44 Temperature Temperature Source Pulse Rate Pulse Rate [1 (Initial Baseline)] 78 Pulse Rate [2] 67 Pulse Rate [3] 66 Respiratory Rate Respiratory Rate [1 (Initial Baseline)] 18 Respiratory Rate [2] 21 H Respiratory Rate [3] 17 Respiratory Effort Blood Pressure Blood Pressure [1 (Initial Baseline)] 174/68 H Blood Pressure [2] 174/68 H Blood Pressure Mean Pulse Ox Oxygen Delivery Method Nasal Cannula Nasal Cannula Oxygen Delivery Method [1 (Initial Baseline)] Nasal Cannula Oxygen Delivery Method [2] Nasal Cannula Oxygen Delivery Method [3] Nasal Cannula Oxygen Flow Rate (L/min) 3 3 Oxygen Flow Rate (L/min) [1 (Initial Baseline)] 3 Oxygen Flow Rate (L/min) [3] 3 Fraction of Inspired Oxygen (FIO2) [2] 3 EtCo2 (Normal 35-45 , high quality CPR 10-20 & ROSC>/=40mmHg 27 EtCo2 (Normal 35-45 , high quality CPR 10-20 & ROSC>/=40mmHg [1 (Initial Baseline)] 32 EtCo2 (Normal 35-45 , high quality CPR 10-20 & ROSC>/=40mmHg [2] 30 EtCo2 (Normal 35-45 , high quality CPR 10-20 & ROSC>/=40mmHg [3] 25 Positive well nourished and well developed; Negative for obese General Appearance ED: well developed and NAD Nutritional Appearance: Negative for obese HEENT Reports normocephalic and moist mucous membranes HEENT Narrative: There is hematoma and abrasion to the lower lateral right periorbital region. No palpable bony depressions. 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 There is an obvious deformity with dorsal distal angulation of the right wrist. The hand skin appears pink and warm. There is a superficial 2 cm skin tear to the right lateral elbow General Extremety ED: Negative for edema General Extremity: Negative for edema Neuro oriented x3 and CN's II-XII intact bilaterally Sensorium / Orientation: alert Motor Exam: strength 5/5 throughout Psych mental status grossly normal Mood & Affect: Negative for depressed or tearful Skin no rashes or lesions noted and no wounds MDM MDM MDM Narrative Medical decision making narrative: Differential diagnosis includes skull fracture cervical spine fracture intracranial hemorrhage concussion wrist fracture elbow fracture tendon injury sprain strain neurovascular injury CT of the brain and cervical spine were negative for fracture or hemorrhage. My independent interpretation of the plain films of the right elbow is no acute fracture. My independent interpretation of the plain films of the right wrist is a comminuted intra-articular distal radius and ulnar fracture. Patient received fentanyl and Zofran. Informed written consent was provided by family for the use of propofol for sedation for reduction of fracture. Patient received 0.5 mg/kg IV bolus followed by 0.25 mg picogram IV bolus of propofol until adequate sedation was achieved. Once adequate sedation was achieved using direct traction recreating the injury fracture fragments were reduced. She was placed in a well-padded anterior posterior plaster splint. Patient tolerated the procedure well. No episodes of hypotension hypercapnia apnea or hypoxia were noted. She was allowed to recover. Postreduction films show significant improvement of fracture alignment. I explained to the patient and her family that this is a fracture would most likely require surgery. It is unstable and the pieces may move. She received a dose of oxycodone. She will be ambulated allowed to recover from the sedation. I would anticipate discharged with orthopedic follow-up and primary care follow-up History & Record Review Discussion w/independent historian: Patient and Family Radiography Diagnostic Testing: Clinical Impression(s) from Imaging Studies Brain CT 06/18/24 14:42 IMPRESSION: Chronic involutional changes of the brain. Scalp hematoma overlying the right orbital and right frontal parietal bones. Electronically Signed: Faustino Vega MD at 15:26 EDT , Cervical Spine CT 06/18/24 14:42 IMPRESSION: Multilevel degenerative changes, as described above. Electronically Signed: Faustino Vega MD at 15:27 EDT , Wrist X-Ray 06/18/24 14:42 IMPRESSION: Comment a fracture of the distal radial metaphysis extending to the articular surface. Fracture through the distal ulnar metaphysis and avulsion of the ulnar styloid. Minimal dorsal facing. Diffuse soft tissue swelling. Electronically Signed: Faustino Vega MD at 15:36 EDT , Elbow X-Ray 06/18/24 15:20 IMPRESSION: Normal x-ray examination of the elbow. Electronically Signed: Faustino Vega MD at 15:37 EDT , Procedures Procedural Sedation 1 (Initial Baseline): Consent Signed: Yes Any Problems With Anesthesia: No You/Your family experience fever (hyperthermia) w/anesthesia: No Sedation medication: Propofol Dose: 50 Route: IV Total Moderate Sedation Units: 7 Maliampati Score: Class II ASA Classification: II Discharge Plan Triage Chief Complaint: Fall Other Complaint: Trauma ED Provider: Joss Quintero Dx/Rx/DC Orders Clinical Impression: Fall, Concussion, Traumatic hematoma of forehead, Skin tear of elbow without complication, Contusion of elbow, Wrist fracture, right Instructions: After a Concussion, Treating Wrist Fractures, ED Hematoma Prescriptions: New oxycodone-acetaminophen 5-325 mg tablet 1 tab PO Q6H PRN PRN (Reason: Pain) 3 Days Qty: 12 0RF ondansetron 4 mg tablet,disintegrating 4 mg PO Q6H PRN PRN (Reason: Nausea) Qty: 15 0RF No Action ibuprofen [Advil] 200 mg tablet 200 mg PO Q6H PRN (Reason: pain) albuterol sulfate 90 mcg/actuation HFA aerosol inhaler 2 puff inhalation Q6H PRN (Reason: shortness of breath or wheezing) Qty: 8.5 0RF cholecalciferol (vitamin D3) 1,250 mcg (50,000 unit) capsule 50,000 unit PO .COMPLEX Rx Instructions: 50,000 units orally Every Week magnesium 250mg PO Rx Instructions: daily at bedtime redding milk of magnesia PO Rx Instructions: capsule daily at bedtime cholecalciferol (vitamin D3) 1,250 mcg (50,000 unit) wafer 50,000 unit PO QWEEK elderberry fruit 200 mg capsule 600 mg PO .PAIN Symbicort 160-4.5 mcg/actuation HFA aerosol inhaler 2 puff INHALATION BID Qty: 10.2 12RF Rx Instructions: May get 3 units at a time buspirone 10 mg tablet 10 mg PO TID 90 Days Qty: 270 1RF acetaminophen [Tylenol Arthritis Pain] 650 mg tablet extended release 650 mg PO Q12H PRN (Reason: pain) 90 Days Qty: 100 2RF ondansetron HCl 4 mg tablet 4 mg PO Q6H PRN (Reason: nausea and vomiting) Qty: 30 0RF tramadol 50 mg tablet 50 mg PO Q6H PRN (Reason: pain) Qty: 120 0RF escitalopram oxalate [Lexapro] 20 mg tablet 20 mg PO DAILY Qty: 90 1RF levothyroxine 175 mcg tablet 175 mcg PO QDAY Qty: 90 1RF omeprazole 20 mg capsule,delayed release(DR/EC) 20 mg PO QHS Qty: 90 2RF Primary Care Provider: Jose Roberto Clark Referrals: Jose Roberto Clark, [Primary Care Provider] - 1 Week Mir Strong MD [Med Staff - Active Staff] - As soon as possible (for orthopedics) Activity Restrictions/Additional Instructions: If you are taking the oxycodone/acetaminophen for pain do not take tramadol or other narcotics with it. Print Language: Estonian Disposition Disposition: Home, Self Care
[2024-06-18] MEDS: Diphth,Pertuss(Acell),Tet Vac 0.5 ML Vial IM (14:50)
[2024-06-18] MEDS: Ondansetron 4 MG/2 ML Vial IV ×2 (14:58→16:06)
[2024-06-18] MEDS: fentaNYL 100 MCG/2 ML Ampul 50 MCG IV (14:58)
--- NOTE | 2024-06-18 15:05 | ED.RN ---
Patient's watch and ring from left hand given to per patient's request.
--- NOTE | 2024-06-18 15:20 | RAD_ITS ---
STUDY: X-RAY - RIGHT ELBOW REASON FOR EXAM: Female, 79 years old. Trauma TECHNIQUE: 3 view(s) of the elbow. COMPARISON: None. FINDINGS: Normal visualized humerus, radius and ulna. Normal radiocapitellar and ulnotrochlear articulations. The soft tissue structures are unremarkable. RAD/Elbow min 3 Views IMPRESSION: Normal x-ray examination of the elbow. Electronically Signed: Faustino Vega MD at 15:37 EDT ,
--- NOTE | 2024-06-18 16:40 | RAD_ITS ---
STUDY: X-RAY - RIGHT WRIST REASON FOR EXAM: Female, 79 years old. reduction TECHNIQUE: 2 view(s) of the wrist were obtained. COMPARISON: June 18, 2024 3:22 PM FINDINGS: Status post closed reduction and casting of previously described distal radial and ulnar fractures with fracture fragments in near-anatomic alignment and position . RAD/Wrist 2 Views IMPRESSION: Status post closed reduction and casting of distal radial and ulnar fractures Electronically Signed: Tyrone Montague MD at 17:02 EDT ,
[2024-06-18] MEDS: Propofol 200 MG/20 ML Vial IV BOLUS (16:51)
[2024-06-18] MEDS: oxyCODONE 5 MG Tablet PO (16:52)
== END 2024-06-18 18:00 | disposition home or self-care (01) ==
PROVIDERS: Emergency Provider Emergency Medicine; PCP Family Medicine; Referring Provider Emergency Medicine; Visit Provider Emergency Medicine
DX: S06.0X1A Concussion with loss of consciousness of 30 minutes or less, initial encounter (principal); J44.9 Chronic obstructive pulmonary disease, unspecified; F17.210 Nicotine dependence, cigarettes, uncomplicated; E78.5 Hyperlipidemia, unspecified; S52.601A Unspecified fracture of lower end of right ulna, initial encounter for closed fracture; K21.9 Gastro-esophageal reflux disease without esophagitis; S51.011A Laceration without foreign body of right elbow, initial encounter; S52.571A Other intraarticular fracture of lower end of right radius, initial encounter for closed fracture; W10.1XXA Fall (on)(from) sidewalk curb, initial encounter
CPT/HCPCS: 25605; 70450; 72125; 73080; 73100; 73110; 90715; 96374; 96375; 99285; A4216; J2405

== ENCOUNTER 2024-06-20 17:09 | Emergency (ER) | payer MEDICARE, OTHER, SELFPAY ==
[2024-06-20 17:09] VITALS: BP 132/64; PULSE 88; RESP 16; TEMP 36.8; O2SAT 95
[2024-06-20 17:13] VITALS: BMI 25.0
--- NOTE | 2024-06-20 18:16 | EX.ED.DYSGE1 ---
HPI History of Present Illness Chief Complaint: Dizziness Detail of Chief Complaint: Patient presents because of increased dizziness and redness right periorbit Informant: patient and spouse/S.O. Onset/Context/Timing Onset: Days Context: Sudden Onset Timing: Continuous and Waxes and wanes Quality: Dizziness since head injury and redness right periorbital region Location: Right periorbital Current Severity: Moderate Maximum Severity: Moderate Worsened by: Fall that was evaluated on June 18 Relieved by: Nothing Associated Symptoms Associated Symptoms: Increased dizziness Narrative Narrative: Patient is a 79-year-old woman. She was seen on June 18. She had multiple x-rays that revealed a comminuted right wrist fracture and had a CT of the head which revealed no acute intracranial process. She is on no antithrombotic or anticoagulant. She has been taking tramadol for her pain. She was prescribed Percocet. She denies increase in her headache. She denies double vision, blurred vision loss of vision. [place] ringing or ears or decreased hearing. Denies epistaxis. She denies trouble with speech or swallowing. She denies cardiac respiratory symptoms. She does endorse nausea without vomiting. She denies urologic symptoms. She denies paresthesia, anesthesia or motor weakness upper or lower extremities. Prior similar symptoms: Yes Recent Illness/Hospitalization: Yes [facility] Medical History Tobacco use Hypothyroidism History of left breast cancer Inclusion cyst of vulva Wears dentures Post-menopausal Arthritis History of Crohn's disease Hx of pilonidal cyst Vulvar cyst Vitamin B12 deficiency COPD (chronic obstructive pulmonary disease) Frances's disease History of colon polyps Chronic back pain Hyperlipemia Chronic bronchitis Vitamin D deficiency IBS (irritable bowel syndrome) GERD (gastroesophageal reflux disease) History of breast cancer Crohns disease Hypothyroidism Home Medications ?Medication ?Instructions ?Recorded ?Last Taken ?Type ibuprofen 200 mg tablet (Advil) 200 mg PO Q6H PRN pain 08/30/22 Unknown History elderberry fruit 200 mg capsule 600 mg PO .PAIN 11/02/23 11/12/23 History budesonide-formoterol HFA 160 2 puff inhalation BID #10.2 grams 11/06/23 11/13/23 Rx mcg-4.5 mcg/actuation aerosol inhaler (Symbicort) acetaminophen 650 mg 650 mg PO Q12H PRN pain 90 days 12/21/23 Unknown Rx tablet,extended release (Tylenol #100 tabs Arthritis Pain) buspirone 10 mg tablet 10 mg PO TID 3 months #270 tabs 12/21/23 Unknown Rx ondansetron HCl 4 mg tablet 4 mg PO Q6H PRN nausea and 12/21/23 Unknown Rx vomiting #30 tabs albuterol sulfate 90 mcg/actuation 2 puff inhalation Q6H PRN 01/08/24 Unknown Rx aerosol inhaler shortness of breath or wheezing #8.5 grams magnesium 250mg PO 02/20/24 Unknown History redding milk of magnesia PO 02/20/24 Unknown History escitalopram oxalate 20 mg tablet 20 mg PO DAILY #90 tabs 05/14/24 Unknown Rx (Lexapro) levothyroxine 175 mcg tablet 175 mcg PO QDAY #90 tabs 05/14/24 Unknown Rx omeprazole 20 mg capsule,delayed 20 mg PO QHS #90 caps 05/14/24 Unknown Rx release ondansetron 4 mg disintegrating 4 mg PO Q6H PRN PRN Nausea #15 tabs 06/18/24 Unknown Rx tablet oxycodone-acetaminophen 5 mg-325 1 tab PO Q6H PRN PRN Pain 3 days 06/18/24 Unknown Rx mg tablet #12 TABLETS cholecalciferol (vitamin D3) 1,250 50,000 unit PO .COMPLEX #10 caps 06/19/24 Unknown Rx mcg (50,000 unit) capsule tramadol 50 mg tablet 50 mg PO Q6H PRN pain 30 days #120 06/19/24 Unknown Rx tabs meclizine 12.5 mg tablet 12.5 mg PO TID PRN dizziness #20 06/20/24 Unknown Rx tabs Allergy/AdvReac Type Severity Reaction Status Date / Time tolterodine (From Detrol) Allergy Severe Rash Verified 06/20/24 17:09 Sulfa (Sulfonamide Allergy Rash Verified 06/20/24 17:09 Antibiotics) Family History Mother Breast cancer Heart disease Father Colon cancer Brother Cancer multiple myloma Sister Heart disease Surgical History Hx of surgical procedure H/O bilateral oophorectomy History of colonoscopy History of lumpectomy History of hysterectomy History of small bowel obstruction Social History household members: spouse Smoking Status: Former smoker alcohol intake: never substance use type: does not use caffeine: Yes what type of physical activity do you participate in: walking frequency: daily seatbelt use: always do you feel safe at home: Yes additional social history: [employer] ROS ROS ED Constitutional Constitutional ED: Denies chills, fever(s) or subjective Eyes Eyes: Denies blurry vision, change in vision or diplopia ENT ENT ED: Denies ear pain, rhinorrhea or sore throat Cardiovascular Cardiovascular: Denies chest pain Respiratory/Chest Respiratory/Chest: Denies cough, dyspnea or dyspnea on exertion Gastrointestinal Gastrointestinal: Reports nausea; Denies abdominal pain or vomiting Musculoskeletal Musculoskeletal: Denies arthralgias, back pain or myalgias Integumentary Reports other Details: Multiple contusions Neurologic Neurologic: Reports headache(s); Denies paresthesias Psychiatric Psychiatric: Reports anxiety Endocrine Endocrinology: Denies cold intolerance or heat intolerance Hematologic/Lymphatic Hematologic/Lymphatic: Reports systems reviewed and no addt'l complaints, except as documented Allergic/Immunologic Allergic/Immunologic ED: Denies mouth swelling or tongue swelling EXAM Physical Exam Const Vital Signs: 06/20/24 17:09 Temperature 98.3 F Temperature Source Oral Pulse Rate 88 Respiratory Rate 16 Blood Pressure 132/64 H Blood Pressure Mean 86 Pulse Ox 95 Oxygen Delivery Method Room Air Positive well nourished and well developed General Appearance ED: well developed and NAD; Negative for cyanotic, diaphoretic or pallor HEENT Reports moist mucous membranes HEENT Narrative: Patient has a ecchymotic soft tissue swelling noted above the right brow. There is no palp depression. There is periorbital ecchymosis due to trauma. Ears appear normal. Nares appears normal. There is no septal deviation hematoma. There is no evidence of dental trauma. She states because of the increased redness around her eyes she presented as instructed on home-going instructions. Eyes PERRL and EOMs intact bilaterally Eyes Narrative: There is no nystagmus. There is no subconjunctival hemorrhage. General Eye ED: Negative for pale conjunctiva or scleral icterus Neck no lymphadenopathy, supple and no JVD Resp normal respiratory effort and clear to auscultation bilaterally Cardio regular rate, regular rhythm, S1 normal heart sound, S2 normal heart sound and no murmurs Extremity Extremity Narrative: Patient has an AP splint due to comminuted right wrist fracture. There is soft tissue swelling noted. Neuro oriented x3, CN's II-XII intact bilaterally and no sensory deficits noted Neuro Narrative: GCS is 15. There is no clonus Babinski sign noted. Sensorium / Orientation: alert Motor Exam: strength 5/5 throughout Psych mental status grossly normal Skin No no wounds and No skin turgor normal Skin Narrative: Multiple bruises due to fall June 18. General Skin Exam: Negative for jaundice or pallor MDM MDM MDM Narrative Medical decision making narrative: Since patient has a normal neurologic exam and was already imaged her symptoms are due to concussion. Will treat her dizziness with Antivert. And she was told that the redness around her right eye is due to the bruising. This is not an infection. Patient was explained how long a concussion may last and what symptoms 1 experiences with concussion. Discharge Plan Triage Chief Complaint: Dizziness ED Provider: Jake Oreilly Dx/Rx/DC Orders Clinical Impression: Post-concussion syndrome, Vertigo due to brain injury, Contusion of periorbital region, right Instructions: Coping with Concussion, Black Eye, ED Vertigo, Unspecified Prescriptions: New meclizine 12.5 mg tablet 12.5 mg PO TID PRN (Reason: dizziness) Qty: 20 0RF No Action ibuprofen [Advil] 200 mg tablet 200 mg PO Q6H PRN (Reason: pain) albuterol sulfate 90 mcg/actuation HFA aerosol inhaler 2 puff inhalation Q6H PRN (Reason: shortness of breath or wheezing) Qty: 8.5 0RF magnesium 250mg PO Rx Instructions: daily at bedtime redding milk of magnesia PO Rx Instructions: capsule daily at bedtime oxycodone-acetaminophen 5-325 mg tablet 1 tab PO Q6H PRN PRN (Reason: Pain) 3 Days Qty: 12 0RF ondansetron 4 mg tablet,disintegrating 4 mg PO Q6H PRN PRN (Reason: Nausea) Qty: 15 0RF elderberry fruit 200 mg capsule 600 mg PO .PAIN Symbicort 160-4.5 mcg/actuation HFA aerosol inhaler 2 puff INHALATION BID Qty: 10.2 12RF Rx Instructions: May get 3 units at a time buspirone 10 mg tablet 10 mg PO TID 90 Days Qty: 270 1RF acetaminophen [Tylenol Arthritis Pain] 650 mg tablet extended release 650 mg PO Q12H PRN (Reason: pain) 90 Days Qty: 100 2RF ondansetron HCl 4 mg tablet 4 mg PO Q6H PRN (Reason: nausea and vomiting) Qty: 30 0RF escitalopram oxalate [Lexapro] 20 mg tablet 20 mg PO DAILY Qty: 90 1RF levothyroxine 175 mcg tablet 175 mcg PO QDAY Qty: 90 1RF omeprazole 20 mg capsule,delayed release(DR/EC) 20 mg PO QHS Qty: 90 2RF cholecalciferol (vitamin D3) 1,250 mcg (50,000 unit) capsule 50,000 unit PO .COMPLEX Qty: 10 0RF Rx Instructions: 50,000 units orally Every Week tramadol 50 mg tablet 50 mg PO Q6H PRN (Reason: pain) 30 Days Qty: 120 0RF Primary Care Provider: Jose Roberto Clark Referrals: Jose Roberto Clark, DO [Primary Care Provider] - 1 Week if not improving Activity Restrictions/Additional Instructions: Your symptoms are due to a concussion. 90-95% of individuals who have a concussion have resolution in 4 to 6 weeks. 5 to 10% can last up to 1 year. Print Language: [place] Citizen Disposition Disposition: Home, Self Care
[2024-06-20] MEDS: Meclizine 12.5 MG Tablet PO (18:20)
[2024-06-20 18:28] VITALS: BP 126/84; PULSE 71; RESP 16; TEMP 36.7; O2SAT 99
== END 2024-06-20 19:49 | disposition home or self-care (01) ==
PROVIDERS: Emergency Provider Emergency Medicine; PCP Family Medicine; Visit Provider Emergency Medicine
DX: F07.81 Postconcussional syndrome (principal); J44.9 Chronic obstructive pulmonary disease, unspecified; S05.11XD Contusion of eyeball and orbital tissues, right eye, subsequent encounter; E78.5 Hyperlipidemia, unspecified; S62.101D Fracture of unspecified carpal bone, right wrist, subsequent encounter for fracture with routine healing; W19.XXXD Unspecified fall, subsequent encounter; M54.9 Dorsalgia, unspecified; G89.29 Other chronic pain; Z87.891 Personal history of nicotine dependence
CPT/HCPCS: 99282

== ENCOUNTER 2024-06-24 18:49 | Emergency (ER) | payer MEDICARE, OTHER, SELFPAY ==
[2024-06-24 18:50] VITALS: BP 158/73; PULSE 80; RESP 16; TEMP 36.4; O2SAT 96; BMI 23.0
--- NOTE | 2024-06-24 19:00 | RAD_ITS ---
STUDY: X-RAY CHEST REASON FOR EXAM: Female, 79 years old. FALL TECHNIQUE: PA and lateral COMPARISON: January 08, 2024 FINDINGS: Nonspecific interstitial thickening. There is no demonstrated pleural abnormality. Normal size heart. Normal mediastinum and yeni. Normal visualized pulmonary arteries. Diffusely calcified aortic arch and descending thoracic aorta. Normal visualized thoracic spine. Normal visualized, clavicles, and shoulders. Surgical clips in the right anterolateral chest wall There is no demonstrated abnormality of the visualized soft tissue structures of the upper abdomen. Mild deformity of the right lateral rib cage without well-defined fracture line possibly due to old trauma however routine films of the right ribs recommended if concern for acute fracture RAD/Chest PA and Lateral IMPRESSION: No acute cardiopulmonary pathology Mild deformity of the right with cage and cannot entirely exclude acute fracture.. Rib series recommended for further evaluation Electronically Signed: Tyrone Montague MD at 19:47 EDT ,
--- NOTE | 2024-06-24 20:03 | CT_ITS ---
INDICATION: Right rib pain, possible fracture status post fall EXAMINATION: CT CHEST WITHOUT CONTRAST - CT Chest W/O Contrast Injection TECHNIQUE: Helically acquired images were obtained of the chest. A radiation dose optimization technique was used for this scan. IV Contrast dosage and agent: None. COMPARISON: None. FINDINGS: LUNGS, PLEURA AND LARGE AIRWAYS: No masses, consolidation, or edema. Mild pleural-parenchymal scarring in the right upper lobe. There is also mild pleural-parenchymal scarring in the bilateral pulmonary apices No pleural effusion or pneumothorax THYROID: No thyroid lesions. HEART AND PERICARDIUM: Heart size is normal. No pericardial effusion. CORONARY ARTERIES: Mild coronary artery calcification VESSELS: Mild atherosclerotic change of the aorta without evidence for aneurysm MEDIASTINUM AND NAKUL: No mediastinal or hilar adenopathy. Esophagus is unremarkable. No hiatal hernia. UPPER ABDOMEN: Cholelithiasis without evidence for acute cholecystitis BONES: Acute hairline fracture of the axillary aspect of the right eighth rib No suspicious lytic or blastic abnormality. CT/Chest without Contrast IMPRESSION: Pleural parenchymal scarring in the right upper lobe. Acute nondisplaced fracture of the right eighth rib without evidence for pneumothorax Electronically Signed: Tyrone Montague MD at 21:06 EDT ,
--- NOTE | 2024-06-24 20:10 | ED.VIS.CHEST ---
HPI History of Present Illness Chief Complaint: Chest Other Narrative Narrative: 79-year-old female presents with right sided rib pain that began a few days ago. Of note, she relates history that about a week ago she had a syncopal episode, passed out, hit the right side of her face and broke her right wrist. She was seen by orthopedics the other day where they karthik-rayed her right wrist. She has been taking oxycodone for the pain, but she and her state that over the last 3 days she developed right rib pain. It is more towards the front, under her breast. She denies any fevers or chills, no difficulty breathing, but she has pain that is worse with movement and when she coughs. This is her third visit in the emergency department, because she was brought back because of dizziness and lightheadedness for which she received meclizine. This was a few days ago. After her visit, that is when she started developing the right sided rib pain. [facility] Medical History Tobacco use Hypothyroidism History of left breast cancer Inclusion cyst of vulva Wears dentures Post-menopausal Arthritis History of Crohn's disease Hx of pilonidal cyst Vulvar cyst Vitamin B12 deficiency COPD (chronic obstructive pulmonary disease) Frances's disease History of colon polyps Chronic back pain Hyperlipemia Chronic bronchitis Vitamin D deficiency IBS (irritable bowel syndrome) GERD (gastroesophageal reflux disease) History of breast cancer Crohns disease Hypothyroidism Home Medications ?Medication ?Instructions ?Recorded ?Last Taken ?Type ibuprofen 200 mg tablet (Advil) 200 mg PO Q6H PRN pain 08/30/22 Unknown History elderberry fruit 200 mg capsule 600 mg PO .PAIN 11/02/23 11/12/23 History budesonide-formoterol HFA 160 2 puff inhalation BID #10.2 grams 11/06/23 11/13/23 Rx mcg-4.5 mcg/actuation aerosol inhaler (Symbicort) acetaminophen 650 mg 650 mg PO Q12H PRN pain 90 days 12/21/23 Unknown Rx tablet,extended release (Tylenol #100 tabs Arthritis Pain) buspirone 10 mg tablet 10 mg PO TID 3 months #270 tabs 12/21/23 Unknown Rx ondansetron HCl 4 mg tablet 4 mg PO Q6H PRN nausea and 12/21/23 Unknown Rx vomiting #30 tabs albuterol sulfate 90 mcg/actuation 2 puff inhalation Q6H PRN 01/08/24 Unknown Rx aerosol inhaler shortness of breath or wheezing #8.5 grams magnesium 250mg PO 02/20/24 Unknown History redding milk of magnesia PO 02/20/24 Unknown History escitalopram oxalate 20 mg tablet 20 mg PO DAILY #90 tabs 05/14/24 Unknown Rx (Lexapro) levothyroxine 175 mcg tablet 175 mcg PO QDAY #90 tabs 05/14/24 Unknown Rx omeprazole 20 mg capsule,delayed 20 mg PO QHS #90 caps 05/14/24 Unknown Rx release ondansetron 4 mg disintegrating 4 mg PO Q6H PRN PRN Nausea #15 tabs 06/18/24 Unknown Rx tablet oxycodone-acetaminophen 5 mg-325 1 tab PO Q6H PRN PRN Pain 3 days 06/18/24 Unknown Rx mg tablet #12 TABLETS cholecalciferol (vitamin D3) 1,250 50,000 unit PO .COMPLEX #10 caps 06/19/24 Unknown Rx mcg (50,000 unit) capsule tramadol 50 mg tablet 50 mg PO Q6H PRN pain 30 days #120 06/19/24 Unknown Rx tabs meclizine 12.5 mg tablet 12.5 mg PO TID PRN dizziness #20 06/20/24 Unknown Rx tabs Allergy/AdvReac Type Severity Reaction Status Date / Time tolterodine (From Detrol) Allergy Severe Rash Verified 06/24/24 18:54 Sulfa (Sulfonamide Allergy Rash Verified 06/24/24 18:54 Antibiotics) Family History Mother Breast cancer Heart disease Father Colon cancer Brother Cancer multiple myloma Sister Heart disease Surgical History Hx of surgical procedure H/O bilateral oophorectomy History of colonoscopy History of lumpectomy History of hysterectomy History of small bowel obstruction Social History household members: spouse Smoking Status: Former smoker alcohol intake: never substance use type: does not use caffeine: Yes what type of physical activity do you participate in: walking frequency: daily seatbelt use: always do you feel safe at home: Yes additional social history: [employer] ROS ROS ED ROS Narrative Focused review of systems is positive for right sided rib pain. No fevers or chills. Occasional cough. No difficulty breathing. Pain worse with movement and coughing. Relieved by nothing. EXAM Physical Exam Narrative Exam Narrative: GCS 15. ABCs are intact. She does have ecchymosis and swelling on the right side of her face as well as ecchymosis on her neck. This is from her initial fall. Her right upper extremity is in a splint/cast. She has mild tenderness to palpation in her right anterior ribs, no crepitance. She has equal breath sounds bilaterally. Cardiovascular examination reveals a regular rate and rhythm. Abdomen soft and nontender with normal active bowel sounds. Const Vital Signs: 06/24/24 18:50 06/24/24 19:20 06/24/24 20:45 Temperature 97.5 F L Temperature Source Temporal Pulse Rate 80 78 Respiratory Rate 16 20 H Respiratory Pattern Normal Blood Pressure 158/73 H Blood Pressure Mean 101 Pulse Ox 96 95 Oxygen Delivery Method Room Air 06/24/24 22:00 06/24/24 22:06 Temperature 98.0 F Temperature Source Pulse Rate 86 78 Respiratory Rate 20 H 18 Respiratory Pattern Blood Pressure 190/75 H 190/75 H Blood Pressure Mean 113 113 Pulse Ox 96 Oxygen Delivery Method Room Air MDM MDM MDM Narrative Medical decision making narrative: Nursing protocol chest x-ray was obtained and interpreted by myself independently. Concern is for rib fracture versus pneumothorax versus pneumonia versus rib contusion. On my interpretation, there is some deformity of the right rib cage but no noted pneumonia or pneumothorax, or overt displaced rib fracture. I reviewed the radiology report which confirms my independent interpretation. I do feel that CT of the chest is warranted given this questionable deformity on the right to help rule out rib fracture. She was given an oxycodone tablet here in the emergency department, which she has been taking at home. I reviewed the radiology report of the chest CT and there is pleural-parenchymal scarring in the right upper lobe but there is an acute nondisplaced fracture of the right eighth rib without evidence of pneumothorax. Upon repeat examination, patient states she feels improved. She states that she was not taking her oxycodone at 10:00 because it kept her up all night. Her states that they received 15 tablets, and she was supposed to take it up to 4 times a day. She has an incentive spirometer at home. Her pulse ox is 96% on room air without evidence of hypoxia. At this point in time, I feel she could be discharged to follow-up with her primary care provider. She can get a refill of her narcotic pain medication at that time. She states she has an appointment tomorrow. I feel she be discharged safely home with follow-up. Return instructions to the emergency department were reviewed. Disposition is discharged home in stable condition. History & Record Review Discussion w/independent historian: Patient and Family (Spouse) Radiography Diagnostic Testing: Clinical Impression(s) from Imaging Studies Chest X-Ray 06/24/24 19:00 IMPRESSION: No acute cardiopulmonary pathology Mild deformity of the right with cage and cannot entirely exclude acute fracture.. Rib series recommended for further evaluation Electronically Signed: Tyrone Montague MD at 19:47 EDT , Chest CT 06/24/24 20:03 IMPRESSION: Pleural parenchymal scarring in the right upper lobe. Acute nondisplaced fracture of the right eighth rib without evidence for pneumothorax Electronically Signed: Tyrone Montague MD at 21:06 EDT , Discharge Plan Triage Chief Complaint: Chest Other ED Provider: Wes Serrano Dx/Rx/DC Orders Clinical Impression: Closed rib fracture, Chest wall pain Prescriptions: No Action ibuprofen [Advil] 200 mg tablet 200 mg PO Q6H PRN (Reason: pain) albuterol sulfate 90 mcg/actuation HFA aerosol inhaler 2 puff inhalation Q6H PRN (Reason: shortness of breath or wheezing) Qty: 8.5 0RF magnesium 250mg PO Rx Instructions: daily at bedtime redding milk of magnesia PO Rx Instructions: capsule daily at bedtime oxycodone-acetaminophen 5-325 mg tablet 1 tab PO Q6H PRN PRN (Reason: Pain) 3 Days Qty: 12 0RF ondansetron 4 mg tablet,disintegrating 4 mg PO Q6H PRN PRN (Reason: Nausea) Qty: 15 0RF elderberry fruit 200 mg capsule 600 mg PO .PAIN meclizine 12.5 mg tablet 12.5 mg PO TID PRN (Reason: dizziness) Qty: 20 0RF Symbicort 160-4.5 mcg/actuation HFA aerosol inhaler 2 puff INHALATION BID Qty: 10.2 12RF Rx Instructions: May get 3 units at a time buspirone 10 mg tablet 10 mg PO TID 90 Days Qty: 270 1RF acetaminophen [Tylenol Arthritis Pain] 650 mg tablet extended release 650 mg PO Q12H PRN (Reason: pain) 90 Days Qty: 100 2RF ondansetron HCl 4 mg tablet 4 mg PO Q6H PRN (Reason: nausea and vomiting) Qty: 30 0RF escitalopram oxalate [Lexapro] 20 mg tablet 20 mg PO DAILY Qty: 90 1RF levothyroxine 175 mcg tablet 175 mcg PO QDAY Qty: 90 1RF omeprazole 20 mg capsule,delayed release(DR/EC) 20 mg PO QHS Qty: 90 2RF cholecalciferol (vitamin D3) 1,250 mcg (50,000 unit) capsule 50,000 unit PO .COMPLEX Qty: 10 0RF Rx Instructions: 50,000 units orally Every Week tramadol 50 mg tablet 50 mg PO Q6H PRN (Reason: pain) 30 Days Qty: 120 0RF Primary Care Provider: Jose Roberto lCark Referrals: Jose Roberto Clark, DO [Primary Care Provider] - 1 Day Activity Restrictions/Additional Instructions: Follow-up with your primary care provider as scheduled tomorrow. Use your incentive spirometer that you have at home 10 times per hour while awake. Continue taking your oxycodone as previously directed. You may need a refill of your prescription from your primary care provider because you have a broken rib on the right side. Return to the emergency department with fever, increased difficulty breathing, new or worsening symptoms. Print Language: Croatian Disposition Disposition: Home, Self Care
[2024-06-24] MEDS: oxyCODONE 5 MG Tablet PO (20:31)
[2024-06-24 20:45] VITALS: PULSE 78; RESP 20; O2SAT 95
[2024-06-24 22:00] VITALS: BP 190/75; PULSE 86; RESP 20
[2024-06-24 22:06] VITALS: BP 190/75; PULSE 78; RESP 18; TEMP 36.7; O2SAT 96
== END 2024-06-24 22:28 | disposition home or self-care (01) ==
PROVIDERS: Emergency Provider Emergency Medicine; PCP Family Medicine; Visit Provider Emergency Medicine
DX: S22.31XA Fracture of one rib, right side, initial encounter for closed fracture (principal); J44.9 Chronic obstructive pulmonary disease, unspecified; E78.5 Hyperlipidemia, unspecified; Z90.710 Acquired absence of both cervix and uterus; Z87.891 Personal history of nicotine dependence; R07.89 Other chest pain; Z79.890 Hormone replacement therapy; E03.9 Hypothyroidism, unspecified; K21.9 Gastro-esophageal reflux disease without esophagitis; Z85.3 Personal history of malignant neoplasm of breast; Z90.722 Acquired absence of ovaries, bilateral; W19.XXXA Unspecified fall, initial encounter
CPT/HCPCS: 71046; 71250; 99283

== ENCOUNTER 2024-06-30 12:09 | Emergency (ER) | payer MEDICARE, OTHER, SELFPAY ==
[2024-06-30] VITALS (8 sets, daily range): BP systolic 130–154; BP diastolic 51–76; PULSE 77–97; RESP 16–19; TEMP 36.3–36.8; O2SAT 97–99; BMI 24.5
--- NOTE | 2024-06-30 13:00 | EDS_ITS ---
HPI History of Present Illness Chief Complaint: Dizziness Informant: patient Onset/Context/Timing Onset: Weeks (2) Context: Gradual Onset Timing: Continuous Quality: Burning Location: Right side of head Worsened by: Ambulation Relieved by: Nothing Narrative Narrative: Has been getting worse over the past several days. Patient states she feels unsteady on her feet. Patient states she fell on 06/17/2024. Patient hit the right side of her head. Patient also fractured her right wrist and fractured a rib on the right side at that time. Patient states she has been taking Percocet for her fractures. Patient admits to a burning sensation over the right side of her head. Patient admits to some nausea but denies any vomiting. Patient admits to some mild pain in her back. Patient admits to some blurry vision but denies any double vision. [facility] Medical History Tobacco use Hypothyroidism History of left breast cancer Inclusion cyst of vulva Wears dentures Post-menopausal Arthritis History of Crohn's disease Hx of pilonidal cyst Vulvar cyst Vitamin B12 deficiency COPD (chronic obstructive pulmonary disease) Frances's disease History of colon polyps Chronic back pain Hyperlipemia Chronic bronchitis Vitamin D deficiency IBS (irritable bowel syndrome) GERD (gastroesophageal reflux disease) History of breast cancer Crohns disease Hypothyroidism Home Medications ?Medication ?Instructions ?Recorded ?Last Taken ?Type ibuprofen 200 mg tablet (Advil) 200 mg PO Q6H PRN pain 08/30/22 Unknown History elderberry fruit 200 mg capsule 600 mg PO .PAIN 11/02/23 11/12/23 History budesonide-formoterol HFA 160 2 puff inhalation BID #10.2 grams 11/06/23 11/13/23 Rx mcg-4.5 mcg/actuation aerosol inhaler (Symbicort) acetaminophen 650 mg 650 mg PO Q12H PRN pain 90 days 12/21/23 Unknown Rx tablet,extended release (Tylenol #100 tabs Arthritis Pain) buspirone 10 mg tablet 10 mg PO TID 3 months #270 tabs 12/21/23 Unknown Rx ondansetron HCl 4 mg tablet 4 mg PO Q6H PRN nausea and 12/21/23 Unknown Rx vomiting #30 tabs albuterol sulfate 90 mcg/actuation 2 puff inhalation Q6H PRN 01/08/24 Unknown Rx aerosol inhaler shortness of breath or wheezing #8.5 grams magnesium 250mg PO 02/20/24 Unknown History redding milk of magnesia PO 02/20/24 Unknown History escitalopram oxalate 20 mg tablet 20 mg PO DAILY #90 tabs 05/14/24 Unknown Rx (Lexapro) levothyroxine 175 mcg tablet 175 mcg PO QDAY #90 tabs 05/14/24 Unknown Rx omeprazole 20 mg capsule,delayed 20 mg PO QHS #90 caps 05/14/24 Unknown Rx release ondansetron 4 mg disintegrating 4 mg PO Q6H PRN PRN Nausea #15 tabs 06/18/24 Unknown Rx tablet oxycodone-acetaminophen 5 mg-325 1 tab PO Q6H PRN PRN Pain 3 days 06/18/24 Unknown Rx mg tablet #12 TABLETS cholecalciferol (vitamin D3) 1,250 50,000 unit PO .COMPLEX #10 caps 06/19/24 Unknown Rx mcg (50,000 unit) capsule tramadol 50 mg tablet 50 mg PO Q6H PRN pain 30 days #120 06/19/24 Unknown Rx tabs meclizine 12.5 mg tablet 12.5 mg PO TID PRN dizziness #20 06/20/24 Unknown Rx tabs Allergy/AdvReac Type Severity Reaction Status Date / Time tolterodine (From Detrol) Allergy Severe Rash Verified 06/30/24 12:10 Sulfa (Sulfonamide Allergy Rash Verified 06/30/24 12:10 Antibiotics) Family History Mother Breast cancer Heart disease Father Colon cancer Brother Cancer multiple myloma Sister Heart disease Surgical History Hx of surgical procedure H/O bilateral oophorectomy History of colonoscopy History of lumpectomy History of hysterectomy History of small bowel obstruction Social History household members: spouse Smoking Status: Former smoker alcohol intake: never substance use type: does not use caffeine: Yes what type of physical activity do you participate in: walking frequency: daily seatbelt use: always do you feel safe at home: Yes additional social history: [employer] ROS ROS ED Constitutional Constitutional ED: Denies chills or fever(s) Eyes Eyes: Reports blurry vision; Denies diplopia ENT ENT ED: Denies rhinorrhea or sore throat Cardiovascular Cardiovascular: Denies chest pain or palpitations Respiratory/Chest Respiratory/Chest: Denies cough or dyspnea Gastrointestinal Gastrointestinal: Reports nausea; Denies vomiting Genitourinary Genitourinary ED: Denies dysuria or hematuria Musculoskeletal Musculoskeletal: Reports back pain; Denies neck pain Integumentary Denies abscess or rash Neurologic Neurologic: Reports headache(s); Denies weakness Allergic/Immunologic Allergic/Immunologic ED: Denies mouth swelling or urticaria EXAM Physical Exam Const Vital Signs: 06/30/24 12:11 06/30/24 13:10 06/30/24 13:40 Temperature 97.3 F L Temperature Source Oral Pulse Rate 93 77 Pulse Rate [Lying] 85 Pulse Rate [Sitting (for 1 minute prior to obtaining)] 88 Pulse Rate [Standing (for 1 minute prior to obtaining)] 97 Respiratory Rate 16 18 Blood Pressure 145/76 H 139/51 H Blood Pressure [Lying] 154/64 H Blood Pressure [Sitting (for 1 minute prior to obtaining)] 135/70 H Blood Pressure [Standing (for 1 minute prior to obtaining)] 130/62 H Blood Pressure Mean 99 80 Blood Pressure Mean [Lying] 94 Blood Pressure Mean [Sitting (for 1 minute prior to obtaining)] 91 Blood Pressure Mean [Standing (for 1 minute prior to obtaining)] 84 Pulse Ox 99 97 Oxygen Delivery Method Room Air Room Air 06/30/24 14:00 06/30/24 15:00 06/30/24 15:59 Temperature Temperature Source Pulse Rate 82 78 79 Pulse Rate [Lying] Pulse Rate [Sitting (for 1 minute prior to obtaining)] Pulse Rate [Standing (for 1 minute prior to obtaining)] Respiratory Rate 18 18 19 H Blood Pressure 142/56 H 143/58 H 154/76 H Blood Pressure [Lying] Blood Pressure [Sitting (for 1 minute prior to obtaining)] Blood Pressure [Standing (for 1 minute prior to obtaining)] Blood Pressure Mean 84 86 102 Blood Pressure Mean [Lying] Blood Pressure Mean [Sitting (for 1 minute prior to obtaining)] Blood Pressure Mean [Standing (for 1 minute prior to obtaining)] Pulse Ox 98 Oxygen Delivery Method Room Air Positive well nourished and well developed General Appearance ED: well developed and NAD HEENT Reports moist mucous membranes Eyes PERRL and EOMs intact bilaterally Eyes Narrative: There is mild nystagmus with right lateral gaze. There is edema and ecchymosis over the right periorbital area, right cheek, and right jaw. Neck supple and no JVD Chest Wall Chest Narrative: There is tenderness palpation over the right chest. There is no subcutaneous emphysema noted. There is no bony crepitance or step-off. Resp normal respiratory effort and clear to auscultation bilaterally Cardio regular rate and regular rhythm GI non-tender and non-distended Palpation: soft Extremity Extremity Narrative: There is a short arm splint noted on the right forearm and wrist. Capillary refills less than 2 seconds in all digits. Sensation was intact to light touch in all digits. Strength is 5/5 in the radial, median, and ulnar areas. Neuro oriented x3, CN's II-XII intact bilaterally and no sensory deficits noted Sensorium / Orientation: alert Motor Exam: strength 5/5 throughout Psych mental status grossly normal MDM MDM MDM Narrative Medical decision making narrative: Differential diagnosis includes intracranial bleeding, vertigo, labyrinthitis, infection, coagulopathy, cardiac dysrhythmia, cardiac ischemia, and closed head injury. EKG will be obtained to assess for cardiac dysrhythmia and cardiac ischemia. CT scan of the brain will be obtained to assess for intracranial bleeding. CBC will be obtained to assess for leukocytosis and anemia. Basic metabolic profile will be obtained to assess for electrolyte abnormality and renal function. Urinalysis will be obtained to assess for urinary tract infection. Serum lactate will be obtained to assess for sepsis. PT with INR and PTT will be obtained to assess for coagulopathy. High-sensitivity troponin will be obtained to assess for cardiac ischemia. Lab Data Attestation: I reviewed the patient's lab results. Lab results narrative: CBC was reviewed and was essentially within normal limits. Basic metabolic profile was reviewed. Sodium was slightly low at 131. BUN was slightly elevated at 20. Anion gap was normal. The remainder is within normal limits. PT with INR and PTT were reviewed and were within normal limits. High- sensitivity troponin was reviewed and was normal at 6. Urinalysis was reviewed. There is no evidence of urinary tract infection or hematuria. Serum lactate was reviewed and was normal at 0.7. Labs: Laboratory Results - last 24 hr 06/30/24 06/30/24 06/30/24 12:36 13:28 13:50 WBC 7.6 RBC 3.78 L Hgb 12.2 Hct 37.9 MCV 100.3 H MCH 32.3 H MCHC 32.2 RDW Std Deviation 50.0 H RDW Coeff of Antony 13.5 Plt Count 396 MPV 10.3 Immature Gran % (Auto) 0.400 Neut % (Auto) 74.3 H Lymph % (Auto) 17.5 L [place] % (Auto) 5.5 Eos % (Auto) 2.0 Baso % (Auto) 0.3 Absolute Neuts (auto) 5.7 Absolute Lymphs (auto) 1.34 Nucleated RBC % 0 PT 13.4 INR 1.0 APTT 27.5 Sodium 131 L Potassium 3.9 Chloride 102 Carbon Dioxide 25.0 Anion Gap 4 L BUN 20 H Creatinine 0.63 Estim Creat Clear Calc 51.82 Est GFR (MDRD) Af Amer 118 Est GFR (MDRD) Non-Af 98 BUN/Creatinine Ratio 31.9 H Glucose 110 H Lactic Acid 0.7 Calcium 10.1 Troponin I High Sens 6 Urine Color Yellow Urine Clarity Sl. Cloudy Urine pH 7.0 Ur Specific [place] 1.010 Urine Protein 15 H Urine Glucose (UA) Normal Urine Ketones Negative Urine Occult Blood Negative Urine Nitrite Negative Urine Bilirubin Negative Urine Urobilinogen Normal Ur Leukocyte Esterase Negative Urine RBC 0 SEEN Urine WBC 0 SEEN Ur Squamous Epith Cells 0-5 SEEN Urine Bacteria 0 SEEN Urine Mucus 0 SEEN Radiography Diagnostic Testing: Clinical Impression(s) from Imaging Studies Brain CT 06/30/24 13:15 IMPRESSION: No acute intracranial process. 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 If symptoms persist, MRI of the brain is recommended. Electronically Signed: Slim Vogt MD at 14:47 EDT , CT scan of the brain was obtained. There is a right frontal parietal subdural fluid or hygroma that is markedly increased since previous exam. This was interpreted by the radiologist was also independently reviewed by myself. EKG Initial EKG: Attestation: I personally reviewed and interpreted this EKG as follows: Interpretation: Sinus Rhythm (75), No Acute Injury Pattern and Non- Specific ST Changes Comments: EKG was obtained. On my independent interpretation, it showed a normal sinus rhythm with a rate of 75. [place] interval, QRS interval, and QTc intervals were all normal. [place] was normal. There is left ventricular hypertrophy noted. There are nonspecific ST-T wave changes. Prior: Unchanged (11/05/2023) Treatment and Re-Evaluation :: Patient was given morphine and Zofran initially. Patient was given a dose of Valium for her dizziness. Patient had no improvement of her dizziness. Patient was advised of her findings. Patient requested to be transferred to [facility]. Case was discussed with Dr. Carter at [facility]. He accepted the patient to be transferred there. Patient was advised of the transfer. Patient states she was still feeling anxious and jittery. Patient was given a dose of Ativan. Patient agrees with being transferred. Care of the patient was turned over to the oncoming physician pending transfer. Discharge Plan Triage Chief Complaint: Dizziness ED Provider: Huber Warren Dx/Rx/DC Orders Clinical Impression: Subdural hygroma, Balance disorder, Dizziness Prescriptions: No Action ibuprofen [Advil] 200 mg tablet 200 mg PO Q6H PRN (Reason: pain) albuterol sulfate 90 mcg/actuation HFA aerosol inhaler 2 puff inhalation Q6H PRN (Reason: shortness of breath or wheezing) Qty: 8.5 0RF magnesium 250mg PO Rx Instructions: daily at bedtime redding milk of magnesia PO Rx Instructions: capsule daily at bedtime oxycodone-acetaminophen 5-325 mg tablet 1 tab PO Q6H PRN PRN (Reason: Pain) 3 Days Qty: 12 0RF ondansetron 4 mg tablet,disintegrating 4 mg PO Q6H PRN PRN (Reason: Nausea) Qty: 15 0RF elderberry fruit 200 mg capsule 600 mg PO .PAIN meclizine 12.5 mg tablet 12.5 mg PO TID PRN (Reason: dizziness) Qty: 20 0RF Symbicort 160-4.5 mcg/actuation HFA aerosol inhaler 2 puff INHALATION BID Qty: 10.2 12RF Rx Instructions: May get 3 units at a time buspirone 10 mg tablet 10 mg PO TID 90 Days Qty: 270 1RF acetaminophen [Tylenol Arthritis Pain] 650 mg tablet extended release 650 mg PO Q12H PRN (Reason: pain) 90 Days Qty: 100 2RF ondansetron HCl 4 mg tablet 4 mg PO Q6H PRN (Reason: nausea and vomiting) Qty: 30 0RF escitalopram oxalate [Lexapro] 20 mg tablet 20 mg PO DAILY Qty: 90 1RF levothyroxine 175 mcg tablet 175 mcg PO QDAY Qty: 90 1RF omeprazole 20 mg capsule,delayed release(DR/EC) 20 mg PO QHS Qty: 90 2RF cholecalciferol (vitamin D3) 1,250 mcg (50,000 unit) capsule 50,000 unit PO .COMPLEX Qty: 10 0RF Rx Instructions: 50,000 units orally Every Week tramadol 50 mg tablet 50 mg PO Q6H PRN (Reason: pain) 30 Days Qty: 120 0RF Primary Care Provider: Jose Roberto Clark Referrals: Jose Roberto Clark DO [Primary Care Provider] - Print Language: Chinese Disposition Disposition: Acute Care Hospital Discharge Location: [facility]
--- NOTE | 2024-06-30 13:15 | CT_ITS ---
INDICATION: Head injury EXAMINATION: CT BRAIN - CT Head or Brain W/O Contrast Injection TECHNIQUE: Multiple axial images were obtained of the head without intravenous contrast. The protocol utilizes one or more of the following dose reduction techniques: automated exposure control, adjustment of mA and/or kV according to patient size,and/or use of iterative reconstruction technique. IV Contrast dosage and agent: None. RADIATION DOSAGE (If Supplied By Facility): CTDIvol = ( 47.06 ) mGy, DLP = ( 837.39 ) mGycm COMPARISON: Prior study dated: 06/18/2024 FINDINGS: BRAIN PARENCHYMA: Right frontoparietal extra-axial fluid likely due to adenoma but markedly increased since previous exam. No evidence of acute intracranial hemorrhage or subdural hematoma. No evidence of acute infarct. No intracranial mass or mass effect. There is preservation of the joseph/white matter interface. Posterior fossa structures are unremarkable. CSF SPACES: Appropriate for age. No hydrocephalus. Basal cisterns are patent. CALVARIUM, SKULL BASE, PARANASAL SINUSES AND MASTOID AIR CELLS: Clear. Right frontal focal soft tissue swelling/hematoma adjacent right globe orbit decreased since the previous exam. ORBITS: Both globes, extraocular muscles, optic nerves and retrobulbar fat appear unremarkable. CT/Brain/Head without Contrast IMPRESSION: No acute intracranial process. 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 If symptoms persist, MRI of the brain is recommended. Electronically Signed: Slim Vogt MD at 14:47 EDT ,
--- NOTE | 2024-06-30 13:16 | EKG12_ITS ---
Test Reason : SYNCOPE Blood Pressure : / mmHG Vent. Rate : 075 BPM Atrial Rate : 075 BPM P-R Int : 184 ms QRS Dur : 084 ms QT Int : 398 ms P-R-T Axes : 056 019 055 degrees QTc Int : 444 ms Normal sinus rhythm Minimal voltage criteria for LVH, may be normal variant ( Sokolow-Cote ) Nonspecific ST abnormality Abnormal ECG Confirmed by DAVID COATES, JOSE DE JESUS ([id number]), manuscript editor ASHLEY THAKKAR ([id number]) on 07/02/2024 9:57:13 AM Referred By: Confirmed By:JOSE DE JESUS HERNANDEZ MD
[2024-06-30] MEDS: diazePAM 5 MG Tablet 2.5 MG PO (13:26)
[2024-06-30 13:28] LABS: Absolute Lymphocyte Count 1.34 X10^3/uL (0.83-4.51); Absolute Neutrophil Count 5.7 X10^3/uL (2.0-7.7); Basophil# 0.02 X10^3/uL; Basophil% 0.3 % (0-1); Eosinophil# 0.15 X10^3/uL; Hematocrit 37.9 % (37-47); Hemoglobin 12.2 g/dL (12.0-15.0); Lymphocyte # 1.34 X10^3/ul (0.83-4.51); Lymphocyte % 17.5 % (19-41); Mean Corp Hgb Conc 32.2 g/dL (32-36); Mean Corpuscular Hgb 32.3 pg (27.0-32.0); Mean Corpuscular Volume 100.3 fL (81-99); Mean Platelet Vol. 10.3 fl (6.2-12.0); Monocyte# 0.42 X10^3/uL; Monocyte% 5.5 % (0-10); NRBC Flagged by Analyzer 0 % (0-5); Neutrophil # 5.68 X10^3/uL (2.7-7.7); Neutrophil % 74.3 % (47-70); Platelet Count 396 K/mm3 (150-450); RBC Distribution Width CV 13.5 % (11.6-14.6); Red Blood Count 3.78 M/mm3 (4.2-5.4); White Blood Count 7.6 K/mm3 (4.4-11.0)
[2024-06-30 13:41] LABS: Prothrombin Time (Protime)PT. 13.4 SECONDS (11.7-14.9)
[2024-06-30 13:42] LABS: Partial Thromboplast Time 27.5 Seconds (24.1-36.2)
[2024-06-30 13:47] LABS: Anion Gap 4 (5-15); BUN 20 mg/dL (7-18); BUN/Creat Ratio 31.9 RATIO (10-20); Calcium,Total 10.1 mg/dL (8.5-10.1); Chloride 102 mmol/L (98-107); Creatinine, Serum 0.63 mg/dL (0.55-1.02); EST Glomerular Filtration Rate 98 mL/min (>60); Est Glom Filt Rate - Afr Amer 118 mL/min (>60); Estimated Creatinine Clearance 51.82 ml/min; Glucose 110 mg/dL (74-106); Potassium 3.9 mmol/L (3.5-5.1); Sodium Level 131 mmol/L (136-145); Troponin-I HS 6 pg/mL (3.0-54.0)
[2024-06-30] MEDS: Morphine 4 MG/ML Syringe IV (13:51)
[2024-06-30] MEDS: Ondansetron 4 MG/2 ML Vial IV (13:51)
[2024-06-30 13:59] LABS: Bacteria 0 SEEN /hpf (None Seen); Mucous, Urine 0 SEEN /hpf (<or=2+); Red Blood Cells-Urine 0 SEEN /hpf (0-5); White Blood Cells 0 SEEN /hpf (0-5)
[2024-06-30 14:03] LABS: Color, Urine Yellow (Yellow); Glucose, Dipstick Normal (Normal); Ketone-Dipstick Negative (Negative); Leukocyte Esterase-Dipstick Negative /ul (Negative); Nitrite-Dipstick Negative (Negative); Occult Blood-Urine Negative /ul (Negative); Protein-Dipstick 15 mg/dl (Negative); Urine Bilirubin Dipstick Negative (Negative); Urine Clarity Sl. Cloudy (Clear); Urine Urobilinogen Normal (Normal)
[2024-06-30 14:05] LABS: Lactic Acid 0.7 mmol/L (0.4-1.9)
[2024-06-30 14:43] LABS: Squamous Epithelial Cells - UA 0-5 SEEN /hpf (5-10)
[2024-06-30] MEDS: LORazepam 0.5 MG Tablet PO (16:23)
--- OUTSIDE RECORDS SUMMARY | 2024-06-30 17:27 | XMS RPT_ITS | CCD ---
Author Organization [facility] Care Team Providers Care Pelt Salter Name Role Phone BROWN, GOOD Unavailable Unavailable BROWN, GOOD Unavailable Unavailable Brown DO, Good R Primary Care Provider Brown DO, Good R Primary Care Provider TATE RILEY Attending Unava ilable BROWN, GOOD R Primary Care Unavailable EVERT MAGALLANES Referring Unavailable JEISON ROBERTS Admitting Unavailable NAVEED NINO Attending Unavailable BROWN, GOOD R Primary Care Unavailable GALINA FRANCO Attending Unavailable BROWN, GOOD R Primary Care Unavailable GUNJAN HENSON Attending Unavailable GUNJAN HENSON Referring Unavailable BROWN, GOOD R Primary Care Unavailable BROWN, GOOD R Primary Care Unavailable GUNJAN HENSON Referring Unavailable BROWN, GOOD R Primary Care Unavailable JUDY POOLE Attending Unavailable RANDELLTATE BROWN Referring Unava ilable BROWN, GOOD R Primary Care Unavailable MICA NAVEED A Referring Unavailable BROWN, GOOD R Primary Care Unavailable DEONDRE NINOT Vu Referring Unavailable BROWN, GOOD R Primary Care Unavailable TATE RILEY Referring Unava ilable ERICK NOGUEIRA Attending Unavailable BROWN, GOOD R Primary Care Unavailable MICA NAVEED A Referring Unavailable Allergies Allergy Classification Reported Allergen(s) Allergy Type Date of Onset Reaction(s) Facility (20 sources) Amoxicillin; Translations: [AMOXICILLIN] Drug Allergy 0 Hives, Itching [facility] (20 sources) Erythromycin; Translations: [ERYTHROMYCIN] [facility] Work Phone: (20 sources) Pethidine analog; Translations: [OPIOIDS-MEPERID INE AND RELATED] Propensity to adverse reactions 4 [facility] Work Phone: (20 sources) Propoxyphene; Translations: [PROPOXYPHENE] Drug Allergy 4 [facility] (20 sources) Sulfonamides (Antibiotic); Translations: [SULFA (SULFONAMIDE ANTIBIOTICS)] Propensity to adverse reactions 0 Hives [facility] (20 sources) tolterodine; Translations: [TOLTERODINE] Drug Allergy 0 Rash [facility] Medications Current Medications Medication Drug Class(es) Dates Sig (Normalized) Sig (Original) [id number] 200 actuat albuterol 0.09 mg/actuat metered dose inhaler (20 sources) beta2-Adrenergic Agonist Start: 10-17-2021 take 2 puff(s) by inhalation every six hours as needed albuterol HFA (PROVENTIL HFA, VENTOLIN HFA) 90 mcg/actuation inhaler Inhale 2 Puffs as instructed every 6 hours as needed. 1 Inhaler 1 10/17/2021 Active Comment on above: Inhale 2 Puffs as in structed every 6 hours as needed. amLODIPine 10 mg oral tablet (15 sources) Dihydropyridine Calcium Channel Memo Start: 12-30-2023 take 1 tablet by mouth once daily amLODIPine (NORVASC) 10 mg tablet Take 1 tablet by mouth once daily. 30 tablet 12/30/2023 Active Budesonide / formoterol (20 sources) Corticosteroid, beta2-Adrenergic Agonist take 2 puff(s) by inhalation twice daily budesonide-formo terol (SYMBICORT) 160-4.5 mcg/actuation inhaler Inhale 2 Puffs as instructed twice daily. Active take 2 puff(s) by in halation twice daily budesonide-formoterol (SYMBICORT) 160-4. 5 mcg/actuation inhaler Inhale 2 Puffs as instructed twice daily. 0 Active Comment on above: Inhale 2 Puffs as in structed twice daily. busPIRone hydrochloride 7.5 mg oral tablet (20 sources) Start: 11-16-2013 take 10 mg by mouth three times daily BUSPIRONE HCL 7.5 mg tablet Take 10 mg by mouth three times daily. 11/16/2013 Active Start: 11-16-2013 take 1 tablet by greyson three times daily BUSPIRONE HCL 7.5 mg tablet Take 7.5 mg by mouth three times daily. 0 11/16/2013 Active Comment on above: Take 7.5 mg by mouth three times daily. Take 10 mg by mouth three times daily. cholecalciferol 1.25 mg oral capsule (20 sources) Vitamin D Start: 019 take 1 capsule by mouth every week cholecalciferol, Vitamin D3, (VITAMIN D3) 1,250 mcg (50,000 unit) cap capsule Take 1 capsule by mouth one time a week. 07/09/2019 Active Comment on above: Take 1 capsule by [facility] one time a week. clobetasol propionate 0.0005 mg/mg topical ointment (17 sources) Corticosteroid Start: 023 clobetasol (TEMOVATE) 0.05 % ointment Apply to affected area as needed. 12/26/2022 Active Comment on above: Apply to affected ar ea as needed. enteric contrast (will be provided with radiology test) (1 source) Start: 024 End: 024 enteric contrast (will be provided with radiology test) For CT ABD/PEL W IVCON Routine order Administer, As Directed One Time Only, via Oral, Rectal, both Oral and Rectal, Enteric Tube, Stoma or Indwelling Catheter, Enteric Contrast as designated per enteric contrast guidelines 1 Each 04/29/2024 04/30/2024 Active escitalopram 20 mg oral tablet (20 sources) Serotonin Reuptake Inhibitor Start: 007 LEXAPRO 20 MG TAB Take one(1) tablet daily. 30 5 12/13/2006 Active Comment on above: Take one(1) tablet d aily. estradiol 0.1 mg/ml vaginal cream (20 sources) Estrogen Start: 019 estradiol (ESTRACE) 0.01 % (0.1 mg/gram) vaginal cream Use 1 g vaginally two times a week. 08/12/2019 Active Comment on above: Use 1 g vaginally tw o times a week. ibuprofen 200 mg oral tablet (20 sources) Nonsteroidal Anti-inflammatory Drug Start: 010 IBUPROFEN 200 MG TAB Take 1-2 tablet's) every four(4) to six(6) hours as needed for pain. 0 03/15/2010 Active Comment on above: Take 1-2 tablet's) e very four(4) to six(6) hours as needed for pain. iv contrast (will be provided with radiology test) (1 source) Start: End: iv contrast (will be provided with radiology test) CT ABD/PEL -Inject, intravenously, once for 1 dose.No IV access, insert saline lock prior to the beginning of sedation, infusion, injection of imaging exam. Discontinue saline lock post exam. If Pt. has a central line or IVAD, may access for administration according to line specific nursing protocol. Once exam is complete flush line and de-access according to line specific nursing protocol in the CT contrast administration guidelines link. 1 Each 04/29/2024 04/30/2024 Active levothyroxine sodium 0.175 mg oral tablet (20 sources) l-Thyroxine Start: 015 take 1 tablet by mouth once daily levothyroxine (SYNTHROID) 175 mcg tablet Take 175 mcg by mouth once daily. 05/06/2015 Active Comment on above: Take 175 mcg by mout h once daily. Magnesium Hydroxide (16 sources) take 1 tablet by mouth once daily magnesium hydroxide (MILK OF MAGNESIA ORAL) Take 1 tablet by mouth once daily. Active take 1 tablet by mouth once rica y magnesium hydroxide (MILK OF MAGNESIA ORAL) Take 1 tablet by mouth once daily. 0 Active Comment on above: Take 1 tablet by greyson once daily. 24 hr nicotine 0.583 mg/hr transdermal system (15 sources) Cholinergic Nicotinic Agonist Start: 2023 apply 1 dose transdermal route once daily nicotine (NICODERM) 14 mg/24 hr Apply 1 Patch as directed once daily. 30 Patch 12/30/2023 Active omeprazole 20 mg delayed release oral capsule (20 sources) Proton Pump Inhibitor Start: 2019 take 1 capsule by mouth once daily omeprazole (PRILOSEC) 20 mg capsule Take 1 capsule by mouth once daily. 100 capsule 5 09/15/2019 Active Comment on above: Take [address] [facility] once daily. polyethylene glycol 3350 19405 mg powder for oral solution (15 sources) Osmotic Laxative Start: 2023 polyethylene glycol 3350 17 gram packet Take 1 Packet by mouth once daily. Dissolve dose in 4 - 8 ounces of liquid and take as directed. 100 Each 12/30/2023 Active prochlorperazine 5 mg oral tablet (20 sources) Phenothiazine Start: 2022 take 2 tablets by mouth every twelve hours as needed prochlorperazine (COMPAZINE) 5 mg tablet Take 2 tablets by mouth twice daily as needed. 100 tablet 12/01/2022 Active Start: 10-11-2021 prochlorperazi ne (COMPAZINE) 10 mg tablet Take 1 tablet by mouth as needed. 50 tablet 5 10/11/2021 Active Comment on above: Take 1 tablet by greyson th as needed. Take 2 tablets by mo uth twice daily as needed. traMADol hydrochloride 50 mg oral tablet (20 sources) Opioid Agonist take 1 tablet by mouth three times daily traMADOL 50 mg tablet Indications: Personal history of malignant neoplasm of breast , Thyroid nodule Take 50 mg by mouth three times daily. Active Comment on above: Take 50 mg by mouth three times daily. vitamin b12 1 mg/ml injectable solution (20 sources) Vitamin B12 cyanocobalamin, vitamin B-12, 1,000 mcg/mL kit by INJECTION(UNSPECIFIED PARENTERAL ROUTES) route once every month. Active Comment on above: by INJECTION(UNSPECI FIED PARENTERAL ROUTES) route once every month. Completed/Discontinued Medications Medication Drug Class(es) Dates Sig (Normalized) Sig (Original) ascorbic acid 500 mg oral tablet (5 sources) Vitamin C End: 02-07-2023 take 1 tablet by mouth once daily ascorbic acid, vitamin C, (VITAMIN C) 500 mg tablet Take 500 mg by mouth once daily. 02/07/2023 Discontinued Comment on above: Take 500 mg by mouth once daily. ELDERBERRY FRUIT (5 sources) End: 02-07-2023 take 1 tablet by mouth once daily elderberry fruit (ELDERBERRY ORAL) Take 1 tablet by mouth once daily. 02/07/2023 Discontinued End: 02-07-2023 take 1 tablet by mouth once daily elderberry fruit (ELDERBERRY ORAL) Take 1 tablet by mouth once daily. 0 02/07/2023 Discontinued take 1 tablet by greyson th once daily elderberry fruit (ELDERBERRY ORAL) Take 1 tablet by mouth once daily. 0 Active Comment on above: Take 1 tablet by greyson th once daily. Zinc (5 sources) End: 02-07-2023 take 1 tablet by mouth once daily ZINC ORAL Take 1 tablet by mouth once daily. 02/07/2023 Discontinued End: 02-07-2023 take 1 tablet by mouth once daily ZINC ORAL Take 1 tablet by mouth once daily. 0 02/07/2023 Discontinued take 1 tablet by greyson th once daily ZINC ORAL Take 1 tablet by mouth once daily. 0 Active Comment on above: Take 1 tablet by greyson th once daily. Problems Active Problems Problem Classification Problem Date Documented Da te Episodic/Chronic Anxiety disorders (20 sources) Anxiety state; Translations: [Generalized anxiety disorder] 06-24-2010 Chronic Cancer of breast (20 sources) Malignant neoplasm of female breast; Translations: [Malignant neoplasm of unspecified site of unspecified female breast] Onset: 0 12-31-2009 Chronic Chronic obstructive pulmonary disease and bronchiectasis (20 sources) Emphysematous bronchitis; Translations: [Chronic obstructive pulmonary disease, unspecified] Onset: 4 Resolved: 4 11-10-2019 Chronic Complications of surgical procedures or medical care (20 sources) Menopausal symptom; Translations: [Symptomatic postprocedural ovarian failure] Onset: 4 06-24-2010 Chronic Disorders of lipid metabolism (20 sources) Hyperlipidemia; Translations: [Hyperlipidemia, unspecified] 06-24-2010 Chronic Esophageal disorders (20 sources) Gastroesophageal reflux disease; Translations: [Gastro-esophageal reflux disease without esophagitis] Onset: 4 06-24-2010 Chronic Essential hypertension (15 sources) Hypertensive disorder; Translations: [Essential (primary) hypertension] Onset: 4 12-27-2023 Chronic Nonmalignant breast conditions (20 sources) Fibrocystic changes of bilateral breasts; Translations: [Diffuse cystic mastopathy of right breast] Onset: 6 Resolved: 6 06-20-2016 Chronic Nutritional deficiencies (20 sources) Vitamin D deficiency; Translations: [Vitamin D deficiency, unspecified] Onset: 2 09-14-2011 Chronic Other and unspecified benign neoplasm (20 sources) History of polyp of colon; Translations: [Personal history of colonic polyps] 06-24-2010 Episodic Other gastrointestinal disorders (2 sources) Constipation; Translations: [Constipation, unspecified] 01-11-2024 Episodic Other lower respiratory disease (1 source) Cough; Translations: [Acute cough] 01-23-2023 Episodic Regional enteritis and ulcerative colitis (20 sources) Crohn's disease; Translations: [Crohn's disease, unspecified, without complications] Onset: 2 07-26-2012 Chronic Screening and history of mental health and substance abuse codes (1 source) Ex-cigarette smoker; Translations: [Personal history of nicotine dependence] 02-29-2024 Episodic Substance-related disorders (20 sources) Tobacco user; Translations: [Nicotine dependence, unspecified, uncomplicated] Onset: 4 06-24-2010 Chronic Thyroid disorders (20 sources) Hypothyroidism; Translations: [Hypothyroidism, unspecified] Onset: 2 07-26-2012 Chronic Past or Other Problems Problem Classification Problem Date Documented Da te Episodic/Chronic Asthma (16 sources) Asthma-chronic obstructive pulmonary disease overlap syndrome; 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] Onset: 02-08-2011 Resolved: 11-10-2019 11-10-2019 Chronic Biliary tract disease (20 sources) Gallstone; Translations: [Calculus of gallbladder without cholecystitis without obstruction] Onset: 07-17-2012 07-17-2012 Episodic Cancer of breast (20 sources) History of malignant neoplasm of breast; Translations: [Personal history of malignant neoplasm of breast] Onset: 05-21-2014 Episodic Fluid and electrolyte disorders (16 sources) Hypokalemia; Translations: [Hypokalemia] Onset: 12-28-2023 12-28-2023 Episodic Headache; including migraine (15 sources) Headache; Translations: [Headache] Onset: 12-27-2023 12-27-2023 Episodic Intestinal obstruction without hernia (16 sources) Large bowel obstruction; Translations: [Unspecified intestinal obstruction, unspecified as to partial versus complete obstruction] Onset: 12-25-2023 12-25-2023 Episodic Nonmalignant breast conditions (20 sources) Inflammatory disorder of breast; Translations: [Mastitis without abscess] Onset: 10-27-2004 06-24-2010 Episodic Other and unspecified benign neoplasm (20 sources) Benign tumor of breast; Translations: [Benign neoplasm of unspecified breast] Onset: 05-02-2004 06-24-2010 Episodic Other and unspecified benign neoplasm (20 sources) Benign neoplasm of skin of lower limb; Translations: [Other benign neoplasm of skin of unspecified lower limb, including hip] Onset: 09-20-2005 06-24-2010 Episodic Other gastrointestinal disorders (1 source) Constipation, unspecified; Translations: [Constipation, unspecified constipation type] Onset: 01-10-2024 Episodic Other non-traumatic joint disorders (4 sources) Shoulder pain; Translations: [Pain in right shoulder] Onset: 10-18-2015 10-18-2015 Episodic Other non-traumatic joint disorders (16 sources) Pain in right shoulder; Translations: [Pain in joint, shoulder region] Onset: 10-18-2015 10-18-2015 Episodic Other screening for suspected conditions (not mental disorders or infectious disease) (5 sources) Patient encounter status; Translations: [Encounter for screening mammogram for malignant neoplasm of breast] Onset: 01-14-2024 Episodic Residual codes; unclassified (15 sources) Acute pain; Translations: [Pain, unspecified] Onset: 12-27-2023 12-27-2023 Episodic Spondylosis; intervertebral disc disorders; other back problems (20 sources) Lumbago with sciatica; Translations: [Lumbago with sciatica, left side] Onset: 10-18-2015 10-18-2015 Episodic Results Test Name Value Interpretation Reference Range Facility CT ABD/PEL W IVCONon 024 CT ABD/PEL W IVCON * * *Final Report* * * DATE OF EXAM: May 29 2024 2:55PM [facility] 0530 - CT ABD/PEL W IVCON / PROCEDURE REASON: Crohn's disease of small and large intestines with complication (HCC) * * * * Physician Interpretation * * * * EXAMINATION: CT ABDOMEN AND PELVIS WITH IV CONTRAST CLINICAL HISTORY: 79-year-old woman with a history of Crohn's disease and obstructive symptoms TECHNIQUE: CT of the abdomen and pelvis was performed using standard technique, scanning from just above the dome of the diaphragm to the symphysis pubis. MQ: CTAP_3 Contrast: IV: 100 ml of Omnipaque 350 Oral: 10 ml of Omni 240 10-25ml diluted with water CT Radiation dose: Integrated Dose-length product (DLP) for this visit = 473 mGy*cm. CT Dose Reduction Employed: Automated exposure control(AEC) and iterative recon COMPARISON: 11/05/2017 and 12/24/2023 RESULT: Images are mildly/moderately suboptimal due to motion artifact. Liver: No mass. Biliary: No bile duct dilation. Cholelithiasis. Spleen: No mass. No splenomegaly. Pancreas: No mass or duct dilation. Adrenals: No mass. Kidneys: No mass, calculus or hydronephrosis. GI tract: No bowel dilation. Sigmoid diverticulosis with associated wall thickening, similar to prior. No upstream dilation. Lymph nodes: No abdominal or pelvic lymphadenopathy. Mesentery/Peritoneum: No ascites or mass. Retroperitoneum: No mass. Vasculature: - Abdominal aorta and iliac arteries: Atherosclerotic calcifications without aneurysm. - Celiac and SMA: Patent without stenosis. - Portal venous system (SMV, splenic vein, portal vein and branches): Patent. - Hepatic veins: Patent. Pelvis: No mass, ascites or fluid collection. Hysterectomy. Bones/Soft Tissues: Degenerative changes. Lower thorax: Unremarkable. Localizer images: No additional findings. IMPRESSION: No acute process in the abdomen or pelvis. Specifically, no bowel dilation/obstruction. Communications Department Chairperson: DEEPAK Transcribe Date/Time: May 29 2024 3:11P Dictated by : ARELIS GOSS MD This examination was interpreted and the report reviewed and electronically signed by: ARELIS GOSS MD on May 29 2024 3:17PM EST [id number] Normal [facility] CT Abdomen and Pelvis W cont rast Sam 05-29-2024 IMPRESSION: No acute process in the abdomen or pelvis. Specifically, no bowel dilation/obstruction. Communications Department Chairperson: [facility]ITAL[facility] Transcribe Date/Time: May 29 2024 3:11P Dictated by : ARELIS GOSS MD This examination was interpreted and the report reviewed and electronically signed by: ARELIS GOSS MD on May 29 2024 3:17PM EST DIVISION OF RADIOLOGY * * *Final Report* * * DATE OF EXAM: May 29 2024 2:55PM [facility] 0530 - CT ABD/PEL W IVCON / PROCEDURE REASON: Crohn's disease of small and large intestines with complication (HCC) * * * * Physician Interpretation * * * * EXAMINATION: CT ABDOMEN AND PELVIS WITH IV CONTRAST CLINICAL HISTORY: 79-year-old woman with a history of Crohn's disease and obstructive symptoms TECHNIQUE: CT of the abdomen and pelvis was performed using standard technique, scanning from just above the dome of the diaphragm to the symphysis pubis. MQ: CTAP_3 Contrast: IV: 100 ml of Omnipaque 350 Oral: 10 ml of Omni 240 10-25ml diluted with water CT Radiation dose: Integrated Dose-length product (DLP) for this visit = 473 mGy*cm. CT Dose Reduction Employed: Automated exposure control(AEC) and iterative recon COMPARISON: 11/05/2017 and 12/24/2023 RESULT: Images are mildly/moderately suboptimal due to motion artifact. Liver: No mass. Biliary: No bile duct dilation. Cholelithiasis. Spleen: No mass. No splenomegaly. Pancreas: No mass or duct dilation. Adrenals: No mass. Kidneys: No mass, calculus or hydronephrosis. GI tract: No bowel dilation. Sigmoid diverticulosis with associated wall thickening, similar to prior. No upstream dilation. Lymph nodes: No abdominal or pelvic lymphadenopathy. Mesentery/Peritoneum: No ascites or mass. Retroperitoneum: No mass. Vasculature: - Abdominal aorta and iliac arteries: Atherosclerotic calcifications without aneurysm. - Celiac and SMA: Patent without stenosis. - Portal venous system (SMV, splenic vein, portal vein and branches): Patent. - Hepatic veins: Patent. Pelvis: No mass, ascites or fluid collection. Hysterectomy. Bones/Soft Tissues: Degenerative changes. Lower thorax: Unremarkable. Localizer images: No additional findings. DIVISION OF RADIOLOGY Provider, [facility] - 05/29/2024 * * *Final Report* * * DATE OF EXAM: May 29 2024 2:55PM [facility] 0530 - CT ABD/PEL W IVCON / PROCEDURE REASON: Crohn's disease of small and large intestines with complication (HCC) * * * * Physician Interpretation * * * * EXAMINATION: CT ABDOMEN AND PELVIS WITH IV CONTRAST CLINICAL HISTORY: 79-year-old woman with a history of Crohn's disease and obstructive symptoms TECHNIQUE: CT of the abdomen and pelvis was performed using standard technique, scanning from just above the dome of the diaphragm to the symphysis pubis. MQ: CTAP_3 Contrast: IV: 100 ml of Omnipaque 350 Oral: 10 ml of Omni 240 10-25ml diluted with water CT Radiation dose: Integrated Dose-length product (DLP) for this visit = 473 mGy*cm. CT Dose Reduction Employed: Automated exposure control(AEC) and iterative recon COMPARISON: 11/05/2017 and 12/24/2023 RESULT: Images are mildly/moderately suboptimal due to motion artifact. Liver: No mass. Biliary: No bile duct dilation. Cholelithiasis. Spleen: No mass. No splenomegaly. Pancreas: No mass or duct dilation. Adrenals: No mass. Kidneys: No mass, calculus or hydronephrosis. GI tract: No bowel dilation. Sigmoid diverticulosis with associated wall thickening, similar to prior. No upstream dilation. Lymph nodes: No abdominal or pelvic lymphadenopathy. Mesentery/Peritoneum: No ascites or mass. Retroperitoneum: No mass. Vasculature: - Abdominal aorta and iliac arteries: Atherosclerotic calcifications without aneurysm. - Celiac and SMA: Patent without stenosis. - Portal venous system (SMV, splenic vein, portal vein and branches): Patent. - Hepatic veins: Patent. Pelvis: No mass, ascites or fluid collection. Hysterectomy. Bones/Soft Tissues: Degenerative changes. Lower thorax: Unremarkable. Localizer images: No additional findings. IMPRESSION IMPRESSION: No acute process in the abdomen or pelvis. Specifically, no bowel dilation/obstruction. Communications Department Chairperson: PSCB Transcribe Date/Time: May 29 2024 3:11P Dictated by : ARELIS GOSS MD This examination was interpreted and the report reviewed and electronically signed by: ARELIS GOSS MD on May 29 2024 3:17PM EST [facility] Radiology Study observation (narrative) [facility] CT Abdomen and Pelvis W cont rast IVOrdered By: [facility]cf Provider on 05-29-2024 [facility] CBC panel Auto (Bld)on 05-23 Erythrocyte distribution width (RBC) [Ratio] 14.6 % Normal 11.5-15.0 [facility] Comment on above: Order Comment: Speci men Type: BLOOD SPECIMENOrdering Facility: [facility] Address: [address] [place], [place] [id number] Performed By: #### 5 8410-2 ####[facility] [id number] [place] [address] [place] Hematocrit (Bld) [Volume fraction] 38.6 % Normal 36.0-46.0 [facility] Comment on above: Order Comment: Speci men Type: BLOOD SPECIMENOrdering Facility: [facility] Address: [address] [place] [address] Performed By: #### 5 8410-2 ####[facility] [id number] [place] [address] [place] Hemoglobin (Bld) [Mass/Vol] 12.6 g/dL Normal 11.5-15.5 [facility] Comment on above: Order Comment: Speci men Type: BLOOD SPECIMENOrdering Facility: [facility] Address: [address] [place] [address] Performed By: #### 5 8410-2 ####[facility] [id number] [place] [address] [place] MCH (RBC) [Entitic mass] 32.6 pg Normal 26.0-34.0 [facility] Comment on above: Order Comment: Speci men Type: BLOOD SPECIMENOrdering Facility: [facility] Address: [address] [place] [address] Performed By: #### 5 8410-2 ####[facility] [id number] [place] [address] [place] MCHC (RBC) [Mass/Vol] 32.6 g/dL Normal 30.5-36.0 [facility] Comment on above: Order Comment: Speci men Type: BLOOD SPECIMENOrdering Facility: [facility] Address: [address] [place] [id number] Performed By: #### 5 8410-2 ####[facility] [id number] [place] [address] [place] MCV (RBC) [Entitic vol] 99.7 fL Normal 80.0-100.0 [facility] Comment on above: Order Comment: Speci men Type: BLOOD SPECIMENOrdering Facility: [facility] Address: [address] [place] [address] Performed By: #### 5 8410-2 ####[facility] [id number] [place] [address] [place] Nucleated RBC (Bld) [#/Vol] 10*3/uL Normal <0.01 [facility] Comment on above: Order Comment: Speci men Type: BLOOD SPECIMENOrdering Facility: [facility] Address: [address] [place] [address] Performed By: #### 5 8410-2 ####[facility] AUDRAADELNCLIA [id number] [place] [address] [place] Platelet mean volume (Bld) [Entitic vol] 10.0 fL Normal 9.0-12.7 [facility] Comment on above: Order Comment: Speci men Type: BLOOD SPECIMENOrdering Facility: [facility] Address: [address] [place] [address] Performed By: #### 5 8410-2 ####[facility]ITALNCLIA [id number] [place] [address] [place] Platelets (Bld) [#/Vol] 374 10*3/uL Normal 150-400 [facility] Comment on above: Order Comment: Speci men Type: BLOOD SPECIMENOrdering Facility: [facility] Address: [address] [place] [address] Performed By: #### 5 8410-2 ####[facility]ITALNCLIA [id number] [place] [address] [place] RBC (Bld)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 and report will be kept on file at [facility] as part of your permanent medical record and are available for your continuing care. Thank you for allowing us to help in meeting your health care needs. Sincerely, Dr. Anderson Interpreting Radiologist [facility] (Normal over 40) Normal [facility] DAMIAN SCREENING W TOMOon 01-13 DAMIAN SCREENING W AGUEDA * * *Final Report* * * DATE OF EXAM: Jan 14 2024 1:47PM WRW 0582 - DAMIAN SCREENING W AGUEDA / PROCEDURE REASON: multiple diagnoses * * * * Physician Interpretation * * * * RESULT: #[id number] - DAMIAN SCREENING W AGUEDA BILATERAL DIGITAL SCREENING MAMMOGRAM TOMOSYNTHESIS WITH CAD: 01/14/2024 HISTORY: /SEE TECH NOTE /Screening Mammogram with AGUEDA - patient reports NO breast symptoms /priors available for comparison Multiple Diagnoses. RESULT: TECHNIQUE: The study was acquired using full field digital technology and interpreted from soft copy. Digital Breast Tomosynthesis (DBT) images were obtained and used to assist in the interpretation of this examination. Current study was also evaluated with a Computer Aided Detection (CAD). Comparison is made to exams dated: 01/08/2023 mammogram, 11/07/2021 mammogram, 10/15/2020 mammogram, and 08/11/2019 mammogram - [facility]. There are scattered areas of fibroglandular density. Note that this exam is limited due to difficulty positioning the patient. There are benign post operative findings in both breasts. No significant masses, calcifications, or other findings are seen in either breast. IMPRESSION: BENIGN FINDING There is no mammographic evidence of malignancy. A 1 year screening mammogram is recommended. Cherelle osorio/abbey:01/15/2024 13:58:11 Tape Sewer(s): RT Leonidas(R)(M), [facility] letter sent: Normal over 40 Mammogram BI-RADS: 2 Benign finding Multiple national specialty organizations have released breast cancer screening guidelines for women at average risk for developing breast cancer - guidelines that are based on both evidence and opinion, yet differ on when to start and how often to screen for breast cancer. With representation from Breast Imaging, Internal Medicine, Women's Health, Family Medicine, and Medical/Surgical Oncology, the [facility] has carefully reviewed the data and reached the following consensus: 1) All women should engage in shared decision-making with their providers to decide when to start and how often to screen; 2) All women should have the opportunity to start screening mammography at age 40; 3) For women ages 45-55, we recommend annual screening mammograms; 4) For women ages 55 and over, we support both the transition from an annual to a biennial interval if this aligns more with patient's values and preferences, or continuation with annual screening; 5) All women should discuss with their providers when to stop screening mammograms. Communications Department Chairperson: Abbey Transcribe Date/Time: Jan 14 2024 1:28P Dictated by: CHERELLE ANDERSON MD This examination was interpreted and the report reviewed and electronically signed by: CHERELLE ANDERSON MD on Jan 15 2024 1:58PM EST [id number] Normal [facility] Basic metabolic 2000 panelon 12-29-2023 Anion gap [Moles/Vol] 12 mmol/L Normal 9-18 [facility] Comment on above: Order Comment: Speci men Type: BLOOD SPECIMENOrdering Facility: [facility] Address: [address] [place] [address] Performed By: #### 2 4321-2 ####[facility] LABCLIA [id number] [place] [address] [place] Calcium [Mass/Vol] 9.5 mg/dL Normal 8.5-10.2 [facility] Comment on above: Order Comment: Speci men Type: BLOOD SPECIMENOrdering Facility: [facility] Address: [address] [place] [address] Performed By: #### 2 4321-2 ####[facility] LABCLIA [id number] [place] [address] [place] Chloride [Moles/Vol] 97 mmol/L Normal 97-105 [facility] Comment on above: Order Comment: Speci men Type: BLOOD SPECIMENOrdering Facility: [facility] Address: [address] [place] [address] Performed By: #### 2 4321-2 ####[facility] LABCLIA [id number] [place] [address] [place] CO2 [Moles/Vol] 25 mmol/L Normal 22-30 [facility] Comment on above: Order Comment: Speci men Type: BLOOD SPECIMENOrdering Facility: [facility] Address: [address] [place] [address] Performed By: #### 2 4321-2 ####[facility] LABCLIA [id number] [place] [address] [place] Creatinine [Mass/Vol] 0.60 mg/dL Normal 0.58-0.96 [facility] Comment on above: Order Comment: Speci men Type: BLOOD SPECIMENOrdering Facility: [facility] Address: [address] [place] [address] Performed By: #### 2 4321-2 ####[facility] LABCLIA [id number] [place] [address] [place] Creatinine and Glomerular filtration rate.predicted panel (S/P/Bld) 93 mL/min/1.73m??? Normal >=60 [facility] Comment on above: Order Comment: An rolle Type: BLOOD SPECIMENOrdering Facility: [facility] Address: [address] [place] [address] Result Comment: Lydia mated Glomerular Filtration Rate (eGFR) is calculated using the 2020 CKD-EPI creatinine equation. This equation utilizes serum creatinine, sex, and age as parameters. The creatinine assay has traceable calibration to isotope dilution-mass spectrometry. Refer to KDIGO guidelines for clinical interpretation. In patients with unstable renal function, e.g. those with acute kidney injury, the eGFR may not accurately reflect actual GFR. Performed By: #### 2 4321-2 ####[facility] LABCLIA [id number] [place] [address] [place] Glucose [Mass/Vol] 101 mg/dL High 74-99 [facility] Comment on above: Order Comment: An rolle Type: BLOOD SPECIMENOrdering Facility: [facility] Address: [address] [place] [address] Result Comment: The [place] Diabetes Association (ADA) provides guidance for cutoff values for fasting glucose and random glucose. The ADA defines fasting as no caloric intake for at least 8 hours. Fasting plasma glucose results between 100 to 125 mg/dL indicate increased risk for diabetes (prediabetes). Fasting plasma glucose results greater than or equal to 126 mg/dL meet the criteria for diagnosis of diabetes. In the absence of unequivocal hyperglycemia, results should be confirmed by repeat testing. In a patient with classic symptoms of hyperglycemia or hyperglycemic crisis, random plasma glucose results greater than or equal to 200 mg/dL meet the criteria for diagnosis of diabetes. Reference: Standards of Medical Care in Diabetes 2016, [place] Diabetes Association. Diabetes Care. 2016.39(Suppl 1). Performed By: #### 2 4321-2 ####[facility] LABCLIA [id number] [place] [address] [place] Potassium [Moles/Vol] 3.7 mmol/L Normal 3.7-5.1 [facility] Comment on above: Order Comment: Speci men Type: BLOOD SPECIMENOrdering Facility: [facility] Address: [address] [place] [address] Performed By: #### 2 4321-2 ####[facility] LABCLIA [id number] [place] [address] [place] Sodium [Moles/Vol] 134 mmol/L Low 136-144 [facility] Comment on above: Order Comment: Speci men Type: BLOOD SPECIMENOrdering Facility: [facility] Address: [address] [place] [address] Performed By: #### 2 4321-2 ####[facility] LABCLIA [id number] [place] [address] [place] Urea nitrogen [Mass/Vol] 10 mg/dL Normal 7-21 [facility] Comment on above: Order Comment: Speci men Type: BLOOD SPECIMENOrdering Facility: [facility] Address: [address] [place] [address] Performed By: #### 2 4321-2 ####[facility] LABCLIA [id number] [place] [address] [place] CBC panel Auto (Bld)on 12-28 Erythrocyte distribution width (RBC) [Ratio] 13.2 % Normal 11.5-15.0 [facility] Comment on above: Order Comment: Speci men Type: BLOOD SPECIMENOrdering Facility: [facility] Address: [address] [place] [address] Performed By: #### 5 8410-2 ####[facility] LABCLIA [id number] [place] [address] [place] Hematocrit (Bld) [Volume fraction] 34.1 % Low 36.0-46.0 [facility] Comment on above: Order Comment: Speci men Type: BLOOD SPECIMENOrdering Facility: [facility] Address: [address] [place] [address] Performed By: #### 5 8410-2 ####[facility] [id number] [place] [address] [place] Hemoglobin (Bld) [Mass/Vol] 11.3 g/dL Low 11.5-15.5 [facility] Comment on above: Order Comment: Speci men Type: BLOOD SPECIMENOrdering Facility: [facility] Address: [address] [place] [address] Performed By: #### 5 8410-2 ####[facility] [id number] [place] [address] [place] MCH (RBC) [Entitic mass] 32.7 pg Normal 26.0-34.0 [facility] Comment on above: Order Comment: Speci men Type: BLOOD SPECIMENOrdering Facility: [facility] Address: [address] [place] [address] Performed By: #### 5 8410-2 ####[facility] [id number] [place] [address] [place] MCHC (RBC) [Mass/Vol] 33.1 g/dL Normal 30.5-36.0 [facility] Comment on above: Order Comment: Speci men Type: BLOOD SPECIMENOrdering Facility: [facility] Address: [address] [place] [address] Performed By: #### 5 8410-2 ####[facility] [id number] [place] [address] [place] MCV (RBC) [Entitic vol] 98.6 fL Normal 80.0-100.0 [facility] Comment on above: Order Comment: Speci men Type: BLOOD SPECIMENOrdering Facility: [facility] Address: [address] [place] [address] Performed By: #### 5 8410-2 ####[facility]CLIA [id number] [place] [address] [place] Nucleated RBC (Bld) [#/Vol] 10*3/uL Normal <0.01 [facility] Comment on above: Order Comment: Speci men Type: BLOOD SPECIMENOrdering Facility: [facility] Address: [address] [place] [address] Performed By: #### 5 8410-2 ####[facility] LABIA [id number] [place] [address] [place] Platelet mean volume (Bld) [Entitic vol] 11.1 fL Normal 9.0-12.7 [facility] Comment on above: Order Comment: Speci men Type: BLOOD SPECIMENOrdering Facility: [facility] Address: [address] [place] [address] Performed By: #### 5 8410-2 ####[facility] LABIA [id number] [place] [address] [place] Platelets (Bld) [#/Vol] 313 10*3/uL Normal 150-400 [facility] Comment on above: Order Comment: Speci men Type: BLOOD SPECIMENOrdering Facility: [facility] Address: [address] [place] [address] Performed By: #### 5 8410-2 ####[facility] LABIA [id number] [place] [address] [place] RBC (Bld) [#/Vol] 3.46 10*6/uL Low 3.90-5.[address] [facility] Comment on above: Order Comment: Speci men Type: BLOOD SPECIMENOrdering Facility: [facility] Address: [address] [place] [address] Performed By: #### 5 8410-2 ####[facility] LABIA [id number] [place] [address] [place] WBC (Bld) [#/Vol] 6.40 10*3/uL Normal 3.70-11.[address] [facility] Comment on above: Order Comment: An rolle Type: BLOOD SPECIMENOrdering Facility: [facility] Address: [address] [place] [address] Performed By: #### 5 8410-2 ####[facility] LABCLIA [id number] [place] [address] OF [place] CNDSon 12-29-2023 CNDS HNO ID: [id number] Author: VIET HO MD Service: Colorectal Author Type: Fellow Type: Discharge Summary Filed: 12/29/2023 12:42 Note Text: Attestation signed by Tate Riley MD, PhD at 12/29/2023 6:04 PM Attending Note Reviewed the discharge summary for this patient being cared for by the [facility] team and agree with its content and above plan of care unless otherwise indicated. The [facility] team spent approximately 35 minutes in this patient discharge including counseling and coordinating care. I was present with the fellow during the discharge services. We discussed the case and I agree with the findings and discharge plan as documented in their note. I personally spent > 30 minutes in discharge day management. Signature: Tate Riley MD, PhD Date: December 29, 2023 Time: 6:03 PM DISCHARGE SUMMARY PATIENT NAME: Ana Hilario ADMISSION DATE: 12/25/2023 DISCHARGE DATE: 12/29/2023 Attending Physician: Get Riley* Code Status: Not on file Highest Readmission Risk Score: 13 The 30 day readmissions risk score is derived from an internally validated risk model which evaluates patient level characteristics, utilization history, medication orders and lab results up until the day of discharge. Patients with a score of 40 or above are considered highest risk for readmission. Specific patient level drivers will be listed at the bottom of the summary. Principal Diagnosis: large bowel obstruction Principal Problem: Large bowel obstruction (HCC) (POA: Yes) Active Problems: Tobacco use disorder (POA: Yes) Crohn disease (HCC) (POA: Yes) COPD with chronic bronchitis (HCC) (POA: Yes) Acute pain (POA: Yes) Hypertension (POA: No) Headache (POA: No) Hypokalemia (POA: No) Resolved Problems: * No resolved hospital problems. * Reason for Hospitalization: Ana Hilario is a 78 year old female presenting with constipation concerning for bowel obstruction on OSH CT scan. she has a significant medical history of crohn's disease and previous small bowel resection in 1973. Operations During Hospitalization: None Procedures During Hospitalization: 12/26/23 gastrografin enema 12/28/23 flexible sigmoidoscopy Hospital Course: You were admitted to the hospital due to constipation and concerns for bowel obstruction. A nasogastric tube was placed into your stomach for decompression and you were placed on bowel rest. Further work up revealed no residual obstruction and no stricture. GI team was consulted for medical management of crohn's disease however no evidence was found. Also during your hospitalization, you developed some elevated blood pressures and medications were started for BP control. Your pain was controlled with oral and IV medication and your intake and output were closely monitored. Your diet was advanced as tolerated. You were able to void independently during your hospital stay. DVT prophylaxis was managed by heparin BID and intermittent compression stockings. Your electrolytes were monitored with daily labs and replaced as needed. Once your pain was controlled with oral medication, you were tolerating a GI soft diet, you were deemed fit for discharge. The patient is asked to please follow up with Dr. Frausto, Dr. Nino, and her PCP as scheduled. Stoma Present? No Discharged with Tubes/Drains/Appliance s? No Follow up imaging ordered? Not warranted Transitions of Care Critical Issues: LABS AND PROCEDURES PENDING AT DISCHARGE: No pending results. Consulting Teams During Hospitalization: CM, nutrition, GI, WOCN, anesthesia Treatment Team: Attending Provider: Tate Riley MD, PhD Patient Condition @ Discharge: Stable Discharge Disposition: Home with Self Care Information Provided to Patient: Discharge instructions Diet: Resume pre-hospital diet Activity: No restrictions Wound/Surgical Site Care: N/a ALLERGIES Allergen Reactions Tolterodine Rash Amoxicillin Hives, Itching Erythromycin Hives Tolerates Azithromycin without problem. Opioids-Meperidine * pain increased,hyperactive Propoxyphene pain increase,hyperactive Sulfa (Sulfonamide * Hives Discharge Medications: Medication List START taking these medications amLODIPine 10 mg tablet Commonly known as: NORVASC Take 1 tablet by mouth once daily. Start taking on: December 30, 2023 nicotine 14 mg/24 hr Commonly known as: NICODERM Apply 1 Patch as directed once daily. Start taking on: December 30, 2023 polyethylene glycol 3350 17 gram packet Take 1 Packet by mouth once daily. Dissolve dose in 4 - 8 ounces of liquid and take as directed. Start taking on: December 30, 2023 CONTINUE taking these medications albuterol HFA 90 mcg/actuation inhaler Comm (more content not included)... Normal [facility] XR ABDOMEN 1V SUPINEon 12-28 XR ABDOMEN 1V SUPINE * * *Final Report* * * DATE OF EXAM: Dec 29 2023 12:30PM BA 5289 - XR ABDOMEN 1V SUPINE / PROCEDURE REASON: Constipation * * * * Physician Interpretation * * * * ABDOMEN PORTABLE 12/29/2023 12:20 PM HISTORY: Constipation. Evaluate for retained contrast. TECHNIQUE: Single View, Supine Abdomen; Number of Images: 1 COMPARISON: KUB 12/28/2023 RESULT: See impression. IMPRESSION: No dilated bowel. Residual enteric contrast throughout the entire colon, minimally decreased compared to prior exam. Lung bases clear and bony structures intact. Communications Department Chairperson: DEEPAK Transcribe Date/Time: Dec 29 2023 1:01P Dictated by : KARINA SANTOS This examination was interpreted and the report reviewed and electronically signed by: NARCISO CASON MD on Dec 29 2023 1:43PM EST [id number] Normal [facility] ANES POSTPROC EVALon 024 ANES POSTPROC EVAL HNO ID: [id number] Author: OZZIE PATEL MD Service: ? Author Type: Anesthesiologist Type: Anesthesia Postprocedure Evaluation Filed: 12/28/2023 18:29 Note Text: POST ANESTHESIA EVALUATION NOTE : 1945 Procedure Summary Date: 12/28/23 Room / Location: Gastroenterology Anesthesia Start: 1609 Anesthesia Stop: 1648 Procedure: SIGMOIDOSCOPY Diagnosis: Scheduled Providers: Anahi Hernandez MD, PhD Responsible Provider: Ozzie Patel MD Anesthesia Type: general ASA Status: 3 Anesthesia Type: general Airway Type: ETT Last Vitals Vitals Value Taken Time BP 165/73 12/28/23 1700 Temp 36.3 ?C (97.3 ?F) 12/28/23 1648 HR SpO2 79 12/28/23 1710 Resp 18 12/28/23 1710 SpO2 95 % 12/28/23 1710 Post Anesthesia Patient Status Patient Evaluation: PACU. PACU/ICU Patient Condition: stable. Anticipated Disposition: inpatient floor planned admission. Neurological Status: sleepy but arousable. Pulmonary Status: breathing comfortably on supplemental oxygen Airway Control: returned to baseline unsupported. Cardiovascular Status: stable. Pain Management: clinically adequate Postoperative Hydration: acceptable. Intraoperative Events: no significant anesthesia events Post Operative Nausea/Vomiting Status: no significant post operative nausea or vomiting Recommendation: continue current plan of care. Anesthesia Observations No Documentation SIGNATURE: Ozzie Palacios MD PATIENT NAME: Ana Hilario DATE: December 28, 2023 TIME: 6:29 PM CSN: [id number] Normal [facility] ANES PRE-OPon 12-28-2023 ANES PRE-OP HNO ID: [id number] Author: RENE HOLDER MD Service: ? Author Type: Anesthesiologist Type: Anesthesia Preprocedure Evaluation Filed: 12/28/2023 15:14 Note Text: ANESTHESIOLOGY DAY OF SURGERY NOTE : 1945 Procedure Information Date/Time: 12/28/23 1430 Scheduled providers: Anahi Hernandez MD, PhD; Rene Holder MD Procedure: SIGMOIDOSCOPY Location: Gastroenterology Estimated body mass index is 26.16 kg/m? as calculated from the following: Height as of 02/07/23: 158 cm (5' 2.21 ). Weight as of 02/07/23: 65.3 kg (144 lb). Most recent hematocrit and potassium results: Hematocrit 33.9 12/28/2023 Potassium 3.3 12/28/2023 Relevant Problems CARDIO (+) Hypertension ENDO (+) Hypothyroidism GI (+) Esophageal reflux NEURO-PSYCH (+) Headache (+) Personal history of breast cancer (+) Personal history of colonic polyps I - PHYSICAL EVALUATION AIRWAY Patient intubated: No. Tracheostomy tube not present Mallampati: III. TM distance: >3 FB. Neck ROM: full ROM without neurological symptoms. Mouth opening: adequate. Short neck: no. Thick neck: no Layne present: no Lip Bite Test: II Microretrognathia/Micr onagthia/Recessed Chin: No DENTAL Dental findings: edentulous. Dentures, upper: complete. Dentures, lower: complete. Additional exam findings: no II - ANESTHESIA PLAN ASA Score: 3 Anesthetic Plan: general Airway type: ETT NPO Status: adequate Beta Memo Monitoring Plan Monitoring plan: standard ASA. Post Procedure Analgesic Plan Postoperative analgesic plan: multimodal analgesia. Informed Consent Anesthetic risks, benefits, alternatives, personnel and consent discussed: yes. Patient / Responsible Republican agrees to proceed: yes Patient / Surrogate agrees to blood products: Yes DNR status not reviewed with patient and/or family prior to surgery. Significant changes in the patient condition since the History and Physical, not otherwise documented in primary service progress note: no. Potential Anesthesia issues that may suggest increased risk of complications or contraindication to planned procedure: none. Vitals Value Taken Time BP 168/73 12/28/23 1454 Pulse 75 12/28/23 1454 Resp 18 12/28/23 1454 Temp 36.3 ?C (97.3 ?F) 12/28/23 1454 SpO2 95 % 12/28/23 1454 Facility-Administered Medications as of 12/28/2023 Medication Dose Route Frequency - polyethylene glycol 3350 17 g packet 17 g ORAL DAILY - amLODIPine 10 mg tab(s) (NORVASC) 10 mg ORAL DAILY - enoxaparin 40 mg injection (LOVENOX) 40 mg SUBCUTANEOUS q 24 HR - hydrALAZINE 50 mg tab(s) (APRESOLINE) 50 mg ORAL q 8 H - [COMPLETED] potassium chloride iv piggyback 20 mEq/100 mL 20 mEq INTRAVENOUS q 1 H - [COMPLETED] potassium chloride iv piggyback 20 mEq/100 mL 20 mEq INTRAVENOUS q 1 H - lidocaine urojet 2 % 6 mL topical gel (GLYDO) 6 mL MUCOUS MEMBRANE TID PRN - [COMPLETED] labetalol 10 mg injection syringe (NORMODYNE) 10 mg INTRAVENOUS ONCE - [COMPLETED] keTORolac 15 mg injection (Toradol) 15 mg INTRAVENOUS ONCE - [COMPLETED] magnesium sulfate iv piggyback in sterile water 2 g 50 mL 2 g INTRAVENOUS ONCE - iv contrast (radiology procedure) INTRAVENOUS DIRECTED PRN And - [] enteric contrast (radiology procedure) ORAL DIRECTED PRN - acetaminophen 500 mg - caffeine 65 mg tablet (EXCEDRIN TENSION HEADACHE) 2 tablet ORAL q 6 H PRN - acetaminophen 650 mg CUP (TYLENOL) 650 mg ORAL q 6 H PRN - labetalol 10 mg injection syringe (NORMODYNE) 10 mg INTRAVENOUS q 2 H PRN - [COMPLETED] diazePAM 2.5 mg injection (VALIUM) 2.5 mg INTRAVENOUS ONCE - [COMPLETED] labetalol 5 mg injection syringe (NORMODYNE) 5 mg INTRAVENOUS ONCE - [COMPLETED] labetalol 5 mg injection syringe (NORMODYNE) 5 mg INTRAVENOUS ONCE - [COMPLETED] hydrALAZINE 10 mg injection (APRESOLINE) 10 mg INTRAVENOUS ONCE - [COMPLETED] diazePAM 2.5 mg injection (VALIUM) 2.5 mg INTRAVENOUS ONCE - nicotine 14 mg/24 hr 1 Patch (NICODERM) 1 Patch TRANSDERMAL DAILY And - nicotine -- REMOVE patch OTHER DAILY And - nicotine - verify patch OTHER q 8 H - [] lidocaine urojet 2 % 11 mL topical gel (GLYDO) 11 mL MUCOUS MEMBRANE ONCE - phenol 1 Playas (CHLORASEPTIC) 1 Playas MUCOUS MEMBRANE (TOPICAL MOUTH AND THROAT) q 2 H PRN Or - benzocaine-menthol 1 Lozenge (CHLORASEPTIC) 1 Lozenge MUCOUS MEMBRANE (TOPICAL MOUTH AND THROAT) q 2 H PRN - busPIRone 10 mg tab(s) (BUSPAR) 10 mg ORAL TID - albuterol HFA 90 mcg/actuation 2 Puff (PROVENTIL HFA, VENTOLIN HFA) 2 Puff INHALATION q 6 H PRN - mometasone-formoterol 100-5 mcg/actuation 2 Puff inhaler (DULERA) 2 Puff INHALATION BID - escitalopram oxalate 20 mg tab(s) (LEXAPRO) 20 mg ORAL DAILY - levothyroxine (SYNTHROID) tab(s) 175 mcg 175 mcg ORAL DAILY - estradiol 2 g vaginal cream (ESTRACE) 0.5 Applicator VAGINAL 2/WK - NaCl 0.9% iv flush bag 20 mL INTRAVENOUS PRN - HYDROmorphone 0.2 mg injection (DILAUDID) 0.2 mg INTRAVENOUS q 4 H PRN - ond (more content not included)... Normal [facility] Basic metabolic 2000 panelon 12-28-2023 Anion gap [Moles/Vol] 13 mmol/L Normal 9-18 [facility] Comment on above: Order Comment: Speci men Type: BLOOD SPECIMEN Ordering Facility: [facility] Address: [address] [place] [address] Performed By: #### 2 4321-2 #### [facility] CLIA [id number] [address] [place] [address] [place] Calcium [Mass/Vol] 9.4 mg/dL Normal 8.5-10.2 [facility] Comment on above: Order Comment: Speci men Type: BLOOD SPECIMEN Ordering Facility: [facility] Address: [address] [place] [address] Performed By: #### 2 4321-2 #### [facility] CLIA [id number] [address] [place] [address] [place] Chloride [Moles/Vol] 98 mmol/L Normal 97-105 [facility] Comment on above: Order Comment: Speci men Type: BLOOD SPECIMEN Ordering Facility: [facility] Address: [address] [place] [address] Performed By: #### 2 4321-2 #### [facility] CLIA [id number] [address] [place] [address] [place] CO2 [Moles/Vol] 24 mmol/L Normal 22-30 [facility] Comment on above: Order Comment: Speci men Type: BLOOD SPECIMEN Ordering Facility: [facility] Address: [address] [place] [address] Performed By: #### 2 4321-2 #### [facility] CLIA [id number] [address] [place] [address] [place] Creatinine [Mass/Vol] 0.51 mg/dL Low 0.58-0.96 [facility] Comment on above: Order Comment: Speci men Type: BLOOD SPECIMEN Ordering Facility: [facility] Address: [address] [place] [address] Performed By: #### 2 4321-2 #### [facility] CLIA [id number] [address] [place] [address] [place] [facility] Creatinine and Glomerular filtration rate.predicted panel (S/P/Bld) 96 mL/min/1.73m??? Normal >=60 [facility] Comment on above: Order Comment: Speci men Type: BLOOD SPECIMEN Ordering Facility: [facility] Address: [address] [place] [address] Result Comment: Lydia mated Glomerular Filtration Rate (eGFR) is calculated using the 2020 CKD-EPI creatinine equation. This equation utilizes serum creatinine, sex, and age as parameters. The creatinine assay has traceable calibration to isotope dilution-mass spectrometry. Refer to KDIGO guidelines for clinical interpretation. In patients with unstable renal function, e.g. those with acute kidney injury, the eGFR may not accurately reflect actual GFR. Performed By: #### 2 4321-2 #### [facility] CLIA [id number] [address] [place] [address] [place] Glucose [Mass/Vol] 93 mg/dL Normal 74-99 [facility] Comment on above: Order Comment: Speci men Type: BLOOD SPECIMEN Ordering Facility: [facility] Address: [address] [place] [address] Result Comment: The [place] [employer] (ADA) provides guidance for cutoff values for fasting glucose and random glucose. The ADA defines fasting as no caloric intake for at least 8 hours. Fasting plasma glucose results between 100 to 125 mg/dL indicate increased risk for diabetes (prediabetes). Fasting plasma glucose results greater than or equal to 126 mg/dL meet the criteria for diagnosis of diabetes. In the absence of unequivocal hyperglycemia, results should be confirmed by repeat testing. In a patient with classic symptoms of hyperglycemia or hyperglycemic crisis, random plasma glucose results greater than or equal to 200 mg/dL meet the criteria for diagnosis of diabetes. Reference: Standards of Medical Care in Diabetes 2016, [employer] [employer]. Diabetes Care. 2016.39(Suppl 1). Performed By: #### 2 4321-2 #### [facility] CLIA [id number] [address] [place] [address] [place] Potassium [Moles/Vol] 3.3 mmol/L Low 3.7-5.1 [facility] Comment on above: Order Comment: Speci men Type: BLOOD SPECIMEN Ordering Facility: [facility] Address: [address] [place] [address] Performed By: #### 2 4321-2 #### [facility] CLIA [id number] [address] [place] [address] [place] Sodium [Moles/Vol] 135 mmol/L Low 136-144 [facility] Comment on above: Order Comment: Chaneli men Type: BLOOD SPECIMEN Ordering Facility: [facility] Address: [address] [place] [address] Performed By: #### 2 4321-2 #### [facility] CLIA [id number] [address] [place] [address] [place] Urea nitrogen [Mass/Vol] 9 mg/dL Normal 7-21 [facility] Comment on above: Order Comment: Chaneli men Type: BLOOD SPECIMEN Ordering Facility: [facility] Address: [address] [place] [address] Performed By: #### 2 4321-2 #### [facility] CLIA [id number] [address] [place] [address] [place] CBC panel Auto (Bld)on 12-27 Erythrocyte distribution width (RBC) [Ratio] 13.2 % Normal 11.5-15.0 [facility] Comment on above: Order Comment: Speci men Type: BLOOD SPECIMENOrdering Facility: [facility] Address: [address] [place] [address] Performed By: #### 5 8410-2 ####[facility] [id number] [place] [address] [place] Hematocrit (Bld) [Volume fraction] 33.9 % Low 36.0-46.0 [facility] Comment on above: Order Comment: Speci men Type: BLOOD SPECIMENOrdering Facility: [facility] Address: [address] [place] [address] Performed By: #### 5 8410-2 ####[facility] [id number] [place] [address] [place] Hemoglobin (Bld) [Mass/Vol] 11.4 g/dL Low 11.5-15.5 [facility] Comment on above: Order Comment: Speci men Type: BLOOD SPECIMENOrdering Facility: [facility] Address: [address] [place] [address] Performed By: #### 5 8410-2 ####[facility] [id number] [place] [address] [place] MCH (RBC) [Entitic mass] 33.2 pg Normal 26.0-34.0 [facility] Comment on above: Order Comment: Speci men Type: BLOOD SPECIMENOrdering Facility: [facility] Address: [address] [place] [address] Performed By: #### 5 8410-2 ####[facility] [id number] [place] [address] [place] MCHC (RBC) [Mass/Vol] 33.6 g/dL Normal 30.5-36.0 [facility] Comment on above: Order Comment: Speci men Type: BLOOD SPECIMENOrdering Facility: [facility] Address: [address] [place] [address] Performed By: #### 5 8410-2 ####[facility] [id number] [place] [address] [place] MCV (RBC) [Entitic vol] 98.8 fL Normal 80.0-100.0 [facility] Comment on above: Order Comment: Speci men Type: BLOOD SPECIMENOrdering Facility: [facility] Address: [address] [place] [address] Performed By: #### 5 8410-2 ####[facility] [id number] [place] [address] [place] Nucleated RBC (Bld) [#/Vol] 10*3/uL Normal <0.01 [facility] Comment on above: Order Comment: Speci men Type: BLOOD SPECIMENOrdering Facility: [facility] Address: [address] [place] [address] Performed By: #### 5 8410-2 ####[facility] [id number] [place] [address] [place] Platelet mean volume (Bld) [Entitic vol] 11.0 fL Normal 9.0-12.7 [facility] Comment on above: Order Comment: Speci men Type: BLOOD SPECIMENOrdering Facility: [facility] Address: [address] [place] [address] Performed By: #### 5 8410-2 ####[facility] [id number] [place] [address] [place] Platelets (Bld) [#/Vol] 309 10*3/uL Normal 150-400 [facility] Comment on above: Order Comment: Speci men Type: BLOOD SPECIMENOrdering Facility: [facility] Address: [address] [place] [address] Performed By: #### 5 8410-2 ####[facility] [id number] [place] [address] [place] RBC (Bld) [#/Vol] 3.43 10*6/uL Low 3.90-5.[address] [facility] Comment on above: Order Comment: Speci men Type: BLOOD SPECIMENOrdering Facility: [facility] Address: [address] [place] [address] Performed By: #### 5 8410-2 ####[facility] [id number] [place] [address] [place] WBC (Bld) [#/Vol] 9.68 10*3/uL Normal 3.70-11.[address] [facility] Comment on above: Order Comment: Speci men Type: BLOOD SPECIMENOrdering Facility: [facility] Address: [address] [place] [address] Performed By: #### 5 8410-2 ####[facility] [id number] [place] [address] [place] CONSULT PROGon 12-28-2023 CONSULT PROG HNO ID: [id number] Author: SAM VENTURA MD Service: Gastroenterology Author Type: Fellow Type: Consult Progress Note Filed: 12/28/2023 09:33 Note Text: Gastroenterology Consult Service Progress Note Department of Gastroenterology AND Hepatology Digestive Disease [facility] Date of Service December 27, 2023 Patient: Ana Hilario Medical Record: [id number] Impression: Ms. Hilario is a 78yoF with a PMH of Crohn's disease diagnosed about 5 years ago which has never been treated. She was admitted 12/24 after the read of a CTAP 12/24/2023 showed thickening of long segments of mid-and proximal sigmoid colon with minimal surrounding fat infiltration, prominent fecal material in the long segments of the colon suspicious for partial colonic obstruction, mural thickening of the duodenal sweep, jejunum, and ileum, suspicious for enterocolitis. An addendum of the CT scan later noted an abrupt transition from thickened sigmoid colon to normal sigmoid colon, increasing index of suspicion for sigmoid colon neoplasm > Crohn's colitis. At present, she likely has poorly controlled Crohn's disease with sigmoid colon thickening vs malignancy. GGE was negative for sigmoid mass. Recommendations: - Flex sig today in Q3 to better evaluate for colonic inflammation/possible source of pLBO that she presented with. Please keep NPO and give 2 tap water enemas one hour before scheduled procedure. - CT enterography pending - TB and hepatitis B serologies (pre-biologic labs). Discussed with staff. Interval Events: - NGT removed and patient is doing well. - Having BMS. - Abdomen is softer but remains mildly tender. - No sigmoid mass on GGE. Physical Examination: BP 197/66 Pulse 78 Temp 36.8 ?C (98.2 ?F) (Oral) Resp 20 SpO2 96% General appearance: well appearing, alert, in no acute distress, well nourished. HEENT: normocephalic, normal conjunctiva. Lungs: non-labored breathing Abdomen: soft, non-distended, mild diffuse tenderness. Extremities: no edema, no deformity or joint abnormality. Skin: skin color, texture, turgor normal, no suspicious rashes or lesions. Neuro: CN II-XII grossly intact. Labs: CBC, Coags, BMP, Mg, Phos Recent Labs 12/28/23 0125 12/27/23 0038 12/27/23 0037 12/26/23 0503 12/25/23 2216 WBC 9.68 -- 7.57 9.20 9.69 HB 11.4* -- 11.4* 11.8 12.2 HCT 33.9* -- 34.7* 36.0 37.5 PLT 309 -- 309 330 329 INR -- -- -- -- 1.0 APTT -- -- -- -- 23.8 NA 135* 136 -- 135* 136 K 3.3* 3.2* -- 3.6* 3.8 CHLOR 98 99 -- 100 102 CO2 24 24 -- 24 22 BUN 9 9 -- 12 14 CREAT 0.51* 0.47* -- 0.48* 0.46* GLUC 93 90 -- 95 102* CA 9.4 9.4 -- 9.4 9.0 Liver Function, Amylase, AND Lipase SIGNATURE: Sam Ventura MD PATIENT NAME: Ana Hilario DATE: December 28, 2023 TIME: 9:31 AM PAGER/CONTACT #: [phone] Normal [facility] Flexible Sigmoidoscopyon Flexible sigmoidoscopy Q3 Patient Name: Ana Hilario Procedure Date: 12/28/2023 3:47 PM Date of : 1945 Admit Type: Inpatient Age: 78 Gender: Female Note Status: Finalized Attending MD: Anahi Hernandez MD, [id number] Procedure: Flexible Sigmoidoscopy Indications: Abnormal CT of the GI tract - stricture noted in the sigmoid colon. Providers: Anahi Hernandez MD Patient Profile: This is a 78 year old female. Refer to note in patient chart for documentation of history and physical. Previously obtained CT showed a stricture in the sigmoid colon. Referring Physician: Tate Riley MD (Referring MD) Medicines: Propofol per Anesthesia Complications: No immediate complications. Requesting Provider: Procedure: Pre-Anesthesia Assessment: - Prior to the procedure, a History and Physical was performed, and patient medications and allergies were reviewed. The patient's tolerance of previous anesthesia was also reviewed. The risks and benefits of the procedure and the sedation options and risks were discussed with the patient. All questions were answered, and informed consent was obtained. Prior Anticoagulants: The patient has taken no anticoagulant or antiplatelet agents. ASA Grade Assessment: III - A patient with severe systemic disease. After reviewing the risks and benefits, the patient was deemed in satisfactory condition to undergo the procedure. - The risks and benefits of the procedure and the sedation options and risks were discussed with the patient. All questions were answered and informed consent was obtained. - Patient identification and proposed procedure were verified prior to the procedure by the physician, the nurse, the associate doctor and the drug abuse technician. The procedure was verified in the procedure room. - Prophylactic Antibiotics: The patient does not require prophylactic antibiotics. - After reviewing the risks and benefits, the patient was deemed in satisfactory condition to undergo the procedure. - Using IV propofol under the supervision of a CUSTOM MILLER was determined to be medically necessary for this procedure based on review of the patient's medical history, medications, and prior anesthesia history. After obtaining informed consent, the scope was passed under direct vision. The Endoscope was introduced through the anus and advanced to the left transverse colon. The flexible sigmoidoscopy was accomplished without difficulty. The patient tolerated the procedure well. The quality of the bowel preparation was poor. Moderate Sedation: MAC anesthesia was administered by the anesthesia team. Findings: The perianal and digital rectal examinations were normal. Patient received one enema before this procedure. The bowel prep was mostly inadequate but the scope was able to pass through the sigmoid and descending colon and into the left transverse colon with ease. No stricture present. Impression: - Preparation of the colon was poor. - No specimens collected. Estimated Blood Loss: Estimated blood loss: none. Recommendation: - [facility]. Procedure Code(s): --- Professional --- 48761, Sigmoidoscopy, flexible; diagnostic, including collection of specimen(s) by brushing or washing, when performed (separate procedure) CPT copyright 2020 [employer]. All rights reserved. Attending Participation: Present for entire procedure, sedation as per Anathesia in OR Scope In: 4:24:31 PM Scope Out: 4:33:21 PM MD Anahi Araiza MD 12/28/2023 4:39:30 PM This report has been signed electronically by Anahi Hernandez MD Number of Addenda: 0 Note Initiated On: 12/28/2023 3:47 PM Normal [facility] XR ABDOMEN 1V SUPINEon 12-27 XR ABDOMEN 1V SUPINE * * *Final Report* * * DATE OF EXAM: Dec 28 2023 1:30PM BA 5289 - XR ABDOMEN 1V SUPINE / PROCEDURE REASON: Other * * * * Physician Interpretation * * * * ABDOMINAL RADIOGRAPH(S) HISTORY: Assess contrast clearance TECHNIQUE: Single view, supine abdomen; 1 image(s). CURRENT STUDY: 12/28/2023 1:30 PM COMPARISON: 12/27/2023 enema study RESULT: See impression. IMPRESSION: Lines, Tubes, Devices: None. Bowel: Residual contrast throughout the entire colon. No dilated bowel. Communications Department Chairperson: [facility]ITAL[facility] Transcribe Date/Time: Dec 28 2023 1:32P Dictated by : JAGRUTI CHRISTINE MD This examination was interpreted and the report reviewed and electronically signed by: ARELIS GOSS MD on Dec 28 2023 2:34PM EST [id number] Normal [facility] Basic metabolic 2000 panelon 12-27-2023 Anion gap [Moles/Vol] 13 mmol/L Normal -18 [facility] Comment on above: Order Comment: Speci men Type: BLOOD SPECIMENOrdering Facility: [facility] Address: [address] [place] [address] Performed By: #### 2 4321-2 ####[facility] [id number] [place] [address] [place] Calcium [Mass/Vol] 9.4 mg/dL Normal 8.5-10.2 [facility] Comment on above: Order Comment: Speci men Type: BLOOD SPECIMENOrdering Facility: [facility] Address: [address] [place] [address] Performed By: #### 2 4321-2 ####[facility] [id number] [place] [address] [place] Chloride [Moles/Vol] 99 mmol/L Normal 97-105 [facility] Comment on above: Order Comment: Speci men Type: BLOOD SPECIMENOrdering Facility: [facility] Address: [address] [place] [address] Performed By: #### 2 4321-2 ####[facility] [id number] [place] [address] [place] CO2 [Moles/Vol] 24 mmol/L Normal 22-30 [facility] Comment on above: Order Comment: Speci men Type: BLOOD SPECIMENOrdering Facility: [facility] Address: [address] [place] [address] Performed By: #### 2 4321-2 ####[facility] [id number] [place] [address] [place] Creatinine [Mass/Vol] 0.47 mg/dL Low 0.58-0.96 [facility] Comment on above: Order Comment: An rolle Type: BLOOD SPECIMENOrdering Facility: [facility] Address: [address] [place] [address] Performed By: #### 2 4321-2 ####[facility] [id number] [place] [address] [place] Creatinine and Glomerular filtration rate.predicted panel (S/P/Bld) 98 mL/min/1.73m??? Normal >=60 [facility] Comment on above: Order Comment: An rolle Type: BLOOD SPECIMENOrdering Facility: [facility] Address: [address] [place] [address] Result Comment: Lydia mated Glomerular Filtration Rate (eGFR) is calculated using the 2020 CKD-EPI creatinine equation. This equation utilizes serum creatinine, sex, and age as parameters. The creatinine assay has traceable calibration to isotope dilution-mass spectrometry. Refer to KDIGO guidelines for clinical interpretation. In patients with unstable renal function, e.g. those with acute kidney injury, the eGFR may not accurately reflect actual GFR. Performed By: #### 2 4321-2 ####[facility] [id number] [place] [address] [place] Glucose [Mass/Vol] 90 mg/dL Normal 74-99 [facility] Comment on above: Order Comment: An rolle Type: BLOOD SPECIMENOrdering Facility: [facility] Address: [address] [place] [address] Result Comment: The [place] [employer] (ADA) provides guidance for cutoff values for fasting glucose and random glucose. The ADA defines fasting as no caloric intake for at least 8 hours. Fasting plasma glucose results between 100 to 125 mg/dL indicate increased risk for diabetes (prediabetes). Fasting plasma glucose results greater than or equal to 126 mg/dL meet the criteria for diagnosis of diabetes. In the absence of unequivocal hyperglycemia, results should be confirmed by repeat testing. In a patient with classic symptoms of hyperglycemia or hyperglycemic crisis, random plasma glucose results greater than or equal to 200 mg/dL meet the criteria for diagnosis of diabetes. Reference: Standards of Medical Care in Diabetes 2016, [place] [employer]. Diabetes Care. 2016.39(Suppl 1). Performed By: #### 2 4321-2 ####[facility] [id number] [place] [address] [place] Potassium [Moles/Vol] 3.2 mmol/L Low 3.7-5.1 [facility] Comment on above: Order Comment: Speci men Type: BLOOD SPECIMENOrdering Facility: [facility] Address: [address] [place] [address] Performed By: #### 2 4321-2 ####[facility] [id number] [place] [address] [place] Sodium [Moles/Vol] 136 mmol/L Normal 136-144 [facility] Comment on above: Order Comment: Speci men Type: BLOOD SPECIMENOrdering Facility: [facility] Address: [address] [place] [address] Performed By: #### 2 4321-2 ####[facility] [id number] [place] [address] [place] Urea nitrogen [Mass/Vol] 9 mg/dL Normal 7-21 [facility] Comment on above: Order Comment: Speci men Type: BLOOD SPECIMENOrdering Facility: [facility] Address: [address] [place] [address] Performed By: #### 2 4321-2 ####[facility] [id number] [place] [id number] [place] CASE MANAGEMon 12-27-2023 CASE MANAGEM HNO ID: [id number] Author: MAYA WALLER RN Service: Care Management Author Type: Registered Nurse Type: Care Mgt Progress Note Filed: 12/28/2023 14:33 Note Text: CARE MANAGEMENT PROGRESS NOTE SERVICE DATE: 12/27/2023 SERVICE TIME: 2:33 PM LOS: 2 days Needs Prior to Discharge: Home Care Order;Facility or Agency Choices;OT/PT Evaluation NO WEEKEND DISCHARGE DISCHARGE PLAN Discharge plan discussed : Primary care team AM Report. Anticipated Discharge Plan: NGT in place, Discharge disposition pending further work up, and possible OR prior to Discharge. HHC list given to Patient/Spouse, waiting for choice. Anticipated Discharge Date: Pending. DISCHARGE TRANSPORTATION Transport to be arranged closer to Discharge date. Discharge Barriers: NA Corporate Sales Representative will continue to follow for transition of care and discharge planning needs. [facility] for Weekend Corporate Sales Representative assigned to Patient. SIGNATURE: Maya Boyce RN PATIENT NAME: Ana Hilario DATE: December 27, 2023 TIME: 2:32 PM PAGER/CONTACT #: [phone] Normal [facility] CBC panel Auto (Bld)on 12-26 Erythrocyte distribution width (RBC) [Ratio] 13.6 % Normal 11.5-15.0 [facility] Comment on above: Order Comment: Speci men Type: BLOOD SPECIMENOrdering Facility: [facility] Address: [address] [place] [address] Performed By: #### 5 8410-2, 5194-3 ####[facility] [id number] [place] [address] [place] Hematocrit (Bld) [Volume fraction] 34.7 % Low 36.0-46.0 [facility] Comment on above: Order Comment: Speci men Type: BLOOD SPECIMENOrdering Facility: [facility] Address: [address] [place] [address] Performed By: #### 5 8410-2, 5194-3 ####[facility] [id number] [place] [id number] [place] Hemoglobin (Bld) [Mass/Vol] 11.4 g/dL Low 11.5-15.5 [facility] Comment on above: Order Comment: Speci men Type: BLOOD SPECIMENOrdering Facility: [facility] Address: [address] [place] [address] Performed By: #### 5 8410-2, 5194-3 ####[facility] [id number] [place] [address] [place] MCH (RBC) [Entitic mass] 33.3 pg Normal 26.0-34.0 [facility] Comment on above: Order Comment: Speci men Type: BLOOD SPECIMENOrdering Facility: [facility] Address: [address] [place] [address] Performed By: #### 5 8410-2, 5194-3 ####[facility] [id number] [place] [address] [place] MCHC (RBC) [Mass/Vol] 32.9 g/dL Normal 30.5-36.0 [facility] Comment on above: Order Comment: Speci men Type: BLOOD SPECIMENOrdering Facility: [facility] Address: [address] [place] [address] Performed By: #### 5 8410-2, 5194-3 ####[facility] [id number] [place] [address] [place] MCV (RBC) [Entitic vol] 101.5 fL High 80.0-100.0 [facility] Comment on above: Order Comment: Speci men Type: BLOOD SPECIMENOrdering Facility: [facility] Address: [address] [place] [address] Performed By: #### 5 8410-2, 3 ####[facility] [id number] [place] [address] [place] Nucleated RBC (Bld) [#/Vol] 10*3/uL Normal <0.01 [facility] Comment on above: Order Comment: Speci men Type: BLOOD SPECIMENOrdering Facility: [facility] Address: [address] [place] [address] Performed By: #### 5 8410-2, 5194-3 ####[facility] [id number] [place] [address] [place] Platelet mean volume (Bld) [Entitic vol] 10.3 fL Normal 9.0-12.7 [facility] Comment on above: Order Comment: Speci men Type: BLOOD SPECIMENOrdering Facility: [facility] Address: [address] [place] [address] Performed By: #### 5 8410-2, 5195-3 ####[facility] [id number] [place] [address] [place] Platelets (Bld) [#/Vol] 309 10*3/uL Normal 150-400 [facility] Comment on above: Order Comment: Speci men Type: BLOOD SPECIMENOrdering Facility: [facility] Address: [address] [place] [address] Performed By: #### 5 8410-2, 5-3 ####[facility] [id number] [place] [address] [place] RBC (Bld) [#/Vol] 3.42 10*6/uL Low 3.90-5.[address] [facility] Comment on above: Order Comment: Speci men Type: BLOOD SPECIMENOrdering Facility: [facility] Address: [address] [place] [address] Performed By: #### 5 8410-2, 5-3 ####[facility] [id number] [place] [address] [place] WBC (Bld) [#/Vol] 7.57 10*3/uL Normal 3.70-11.[address] [facility] Comment on above: Order Comment: Speci men Type: BLOOD SPECIMENOrdering Facility: [facility] Address: [address] [place] [address] Performed By: #### 5 8410-2, 5-3 ####[facility] [id number] [place] [address] [place] CONSULT PROGon 12-27-2023 CONSULT PROG HNO ID: [id number] Author: ALEXANDER SMITH MD Service: Gastroenterology Author Type: Fellow Type: Consult Progress Note Filed: 12/27/2023 17:19 Note Text: Gastroenterology Consult Service Progress Note Department of Gastroenterology AND Hepatology Digestive Disease [facility] Date of Service December 27, 2023 Patient: Ana Hilario Medical Record: [id number] Impression: Ms. Hilario is a 78yoF with a PMH of Crohn's disease diagnosed about 5 years ago which has never been treated. She was admitted 12/24 after the read of a CTAP 12/24/2023 showed thickening of long segments of mid-and proximal sigmoid colon with minimal surrounding fat infiltration, prominent fecal material in the long segments of the colon suspicious for partial colonic obstruction, mural thickening of the duodenal sweep, jejunum, and ileum, suspicious for enterocolitis. An addendum of the CT scan later noted an abrupt transition from thickened sigmoid colon to normal sigmoid colon, increasing index of suspicion for sigmoid colon neoplasm > Crohn's colitis. At present, she likely has poorly controlled Crohn's disease with sigmoid colon thickening vs malignancy. GGE negative for sigmoid mass Recommendations: - pLBO management per surgery. - CT enterography pending - F/U fecal calprotectin. - TB and hepatitis B serologies (pre-biologic labs). Discussed with staff. Subjective: Pleasant laying in bed Current Facility-Administered Medications Medication Dose Route Frequency phenol 1 Playas (CHLORASEPTIC) 1 Playas MUCOUS MEMBRANE (TOPICAL MOUTH AND THROAT) q 2 H PRN Or benzocaine-menthol 1 Lozenge (CHLORASEPTIC) 1 Lozenge MUCOUS MEMBRANE (TOPICAL MOUTH AND THROAT) q 2 H PRN busPIRone 10 mg tab(s) (BUSPAR) 10 mg ORAL TID albuterol HFA 90 mcg/actuation 2 Puff (PROVENTIL HFA, VENTOLIN HFA) 2 Puff INHALATION q 6 H PRN mometasone-formoterol 100-5 mcg/actuation 2 Puff inhaler (DULERA) 2 Puff INHALATION BID escitalopram oxalate 20 mg tab(s) (LEXAPRO) 20 mg ORAL DAILY levothyroxine (SYNTHROID) tab(s) 175 mcg 175 mcg ORAL DAILY estradiol 2 g vaginal cream (ESTRACE) 0.5 Applicator VAGINAL 2/WK NaCl 0.9% iv flush bag 20 mL INTRAVENOUS PRN lactated ringers iv infusion 100 mL/hr INTRAVENOUS CONTINUOUS HYDROmorphone 0.2 mg injection (DILAUDID) 0.2 mg INTRAVENOUS q 4 H PRN ondansetron (PF) 4 mg injection (ZOFRAN) 4 mg INTRAVENOUS q 6 H PRN heparin 5,000 Units injection 5,000 Units SUBCUTANEOUS q 8 H oxyCODONE IR 5 mg tab(s) (ROXICODONE) 5 mg ORAL q 6 H PRN pantoprazole 40 mg injection (PROTONIX) 40 mg INTRAVENOUS DAILY (6 AM) nicotine 14 mg/24 hr 1 Patch (NICODERM) 1 Patch TRANSDERMAL DAILY And nicotine -- REMOVE patch OTHER DAILY And nicotine - verify patch OTHER q 8 H lidocaine urojet 2 % 6 mL topical gel (GLYDO) 6 mL MUCOUS MEMBRANE TID PRN iv contrast (radiology procedure) INTRAVENOUS DIRECTED PRN And enteric contrast (radiology procedure) ORAL DIRECTED PRN acetaminophen 500 mg - caffeine 65 mg tablet (EXCEDRIN TENSION HEADACHE) 2 tablet ORAL q 6 H PRN hydrALAZINE 25 mg tab(s) (APRESOLINE) 25 mg ORAL q 8 H acetaminophen 650 mg CUP (TYLENOL) 650 mg ORAL q 6 H PRN labetalol 10 mg injection syringe (NORMODYNE) 10 mg INTRAVENOUS q 2 H PRN Physical Exam: Vital Signs 12/27/23 1328 12/27/23 1504 12/27/23 1507 12/27/23 1631 BP: 177/61 172/61 175/62 184/70 Pulse: 79 79 Resp: 18 18 Temp: 36.6 ?C (97.9 ?F) 36.7 ?C (98.1 ?F) TempSrc: Oral Oral SpO2: 95% 95% Intake/Output Summary (Last 24 hours) at 12/27/2023 1718 Last data filed at 12/27/2023 1512 Gross per 24 hour Intake 1700 ml Output 1825 ml Net -125 ml VITAL SIGNS: BP 184/70 Pulse 79 Temp (Src) 98.1 (Oral) Resp 18 SpO2 95% O2 Therapy: Room Air, Liters: 2 General appearance: ill appearing Lungs: Breathing unlabored Abdomen: distended; soft; NG in place Neuro: answers questions appropriately Labs: CBC, Coags, BMP, Mg, Phos Recent Labs 12/27/23 0038 12/27/23 0037 12/26/23 0503 12/25/23 2216 WBC -- 7.57 9.20 9.69 HB -- 11.4* 11.8 12.2 HCT -- 34.7* 36.0 37.5 PLT -- 309 330 329 INR -- -- -- 1.0 APTT -- -- -- 23.8 NA 136 -- 135* 136 K 3.2* -- 3.6* 3.8 CHLOR 99 -- 100 102 CO2 24 -- 24 22 BUN 9 -- 12 14 CREAT 0.47* -- 0.48* 0.46* GLUC 90 -- 95 102* CA 9.4 -- 9.4 9.0 Liver Function, Amylase, AND Lipase SIGNATURE: Alexander Smith MD PATIENT NAME: Ana Hilario DATE: December 27, 2023 TIME: 5:18 PM PAGER/CONTACT #: [phone] This note is not final until Authenticated by responsible provider. Normal [facility] Calprotectin (Stl) [Mass/Mas s]on 12-27-2023 CALPROTECTIN, FECAL INTERP Elevated Abnormal Normal [facility] Comment on above: Order Comment: Speci men Type: STOOL SPECIMENOrdering Facility: [facility] Address: [address] [place] [address] Result Comment: On 2022, [facility] implemented a new fecal calprotectin method, the D[employer] Liaison Calprotectin assay. For assistance with interpretation of results in patients undergoing serial monitoring, contact Client Services at [phone] or [phone] to discuss options, preferably within 7 days of issuing this report. Interpretation: <50.0 ug/g: Normal 50.0 ug/g - 120.0 ug/g: Borderline elevated. Re-evaluation in 4-6 weeks is recommended if clinically indicated. >120.0 ug/g: Elevated Performed By: #### 3 8445-3 ####[facility] [id number] [place] [address] [place] CALPROTECTIN, FECAL QUANTITATIVE 425 ug/g High <50 [facility] Comment on above: Order Comment: Speci men Type: STOOL SPECIMENOrdering Facility: [facility] Address: [address] [place] [address] Performed By: #### 3 8445-3 ####[facility] [id number] [address] [place] HBV surface Ag Ser Qlon 12-09 HBV surface Ag Ql (S) Negative Normal Negative [facility] Comment on above: Order Comment: Speci men Type: BLOOD SPECIMENOrdering Facility: [facility] Address: [address] [place] [address] Performed By: #### 5 8410-2, 5195-3 ####[facility] [id number] [address] [place] MEDICAL EMERon 12-27-2023 MEDICAL ANT HNO ID: [id number] Author: DANIELLE GOODWIN APRN.SPENT GRAIN DRYER Service: Critical Care Author Type: Nurse Practitioner Type: Chg in Clinical Condition Filed: 12/27/2023 10:21 Note Text: MEDICAL EMERGENCY TEAM AMET CODE STATUS: Code Status: Not on file ASSESSMENT AND PLAN Hypertensive Urgency - Pt with difficult to control BP since admission - BP 190/80 with associated headache and difficulty focusing her vision - Had been receiving PRN labetalol (last given 0530 yesterday 12/25) and hydralazine (last given 0125 this morning 12/26) - States he headache is about 9/10 pain and abd pain is 8/10 - Alert and oriented, denies chest pain, sob and dizziness/lightheadedn ess - Headache treated with narcotics and valium yesterday, minimal relief with narcotics but improvement with valium - Abd pain treated with PRN oxy (last dose 12/25) and dilaudid (last dose 12/26) - Given 10 mg labetalol with significant improvement in BP, down to 138/67 - Improvement in headache but pain is still present Plan: - Labetalol increased to 10mg Q4 hours - Treat pain per PRN orders - Headache cocktail for headache: Mg, Zofran and toradol REASON FOR CALL RN for reason of symptomatic hypertension HPI This is a 78 year old female with pmh of anxiety, COPD, BRCA, HLD, colon polyps, IBS, hypothyroidism and crohn's disease who was admitted to the hospital for large bowel obstruction. Possible OR time for today, attempting some medical management first. AMET activated for symptomatic hypertension. INTERVENTIONS Monitoring Pulse Oximetry and Telemetry Monitoring DISPOSITIONS Improved Primary Team Notified: Yes PAST MEDICAL / SURGICAL HISTORY PAST MEDICAL HISTORY Diagnosis Date Anxiety states 1980 psych hospitalization Breast cancer (HCC) 2009 COPD with chronic bronchitis (HCC) Crohn's disease [...] BREAST NEEDLE CORE W/O IMAGING GUIDANCE SPX 8-97 right breast stereo bx. - benign COLONOSCOPY [...] CTR VAD W/SUBQ PORT AGE 5 YR/> 01/28/10 Left Subclavian MASTECTOMY, PARTIAL Right 12/23/2009 right [...] fibroids VAGINAL HYSTERECTOMY UTERUS 250 GM/< 1980's AIRWAY HISTORY Not available Difficult Airway: Unknown PERTINENT PHYSICAL EXAM and INITIAL ASSESSMENT (For vital signs prior and during MET call, see nursing documentation) Pertinent Vital Signs at Time of MET Call: BP 190/80 Appearance: Alert and Mild distress Airway Patent: Yes Breathing Evaluation: Normal Circulation Evaluation: Pulses Full, bounding Neurologic Evaluation: GCS Evaluation: 4. Spontaneous, 5: Oriented 6: Obeys Motor commands Is the Level of Consciousness at Baseline: Yes Lungs: clear Peripheral 12/25/231899 [facility] Short Left Forearm 20 Gauge (Active) Placement Date/Time: 12/25/231899 Line, Drain, Airway Placed by: [facility] Type of Peripheral Line: Short Location: Left Insertion Site: Forearm Size: 20 Gauge PERTINENT DIAGNOSTICS Diagnostic Tests Reviewed: Most recent labs and imaging results. Labs (Reviewed and include): BMP Recent Labs 12/27/23 0038 GLUC 90 K 3.2* NA 136 CHLOR 99 CO2 24 CREAT 0.47* BUN 9 ANION 13 CA 9.4 CBC Recent Labs 12/27/23 0037 HB 11.4* HCT 34.7* RBC 3.42* WBC 7.57 PLT 309 Imaging: XR ABDOMEN 1V SUPINE Final Result IMPRESSION: Lines, tubes and devices: NG/OG tube i (more content not included)... Normal [facility] THERAPY NTon 12-27-2023 THERAPY NT HNO ID: [id number] Author: RADHA SAINI, HEAD SAMPLER Service: Respiratory Therapy Author Type: Registered Resp Therapist Type: Therapy (PT/OT/Speech/Resp) Filed: 12/27/2023 10:31 Note Text: Summary: AMET Activation RESPIRATORY THERAPY PROGRESS NOTE SERVICE DATE: 12/27/2023 SERVICE TIME: 912 AMET activated for symptomatic hypertension including headache. Pt on RA with SpO2 92% Pt placed on 3 lpm nasal dawit Primary at bedside. 12/27/23 0913 RT Rapid Response Is this a Rapid Response? Yes Rapid Response Team AMET $ CPR/Code Blue No RT medication given No Patient intubated No Patient suctioned No Blood Gases Drawn No Vitals/Oxygenation Pulse 80 Resp 20 SpO2 92 % (SpO2 on RA- Pt O2 increased to 3 lpm) O2 Therapy NC $Oxygen Therapy $Performed Liters 3 Reason Oxygen Source Changed Decreased SpO2 $Oximetry $Performed Pulse Oximetry Monitoring Continuous Resp Assessment: Within Normal Limits (WNL): Rhythm Regular and Unlabored; No Cough or Sputum; Breath Sounds Clear All Lobes Assessment Type Rapid Response Respiratory Assessment WNL Respiratory Characteristics Symmetrical Chest Excursion Respiratory Rhythm/Pattern Unlabored;Regular Cough No Spontaneous Cough Present Breath Sounds X All Lobes Anterior;Posterior;[place] All Lobes Right Lower Lobe Diminished Left Lower Lobe Diminished SIGNATURE: Radha Saini, HEAD SAMPLER PATIENT NAME: Ana Hilario DATE: December 27, 2023 TIME: 10:28 AM PAGER/CONTACT #: Normal [facility] Urinalysis complete panel (U )on 12-27-2023 Bacteria LM.HPF (Urine sed) [#/Area] Negative Normal Negative [facility] Comment on above: Order Comment: Speci men Type: URINE SPECIMENOrdering Facility: [facility] Address: [address] [place] [address] Performed By: #### 2 4356-8 ####[facility] [id number] [place] [address] [place] Bilirubin Ql (U) Negative Normal Negative [facility] Comment on above: Order Comment: Speci men Type: URINE SPECIMENOrdering Facility: [facility] Address: [address] [place] [address] Performed By: #### 2 4356-8 ####[facility] [id number] [place] [address] [place] Clarity (Unsp spec) Clear Normal Clear [facility] Comment on above: Order Comment: Speci men Type: URINE SPECIMENOrdering Facility: [facility] Address: [address] [place] [address] Performed By: #### 2 4356-8 ####[facility] [id number] [place] [address] [place] Color (U) Yellow Normal Yellow [facility] Comment on above: Order Comment: Speci men Type: URINE SPECIMENOrdering Facility: [facility] Address: [address] [place] [address] Performed By: #### 2 4356-8 ####[facility] [id number] [place] [address] [place] Epithelial cells LM.HPF (Urine sed) [#/Area] None Seen Normal [facility] Comment on above: Order Comment: Speci men Type: URINE SPECIMENOrdering Facility: [facility] Address: [address] [place] [address] Performed By: #### 2 4356-8 ####[facility] [id number] [place] [address] [place] Glucose Test strip (U) [Mass/Vol] Negative Normal Negative [facility] Comment on above: Order Comment: Speci men Type: URINE SPECIMENOrdering Facility: [facility] Address: [address] [place] [address] Performed By: #### 2 4356-8 ####[facility] [id number] [place] [address] [place] Hemoglobin Ql (U) Negative Normal Negative [facility] Comment on above: Order Comment: Speci men Type: URINE SPECIMENOrdering Facility: [facility] Address: [address] [place] [address] Performed By: #### 2 4356-8 ####[facility] [id number] [place] [address] [place] Hyaline casts (Urine sed) [#/Area] 0 /[LPF] Normal 0 /LPF [facility] Comment on above: Order Comment: Speci men Type: URINE SPECIMENOrdering Facility: [facility] Address: [address] [place] [address] Performed By: #### 2 4356-8 ####[facility] [id number] [place] [address] [place] Ketones Ql (U) 1+ Abnormal Negative [facility] Comment on above: Order Comment: Speci men Type: URINE SPECIMENOrdering Facility: [facility] Address: [address] [place] [address] Performed By: #### 2 4356-8 ####[facility] [id number] [place] [address] [place] Leukocyte esterase Test strip Ql (U) Trace Abnormal Negative [facility] Comment on above: Order Comment: Speci men Type: URINE SPECIMENOrdering Facility: [facility] Address: [address] [place] [address] Performed By: #### 2 4356-8 ####[facility] [id number] [place] [address] [place] Nitrite Ql (U) Negative Normal Negative [facility] Comment on above: Order Comment: Speci men Type: URINE SPECIMENOrdering Facility: [facility] Address: [address] [place] [address] Performed By: #### 2 4356-8 ####[facility] [id number] [place] [address] [place] pH (U) 7.5 [pH] Normal <8.5 [facility] Comment on above: Order Comment: Speci men Type: URINE SPECIMENOrdering Facility: [facility] Address: [address] [place] [address] Performed By: #### 2 4356-8 ####[facility] [id number] [place] [address] [place] Protein (U) [Mass/Vol] Negative Normal Negative [facility] Comment on above: Order Comment: Speci men Type: URINE SPECIMENOrdering Facility: [facility] Address: [address] [place] [address] Performed By: #### 2 4356-8 ####[facility] [id number] [place] [address] [place] RBC LM.HPF (Urine sed) [#/Area] 0-2 /HPF Normal 0-2 /HPF [facility] Comment on above: Order Comment: Speci men Type: URINE SPECIMENOrdering Facility: [facility] Address: [address] [place] [address] Performed By: #### 2 4356-8 ####[facility] [id number] [place] [address] [place] Specific gravity (U) [Rel density] 1.011 Normal 1.005-1.030 [facility] Comment on above: Order Comment: Speci men Type: URINE SPECIMENOrdering Facility: [facility] Address: [address] [place] [address] Performed By: #### 2 4356-8 ####[facility] [id number] [place] [address] [place] Urobilinogen Ql (U) 0.2 EU/dL Normal 0.2-1.0 EU/dL [facility] Comment on above: Order Comment: Speci men Type: URINE SPECIMENOrdering Facility: [facility] Address: [address] [place] [address] Performed By: #### 2 4356-8 ####[facility] [id number] [place] [id number] [place] WBC LM.HPF (Urine sed) [#/Area] 0-5 /HPF Normal 0-5 /HPF [facility] Comment on above: Order Comment: Speci men Type: URINE SPECIMENOrdering Facility: [facility] Address: [address] [place] [id number] Performed By: #### 2 4356-8 ####[facility] [id number] [place] [id number] [place] XR COLON SINGLE CONTRASTon 0 12-27-2023 XR COLON SINGLE CONTRAST * * *Final Report* * * DATE OF EXAM: Dec 27 2023 10:43AM HGX [id number] - XR COLON SINGLE CONTRAST / PROCEDURE REASON: Bowel obstruction * * * * Physician Interpretation * * * * ENEMA CLINICAL INFORMATION: Crohn's disease, CT abdomen/pelvis with borderline dilated colon and possible sigmoid diverticular stricture. TECHNIQUE: A jamtj-grqcmfr-xopisjhl enema was performed after insertion of a rectal tube. Spot and overhead images were obtained. Contrast Media 1: RECTAL administration of 1500 ml of OMNIPAQUE 300+WATER Fluoroscopy radiation summary: Fluoroscopy time: 3:24 (min:sec). Air kerma: 133.6 mGy. RESULT: Medical Orderly: NG tube with subdiaphragmatic side port, tip projects over the expected location of the gastric body. Gas scattered in nondilated small bowel and colon. Degenerative changes of the lumbar spine. Atherosclerotic calcifications of the abdominal aorta. Cholelithiasis. Contrast flows freely throughout normal caliber colon, up to the distal ileum. There is no significant narrowing in the region of the sigmoid colon. There is scattered diverticulosis. Large colonic stool burden. Staff Physician: Arelis Goss MD was present for the critical portions of the procedure and was immediately available throughout the remainder of the procedure. IMPRESSION: DIVERTICULOSIS, OTHERWISE NORMAL COLON. NO OBSTRUCTION OR STRICTURE. Communications Department Chairperson: PSCMarshall Transcribe Date/Time: Dec 27 2023 11:01A Dictated by : JAGRUTI CHRISTINE MD This examination was interpreted and the report reviewed and electronically signed by: ARELIS GOSS MD on Dec 27 2023 11:46AM EST [id number] Normal [facility] 12-26-2023 ALLIED HEALTH HNO ID: [id number] Author: ARIADNE SOLIZ RN Service: Wound/Ostomy Author Type: Registered Nurse Type: Allied Health Filed: 12/26/2023 12:43 Note Text: ET/WOC Nursing Note Topic: STOMA MARKING ET Outcome: Consulted to donnell x4 quadrants for colostomy. Per chart, surgical plan tentative, sigmoid vs total colectomy, possible stoma. Abdomen marked x4 quadrants with surgical marker and covered with tegaderm. Discussed what to expect after surgery including teaching, and provided ileostomy and colostomy booklets. Family present, answered questions. Sitting Standing The stoma marking purpose and procedure was explained: yes. The patient verbalized understanding and agrees to the marking: yes. Rectus Muscle boarders are located: yes. Abdominal contour evaluation was performed in the lying position, sitting position, and standing position. The stoma marking was made according to ET/WOC Nursing Procedure #401 in all four quadrants. Patient is able to see site in the following positions: sitting position and standing position ET/WOC NURSING ET OUTCOME: pre-op teaching for possible stoma, brief coverage of material TOPIC: OSTOMY INSTRUCTION READINESS TO LEARN COGNITIVE ABILITY: Alert and Oriented MOTIVATION TO LEARN: Interested FAMILY SUPPORT: High - Very involved in patient care INSTRUCTION PROVIDED TO: Patient, Family member, and Spouse PATIENT LEARNS BEST BY: Individual Instruction Written Instruction - Hand-outs Verbal Instruction Demonstration FACTORS AFFECTING LEARNING: None PHYSICAL LIMITATIONS AFFECTING LEARNING: Fatigue LEARNING RESPONSE DIAGNOSIS: Large bowel obstruction PROCEDURE / SURGERY: colostomy vs ileostomy EDUCATION TOPIC/ TEACHING POINTS: Ostomy Care Stoma appearance and function, Purpose of the pouching system, Postoperative ostomy care per ET/WOC Nurse, Postoperative self ostomy care instruction, and Diet METHOD OF INSTRUCTION: Individual instruction Written instruction - handouts Verbal instruction PATIENT / FAMILY RESPONSE: Verbalizing understanding of: Preoperative teaching FOLLOW-UP PLAN: will follow after surgery SUPPLEMENTAL MATERIAL: Ileostomy Booklet and Colostomy Booklet REFERRAL (RECOMMENDATION): will assess after surgery TIME INCREMENT: 1 hour Ariadne Soliz RN, BSN, CWOCN For non-emergent WO Nursing patient care needs - Please place a consult via Epic under ostomy . WOC Nurse Available Hours: M-F: [phone]; Weekends AND Holidays: [phone] For emergent WO Nursing patient care needs - Page #[phone], during available hours only. Normal [facility] Basic metabolic 2000 panelon 12-26-2023 Anion gap [Moles/Vol] 11 mmol/L Normal 9-18 [facility] Comment on above: Order Comment: Speci men Type: BLOOD SPECIMENOrdering Facility: [facility] Address: [address] [place] [address] Performed By: #### 2 4321-2 ####[facility] LABCLIA [id number] [place] [address] [place] Calcium [Mass/Vol] 9.4 mg/dL Normal 8.5-10.2 [facility] Comment on above: Order Comment: Speci men Type: BLOOD SPECIMENOrdering Facility: [facility] Address: [address] [place] [address] Performed By: #### 2 4321-2 ####[facility] LABCLIA [id number] [place] [address] [place] Chloride [Moles/Vol] 100 mmol/L Normal 97-105 [facility] Comment on above: Order Comment: Speci men Type: BLOOD SPECIMENOrdering Facility: [facility] Address: [address] [place] [address] Performed By: #### 2 4321-2 ####[facility] LABCLIA [id number] [place] [id number] [place] CO2 [Moles/Vol] 24 mmol/L Normal 22-30 [facility] Comment on above: Order Comment: Speci men Type: BLOOD SPECIMENOrdering Facility: [facility] Address: [address] [place] [address] Performed By: #### 2 4321-2 ####[facility] LABCLIA [id number] [address] STATES OF [facility] Creatinine [Mass/Vol] 0.48 mg/dL Low 0.58-0.96 [facility] Comment on above: Order Comment: An rolle Type: BLOOD SPECIMENOrdering Facility: [facility] Address: [address] [place] [address] Performed By: #### 2 4321-2 ####[facility] LABCLIA [id number] [address] Creatinine and Glomerular filtration rate.predicted panel (S/P/Bld) 98 mL/min/1.73m??? Normal >=60 [facility] Comment on above: Order Comment: An rolle Type: BLOOD SPECIMENOrdering Facility: [facility] Address: [address] [place] [address] Result Comment: Lydia mated Glomerular Filtration Rate (eGFR) is calculated using the 2020 CKD-EPI creatinine equation. This equation utilizes serum creatinine, sex, and age as parameters. The creatinine assay has traceable calibration to isotope dilution-mass spectrometry. Refer to KDIGO guidelines for clinical interpretation. In patients with unstable renal function, e.g. those with acute kidney injury, the eGFR may not accurately reflect actual GFR. Performed By: #### 2 4321-2 ####[facility] LABCLIA [id number] [place] [address] [place] Glucose [Mass/Vol] 95 mg/dL Normal 74-99 [facility] Comment on above: Order Comment: An rolle Type: BLOOD SPECIMENOrdering Facility: [facility] Address: [address] [place] [address] Result Comment: The [place] Diabetes Association (ADA) provides guidance for cutoff values for fasting glucose and random glucose. The ADA defines fasting as no caloric intake for at least 8 hours. Fasting plasma glucose results between 100 to 125 mg/dL indicate increased risk for diabetes (prediabetes). Fasting plasma glucose results greater than or equal to 126 mg/dL meet the criteria for diagnosis of diabetes. In the absence of unequivocal hyperglycemia, results should be confirmed by repeat testing. In a patient with classic symptoms of hyperglycemia or hyperglycemic crisis, random plasma glucose results greater than or equal to 200 mg/dL meet the criteria for diagnosis of diabetes. Reference: Standards of Medical Care in Diabetes 2016, [place] Diabetes Association. Diabetes Care. 2016.39(Suppl 1). Performed By: #### 2 4321-2 ####[facility] LABCLIA [id number] [place] [address] [place] Potassium [Moles/Vol] 3.6 mmol/L Low 3.7-5.1 [facility] Comment on above: Order Comment: Speci men Type: BLOOD SPECIMENOrdering Facility: [facility] Address: [address] [place] [address] Performed By: #### 2 4321-2 ####[facility] LABCLIA [id number] [place] [address] [place] Sodium [Moles/Vol] 135 mmol/L Low 136-144 [facility] Comment on above: Order Comment: Speci men Type: BLOOD SPECIMENOrdering Facility: [facility] Address: [address] [place] [address] Performed By: #### 2 4321-2 ####[facility] LABCLIA [id number] [place] [address] [place] Urea nitrogen [Mass/Vol] 12 mg/dL Normal 7-21 [facility] Comment on above: Order Comment: Speci men Type: BLOOD SPECIMENOrdering Facility: [facility] Address: [address] [place] [address] Performed By: #### 2 4321-2 ####[facility] LABIA [id number] [place] [address] [place] CASE MGT INIT Lamin 2023 CASE MGT INIT ASSES HNO ID: [id number] Author: MAYA WALLER RN Service: Care Management Author Type: Registered Nurse Type: Care Mgt Initial Assessment Filed: 12/26/2023 15:05 Note Text: CARE MANAGEMENT: ASSESSMENT AND DISCHARGE PLAN SERVICE DATE: December 26, 2023 SERVICE TIME: 3:05 PM PCP: Good Franco DO DO Primary Contact: Extended Emergency Contact Information Primary Emergency Contact: Emmanuel Hilario Janes Mobile Relation: Spouse Admission Status: Inpatient Insurance Provider: [employer] HMO Discharge Planning requested by: Per Department Practice Potential Transition Plans Home Care Advance Directives Current Advance Directive: None (Patient request assistance with completing Advance Directive and Task sent to [facility] Urology Teacher Attempted to Assist with AD Completion: Yes Action: Education Provided Current Living Arrangements and Support Lives with: Spouse/significant other Type of Residence: Private Residence (House) Does the patient have to climb stairs at home?: Yes;stairs outside the home;stairs within the home Support: Spouse/significant other How do you manage to accomplish the following: Independent: Ambulation;Bathe/Showe r;Dress;Meals/Meal Prep;Transportation to appointments/community ;Medication Management;Going to the bathroom Current Services/Equipment Current Post-Acute Service(s): None Discharge Planning Patient Goal(s): General wellness, Be able to go home, Independent living [place] of Choice Explained: [place] of Choice Given: Yes Level of Care Discussed: Home Care Are you interested in bedside delivery of your medications? No Discharge Planning Participant(s): Spouse/significant other Patient/Family Comments: Caregiver Assessment: Caregiver is ready, willing and able to meet the patient's needs as recommended by the inter-professional team: Yes Name of Caregiver: Emmanuel Kumar Transport at Discharge: Transportation Arrangements: Car Date of Trip: (Pending hospital course) Time of Trip: (To be determined) Destination: [address] [place] [id number] Needs Prior to Discharge: Needs Prior to Discharge: Home Care Order;Facility or Agency Choices;Other: See Comment;OT/PT Evaluation;Procedure (Medical clearance) Procedure Needed: Surgical plan tentative, sigmoid vs total colectomy, possible stoma, Date To be arranged. 12/25/2023: 78 year old female with PMHx of Crohn's disease vs. IBS, remote history of bowel obstruction s/p small bowel resection, and chronic constipation who presents to [facility] as a direct admission after CT AP obtained on 12/24/23 was c/f large bowel obstruction and Crohn's disease exacerbation. Post-Acute Discharge Plan: CM to bedside to introduce self, CM role and to discuss discharge planning and home care needs. Patient alert and oriented and engaged with questioning. Plan to discharge once medically stable, with an accepting of Home Care Agency, [facility] list given to Patient, awaiting choices. Patient states, Family supportive. Questions and concerns addressed. Pt denies any new questions or concerns at this time. Pt reports being independent at home, and denies the need for assistance. Pt declines the use of assistive equipment. CM will continue to follow and update. Family will provide transportation home. SIGNATURE: Maya Boyce RN PATIENT NAME: Ana Hilario DATE: December 26, 2023 TIME: 3:00 PM CONTACT #: [phone] Normal [facility] CBC panel Auto (Bld)on 12-25 Erythrocyte distribution width (RBC) [Ratio] 13.8 % Normal 11.5-15.0 [facility] Comment on above: Order Comment: Speci men Type: BLOOD SPECIMENOrdering Facility: [facility] Address: [address] [place] [address] Performed By: #### 5 8410-2 ####[facility] LABIA [id number] [place] [address] [place] Hematocrit (Bld) [Volume fraction] 36.0 % Normal 36.0-46.0 [facility] Comment on above: Order Comment: Speci men Type: BLOOD SPECIMENOrdering Facility: [facility] Address: [address] [place] [address] Performed By: #### 5 8410-2 ####[facility] LABIA [id number] [place] [address] [place] Hemoglobin (Bld) [Mass/Vol] 11.8 g/dL Normal 11.5-15.5 [facility] Comment on above: Order Comment: Speci men Type: BLOOD SPECIMENOrdering Facility: [facility] Address: [address] [id number] Performed By: #### 5 8410-2 ####[facility] LABIA [id number] [place] [address] [place] MCH (RBC) [Entitic mass] 32.9 pg Normal 26.0-34.0 [facility] Comment on above: Order Comment: Speci men Type: BLOOD SPECIMENOrdering Facility: [facility] Address: [address] [place] [address] Performed By: #### 5 8410-2 ####[facility] [id number] [place] [address] [place] MCHC (RBC) [Mass/Vol] 32.8 g/dL Normal 30.5-36.0 [facility] Comment on above: Order Comment: Speci men Type: BLOOD SPECIMENOrdering Facility: [facility] Address: [address] [place] [address] Performed By: #### 5 8410-2 ####[facility] [id number] [place] [address] [place] MCV (RBC) [Entitic vol] 100.3 fL High 80.0-100.0 [facility] Comment on above: Order Comment: Speci men Type: BLOOD SPECIMENOrdering Facility: [facility] Address: [address] [place] [address] Performed By: #### 5 8410-2 ####[facility] [id number] [place] [address] [place] Nucleated RBC (Bld) [#/Vol] 10*3/uL Normal <0.01 [facility] Comment on above: Order Comment: Speci men Type: BLOOD SPECIMENOrdering Facility: [facility] Address: [address] [place] [address] Performed By: #### 5 8410-2 ####[facility] [id number] [place] [id number] [place] Platelet mean volume (Bld) [Entitic vol] 10.9 fL Normal 9.0-12.7 [facility] Comment on above: Order Comment: Speci men Type: BLOOD SPECIMENOrdering Facility: [facility] Address: [address] [place] [address] Performed By: #### 5 8410-2 ####[facility] LABIA [id number] [place] [address] [place] Platelets (Bld) [#/Vol] 330 10*3/uL Normal 150-400 [facility] Comment on above: Order Comment: Speci men Type: BLOOD SPECIMENOrdering Facility: [facility] Address: [address] [place] [address] Performed By: #### 5 8410-2 ####[facility] LABCLIA [id number] [place] [address] [place] RBC (Bld) [#/Vol] 3.59 10*6/uL Low 3.90-5.[address] [facility] Comment on above: Order Comment: Speci men Type: BLOOD SPECIMENOrdering Facility: [facility] Address: [address] [place] [address] Performed By: #### 5 8410-2 ####[facility] LABIA [id number] [place] [address] [place] WBC (Bld) [#/Vol] 9.20 10*3/uL Normal 3.70-11.[address] [facility] Comment on above: Order Comment: Speci men Type: BLOOD SPECIMENOrdering Facility: [facility] Address: [address] [place] [address] Performed By: #### 5 8410-2 ####[facility] LABCLIA [id number] [place] [address] [place] CONSULTon 12-26-2023 CONSULT HNO ID: [id number] Author: SMA VENTURA MD Service: Gastroenterology Author Type: Fellow Type: Consults Filed: 12/26/2023 11:31 Note Text: Gastroenterology Consult Service Initial Consult Note Department of Gastroenterology AND Hepatology Digestive Disease [facility] Date of Service: December 26, 2023 Patient: Ana Hilario Medical Record: [id number] Impression: Ms. Hilario is a 78yoF with a PMH of Crohn's disease diagnosed about 5 years ago which has never been treated. She was admitted 12/24 after the read of a CTAP 12/24/2023 showed thickening of long segments of mid-and proximal sigmoid colon with minimal surrounding fat infiltration, prominent fecal material in the long segments of the colon suspicious for partial colonic obstruction, mural thickening of the duodenal sweep, jejunum, and ileum, suspicious for enterocolitis. An addendum of the CT scan later noted an abrupt transition from thickened sigmoid colon to normal sigmoid colon, increasing index of suspicion for sigmoid colon neoplasm > Crohn's colitis. At present, she likely has poorly controlled Crohn's disease with sigmoid colon thickening vs malignancy. Recommendations: - pLBO management per surgery. - Gastrograffin enema. If there is something stentable, will consider flex sig with stent. - CT enterography. - F/U fecal calprotectin. - TB and hepatitis B serologies (pre-biologic labs). Sam Ventura MD Gastroenterology AND Hepatology Fellow Will discuss with staff. ======= History of Present Illness: Ms. Hilario is a 78yoF with a PMH of Crohn's disease and prior SB surgery (had a tubal ligation where they accidentally nicked the SB requiring surgery - per her, no prior SBO or SB resections) not on any medical therapy who follows with Dr. Nino as an OP. She presented to an OSH ED 12/23 after having no BM for 1 week associated with abdominal distension. CTAP showed thickening of long segments of mid-and proximal sigmoid colon with minimal surrounding fat infiltration, prominent fecal material in the long segments of the colon suspicious for partial colonic obstruction, mural thickening of the duodenal sweep, jejunum, and ileum, suspicious for enterocolitis. An addendum of the CT scan later noted an abrupt transition from thickened sigmoid colon to normal sigmoid colon, increasing index of suspicion for sigmoid colon neoplasm > Crohn's colitis. The patent was transferred to [facility] colorectal surgery 12/24 given these findings and GI has been consulted for assistance in management of Crohn's disease. At present, she is HDS on RA. Her labs are significant for macrocytosis (MCV 104.6) and a normal CRP (0.7). Fecal calprotectin has been ordered but not yet obtained. She was diagnosed with Crohn's disease about 5 years ago she says. She has never been on medical therapy. She follows with Dr. Nino at [facility]. Last colonoscopy in 12/2017 showed one 7mm descending colon polyp which was removed with cold biopsy forceps (path: TA). Random colon biopsies were normal. Last small bowel imaging was CTE 10/2017 which showed no active small bowel Crohn's disease. Pertinent Review of Systems: Negative unless noted in HPI Past Medical History: PAST MEDICAL HISTORY Diagnosis Date Anxiety states 1980 psych hospitalization Breast cancer (HCC) 2009 COPD with chronic bronchitis (HCC) Crohn's disease (HCC) Diffuse cystic mastopathy Hypothyroidism Incontinence of feces Irritable bowel syndrome Irritable bowel Other and unspecified hyperlipidemia good HDL Other and unspecified ovarian cyst bilateral oophorectomy Peritonitis and retroperitoneal infections Associated with an SBO Personal history of colonic polyps Colon polyps-TUBULAR ADENOMA Urinary incontinence Past Surgical History: PAST SURGICAL HISTORY Procedure Laterality Date ANTERIOR COLPORRAPHY RPR CYSTOCELE W/CYSTO 1996 Cystocele repair APPENDECTOMY 1974 BREAST BIOPSY INCISIONAL Left 12/23/2009 left breast with prior needle localization BREAST LEFT FINE NEEDLE ASPIRATION 09-21-03 left breast u/s guided FNA BX BREAST NEEDLE CORE W/O IMAGING GUIDANCE SPX 8-97 right breast stereo bx. - benign COLONOSCOPY [...] CTR VAD W/SUBQ PORT AGE 5 YR/> 01/28/10 Left Subclavian MASTECTOMY, PARTIAL Right 12/23/2009 right breast with prior needle localization; SLND MASTOTOMY W/EXPLORATION/DRAINAGE ABSCESS DEEP Left 10-26-04 left breast abscess I AND D NIPPLE EXPLORATION Left 8- (more content not included)... Normal [facility] Basic metabolic 2000 panelon 12-25-2023 Anion gap [Moles/Vol] 12 mmol/L Normal 9-18 [facility] Comment on above: Order Comment: Speci men Type: BLOOD SPECIMENOrdering Facility: [facility] Address: [address] [place] [address] Performed By: #### 2 4320-10, 1988-01 ####[facility] LABIA [id number] [place] [address] [place] Calcium [Mass/Vol] 9.0 mg/dL Normal 8.5-10.2 [facility] Comment on above: Order Comment: Speci men Type: BLOOD SPECIMENOrdering Facility: [facility] Address: [address] [place] [address] Performed By: #### 2 4320-10, 1988-01 ####[facility] LABIA [id number] [place] [address] [place] Chloride [Moles/Vol] 102 mmol/L Normal 97-105 [facility] Comment on above: Order Comment: Speci men Type: BLOOD SPECIMENOrdering Facility: [facility] Address: [address] [place] [address] Performed By: #### 2 4320-10, 1988-01 ####[facility] LABIA [id number] [place] [id number] [place] CO2 [Moles/Vol] 22 mmol/L Normal 22-30 [facility] Comment on above: Order Comment: Speci men Type: BLOOD SPECIMENOrdering Facility: [facility] Address: [address] [place] [address] Performed By: #### 2 4320-10, 1988-01 ####[facility] LABIA [id number] [place] [id number] [place] Creatinine [Mass/Vol] 0.46 mg/dL Low 0.58-0.96 [facility] Comment on above: Order Comment: An rolle Type: BLOOD SPECIMENOrdering Facility: [facility] Address: [address] [place], [place] [id number] Performed By: #### 2 4320-10, 1988-01 ####[facility] LABIA [id number] [place] [address] [place] Creatinine and Glomerular filtration rate.predicted panel (S/P/Bld) 99 mL/min/1.73m??? Normal >=60 [facility] Comment on above: Order Comment: An rolle Type: BLOOD SPECIMENOrdering Facility: [facility] Address: [address] [place] [address] Result Comment: Lydia mated Glomerular Filtration Rate (eGFR) is calculated using the 2020 CKD-EPI creatinine equation. This equation utilizes serum creatinine, sex, and age as parameters. The creatinine assay has traceable calibration to isotope dilution-mass spectrometry. Refer to KDIGO guidelines for clinical interpretation. In patients with unstable renal function, e.g. those with acute kidney injury, the eGFR may not accurately reflect actual GFR. Performed By: #### 2 4320-10, 1988-01 ####[facility] LABIA [id number] [place] [id number] [place] Glucose [Mass/Vol] 102 mg/dL High 74-99 [facility] Comment on above: Order Comment: An rolle Type: BLOOD SPECIMENOrdering Facility: [facility] Address: [address] [place] [address] Result Comment: The [place] Diabetes Association (ADA) provides guidance for cutoff values for fasting glucose and random glucose. The ADA defines fasting as no caloric intake for at least 8 hours. Fasting plasma glucose results between 100 to 125 mg/dL indicate increased risk for diabetes (prediabetes). Fasting plasma glucose results greater than or equal to 126 mg/dL meet the criteria for diagnosis of diabetes. In the absence of unequivocal hyperglycemia, results should be confirmed by repeat testing. In a patient with classic symptoms of hyperglycemia or hyperglycemic crisis, random plasma glucose results greater than or equal to 200 mg/dL meet the criteria for diagnosis of diabetes. Reference: Standards of Medical Care in Diabetes 2016, [employer]. Diabetes Care. 2016.39(Suppl 1). Performed By: #### 2 1988-01 ####[facility] LABCLIA [id number] [place] [address] [place] Potassium [Moles/Vol] 3.8 mmol/L Normal 3.7-5.1 [facility] Comment on above: Order Comment: Speci men Type: BLOOD SPECIMENOrdering Facility: [facility] Address: [address] [place] [address] Performed By: #### 2 1988-01 ####[facility] LABCLIA [id number] [place] [address] [place] Sodium [Moles/Vol] 136 mmol/L Normal 136-144 [facility] Comment on above: Order Comment: Chaneli men Type: BLOOD SPECIMENOrdering Facility: [facility] Address: [address] [place] [address] Performed By: #### 2 1988-01 ####[facility] LABCLIA [id number] [place] [address] [place] Urea nitrogen [Mass/Vol] 14 mg/dL Normal 7-21 [facility] Comment on above: Order Comment: Speci men Type: BLOOD SPECIMENOrdering Facility: [facility] Address: [address] [place] [address] Performed By: #### 2 1988-01 ####[facility] LABCLIA [id number] [place] [id number] [place] CBC W Auto Differential pane l (Bld)on 12-25-2023 Basophils (Bld) [#/Vol] 10*3/uL Normal <0.11 [facility] Comment on above: Order Comment: Speci men Type: BLOOD SPECIMENOrdering Facility: [facility] Address: [address] [place] [address] Performed By: #### 5 7021-8 ####[facility] LABCLIA [id number] [facility] [address] [place] Basophils/100 WBC (Bld) 0.2 % Normal [facility] Comment on above: Order Comment: Speci men Type: BLOOD SPECIMENOrdering Facility: [facility] Address: [address] [place] [address] Performed By: #### 5 7021-8 ####[facility] LABCLIA [id number] [place] [address] [place] Differential cell count method Nom (Bld) Auto Normal [facility] Comment on above: Order Comment: Speci men Type: BLOOD SPECIMENOrdering Facility: [facility] Address: [address] [place] [address] Performed By: #### 5 7021-8 ####[facility] LABCLIA [id number] [place] [address] [place] Eosinophils (Bld) [#/Vol] 0.05 10*3/uL Normal <0.46 [facility] Comment on above: Order Comment: Speci men Type: BLOOD SPECIMENOrdering Facility: [facility] Address: [address] [place] [address] Performed By: #### 5 7021-8 ####[facility] LABCLIA [id number] [place] [address] [place] Eosinophils/100 WBC (Bld) 0.5 % Normal [facility] Comment on above: Order Comment: Speci men Type: BLOOD SPECIMENOrdering Facility: [facility] Address: [address] [place] [address] Performed By: #### 5 7021-8 ####[facility] LABCLIA [id number] [place] [address] [place] Erythrocyte distribution width (RBC) [Ratio] 13.9 % Normal 11.5-15.0 [facility] Comment on above: Order Comment: Speci men Type: BLOOD SPECIMENOrdering Facility: [facility] Address: [address] [place] [address] Performed By: #### 5 7021-8 ####[facility] LABCLIA [id number] [place] [address] [place] Hematocrit (Bld) [Volume fraction] 37.5 % Normal 36.0-46.0 [facility] Comment on above: Order Comment: Speci men Type: BLOOD SPECIMENOrdering Facility: [facility] Address: [address] [place] [address] Performed By: #### 5 7021-8 ####[facility] LABIA [id number] [place] [address] [place] Hemoglobin (Bld) [Mass/Vol] 12.2 g/dL Normal 11.5-15.5 [facility] Comment on above: Order Comment: Speci men Type: BLOOD SPECIMENOrdering Facility: [facility] Address: [address] [place] [address] Performed By: #### 5 7021-8 ####[facility] LABIA [id number] [place] [address] [place] Immature granulocytes (Bld) [#/Vol] 0.04 10*3/uL Normal <0.10 [facility] Comment on above: Order Comment: Speci men Type: BLOOD SPECIMENOrdering Facility: [facility] Address: [address] [place] [address] Performed By: #### 5 7021-8 ####[facility] LABIA [id number] [place] [address] [place] Immature granulocytes/100 WBC (Bld) 0.4 % Normal [facility] Comment on above: Order Comment: Speci men Type: BLOOD SPECIMENOrdering Facility: [facility] Address: [address] [place] [address] Performed By: #### 5 7021-8 ####[facility] LABCLIA [id number] [place] [address] [place] Lymphocytes (Bld) [#/Vol] 1.15 10*3/uL Normal 1.00-4.00 [facility] Comment on above: Order Comment: Speci men Type: BLOOD SPECIMENOrdering Facility: [facility] Address: [address] [place] [address] Performed By: #### 5 7021-8 ####[facility] LABCLIA [id number] [place] [address] [place] Lymphocytes/100 WBC (Bld) 11.9 % Normal [facility] Comment on above: Order Comment: Speci men Type: BLOOD SPECIMENOrdering Facility: [facility] Address: [address] [place] [address] Performed By: #### 5 7021-8 ####[facility] LABCLIA [id number] [place] [address] [place] MCH (RBC) [Entitic mass] 33.4 pg Normal 26.0-34.0 [facility] Comment on above: Order Comment: Speci men Type: BLOOD SPECIMENOrdering Facility: [facility] Address: [address] [place] [address] Performed By: #### 5 7021-8 ####[facility] LABCLIA [id number] [place] [address] [place] MCHC (RBC) [Mass/Vol] 32.5 g/dL Normal 30.5-36.0 [facility] Comment on above: Order Comment: Speci men Type: BLOOD SPECIMENOrdering Facility: [facility] Address: [address] [place] [address] Performed By: #### 5 7021-8 ####[facility] LABIA [id number] [place] [address] [place] MCV (RBC) [Entitic vol] 102.7 fL High 80.0-100.0 [facility] Comment on above: Order Comment: Speci men Type: BLOOD SPECIMENOrdering Facility: [facility] Address: [address] [place] [address] Performed By: #### 5 7021-8 ####[facility] LABIA [id number] [place] [address] [place] Monocytes (Bld) [#/Vol] 0.52 10*3/uL Normal <0.87 [facility] Comment on above: Order Comment: Speci men Type: BLOOD SPECIMENOrdering Facility: [facility] Address: [address] [place] [address] Performed By: #### 5 7021-8 ####[facility] LABIA [id number] [place] [address] [place] Monocytes/100 WBC (Bld) 5.4 % Normal [facility] Comment on above: Order Comment: Speci men Type: BLOOD SPECIMENOrdering Facility: [facility] Address: [address] [place] [address] Performed By: #### 5 7021-8 ####[facility] LABCLIA [id number] [place] [address] [place] Neutrophils (Bld) [#/Vol] 7.91 10*3/uL High 1.45-7.50 [facility] Comment on above: Order Comment: Speci men Type: BLOOD SPECIMENOrdering Facility: [facility] Address: [address] [place] [address] Performed By: #### 5 7021-8 ####[facility] LABCLIA [id number] [place] [address] [place] Neutrophils/100 WBC (Bld) 81.6 % Normal [facility] Comment on above: Order Comment: Speci men Type: BLOOD SPECIMENOrdering Facility: [facility] Address: [address] [place] [address] Performed By: #### 5 7021-8 ####[facility] LABCLIA [id number] [place] [address] [place] Nucleated RBC (Bld) [#/Vol] 10*3/uL Normal <0.01 [facility] Comment on above: Order Comment: Speci men Type: BLOOD SPECIMENOrdering Facility: [facility] Address: [address] [place] [address] Performed By: #### 5 7021-8 ####[facility] LABCLIA [id number] [place] [address] [place] Nucleated RBC/100 WBC (Bld) [Ratio] 0.0 /100 WBC Normal [facility] Comment on above: Order Comment: Speci men Type: BLOOD SPECIMENOrdering Facility: [facility] Address: [address] [place] [address] Performed By: #### 5 7021-8 ####[facility] LABCLIA [id number] [place] [address] [place] Platelet mean volume (Bld) [Entitic vol] 11.1 fL Normal 9.0-12.7 [facility] Comment on above: Order Comment: Speci men Type: BLOOD SPECIMENOrdering Facility: [facility] Address: [address] [place] [address] Performed By: #### 5 7021-8 ####[facility] LABCLIA [id number] [place] [address] [place] Platelets (Bld) [#/Vol] 329 10*3/uL Normal 150-400 [facility] Comment on above: Order Comment: Speci men Type: BLOOD SPECIMENOrdering Facility: [facility] Address: [address] [place] [address] Result Comment: No c lot detected. Performed By: #### 5 7021-8 ####[facility] LABCLIA [id number] [place] [address] [place] RBC (Bld) [#/Vol] 3.65 10*6/uL Low 3.90-5.[address] [facility] Comment on above: Order Comment: Speci men Type: BLOOD SPECIMENOrdering Facility: [facility] Address: [address] [place] [address] Performed By: #### 5 7021-8 ####[facility] LABIA [id number] [place] [address] [place] WBC (Bld) [#/Vol] 9.69 10*3/uL Normal 3.70-11.[address] [facility] Comment on above: Order Comment: Speci men Type: BLOOD SPECIMENOrdering Facility: [facility] Address: [address] [place] [address] Performed By: #### 5 7021-8 ####[facility] LABIA [id number] [place] [address] [place] CRP SerPl-mCncon 12-25-2023 CRP [Mass/Vol] 5.8 mg/dL High <0.9 [facility] Comment on above: Order Comment: Speci men Type: BLOOD SPECIMENOrdering Facility: [facility] Address: [address] [place] [address] Performed By: #### 2 4321-2, 1988-01 ####[facility] LABIA [id number] [place] [address] [place] HISTORY PHYSICALon HISTORY PHYSICAL HNO ID: [id number] Author: JEISON ROBERTS MD Service: General Surgery Author Type: Resident Type: H&P Filed: 12/26/2023 10:46 Note Text: Attestation signed by Jeison oRberts MD at 12/26/2023 10:46 AM [facility] staff note I have seen and examined the patient, and I have collaborated with our inpatient on all aspects of the assessment and plan, which is documented in detail in their note. 78 F with chart history of Crohn's but not on any medication and no recent colonoscopy now with radiographic partial SBO but no stool or flatus in a few days. Is distended and mildly tender on exam. CT reviewed with radiology- unclear if this is mass, diverticular, or IBD-related Will ask GI to see and get gastrogaffin enema to see if this is a lesion that may be endoscopically evaluated for stenting. Would only stent if this appears malignant, if it appears IBD or divertular-related would likely need a sigmoid colectomy. Will have stoma team see and donnell in case surgery needed Pedrito Roberts MD Colorectal surgery COLORECTAL SURGERY HISTORY AND PHYSICAL NOTE Ana Hilario [id number] Subjective CHIEF COMPLAINT: Partial large bowel obstruction HISTORY OF PRESENT ILLNESS: Ms. Hilario is a 78 year old female with PMHx of Crohn's disease vs. IBS, remote history of bowel obstruction s/p small bowel resection, and chronic constipation who presents to [facility] as a direct admission after CT AP obtained on 12/24/23 was c/f large bowel obstruction and Crohn's disease exacerbation. Pt states that she experienced about a one week history of constipation since 12/12/28 which prompted her to present to the OSH ED for further evaluation. She endorses associated worsening crampy abdominal pain, nausea, emesis, or recent weight loss. States that she is passing minimal flatus. NG tube was attempted to be placed but was unsuccessful and the patent refused further attempts at NG tube placement. On evaluation, patient is afebrile and HDS Labs are pending PAST MEDICAL HISTORY Diagnosis Date Anxiety states 1980 psych hospitalization Breast cancer (HCC) 2009 COPD with chronic bronchitis (HCC) Crohn's disease [...] fibroids VAGINAL HYSTERECTOMY UTERUS 250 GM/< 1980's FAMILY HISTORY Problem Relation Age of Onset Breast Cancer Mother 83 Diagnosed at age 83 Colon Cancer Father 62 Dx at age 62, age 64 of liver metastasis. other (Multiple Myeloma) Brother 84 Age 84 now. Multiple myeloma. Carrie Sands MD other (No cancer) Sister Different fathers. other (Multiple Myeloma) Brother 52 other (Kidney cancer) Brother 65 Age 90 now. Renal Breast Cancer Maternal Aunt 83 Diagnosed at age 83 Social History Tobacco Use Smoking status: Every Day Packs/day: 0.20 Years: 40.00 Additional pack years: 0.00 Total pack years: 8.00 Types: Cigarettes Smokeless tobacco: Never Tobacco comments: Pt has cut back to 5-6 cigarettes daily. Vaping Use Vaping Use: Never used Substance Use Top (more content not included)... Normal [facility] PT panel Coag (PPP)on 2023 INR Coag (PPP) [Relative time] 1.0 {INR} Normal 0.9-1.3 [facility] Comment on above: Order Comment: Speci men Type: BLOOD SPECIMENOrdering Facility: [facility] Address: [address] [place] [address] Result Comment: Natalya min K Antagonist (VKA) Therapeutic Range: INR 2 to 3 (Target INR of 2.5) Note: For patients treated with VKA drugs, such as warfarin, the [employer] [employer] 2012 Guideline recommends a therapeutic INR range of 2 to 3 (target INR of 2.5). This recommendation includes high-risk patients with antiphospholipid syndrome with previous arterial or venous thromboembolism, current-generation mechanical or bioprosthetic aortic heart valve replacement. Note: Patients with mechanical aortic valve replacement and additional risk factors for thromboembolic events (atrial fibrillation, previous thromboembolism, LV dysfunction, hypercoagulable conditions) or an older generation mechanical AVR (i.e., ball in-Cage) or any mechanical MVR should have a INR therapeutic range of 2.5 to 3.5 (target INR of 3). Tarik HEATH, et al. Chest 2012, 141:7S-47S Jordan NAYLOR et al. [facility] 2017, 70: 252-289 Performed By: #### 3 4528-0, 45319-6 ####[facility] LABCLIA [id number] [place] [address] [place] PT Coag (PPP) [Time] 10.9 s Normal 9.7-13.0 [facility] Comment on above: Order Comment: Speci men Type: BLOOD SPECIMENOrdering Facility: [facility] Address: [address] [place] [address] Performed By: #### 3 4528-0, 66775-3 ####[facility] LABCLIA [id number] [place] [address] [place] TYPE + SCREENon 12-25-2023 ABO A Normal [facility] Comment on above: Order Comment: Speci men Type: BLOOD SPECIMEN [facility] Address: [address] [place] [address] Performed By: #### T SCR #### [facility] CLIA [id number] [address] [place] [address] [place] HISTORICAL AB SCR STATUS Negative Normal [facility] Comment on above: Order Comment: Speci men Type: BLOOD SPECIMEN [facility] Address: [address] [place] [address] Performed By: #### T SCR #### [facility] CLIA [id number] [address] [place] [address] [place] Rh Nom (Bld) Positive Normal [facility] Comment on above: Order Comment: Speci men Type: BLOOD SPECIMEN [facility] Address: [address] [place] [address] Performed By: #### T SCR #### [facility] CLIA [id number] [address] [place] [address] [place] TYPE AND SCREEN EXPIRATION 12/28/2023 23:59 Normal [facility] Comment on above: Order Comment: Speci men Type: BLOOD SPECIMEN [facility] Address: [address] [place] [address] Performed By: #### T SCR #### [facility] BLOOD BANK CLIA [id number] [address] [place] [address] [place] [address] [place] XR ABDOMEN 1V SUPINEon 12-24 XR ABDOMEN 1V SUPINE * * *Final Report* * * DATE OF EXAM: Dec 25 2023 8:28PM BA [id number] - XR ABDOMEN 1V SUPINE / PROCEDURE REASON: Evaluate tube, line or lead position * * * * Physician Interpretation * * * * PORTABLE ABDOMEN, 1 view 12/25/2023 HISTORY: Status post NG/OG tube placement, assess location. TECHNIQUE: Supine portable abdomen, 1 image(s). Comparison: None RESULT: Findings- see impression. IMPRESSION: Lines, tubes and devices: NG/OG tube is in place, the proximal side port is at the diaphragm and the tip at the gastric fundus, this should probably be advanced several cm. Bowel gas pattern: There are no dilated loops of bowel. Communications Department Chairperson: [facility] Transcribe Date/Time: Dec 25 2023 8:35P Dictated by : RED RUSS MD This examination was interpreted and the report reviewed and electronically signed by: RED RUSS MD on Dec 25 2023 8:36PM EST [id number] Normal [facility] aPTT PPPon 12-25-2023 aPTT Coag (PPP) [Time] 23.8 s Normal 23.0-32.4 [facility] Comment on above: Order Comment: Speci men Type: BLOOD SPECIMENOrdering Facility: [facility] Address: [address] [place] [address] Performed By: #### 3 4528-0, 50744-0 ####[facility] LABCLIA [id number] [facility] [place] [address] [place] XR Chest PA and Lateralon IMPRESSION: Stable radiographic appearance of the chest with no radiographic evidence of new airspace consolidation. Communications Department Chairperson: [facility] Transcribe Date/Time: Jan 23 2023 1:36P Dictated by : MIRANDA CHURCH MD This examination was interpreted and the report reviewed and electronically signed by: MIRANDA CHURCH MD on Jan 23 2023 1:45PM [facility] DIVISION OF RADIOLOGY * * *Final Report* * * DATE OF EXAM: Jan 23 2023 1:33PM WOX [id number] - XR CHEST 2V FRONTAL/LAT / PROCEDURE REASON: Acute cough * * * * Physician Interpretation * * * * EXAMINATION: CHEST RADIOGRAPH (2 VIEW FRONTAL & LATERAL) CLINICAL HISTORY: Acute cough MQ: XC2_6 EXAM DATE/TIME: 01/23/2023 1:33 PM COMPARISON: Chest x-ray dated July 29, 2016. Correlation also made to CT chest dated December 20, 2017 RESULT: Lines, tubes, and devices: None. Lungs and pleura: Stable right greater than left biapical pleural parenchymal scarring. Stable appearing scarring in the right midlung zone. No radiographic evidence of new focal airspace consolidation. No pleural effusion or pneumothorax. Cardiomediastinal silhouette: Stable cardiomediastinal silhouette. Bones and soft tissues: Degenerative changes. Right axillary surgical clips. DIVISION OF RADIOLOGY [facility]23/2023 * * *Final Report* * * DATE OF EXAM: Jan 23 2023 1:33PM WOX [id number] - XR CHEST 2V FRONTAL/LAT / PROCEDURE REASON: Acute cough * * * * Physician Interpretation * * * * EXAMINATION: CHEST RADIOGRAPH (2 VIEW FRONTAL & LATERAL) CLINICAL HISTORY: Acute cough MQ: XC2_6 EXAM DATE/TIME: 01/23/2023 1:33 PM COMPARISON: Chest x-ray dated July 29, 2016. Correlation also made to CT chest dated December 20, 2017 RESULT: Lines, tubes, and devices: None. Lungs and pleura: Stable right greater than left biapical pleural parenchymal scarring. Stable appearing scarring in the right midlung zone. No radiographic evidence of new focal airspace consolidation. No pleural effusion or pneumothorax. Cardiomediastinal silhouette: Stable cardiomediastinal silhouette. Bones and soft tissues: Degenerative changes. Right axillary surgical clips. IMPRESSION IMPRESSION: Stable radiographic appearance of the chest with no radiographic evidence of new airspace consolidation. Communications Department Chairperson: [facility] Transcribe Date/Time: Jan 23 2023 1:36P Dictated by : MIRANDA CHURCH MD This examination was interpreted and the report reviewed and electronically signed by: MIRANDA CHURCH MD on Jan 23 2023 1:45PM EST [facility] Radiology Study observation (narrative) [facility] XR Chest PA and LateralOrder ed By: [facility] Provider on 01-23-2023 [facility] CNNURSEon 12-03-2020 CNNURSE Nurse Visit ([facility]OVAMD) ANA HILARIO ([id number]) 1945 F Date Time Provider Department 12/03/20 ARPITA GONSALEZ (SPENT [facility]IN DRYER) [facility]OV[facility] During your visit today, we recorded the following information about you: Allergies As of Date: 12/03/2020 Noted Allergy Reaction AMOXICILLIN 12/24/2009 4 - Hives 9 - Itching ERYTHROMYCIN 12/24/2009 4 - Hives Comments: Tolerates Azithromycin without problem. OPIOIDS-MEPERIDINE AND RELATED 04/04/2004 Comments: pain increased,hyperactive PROPOXYPHENE 11/16/2003 Comments: pain increase,hyperactive SULFA (SULFONAMIDE ANTIBIOTICS) 12/24/2009 4 - Hives Date Reviewed: 11/15/2020 Reviewed by: Gunjan Henson - Fully Assessed Order(s):[facility] SARS-COV-2 VACCINE 2D DOSE APPT [[id number]] Order #: [id number] Prescriptions as of 12/03/2020 Sig: BUDESONIDE-FORMOTEROL HFA 160* Inhale 2 Puffs as instructed * ALBUTEROL SULFATE HFA 90 MCG/* Inhale 2 Puffs as instructed * CHOLECALCIFEROL (VITAMIN D3) * Take 1 capsule by mouth one t* ESTRADIOL 0.01% (0.1 MG/GRAM)* Use 1 g vaginally two times a* CYANOCOBALAMIN (VIT B-12) 1,0* by INJECTION(UNSPECIFIED PARE* OMEPRAZOLE 20 MG CAPSULE,HOMERO* Take 1 capsule by mouth once * PROCHLORPERAZINE MALEATE 10 M* Take 1 tablet by mouth as nee* LEVOTHYROXINE 175 MCG TABLET Take 175 mcg by mouth once da* BUSPIRONE 7.5 MG TABLET Take 7.5 mg by mouth three ti* * TRAMADOL 50 MG TABLET Take 50 mg by mouth three manas* * IBUPROFEN 200 MG TABLET Take 1-2 tablet's) every four* * LEXAPRO 20 MG TABLET Take one(1) tablet daily. 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] 02/08/2011 11/10/2019 Vitamin D deficiency [E55.9] 09/14/2011 Gallstones [K80.20] 07/17/2012 Crohn disease [K50.90] 07/26/2012 Hypothyroidism [E03.9] 07/26/2012 Personal history of breast cancer [Z85.3] 05/21/2014 Pain in right shoulder [M25.511] 10/18/2015 Left-sided low back pain with left-sided sciati*10/18/2015 Fibrocystic breast changes, bilateral [N60.11, *06/20/2016 COPD with chronic bronchitis (HCC) [J44.9] Encounter Status:Open [facility] XR CHEST 2 VIEWSon 7 XR CHEST 2 VIEWS ORIGINALXR CHEST 2 VIEWS CLINICAL STATEMENT: COPD COMPARISON: 10/01/2014 FINDINGS:The cardiac and mediastinal contours are stable. There is asymmetric elevation of the right hemidiaphragm. Chronic coarsening of the lung markings without failure or consolidation is noted. There are postsurgical changes in the right axilla. There is calcification within the aorta. Mild degenerative changes noted within the spine. IMPRESSION:No acute process Interpreted By: Saniya Hopereliminary Report By: Saniya Hope MDElectronically Signed By: Saniya Hope MD Dictated Date: 05/30/2017 12:05:18 PM Prelim Date: 05/30/2017 12:05:18 PM Sign Date: 05/30/2017 12:05:49 PM Normal [facility] ([place]) Vital Signs Date Time Vital Sign Value Performing Clinician Facility 02-29-2024 08:10-0400 Body mass index (BMI) [Ratio] 24.14 kg/m2 Galina Franco MD Work Phone: [facility] 02-29-2024 08:10-0400 Body weight 59.88 kg Galina Franco MD Work Phone: [facility] 02-29-2024 08:10-0400 Diastolic blood pressure 62 mm[Hg] Galina Franco MD Work Phone: [facility] 02-29-2024 08:10-0400 Heart rate 92 /min Galina Franco MD Work Phone: [facility] 02-29-2024 08:10-0400 Respiratory rate 15 /min Galina Franco MD Work Phone: [facility] 02-29-2024 08:10-0400 SaO2% (BldA) [Mass fraction] 94 % Galina Franco MD Work Phone: [facility] 02-29-2024 08:10-0400 Systolic blood pressure 124 mm[Hg] Galina Franco MD Work Phone: [facility] 01-24-2024 11:27-0400 Body mass index (BMI) [Ratio] 24.25 kg/m2 Gunjan Henson APRN.[employer] Work Phone: [facility] 01-24-2024 11:27-0400 Body temperature 99.1 [degF] Gunjan Henson APRN.[employer] Work Phone: [facility] 01-24-2024 11:27-0400 Body weight 60.15 kg Gunjan Henson FURNACE MECHANIC.[employer] Work Phone: [facility] 01-24-2024 11:27-0400 Diastolic blood pressure 82 mm[Hg] Gunjan Henson FURNACE MECHANIC.[employer]ER Work Phone: [facility] 01-24-2024 11:27-0400 Heart rate 92 /min Gunjan Henson FURNACE MECHANIC.[employer]ER Work Phone: [facility] 01-24-2024 11:27-0400 SaO2% (BldA) [Mass fraction] 96 % Gunjan Henson FURNACE MECHANIC.[employer]YER Work Phone: [facility] 01-24-2024 11:27-0400 Systolic blood pressure 136 mm[Hg] Gunjan Henson FURNACE MECHANIC.[employer] Work Phone: [facility] 01-10-2024 11:52-0400 Body height 157.5 cm Judy Ribakow PA-C Work Phone: [facility] 01-10-2024 11:52-0400 Body mass index (BMI) [Ratio] 24.33 kg/m2 Judy Ribakow PA-C Work Phone: [facility] 01-10-2024 11:52-0400 Body temperature 97.81 [degF] Judy Ribakow PA-C Work Phone: [facility] 01-10-2024 11:52-0400 Body weight 60.33 kg Judy Ribakow PA-C Work Phone: [facility] 01-10-2024 11:52-0400 Diastolic blood pressure 49 mm[Hg] Judy Ribakow PA-C Work Phone: [facility] Comment on above: off BP med x2 days 01-10-2024 11:52-0400 Heart rate 80 /min Judy Ribakow PA-C Work Phone: [facility] 01-10-2024 11:52-0400 SaO2% (BldA) [Mass fraction] 95 % Judy Ribakow PA-C Work Phone: [facility] 01-10-2024 11:52-0400 Systolic blood pressure 121 mm[Hg] Judy Ribakow PA-C Work Phone: [facility] Comment on above: off BP med x2 days 02-07-2023 11:43-0400 Body height 158 cm Gunjan Henson FURNACE MECHANIC.[employer] Work Phone: [facility] 02-07-2023 11:43-0400 Body temperature 98.49 [degF] Gunjan Medinaenter FURNACE MECHANIC.[employer]YER Work Phone: [facility] 02-07-2023 11:43-0400 Body weight 65.32 kg Gunjan Henson FURNACE MECHANIC.[employer]ER Work Phone: [facility] 02-07-2023 11:43-0400 Diastolic blood pressure 72 mm[Hg] Gunjan Medinaenter FURNACE MECHANIC.[employer]YER Work Phone: [facility] 02-07-2023 11:43-0400 Heart rate 89 /min Gunjan Henson FURNACE MECHANIC.[employer]YER Work Phone: [facility] 02-07-2023 11:43-0400 SaO2% (BldA) [Mass fraction] 95 % Gunjan Henson FURNACE MECHANIC.[employer]YER Work Phone: [facility] 02-07-2023 11:43-0400 Systolic blood pressure 141 mm[Hg] Gunjan Henson FURNACE MECHANIC.[employer]ER Work Phone: [facility] Encounters Encounter Date Encounter Type Care Provider Facility Start: 05-29-2024 End: 05-29-2024 ambulatory [facility] Facility:[facility] Start: 05-29-2024 End: 05-29-2024 ambulatory [facility] Facility:[facility] Start: 05-29-2024 End: 05-29-2024 Subsequent hospital visit by physician [facility] (I-Stat) Work Phone: Cat Scan Comment on above: Crohn's disease of s mall and large intestines with complication (HCC) [K50.819] Start: 05-23-2024 End: 05-23-2024 ambulatory GOOD FRANCO Facility:[facility] Start: 04-29-2024 End: 04-29-2024 ambulatory Naveed Nino MD Work Phone: Gastroenterology Comment on above: Crohn's disease of s mall and large intestines with complication (HCC) (Primary Dx) Start: 04-29-2024 End: 04-29-2024 Telemedicine consultation with patient Naveed Nino MD Work Phone: Gastroenterology Start: 04-22-2024 Telephone encounter Naveed rowe MD Work Phone: Gastroenterology Comment on above: Patient Question Patient Update Start: 02-29-2024 End: 02-29-2024 ambulatory GALINA FRANCO Facility:[facility] Start: 02-29-2024 End: 02-29-2024 Patient encounter procedure Galina Franco MD Work Phone: Pulmonary Medicine Comment on above: 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) (Primary Dx); Former cigarette smoker; Hyponatremia Start: 01-24-2024 Telephone encounter Gunjan huber APRN.[employer] Work Phone: Hematology/Oncology Comment on above: AVS 01/24/24 Start: 01-24-2024 End: 01-24-2024 ambulatory Gunjan Henson APRN.[employer] Work Phone: Hematology/Oncology Comment on above: Personal history of breast cancer (Primary Dx); Encounter for screening mammogram for high-risk patient Start: 01-24-2024 End: 01-24-2024 Patient encounter procedure Gunjan Henson APRN.[employer] Work Phone: Hematology/Oncology Start: 01-15-2024 Documentation procedure Mammography Coordinator [facility] Start: 01-15-2024 Letter encounter Mammography Coordinator [facility] Start: 01-14-2024 End: 01-14-2024 ambulatory GOOD FRANCO Facility:[facility] Start: 01-14-2024 End: 01-14-2024 Subsequent hospital visit by physician Screen Mammo [facility] Mammogram Comment on above: Personal history of breast cancer [Z85.3] Start: 01-10-2024 End: 01-10-2024 Patient encounter procedure Judy Poole PA-C Work Phone: Gastroenterology Comment on above: Crohn's disease of s mall and large intestines with complication (HCC) (Primary Dx); Constipation, unspecified constipation type Start: 01-10-2024 End: 01-10-2024 ambulatory GOOD R BROWN Facility:[facility] Start: 01-07-2024 Telephone encounter Naveed rowe MD Work Phone: Gastroenterology Comment on above: Patient Question Start: 01-04-2024 Telephone encounter Naveed rowe MD Work Phone: Gastroenterology Comment on above: Patient Question Start: 01-01-2024 End: 01-01-2024 ambulatory Naveed Nino MD Work Phone: Gastroenterology Comment on above: Crohn's disease of s mall and large intestines with complication (HCC) (Primary Dx) Start: 01-01-2024 End: 01-01-2024 Telemedicine consultation with patient Naveed Nino MD Work Phone: Gastroenterology Start: 12-28-2023 End: 12-28-2023 Evaluation and management of inpatient GODO R JOAN Facility:[facility] Start: 12-25-2023 End: 12-29-2023 Evaluation and management of inpatient TATE RANDELL DURAISAAC Facility:[facility] Start: 02-07-2023 End: 02-07-2023 ambulatory Gunjan Henson APRN.[employer] Work Phone: Hematology/Oncology Comment on above: Personal history of breast cancer (Primary Dx); Encounter for screening mammogram for high-risk patient Start: 02-07-2023 End: 02-07-2023 Patient encounter procedure Gunjan Henson APRN.[employer]ER Work Phone: [place] [facility] Start: 01-23-2023 End: 01-23-2023 Subsequent hospital visit by physician Sanjuana [facility] Work Phone: Radiology Comment on above: Acute cough [R05.1] Start: 01-08-2023 Documentation procedure Mammography Coordinator [facility] Start: 01-08-2023 Letter encounter Mammography Coordinator [facility] Start: 12-01-2022 Telephone encounter Naveed rowe MD Work Phone: Gastroenterology Comment on above: Patient Update (Medi cation request) Start: 11-10-2022 Telephone encounter Gunjan huber APRN.[employer]ER Work Phone: Hematology/Oncology Comment on above: Appointment Start: 05-30-2017 End: 05-31-2017 Ambulatory [facility] Procedures Date Procedure Procedure Detail Performing Clinician Start: 05-29-2024 Ct abdomen & pelvis w/contrast material Naveed Nino MD Work Phone: Start: 12-25-2023 Antibody screen DINO Ciro RILEY Comment on above: Order Comment: Speci men Type: BLOOD SPECIMEN Ordering Facility: [facility] Address: [address] [place] [address] Performed By: #### T SCR #### CC [facility] BLOOD BANK [facility] [id number] [address] [place] [address] [place] Start: 01-23-2023 Radiologic exam ches t 2 views Lola Weaver APRN.CNP Work Phone: Plan of Treatment Date Care Activity Detail Author Start: 05-23-2027 Diabetes Screening Diabetes Screening [facility] Start: 12-28-2026 Diabetes Screening Diabetes Screening [facility] Start: 02-28-2025 BP Controlled (<130/80) BP Controlled (<130/80) [facility] Start: 01-16-2025 End: 01-16-2025 ambulatory 01/16/2025 12:30 PM EDT Visit (SP) Office Hematology/Oncology [address] [place] [id number] Gunjan Henson APRN.CNP [address] [place] [id number] 1 YR OV/MAMM 01/14* Hematology/Oncology Comment on above: 1 YR OV/MAMM 01/14* Start: 01-14-2025 Urine microalbumin profile DTaP,Tdap,Td Vaccine (2 - Td or Tdap) [facility] Start: 01-14-2025 End: 01-14-2025 Patient encounter procedure 01/14/2025 1:10 PM EDT Appointment Mammogram [address] [place] [address] Personal history of breast cancer [Z85.3] Mammogram Comment on above: Personal history of breast cancer [Z85.3 ] Start: 01-09-2025 BP Controlled (<130/80) BP Controlled (<130/80) [facility] Start: 09-16-2024 End: 09-16-2024 Patient encounter procedure 09/16/2024 11:45 AM EST Office Visit Pulmonary Medicine [address] [place] [address] Galina Franco MD [address] [place] [address] 6 mo f/up Pulmonary Medicine Comment on above: 6 mo f/up Start: 09-16-2024 End: 09-16-2024 ambulatory 09/16/2024 11:00 AM EST Procedure PULM LAB [facility] [address] [place] [address] Wstr, Pulm Lab [facility] [address] [place] [address] Moderate COPD (chronic obstructive pulmonary disease) (HCC) [J44.9] PULM LAB [facility] Comment on above: Moderate COPD (chronic obstructive pulmo nary disease) (HCC) [J44.9] Start: 05-11-2024 Covid-19 Vaccine () Covid-19 Vaccine () [facility] Start: 05-11-2024 Covid-19 Vaccine () Covid-19 Vaccine ( season) [facility] Start: 05-11-2024 Influenza vaccination Influenza Vaccine (#1) [facility] Start: 04-29-2024 End: 07-29-2024 C reactive protein [Mass/volume] in Serum or Plasma C-REACTIVE PROTEIN Lab Routine Crohn's disease of small and large intestines with complication (HCC) Expected: 04/29/2024, Expires: 07/29/2024 [facility] Comment on above: Expected: 04/29/2024, Expires: Start: 04-29-2024 End: 07-29-2024 CBC panel - Blood by Automated count COMPLETE BLOOD COUNT Lab Routine Crohn's disease of small and large intestines with complication (HCC) Expected: 04/29/2024, Expires: 07/29/2024 [facility] Work Phone: Comment on above: Expected: 04/29/2024, Expires: Start: 04-29-2024 End: 07-29-2024 Comprehensive metabolic 2000 panel - Serum or Plasma COMPREHENSIVE METABOLIC PANEL Lab Routine Crohn's disease of small and large intestines with complication (HCC) Expected: 04/29/2024, Expires: 07/29/2024 [facility] Comment on above: Expected: 04/29/2024, Expires: Start: 04-29-2024 End: 04-29-2024 Follow-up encounter 04/29/2024 12:30 PM EDT [facility] Gastroenterology [address] [address] Naveed Nino MD [address] [place] [address] follow up Gastroenterology Comment on above: follow up Start: 04-15-2024 DIABETES SCREEN DIABETES SCREEN [facility] Start: 02-29-2024 End: 02-29-2024 Patient encounter procedure 02/29/2024 8:00 AM EDT Office Visit Pulmonary Medicine [address] [place], [place] [phone] Galina Franco MD [address] [place] [address] COPD Pulmonary Medicine Comment on above: COPD Start: 01-24-2024 End: 01-24-2024 ambulatory 01/24/2024 11:30 AM EDT Visit (SP) Office Hematology/Oncology [address] [place] [address] Gunjna Henson APRN.[employer]YER [address] [place] [address] 1 YR OV/MAMM 5/2* Hematology/Oncology Comment on above: 1 YR OV/MAMM 5/2* Start: 01-14-2024 End: 01-14-2024 Patient encounter procedure 01/14/2024 1:30 PM EDT Appointment Mammogram [address] [place] [phone] DAMIAN SCREENING W AGUEDA Mammogram Comment on above: DAMIAN SCREENING W AGUEDA Start: 01-10-2024 End: 01-10-2024 Patient encounter procedure Mammogram Comment on above: Personal history of breast cancer [Z85.3 ]; Encounter for screening mammogram for high-risk patient [Z12.31] crohn's disease Start: 09-10-2023 Advance Directive Discussion Advance Directive Discussion [facility] Start: 09-10-2023 Behavioral Health Screening Behavioral Health Screening [facility] Start: 05-11-2023 Covid-19 Vaccine () Covid-19 Vaccine () [facility] Start: 09-10-2022 ADVANCE DIRECTIVE DISCUSSION ADVANCE DIRECTIVE DISCUSSION [facility] Start: 09-10-2022 DEPRESSION ASSESSMENT DEPRESSION ASSESSMENT [facility] Start: 05-11-2022 Influenza vaccination INFLUENZA (#1) [facility] Start: 2021 RSV Vaccine (1 - 1-dose 75+ series) RSV Vaccine (1 - 1-dose 75+ series) [facility] Start: 01-28-2021 COVID-19 VACCINE (3 - Booster for Pfizer series) COVID-19 VACCINE (3 - Booster for Pfizer series) [facility] Start: 2006 HEPATITIS B (1 of 3 - Risk 3-dose series) HEPATITIS B (1 of 3 - Risk 3-dose series) [facility] Start: 2006 Hepatitis B Vaccine (1 of 3 - Risk 3-dose series) Hepatitis B Vaccine (1 of 3 - Risk 3-dose series) [facility] Start: 2006 RSV Vaccine (1 - 1-dose 60+ series) RSV Vaccine (1 - 1-dose 60+ series) [facility] Start: 09-11-1999 Urine microalbumin profile DTAP,TDAP,TD (1 - Tdap) [facility] Start: 02-05-1996 SHINGRIX VACCINE (1 of 2) SHINGRIX VACCINE (1 of 2) [facility] Start: 1965 Hepatitis A Vaccine (1 of 2 - Risk 2-dose series) Hepatitis A Vaccine (1 of 2 - Risk 2-dose series) [facility] Start: 02-05-1964 ANNUAL PCP TEAM CHRONIC DISEASE VISIT ANNUAL PCP TEAM CHRONIC DISEASE VISIT [facility] Start: 02-05-1964 BP Controlled (<130/80) BP Controlled (<130/80) [facility] Start: 02-05-1964 Depression Screening Depression Screening [facility] Start: 02-05-1964 HEPATITIS C SCREENING HEPATITIS C SCREENING [facility] Start: 02-05-1964 Hepatitis C screening Hepatitis C Screening [facility] Start: 02-05-1964 MMR (1 of 2 - Risk 2-dose series) MMR (1 of 2 - Risk 2-dose series) [facility] Start: 02-05-1964 MMR Vaccine (1 of 2 - Risk 2-dose series) MMR Vaccine (1 of 2 - Risk 2-dose series) [facility] Start: 02-05-1956 Meningococcal B Vaccine: Consider Based On Risk (1 of 4 - Increased Risk) Meningococcal B Vaccine: Consider Based On Risk (1 of 4 - Increased Risk) [facility] Start: 02-05-1956 MENINGOCOCCAL B: Consider based on risk (1 of 4 - Increased Risk Bexsero 2-dose series) MENINGOCOCCAL B: Consider based on risk (1 of 4 - Increased Risk Bexsero 2-dose series) [facility] Start: 02-05-1952 PNEUMOCOCCAL: 65+ (1 - PCV) PNEUMOCOCCAL: 65+ (1 - PCV) [facility] Start: 1947 HEPATITIS A (1 of 2 - Risk 2-dose series) HEPATITIS A (1 of 2 - Risk 2-dose series) [facility] End: 05-29-2025 CT Abdomen and Pelvis W contrast IV CT ABD/PEL W IVCON Radiology Routine Crohn's disease of small and large intestines with complication (HCC) 1 Occurrences starting 04/29/2024 until 05/29/2025 [facility] Comment on above: 1 Occurrences starting 04/29/2024 until 05/29/2025 DBT Breast - bilateral screening DAMIAN SCREENING W AGUEDA Radiology Routine Personal history of breast cancer Encounter for screening mammogram for high-risk patient 01/14/2024 1:47 PM EDT [facility] Work Phone: End: 02-22-2025 DBT Breast - bilateral screening DAMIAN SCREENING W AGUEDA Radiology Routine Personal history of breast cancer Encounter for screening mammogram for high-risk patient 1 Occurrences starting 01/24/2024 until 02/22/2025 [facility] Work Phone: Comment on above: 1 Occurrences starting 01/24/2024 until 02/22/2025 End: 12-13-2023 DAMIAN SCREENING W AGUEDA DAMIAN SCREENING W AGUEDA Radiology Routine Personal history of breast cancer Encounter for screening mammogram for high-risk patient 1 Occurrences starting 11/14/2022 until 12/13/2023 [facility] Work Phone: Comment on above: 1 Occurrences starting 11/14/2022 until 12/13/2023 End: 03-08-2024 DAMIAN SCREENING W AGUEDA DAMIAN SCREENING W AGUEDA Radiology Routine Personal history of breast cancer Encounter for screening mammogram for high-risk patient 1 Occurrences starting 02/07/2023 until 03/08/2024 [facility] Work Phone: Comment on above: 1 Occurrences starting 02/07/2023 until 03/08/2024 End: 03-30-2025 SPIROMETRY WITH DILATOR IF OBSTRUCTED SPIROMETRY WITH DILATOR IF OBSTRUCTED PFT Routine Moderate COPD (chronic obstructive pulmonary disease) (HCC) 1 Occurrences starting 02/29/2024 until 03/30/2025 [facility] Work Phone: Comment on above: 1 Occurrences starting 02/29/2024 until 03/30/2025 [facility] Immunizations Immunization Date Immunization Notes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 home because of my lung condition; Score 1 I sleep soundly 0 1 2 3 4 5 don't sleep soundly because of my lungs; Score 2 I have lots of energy 0 1 2 3 4 5 I have no energy at all; Score 2 Total Score: 14 PFT 2021: Review pulmonary function test shows moderate obstruction Labs: Component Ref Range AND Units 2 mo ago (12/29/23) WBC 3.70 - 11.00 k/uL 6.40 RBC 3.90 - 5.20 m/uL 3.46 Low Hemoglobin 11.5 - 15.5 g/dL 11.3 Low Hematocrit 36.0 - 46.0 % 34.1 Low MCV 80.0 - 100.0 fL 98.6 MCH 26.0 - 34.0 pg 32.7 MCHC 30.5 - 36.0 g/dL 33.1 RDW-CV 11.5 - 15.0 % 13.2 Platelet Count 150 - 400 k/uL 313 MPV 9.0 - 12.7 fL 11.1 Absolute nRBC <0.01 k/uL <0.01 BUN 7 - 21 mg/dL 10 Creatinine 0.58 - 0.96 mg/dL 0.60 Sodium 136 - 144 mmol/L 134 Low Potassium 3.7 - 5.1 mmol/L 3.7 Chloride 97 - 105 mmol/L 97 CO2 22 - 30 mmol/L 25 Anion Gap 9 - 18 mmol/L 12 Calcium, Total 8.5 - 10.2 mg/dL 9.5 Estimated Glomerular Filtration Rate >=60 mL/min/1.73m? 93 Imaging / Diagnostic Studies: DATE OF EXAM: Dec 20 2017 2:43PM [facility] 0541 - CT CHEST WO IVCON / PROCEDURE REASON: Other nonspecific abnormal finding of lung field IMPRESSION: Stable nodular densities in the lungs since 09/22/2015. No metastatic disease, acute chest process or significant interval change from 12/26/2016. The gallbladder is packed with multiple calcified stones with largest stone [address] shows upper lobe stable nodularity and scarring PAST MEDICAL HISTORY Diagnosis Date Anxiety states 1980 psych hospitalization Breast cancer (HCC) 2010 COPD with chronic bronchitis (HCC) Crohn's disease (HCC) Diffuse cystic mastopathy Hypothyroidism Incontinence of feces Irritable bowel syndrome Irritable bowel Large bowel obstruction (HCC) x 3 Other and unspecified hyperlipidemia good HDL Other and unspecified ovarian cyst bilateral oophorectomy Peritonitis and retroperitoneal infections Associated with an SBO Personal history of colonic polyps Colon polyps-TUBULAR ADENOMA Urinary incontinence ALLERGIES Allergen Reactions Tolterodine Rash Amoxicillin Hives, Itching Erythromycin Hives Tolerates Azithromycin without problem. Opioids-Meperidine * pain increased,hyperactive Propoxyphene pain increase,hyperactive Sulfa (Sulfonamide * Hives albuterol HFA (PROVENTIL HFA, VENTOLIN HFA) 90 mcg/actuation inhaler Inhale 2 Puffs as instructed every 6 hours as needed. budesonide-formoterol (SYMBICORT) 160-4.5 mcg/actuation inhaler Inhale 2 Puffs as instructed twice daily. amLODIPine (NORVASC) 10 mg tablet Take 1 tablet by mouth once daily. nicotine (NICODERM) 14 mg/24 hr Apply 1 Patch as directed on (more content not included)... [facility] 01-27-2024 Telephone encounter Note Patient has been scheduled and a MyChart message was sent Joey Wheeler [facility] 01-27-2024 Miscellaneous Notes Patient has been scheduled and a MyChart message was sent Joey Wheeler Check out comments: - Mammogram due in January 2025. - Follow up in one year. - Pt. aware to call office with any questions/concerns. documented in this encounter [facility] 01-24-2024 Telephone encounter Note Check out comments: - Mammogram due in January 2025. - Follow up in one year. - Pt. aware to call office with any questions/concerns. [facility] 01-24-2024 Note HNO ID: [id number] Author: GUNJAN HENSON APRN.[employer] Service: ? Author Type: Nurse Practitioner Type: Progress Notes Filed: 01/24/2024 14:06 Note Text: Chief Complaint Patient presents with: [...] due in 2020. No new concerns today. Pt. was admitted to [facility] then [facility] main for large bowel obs. Admitted 12/25/23to main-Discharged 12/29/23 Appetite: Good. Energy level: Not great-I'd say 75% since the hospital. Denies fevers. Resp:denies cough or sob Cardiac:denies chest pain/palpitations GI:denies abd pain-followed by Dr. Nino, +nausea-takes compazine prn, denies vomiting, bowels moving regularly :denies dysuria/hematuria Extrem:low back pain and leg pain-chronic Neuro:+neuropathy to feet- It's still there. I just keep walking. Endo:denies hot flashes Skin:denies rashes/lesions Heme:no recent rectal bleeding with the Crohn's. The ROS is otherwise negative. Past medical history, appointments, medications, allergies reviewed. No changes. EXAM: BP 136/82 Pulse 92 Temp 37.3 ?C (99.1 ?F) (Temporal) Wt 60.1 kg (132 lb 9.6 oz) SpO2 96% BMI 24.25 kg/m? APPEARANCE Well appearing, alert, in no [...] no suspicious rashes or lesions RADIOLOGY: Mammogram 01/14/24: IMPRESSION: BENIGN FINDING There is no mammographic evidence of malignancy. A 1 year screening mammogram is recommended. ASSESSMENT/PLAN: 1. 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 - No concerning findings on exam. - Pt. stopped AI/tamox therapy prematurely. - Reviewed mammogram with pt. - Follow up with GI/Dr. Nino. - Mammogram due in January 2025. - Follow up in one year. - Pt. aware to call office with any questions/concerns. The patient indicates understanding of these issues and agrees with the plan. All documentation from previous visit of 02/07/23-Dr. Mayer/myself was copied and pasted, documentation has been reviewed and edited as necessary for today's visit. Gunjan Henson APRN.[facility] 01-24-2024 History of Presen t illness Narrative Chief [...] due in 2020. No new concerns today. Pt. was admitted to [facility] then [facility] main for large bowel obs. Admitted 12/25/23to main-Discharged 12/29/23 Appetite: Good. Energy level: Not great-I'd say 75% since the hospital. Denies fevers. Resp:denies cough or sob Cardiac:denies chest pain/palpitations GI:denies abd pain-followed by Dr. Nino, +nausea-takes compazine prn, denies vomiting, bowels moving regularly :denies dysuria/hematuria Extrem:low back pain and leg pain-chronic Neuro:+neuropathy to feet- It's still there. I just keep walking. Endo:denies hot flashes Skin:denies rashes/lesions Heme:no recent rectal bleeding with the Crohn's. The ROS is otherwise negative. Past medical history, appointments, medications, allergies reviewed. No changes. EXAM: BP 136/82 Pulse 92 Temp 37.3 C (99.1 F) (Temporal) Wt 60.1 kg (132 lb 9.6 oz) SpO2 96% BMI 24.25 kg/m APPEARANCE Well appearing, alert, in no [...] no suspicious rashes or lesions RADIOLOGY: Mammogram 01/14/24: IMPRESSION: BENIGN FINDING There is no mammographic evidence of malignancy. A 1 year screening mammogram is recommended. ASSESSMENT/PLAN: 1. 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 - No concerning findings on exam. - Pt. stopped AI/tamox therapy prematurely. - Reviewed mammogram with pt. - Follow up with GI/Dr. Nino. - Mammogram due in January 2025. - Follow up in one year. - Pt. aware to call office with any questions/concerns. The patient indicates understanding of these issues and agrees with the plan. All documentation from previous visit of 02/07/23-Dr. Mayer/myself was copied and pasted, documentation has been reviewed and edited as necessary for today's visit. Gunjan Henson APRN.[employer] documented in this encounter [facility] 01-15-2024 Note Formatting of this n ote might be different from the original. January 15, 2024 PID: [id number] Ana Hilario [address] [place] [address] Dear Ms. Hilario, We are pleased to inform you that the results of your recent breast imaging exam on 01/14/2024 are normal. Early detection of cancer is very important. We also understand recommendations regarding breast cancer screening are controversial. Please discuss with your primary care provider which strategy is best for you and whether a mammogram is right for you. Your imaging studies and report will be kept on file at [facility] as part of your permanent medical record and are available for your continuing care. Thank you for allowing us to help in meeting your health care needs. Sincerely, Dr. Anderson Interpreting Radiologist [facility] (Normal over 40) [facility] 01-15-2024 Miscellaneous Notes January 15, 2024 PID: [id number] Ana A. Hilario [address] [place] [address] Dear Hilario, We are pleased to inform you that the results of your recent breast imaging exam on 01/14/2024 are normal. Early detection of cancer is very important. We also understand recommendations regarding breast cancer screening are controversial. Please discuss with your primary care provider which strategy is best for you and whether a mammogram is right for you. Your imaging studies and report will be kept on file at [facility] as part of your permanent medical record and are available for your continuing care. Thank you for allowing us to help in meeting your health care needs. Sincerely, Dr. Anderson Interpreting Radiologist [facility] (Normal over 40) documented in this encounter [facility] 01-14-2024 History of Presen t illness Narrative Radiology Service Progress Note PATIENT NAME: Ana Hilario DATE OF SERVICE: January 14, 2024 TIME: 1:48 PM PATIENT IDENTITY VERIFICATION COMPLETED USING TWO (2) IDENTIFIERS: Name and Date of confirmed by patient verbally. FALL SCREENING: Has the patient had 2 falls in the last year or 1 fall with injury or currently using an Ambulatory Assistive Device (Walker, Cane, Wheelchair, Crutches, etc.)? No PATIENT GENDER DATA: Female. status: : No status: NO. PATIENT RELEVANT IMPLANT DATA REVIEWED: Not Applicable PATIENT PRESENTS WITH AN IMPLANTABLE OR ATTACHED REFUND CLERK: No RADIOLOGY DEPARTMENT: Mammography PERIPHERAL IV DATA: Not applicable SIGNED BY: Bran Lauren January 14, 2024 1:48 PM documented in this encounter [facility] 01-14-2024 Note HNO ID: [id number] Author: SARAH MODI Mammo Tech Service: ? Author Type: Weight Loss Physician Type: Progress Notes Filed: 01/14/2024 13:48 Note Text: Radiology Service Progress Note PATIENT NAME: Ana Hilario DATE OF SERVICE: January 14, 2024 TIME: 1:48 PM PATIENT IDENTITY VERIFICATION COMPLETED USING TWO (2) IDENTIFIERS: Name and Date of confirmed by patient verbally. FALL SCREENING: Has the patient had 2 falls in the last year or 1 fall with injury or currently using an Ambulatory Assistive Device (Walker, Cane, Wheelchair, Crutches, etc.)? No PATIENT GENDER DATA: Female. status: : No status: NO. PATIENT RELEVANT IMPLANT DATA REVIEWED: Not Applicable PATIENT PRESENTS WITH AN IMPLANTABLE OR ATTACHED REFUND CLERK: No RADIOLOGY DEPARTMENT: Mammography PERIPHERAL IV DATA: Not applicable SIGNED BY: Bran Lauren January 14, 2024 1:48 PM [facility] 01-10-2024 Note HNO ID: [id number] Author: JUDY POOLE PA-C Service: ? Author Type: Physician Assistant Softball Coach Type: Progress Notes Filed: 01/11/2024 00:13 Note Text: .Follow Up Visit SUBJECTIVE 78 year old female with Crohn's disease here for follow-up. Last seen 01/01/[address] Nino. Changes and test results since last visit: Was in the hospital 12/24-12/28 with bowel obstruction concern for mass. Scope with no stricture. GGE was normal. Now taking Milk of mag daily. No more bloating or pain. Tolerating diet some nausea weight is stable. Does note weakness and some disorientation was started on a blood pressure medication now self stopped after discussing with Dr. Nino. CBC: WBC (k/uL) Date Value 12/29/2023 6.40 Hematocrit (%) Date Value 12/29/2023 34.1 (L) MCV (fL) Date Value 12/29/2023 98.6 Platelet Count (k/uL) Date Value 12/29/2023 313 Lymphocytes % (%) Date Value 12/25/2023 11.9 Hepatic Function Panel: Albumin (g/dL) Date Value 04/15/2021 4.3 Bilirubin, Total (mg/dL) Date Value 04/15/2021 <0.2 (L) Bilirubin, Conjug (mg/dL) Date Value 03/08/2000 0.1 Alkaline Phosphatase (U/L) Date Value 04/15/2021 98 AST (U/L) Date Value 04/15/2021 22 ALT (U/L) Date Value 04/15/2021 16 Protein, Total (g/dL) Date Value 04/15/2021 7.1 Current Clinical Symptoms # of bowel movements daily: 1 Consistency: starting to have more form Bloody bowel movements: occasional blood Urgency: no Abdominal pain: no Abdominal distention: Improving Nausea/vomiting: improving Weight loss over last 3 months: lost a few pounds General well-being: slightly below average Current Outpatient Medications Medication Sig Dispense Refill amLODIPine (NORVASC) 10 mg tablet Take 1 tablet by mouth once daily. 30 tablet 0 nicotine (NICODERM) 14 mg/24 hr Apply 1 Patch as directed once daily. 30 Patch 0 polyethylene glycol 3350 17 gram packet Take 1 Packet by mouth once daily. Dissolve dose in 4 - 8 ounces of liquid and take as directed. 100 Each 0 magnesium hydroxide (MILK OF MAGNESIA ORAL) Take 1 tablet by mouth once daily. clobetasol (TEMOVATE) 0.05 % ointment Apply to affected area as needed. prochlorperazine (COMPAZINE) 5 mg tablet Take 2 tablets by mouth twice daily as needed. 100 tablet 0 albuterol HFA (PROVENTIL HFA, VENTOLIN HFA) 90 mcg/actuation inhaler Inhale 2 Puffs as instructed every 6 hours as needed. 1 Inhaler 1 prochlorperazine (COMPAZINE) 10 mg tablet Take 1 tablet by mouth as needed. 50 tablet 5 budesonide-formoterol (SYMBICORT) 160-4.5 mcg/actuation inhaler Inhale 2 [...] Take 1 capsule by mouth once daily. 100 capsule 5 levothyroxine (SYNTHROID) 175 mcg tablet Take 175 mcg by mouth once daily. BUSPIRONE HCL 7.5 mg tablet Take 10 mg by mouth three times daily. traMADOL 50 mg tablet Take 50 mg by mouth three times daily. IBUPROFEN 200 MG TAB Take 1-2 tablet's) every four(4) to six(6) hours as needed for pain. 0 LEXAPRO 20 MG TAB Take one(1) tablet daily. 30 5 No current facility-administered medications for this visit. ALLERGIES Allergen Reactions Tolterodine Rash Amoxicillin Hives, Itching Erythromycin Hives Tolerates Azithromycin without problem. Opioids-Meperidine * pain increased,hyperactive Propoxyphene pain increase,hyperactive Sulfa (Sulfonamide * Hives PHYSICAL EXAMINATION BP 121/49[off BP med x2 days[ Pulse 80 Temp (Src) 97.8 (Temporal) Ht 5' 2 (1.58m) Wt 133 lb (60.3kg) SpO2 95% BMI 24.32 kg/(m2). General Appearance: alert, oriented x 3, pleasant and in no acute distress Heart:regular rate and rhythm, no murmurs or gallops Abdomen: Not distended. Normal bowel sounds. Soft and non-tender. No masses or organomegaly. Skin: no rashes or lesions Lymph:No cervical, axillary, supraclavicular, or inguinal adenopathy. Assessment IMPRESSION Ms. Hilario, is a 78 year old female with a history of Crohn's disease and has previously had small bowel resections and currently off medication. Has a history of Constipation and was recently hospitalized with concern for bowel obstruction and was treated with NG tube and scope with no stricture and symptoms resolved. She presents today as a office follow-up. Overall doing better taking milk of magnesia daily no bloating or pain tolerating diet some nausea but improving still. Some weakness and disorientation this is likely due to her week in the Hospital I discussed following up with her primary care physician as well. She stopped her blood pressure meds that were (more content not included)... [facility] 01-10-2024 History of Presen t illness Narrative .Follow Up Visit SUBJECTIVE 78 year old female with Crohn's disease here for follow-up. Last seen 01/01/[address] Nino. Changes and test results since last visit: Was in the hospital 12/24-12/28 with bowel obstruction concern for mass. Scope with no stricture. GGE was normal. Now taking Milk of mag daily. No more bloating or pain. Tolerating diet some nausea weight is stable. Does note weakness and some disorientation was started on a blood pressure medication now self stopped after discussing with Dr. Nino. CBC: WBC (k/uL) Date Value 12/29/2023 6.40 Hematocrit (%) Date Value 12/29/2023 34.1 (L) MCV (fL) Date Value 12/29/2023 98.6 Platelet Count (k/uL) Date Value 12/29/2023 313 Lymphocytes % (%) Date Value 12/25/2023 11.9 Hepatic Function Panel: Albumin (g/dL) Date Value 04/15/2021 4.3 Bilirubin, Total (mg/dL) Date Value 04/15/2021 <0.2 (L) Bilirubin, Conjug (mg/dL) Date Value 03/08/2000 0.1 Alkaline Phosphatase (U/L) Date Value 04/15/2021 98 AST (U/L) Date Value 04/15/2021 22 ALT (U/L) Date Value 04/15/2021 16 Protein, Total (g/dL) Date Value 04/15/2021 7.1 Current Clinical Symptoms # of bowel movements daily: 1 Consistency: starting to have more form Bloody bowel movements: occasional blood Urgency: no Abdominal pain: no Abdominal distention: Improving Nausea/vomiting: improving Weight loss over last 3 months: lost a few pounds General well-being: slightly below average Current Outpatient Medications Medication Sig Dispense Refill amLODIPine (NORVASC) 10 mg tablet Take 1 tablet by mouth once daily. 30 tablet 0 nicotine (NICODERM) 14 mg/24 hr Apply 1 Patch as directed once daily. 30 Patch 0 polyethylene glycol 3350 17 gram packet Take 1 Packet by mouth once daily. Dissolve dose in 4 - 8 ounces of liquid and take as directed. 100 Each 0 magnesium hydroxide (MILK OF MAGNESIA ORAL) Take 1 tablet by mouth once daily. clobetasol (TEMOVATE) 0.05 % ointment Apply to affected area as needed. prochlorperazine (COMPAZINE) 5 mg tablet Take 2 tablets by mouth twice daily as needed. 100 tablet 0 albuterol HFA (PROVENTIL HFA, VENTOLIN HFA) 90 mcg/actuation inhaler Inhale 2 Puffs as instructed every 6 hours as needed. 1 Inhaler 1 prochlorperazine (COMPAZINE) 10 mg tablet Take 1 tablet by mouth as needed. 50 tablet 5 budesonide-formoterol (SYMBICORT) 160-4.5 mcg/actuation inhaler Inhale 2 [...] Take 1 capsule by mouth once daily. 100 capsule 5 levothyroxine (SYNTHROID) 175 mcg tablet Take 175 mcg by mouth once daily. BUSPIRONE HCL 7.5 mg tablet Take 10 mg by mouth three times daily. traMADOL 50 mg tablet Take 50 mg by mouth three times daily. IBUPROFEN 200 MG TAB Take 1-2 tablet's) every four(4) to six(6) hours as needed for pain. 0 LEXAPRO 20 MG TAB Take one(1) tablet daily. 30 5 No current facility-administered medications for this visit. ALLERGIES Allergen Reactions Tolterodine Rash Amoxicillin Hives, Itching Erythromycin Hives Tolerates Azithromycin without problem. Opioids-Meperidine * pain increased,hyperactive Propoxyphene pain increase,hyperactive Sulfa (Sulfonamide * Hives PHYSICAL EXAMINATION BP 121/49[off BP med x2 days[ Pulse 80 Temp (Src) 97.8 (Temporal) Ht 5' 2 (1.58m) Wt 133 lb (60.3kg) SpO2 95% BMI 24.32 kg/(m^2). General Appearance: alert, oriented x 3, pleasant and in no acute distress Heart:regular rate and rhythm, no murmurs or gallops Abdomen: Not distended. Normal bowel sounds. Soft and non-tender. No masses or organomegaly. Skin: no rashes or lesions Lymph:No cervical, axillary, supraclavicular, or inguinal adenopathy. Assessment IMPRESSION Ms. Hilario, is a 78 year old female with a history of Crohn's disease and has previously had small bowel resections and currently off medication. Has a history of Constipation and was recently hospitalized with concern for bowel obstruction and was treated with NG tube and scope with no stricture and symptoms resolved. She presents today as a office follow-up. Overall doing better taking milk of magnesia daily no bloating or pain tolerating diet some nausea but improving still. Some weakness and disorientation this is likely due to her week in the Hospital I discussed following up with her primary care physician as well. She stopped her blood pressure meds that were started while in the hospital due to feeling dizzy and I discussed the need for her to discuss all of this with her primary care provider. For now we will not make any changes continue milk of Magnesia discussed there is okay to use a low-dose MiraLAX if she continues to be constipated. Plan follow-up in a couple of months unless needed sooner. PLAN Continue milk of magnesia Okay to add low-dose MiraLAX as needed Follow-up in 3 to 6 months unless needed sooner I spent a total of 30 minutes on the date of the service which included preparing to see the patient, [id number] patient care, completing clinical documentation, obtaining and/or reviewing separately obtained history, performing a medically appropriate examination, counseling and educating the patient/family/caregiver, and ordering medications, tests, or procedures. Judy Poole PA-C January 10, 2024 12:27 PM documented in this encounter [facility] 01-08-2024 Telephone encounter Note Called and spoke to pt and her spouse they state pt is going to see PCP today for a follow up from her hospital stay. Pt states she is feeling dizzy today. Asked what her BP was and she stated lower than it has been and it was extremely high in the hospital and that is why she was given the medication to take at home along with her nicotine patch. Advised pt when she sees PCP today to have the doctor evaluate her for the dosing. Advised both to make sure they continue to take her BP, at the same time, every day and write it down to keep track of it and then bring it to the PCP on the next follow up visit to make sure the dosing is right for the pt. Follow up with the nicotine patch too as it may be making her not feel well. Advised spouse they can call this office any time with questions/concerns. Lynn Peoples RN January 08, 2024 1:46 PM [facility] 01-08-2024 Miscellaneous Notes Called and spoke to pt and her spouse they state pt is going to see PCP today for a follow up from her hospital stay. Pt states she is feeling dizzy today. Asked what her BP was and she stated lower than it has been and it was extremely high in the hospital and that is why she was given the medication to take at home along with her nicotine patch. Advised pt when she sees PCP today to have the doctor evaluate her for the dosing. Advised both to make sure they continue to take her BP, at the same time, every day and write it down to keep track of it and then bring it to the PCP on the next follow up visit to make sure the dosing is right for the pt. Follow up with the nicotine patch too as it may be making her not feel well. Advised spouse they can call this office any time with questions/concerns. Lynn Peoples RN January 08, 2024 1:46 PM Pt called stating that she was just in the hospital. They put her on blood pressure medicine as it was high in the hospital. She has been taking her blood pressure and it has been ok but she has been dizzy. Pt asking if she should stop taking the medicine. Jessica Rodriguez Outcomes Specialist documented in this encounter [facility] 01-07-2024 Telephone encounter Note Pt called stating that she was just in the hospital. They put her on blood pressure medicine as it was high in the hospital. She has been taking her blood pressure and it has been ok but she has been dizzy. Pt asking if she should stop taking the medicine. Jessica Rodriguez Outcomes Specialist [facility] 01-04-2024 Telephone encounter Note Called and spoke to pt and advised her she can resume the 1 tablet of MOM at [facility]. Also advised her if anything changes over the weekend to call this nurse on Sunday and let her know. Lynn Peoples RN January 04, 2024 5:01 PM [facility] 01-04-2024 Miscellaneous Notes Called and spoke to pt and advised her she can resume the 1 tablet of MOM at [facility]. Also advised her if anything changes over the weekend to call this nurse on Sunday and let her know. Lynn Peoples RN January 04, 2024 5:01 PM Pt called asking if she should take her medicine as she just got out of the hospital with a blockage. She didn't take it last night and wanted to talk to nurse. . Jessica Rodriguez Outcomes Specialist documented in this encounter [facility] 01-04-2024 Telephone encounter Note Pt called asking if she should take her medicine as she just got out of the hospital with a blockage. She didn't take it last night and wanted to talk to nurse. . Jessica Rodriguez Outcomes Specialist [facility] 01-01-2024 Note HNO ID: [id number] Author: NAVEED NINO MD Service: ? Author Type: Physician Type: Progress Notes Filed: 01/01/2024 11:40 Note Text: Telephone visit, 20 minutes, patient agreed I have communicated my name and active licensure. The patient's identity and physical location were verified at the time of this visit. Either the patient or their legal bilingual sales representative has been informed of the [...] stable, +bleeding. Labs and colonoscopy polyps in 2018. Recently admitted for abd pain, found to have a fecal impaction, that resolved. Now on miralax - having diarrhea. CT scan showed: IMPRESSION: Borderline dilated colon possibly due to sigmoid diverticular stricture; this could be further evaluated with colonoscopy or fluoroscopic enema. No active inflammatory small bowel Crohn's disease. Constipation/Crohn's disease - Continue MoM nightly. Mychart follow up. . Naveed Nino MD [facility] 01-01-2024 History of Presen t illness Narrative Telephone visit, 20 minutes, patient agreed I have communicated my name and active licensure. The patient's identity and physical location were verified at the time of this visit. Either the patient or their legal bilingual sales representative has been informed of the [...] stable, +bleeding. Labs and colonoscopy polyps in 2018. Recently admitted for abd pain, found to have a fecal impaction, that resolved. Now on miralax - having diarrhea. CT scan showed: IMPRESSION: Borderline dilated colon possibly due to sigmoid diverticular stricture; this could be further evaluated with colonoscopy or fluoroscopic enema. No active inflammatory small bowel Crohn's disease. Constipation/Crohn's disease - Continue MoM nightly. Mychart follow up. . Naveed Nino MD documented in this encounter [facility] 12-29-2023 Note HNO ID: [id number] Author: SAM VENTURA MD Service: Gastroenterology Author Type: Fellow Type: Plan of Care Filed: 12/29/2023 08:20 Note Text: GI Plan of Care Note: Interval Events: - Sigmoidoscopy yesterday with poor prep, no stricture seen, no obvious severe inflammation seen (though good visualization of the mucosa was precluded by prep). - Having adequate BMs. Assessment: Ms. Hilario is a 78yoF with a PMH of Crohn's disease diagnosed about 5 years ago which has never been treated. She was admitted 12/24 after the read of a CTAP 12/24/2023 showed thickening of long segments of mid-and proximal sigmoid colon with minimal surrounding fat infiltration, prominent fecal material in the long segments of the colon suspicious for partial colonic obstruction, mural thickening of the duodenal sweep, jejunum, and ileum, suspicious for enterocolitis. An addendum of the CT scan later noted an abrupt transition from thickened sigmoid colon to normal sigmoid colon, increasing index of suspicion for sigmoid colon neoplasm > Crohn's colitis. She had a gastrograffin enema which showed no sigmoid mass followed by a sigmoidoscopy which showed no mass, stricture, or severe inflammation seen (though good visualization of the mucosa was precluded by prep). At this time, she is stable and spontaneously having BMs. Recommendations: - OK to DC from GI standpoint. - If she can get her CTE prior to DC it would be great but, if not able to be done today, this does not need to hold her in the hospital. - OP follow up with Dr. Nino has been scheduled on 12/31. GI will sign off. Please page us back with any further questions or concerns. Sam Ventura MD Gastroenterology AND Hepatology Fellow [facility] 12-28-2023 Note HNO ID: [id number] Author: MOLLY PERALES, HERLINDA Service: Nursing Author Type: Registered Nurse Type: Nursing Progress Note Filed: 12/28/2023 17:50 Note Text: Other: 1750 - pg [id number] and [id number] for diet. [facility] 12-28-2023 Note HNO ID: [id number] Author: SILVANA TOLEDO RN Service: Gastroenterology Author Type: Registered Nurse Type: Nursing Progress Note Filed: 12/28/2023 17:19 Note Text: Patient incontinent of stool, bed changed patient washed Assisted to bathroom voided [facility] 12-28-2023 Note HNO ID: [id number] Author: SILVANA TOELDO RN Service: Gastroenterology Author Type: Registered Nurse Type: Nursing Progress Note Filed: 12/28/2023 17:05 Note Text: Dr Hernandez spoke to patient Ana and Emmanuel prior to discharge to floor [facility] 12-28-2023 Note HNO ID: [id number] Author: BONITA LU APRN.CUSTOM MILLER Service: ? Author Type: Nurse [employer] Type: Anesthesia Procedure Notes Filed: 12/28/2023 16:28 Note Text: ANESTHESIOLOGY PROCEDURE NOTE Airway General Information Procedure Start Time/Medication Administration: 12/28/2023 4:20 PM Procedure End Time: 12/28/2023 4:20 AM Patient location during procedure: OR Timeout Performed Pre-procedure: timeout performed Consent Obtained: Yes Patient identity confirmed: arm band and patient Staffing CUSTOM MILLER: Bonita Lu APRN.CUSTOM MILLER Performed by: SIRIA Indications and Patient Condition Indications for airway management: anesthesia Preoxygenated: yes anesthesia circuit Patient position: sniffing Method: rapid sequence Cricoid Pressure: Yes Manual In-Line Stabilization: Yes Difficult mask ventilation: NA. Final Airway Details Final airway type: endotracheal airway Final Endotracheal Airway: reinforced tube Cuffed: yes Successful intubation technique: video laryngoscopy Devices used: FanGager (MyBrandz) Endotracheal tube insertion site: oral Blade: Ronaldo Blade size: #3 ETT size (mm): 6.5 Measured from: gums Measurement (cm): 20 Placement verified by: chest auscultation and capnometry Cormack-Lehane Classification: grade I - full view of glottis Number of attempts at approach: 1 Failed airway: no Unrecognized esophageal intubation: no Airway not difficult SIGNATURE: Bonita Lu APRN.CUSTOM MILLER PATIENT NAME: Ana Hilario DATE: December 28, 2023 TIME: 4:27 PM CSN: [id number] [facility] 12-28-2023 Note HNO ID: [id number] Author: ADELINE GRIFFITH APRN.SPENT GRAIN DRYER Service: Colorectal Author Type: Nurse Practitioner Type: Progress Notes Filed: 12/28/2023 09:57 Note Text: Attestation signed by Tate Riley MD, PhD at 12/29/2023 6:04 PM Attending Note: Byrd findings confirmed. Patient examined. Discussed with the fellow, POLE FRAMER, and the patient. Plan as outlined. Tate Riley MD, PhD SERVICE DATE: 12/28/2023 SERVICE TIME: 9:53 AM COLORECTAL SURGERY PROGRESS NOTE Ana Hilario is a 78 year old PMHx notable for PMHx of Crohn's disease vs. IBS, remote history of bowel obstruction s/p small bowel resection, and chronic constipation, presenting with concern for large bowel obstruction. Subjective INTERVAL HPI and PERTINENT ROS: no acute events overnight, continues to have hypertension; having frequent bowel movements, NGT removed early this AM MEDICATIONS: Current Facility-Administered Medications Medication Dose Route Frequency - phenol 1 Playas (CHLORASEPTIC) 1 Playas MUCOUS MEMBRANE (TOPICAL MOUTH AND THROAT) q 2 H PRN Or - benzocaine-menthol 1 Lozenge (CHLORASEPTIC) 1 Lozenge MUCOUS MEMBRANE (TOPICAL MOUTH AND THROAT) q 2 H PRN - busPIRone 10 mg tab(s) (BUSPAR) 10 mg ORAL TID - albuterol HFA 90 mcg/actuation 2 Puff (PROVENTIL HFA, VENTOLIN HFA) 2 Puff INHALATION q 6 H PRN - mometasone-formoterol 100-5 mcg/actuation 2 Puff inhaler (DULERA) 2 Puff INHALATION BID - escitalopram oxalate 20 mg tab(s) (LEXAPRO) 20 mg ORAL DAILY - levothyroxine (SYNTHROID) tab(s) 175 mcg 175 mcg ORAL DAILY - estradiol 2 g vaginal cream (ESTRACE) 0.5 Applicator VAGINAL 2/WK - NaCl 0.9% iv flush bag 20 mL INTRAVENOUS PRN - HYDROmorphone 0.2 mg injection (DILAUDID) 0.2 mg INTRAVENOUS q 4 H PRN - ondansetron (PF) 4 mg injection (ZOFRAN) 4 mg INTRAVENOUS q 6 H PRN - oxyCODONE IR 5 mg tab(s) (ROXICODONE) 5 mg ORAL q 6 H PRN - pantoprazole 40 mg injection (PROTONIX) 40 mg INTRAVENOUS DAILY (6 AM) - nicotine 14 mg/24 hr 1 Patch (NICODERM) 1 Patch TRANSDERMAL DAILY And - nicotine -- REMOVE patch OTHER DAILY And - nicotine - verify patch OTHER q 8 H - lidocaine urojet 2 % 6 mL topical gel (GLYDO) 6 mL MUCOUS MEMBRANE TID PRN - iv contrast (radiology procedure) INTRAVENOUS DIRECTED PRN And - enteric contrast (radiology procedure) ORAL DIRECTED PRN - acetaminophen 500 mg - caffeine 65 mg tablet (EXCEDRIN TENSION HEADACHE) 2 tablet ORAL q 6 H PRN - acetaminophen 650 mg CUP (TYLENOL) 650 mg ORAL q 6 H PRN - labetalol 10 mg injection syringe (NORMODYNE) 10 mg INTRAVENOUS q 2 H PRN - polyethylene glycol 3350 17 g packet 17 g ORAL DAILY - amLODIPine 10 mg tab(s) (NORVASC) 10 mg ORAL DAILY - enoxaparin 40 mg injection (LOVENOX) 40 mg SUBCUTANEOUS q 24 HR - hydrALAZINE 50 mg tab(s) (APRESOLINE) 50 mg ORAL q 8 H - potassium chloride iv piggyback 20 mEq/100 mL 20 mEq INTRAVENOUS q 1 H Objective PHYSICAL EXAM: BP 197/66 Pulse 78 Temp 36.8 ?C (98.2 ?F) (Oral) Resp 20 SpO2 96% GENERAL: Alert and oriented times 3, in no acute distress. ABDOMEN: soft, tenderness improving; having bowel movements and flatus No skin breakdown noted. Date 12/28/23 0700 - 12/29/23 0659 Shift 9461-6040 9660-9093 8342-0949 24 Hour Total INTAKE Shift Total OUTPUT Urine 100 100 Shift Total 100 100 Weight (kg) Lines, Drains, and Airways Line Duration Peripheral 12/25/23 1900 [facility] Short Left Forearm 20 Gauge 2 days Drain Duration GI/ Feeding 12/25/23 1900 [facility] Gastric Left Naris 2 days Patient does not currently have any lines, drains or airways. DATA: Diagnostic tests reviewed for today's visit: Most recent labs and imaging results. LABS: CBC, Coags, BMP, Mg, Phos Recent Labs 12/28/23 0125 12/27/23 0038 12/27/23 0037 12/26/23 0503 12/25/23 2216 WBC 9.68 -- 7.57 9.20 9.69 HB 11.4* -- 11.4* 11.8 12.2 HCT 33.9* -- 34.7* 36.0 37.5 PLT 309 -- 309 330 329 INR -- -- -- -- 1.0 APTT -- -- -- -- 23.8 NA 135* 136 -- 135* 136 K 3.3* 3.2* -- 3.6* 3.8 CHLOR 98 99 -- 100 102 CO2 24 24 -- 24 22 BUN 9 9 -- 12 14 CREAT 0.51* 0.47* -- 0.48* 0.46* GLUC 93 90 -- 95 102* CA 9.4 9.4 -- 9.4 9.0 *A review of daily goals, interventions, and plan of care with the multidisciplinary team and patient has been conducted. The patient?s concerns have been addressed and he/she agrees to proceed with today?s plan of care. Assessment AND Plan CORS PLAN: Neuro: multimodal pain management in place CV: prn labetalol for SBP >160; continue hydralazine TID (increased to 50mg) and amlodipine 10mg daily Pulm: titrate FiO2 to maintain sats >90%; smoking cessation; continue home meds GI: CTE today, flex sig today- prep with tap water enemas; clears OK after procedure FE (more content not included)... [facility] 12-27-2023 Note HNO ID: [id number] Author: STEFFANY WILKINSON RT(Yaa) Service: Radiology Author Type: Technologist Type: Progress Notes Filed: 12/27/2023 11:09 Note Text: Radiology Service Progress Note PATIENT NAME: Ana Hliario DATE OF SERVICE: December 27, 2023 TIME: 11:09 AM PATIENT IDENTITY VERIFICATION COMPLETED USING TWO (2) IDENTIFIERS: Name and Date of confirmed by patient verbally. FALL SCREENING: Has the patient had 2 falls in the last year or 1 fall with injury or currently using an Ambulatory Assistive Device (Walker, Cane, Wheelchair, Crutches, etc.)? Inpatient: Screened on floor PATIENT GENDER DATA: Female. status: : No status: N/A PATIENT RELEVANT IMPLANT DATA REVIEWED: Yes PATIENT PRESENTS WITH AN IMPLANTABLE OR ATTACHED REFUND CLERK: No RADIOLOGY DEPARTMENT: General X-ray: Exam(s) Completed: GI/ Procedure(s): Colon Single Contrast Enema w/ water soluble. PERIPHERAL IV DATA: Not applicable SIGNED BY: RT Carlos A(R) December 27, 2023 11:09 AM [facility] 12-27-2023 Note HNO ID: [id number] Author: ADELINE GRIFFITH APRN.CNP Service: Colorectal Author Type: Nurse Practitioner Type: Progress Notes Filed: 12/27/2023 10:26 Note Text: SERVICE DATE: 12/27/2023 SERVICE TIME: 10:12 AM COLORECTAL SURGERY PROGRESS NOTE Ana Hilario is a 78 year old PMHx notable for PMHx of Crohn's disease vs. IBS, remote history of bowel obstruction s/p small bowel resection, and chronic constipation, presenting with concern for large bowel obstruction. Subjective INTERVAL HPI and PERTINENT ROS: hypertension overnight; complains of headache; passing flatus, but no BM; NGT output 550ml; abdomen continues to be distended, but much softer, less pain MEDICATIONS: Current Facility-Administered Medications Medication Dose Route Frequency - phenol 1 Playas (CHLORASEPTIC) 1 Playas MUCOUS MEMBRANE (TOPICAL MOUTH AND THROAT) q 2 H PRN Or - benzocaine-menthol 1 Lozenge (CHLORASEPTIC) 1 Lozenge MUCOUS MEMBRANE (TOPICAL MOUTH AND THROAT) q 2 H PRN - busPIRone 10 mg tab(s) (BUSPAR) 10 mg ORAL TID - albuterol HFA 90 mcg/actuation 2 Puff (PROVENTIL HFA, VENTOLIN HFA) 2 Puff INHALATION q 6 H PRN - mometasone-formoterol 100-5 mcg/actuation 2 Puff inhaler (DULERA) 2 Puff INHALATION BID - escitalopram oxalate 20 mg tab(s) (LEXAPRO) 20 mg ORAL DAILY - levothyroxine (SYNTHROID) tab(s) 175 mcg 175 mcg ORAL DAILY - estradiol 2 g vaginal cream (ESTRACE) 0.5 Applicator VAGINAL 2/WK - NaCl 0.9% iv flush bag 20 mL INTRAVENOUS PRN - lactated ringers iv infusion 100 mL/hr INTRAVENOUS CONTINUOUS - HYDROmorphone 0.2 mg injection (DILAUDID) 0.2 mg INTRAVENOUS q 4 H PRN - ondansetron (PF) 4 mg injection (ZOFRAN) 4 mg INTRAVENOUS q 6 H PRN - heparin 5,000 Units injection 5,000 Units SUBCUTANEOUS q 8 H - oxyCODONE IR 5 mg tab(s) (ROXICODONE) 5 mg ORAL q 6 H PRN - pantoprazole 40 mg injection (PROTONIX) 40 mg INTRAVENOUS DAILY (6 AM) - acetaminophen 1,000 mg CUP (TYLENOL) 1,000 mg ORAL q 8 H - ciprofloxacin iv piggyback 400 mg in D5W 200 mL (CIPRO) 400 mg INTRAVENOUS Professor Of Social Work to OR - metroNIDAZOLE iv piggyback 500 mg in NaCl (iso-osmotic) 100 mL (FLAGYL) 500 mg INTRAVENOUS Professor Of Social Work to OR - nicotine 14 mg/24 hr 1 Patch (NICODERM) 1 Patch TRANSDERMAL DAILY And - nicotine -- REMOVE patch OTHER DAILY And - nicotine - verify patch OTHER q 8 H - potassium chloride iv piggyback 20 mEq/100 mL 20 mEq INTRAVENOUS q 1 H - lidocaine urojet 2 % 6 mL topical gel (GLYDO) 6 mL MUCOUS MEMBRANE TID PRN - keTORolac 15 mg injection (Toradol) 15 mg INTRAVENOUS ONCE - magnesium sulfate iv piggyback in sterile water 2 g 50 mL 2 g INTRAVENOUS ONCE - labetalol 10 mg injection syringe (NORMODYNE) 10 mg INTRAVENOUS q 4 H PRN Objective PHYSICAL EXAM: BP 138/67 Pulse 78 Temp 36.7 ?C (98.1 ?F) (Oral) Resp 16 SpO2 97% GENERAL: Alert and oriented times 3, in no acute distress. ABDOMEN: soft, less tender than previous assessment, NGT in place; no BM, +flatus No skin breakdown noted. Date 12/27/23 0700 - 12/28/23 0659 Shift 5938-6619 3614-5495 1056-0123 24 Hour Total INTAKE Shift Total OUTPUT Urine 200 200 Shift Total 200 200 Weight (kg) Lines, Drains, and Airways Line Duration Peripheral 12/25/23 1900 [facility] Short Left Forearm 20 Gauge 1 day Drain Duration GI/ Feeding 12/25/23 1900 [facility] Gastric Left Naris 1 day Reviewed drains and needs to be continued: NGT for decompression DATA: Diagnostic tests reviewed for today's visit: Most recent labs and imaging results. LABS: CBC, Coags, BMP, Mg, Phos Recent Labs 12/27/23 0038 12/27/23 0037 12/26/23 0503 12/25/23 2216 WBC -- 7.57 9.20 9.69 HB -- 11.4* 11.8 12.2 HCT -- 34.7* 36.0 37.5 PLT -- 309 330 329 INR -- -- -- 1.0 APTT -- -- -- 23.8 NA 136 -- 135* 136 K 3.2* -- 3.6* 3.8 CHLOR 99 -- 100 102 CO2 24 -- 24 22 BUN 9 -- 12 14 CREAT 0.47* -- 0.48* 0.46* GLUC 90 -- 95 102* CA 9.4 -- 9.4 9.0 *A review of daily goals, interventions, and plan of care with the multidisciplinary team and patient has been conducted. The patient?s concerns have been addressed and he/she agrees to proceed with today?s plan of care. Assessment AND Plan Ms. Hilario stated she was upset because she feels as though the plan keeps changing, feels this contributed to her headache and high blood pressure. I explained with Ms. Hilario that the plan may change based on her clinical picture/assessment, for example- her Initial presentation indicated high likelihood surgical intervention would be necessary, which was explained to her at the time. I further explained her assessment has improved since then and least invasive means of treating is always preferred. She voiced understanding and is in agreement with the plan, would like to avoid surgery if possible. Further questions answered. CORS PLAN: Neuro: multimodal pain management in place; consider Excedrin if no OR plans CV: prn labetalol for (more content not included)... [facility] 12-26-2023 Note HNO ID: [id number] Author: DOMINIC BYRNE MD Service: Colorectal Author Type: Resident Type: Progress Notes Filed: 12/26/2023 11:46 Note Text: Colorectal ACS: [id number] CORS SURGERY PROGRESS NOTE Patient Name: Ana Hilario Date: December 26, 2023 ASSESSMENT AND PLAN: Ana Hilario is a 78 year old PMHx notable for PMHx of Crohn's disease vs. IBS, remote history of bowel obstruction s/p small bowel resection, and chronic constipation, presenting with concern for large bowel obstruction. Plan: - GI following with recs appreciated - GGE - Pending GGE and GI eval if possible stenting will discuss timing of operative intervention. - ostomy marking for possible OR Neuro: Multimodal pain medication, pain per MAR CV: HDS Pulm: IS encouraged and pulmonary hygiene, currently on RA FEN/GI: Diet:NPO, MIVF, ppi, Lytes repletion PRN Renal: Strict I/O, Endocrine: POC glucose sticks, not on insulin ID/ Wound: No evidence of infection; no indication for antibiotics Heme: Hgb stable no evidence of bleeding. DVT ppx: SCQ, ICDs IS: not on steroids Activity: Out of bed and ambulation as able. Other: GGE Plan of care discussed with staff. Dominic Byrne MD General Surgery Resident Colorectal ACS: [id number] On nights (6 pm to 6 am) and on Weekends/Holidays, please page the on-call pager: [phone] 12/26/23 11:42 AM --- INTERVAL: No acute events overnight. Pain well controlled. No nausea or vomiting. No BM. NGT placed with minimal output. OBJECTIVE: Physical Exam BP 170/72 Pulse 79 Temp (Src) 97.7 (Oral) Resp 16 SpO2 96% O2 Therapy: Room Air, Liters: 1.00 General: comfortable, no acute distress Cardiac: extremities warm and well-perfused Pulm: normal respiratory effort on Ra Abd: soft, mildly tender, non distended Neuro: alert, oriented, no gross motor/sensory deficit Intake/Output Intake/Output Summary (Last 24 hours) at 12/26/2023 1142 Last data filed at 12/26/2023 0830 Gross per 24 hour Intake 812 ml Output 1050 ml Net -238 ml Labs Reviewed Recent Labs 12/26/23 0503 12/25/23 2216 WBC 9.20 9.69 HB 11.8 12.2 HCT 36.0 37.5 PLT 330 329 NA 135* 136 K 3.6* 3.8 CHLOR 100 102 CO2 24 22 CREAT 0.48* 0.46* BUN 12 14 GLUC 95 102* CA 9.4 9.0 CRP -- 5.8* Imaging Reviewed IMPRESSION: Borderline dilated colon possibly due to sigmoid diverticular stricture; this could be further evaluated with colonoscopy or fluoroscopic enema. No active inflammatory small bowel Crohn's disease. [facility] 02-07-2023 History of Presen t illness Narrative [...] pT1c N0(i+) (2 of 7 LNs) MX, ER/MD (5% and 0%) HER2 nonamplified (FISH) poorly [...] and edited as necessary for today's visit. Gunjan Henson APRN.ERASMO documented in this encounter [facility] 01-23-2023 History of Presen t illness Narrative Radiology Service Progress Note PATIENT NAME: Ana [...] RT Wendy(R) January 23, 2023 1:24 PM documented in this encounter [facility] 01-08-2023 Miscellaneous Notes January 09, 2023 PID: [id number] Ana Hilario [address] [place] [id number] Dear Ms. Hilario, We are pleased to inform you [...] report will be kept on file at [facility] as part of your permanent medical record and are available for your continuing care. Thank you for allowing us to help in meeting your health care needs. Sincerely, Dr. Cason Interpreting Radiologist [facility] (Normal over 40) documented in this encounter [facility] 12-01-2022 Miscellaneous Notes Addended by: NAVEED NINO on: 12/01/2022 01:25 PM Modules accepted: Orders Patient phones stating she has had dry heaves for the past 2 days (no vomiting) She's requesting a prescription for compazine Done. Naveed Nino MD documented in this encounter [facility] 11-14-2022 Miscellaneous Notes Spoke with patient and rescheduled. Sabine Real Done. Gunjan Henson APRN.ERASMO Order pended. Cristina Cardona LPN Please file new Tomography Mammogram Order as current order will before there is an opening. Sabine Real Pts apt with Gunjan on 11/13 has been canceled due to missing DAMIAN. Pt needs DAMIAN and OV rescheduled. 1st attempt: LM When pt returns call please assist is rescheduling the missed DAMIAN and OV(a few days later) Once completed please document in this encounter. Thank you! 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 documented as of this encounter (statuses as of 01/10/2023) [facility] History of Past illness Narrative* Problem Noted Date Resolved Date 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 documented as of this encounter (statuses as of 02/08/2023) [facility] Personal history of breast cancer- Primary Personal history of malignant neoplasm of breast Encounter for screening mammogram for high-risk patient [facility] Diagnosis Personal history of breast cancer- Primary Personal history of malignant neoplasm of breast Encounter for screening mammogram for high-risk patient documented in this encounter [facility] note* Diagnosis Crohn's disease of small and large intestines with complication (HCC)- Primary documented in this encounter [facility] note* Diagnosis Crohn's disease of small and large intestines with complication (HCC)- Primary Constipation, unspecified constipation type documented in this encounter [facility] note* Diagnosis Personal history of breast cancer Personal history of malignant neoplasm of breast Encounter for screening mammogram for high-risk patient documented in this encounter [facility] note* Diagnosis Personal history of breast cancer- Primary Personal history of malignant neoplasm of breast Encounter for screening mammogram for high-risk patient documented in this encounter [facility] note* Diagnosis Moderate COPD (chronic obstructive pulmonary disease) (HCC)- Primary Chronic airway obstruction, not elsewhere classified Former cigarette smoker Personal history of tobacco use, presenting hazards to health Hyponatremia Hyposmolality and/or hyponatremia documented in this encounter [facility] note* Diagnosis Large bowel obstruction (HCC)- Primary Unspecified intestinal obstruction Acute pain Other acute pain Tobacco use disorder Crohn disease (HCC) Regional enteritis of unspecified site Hypertension Unspecified essential hypertension Headache Hypokalemia Hypopotassemia Crohn's disease of small and large intestines with complication (HCC)- Primary documented in this encounter [facility] note* Diagnosis Large bowel obstruction (HCC)- Primary Unspecified intestinal obstruction Acute pain Other acute pain Tobacco use disorder Crohn disease (HCC) Regional enteritis of unspecified site Hypertension Unspecified essential hypertension Headache Hypokalemia Hypopotassemia Crohn's disease of small and large intestines with complication (HCC) documented in this encounter [facility] note* Diagnosis Acute cough documented in this encounter [facility] for referral (narrative)* Diagnostic Procedure Only (Routine) - Authorized Specialty Diagnoses / Procedures Referred By Gerardo escobedo Referred To Contact [facility] Diagnoses Personal history of breast cancer Encounter for screening mammogram for high-risk patient Procedures DAMIAN SCREENING W AGUEDA SCREENING DIGITAL BREAST TOMOSYNTHESIS BI SCREENING MAMMOGRAPHY BI 2-VIEW BREAST INC Gunjan Gee, CHRISTINE.SPENT GRAIN DRYER [address] [place] [address] [facility] [address] [facility] [address] Referral ID Status Reason Start Date Expiration Date Visits Requested Visits Authorized [id number] Authorized Auto-Generat ed Referral 11/14/2022 12/13/2023 1 1 [facility] for referral (narrative)* Diagnostic Procedure Only (Routine) - Authorized Specialty Diagnoses / Procedures Referred By Contac t Referred To Contact [facility] Diagnoses Personal history of breast cancer Encounter for screening mammogram for high-risk patient Procedures DAMIAN SCREENING W AGUEDA SCREENING DIGITAL BREAST TOMOSYNTHESIS BI SCREENING MAMMOGRAPHY BI 2-VIEW BREAST INC [facility], CHRISTINE.SPENT GRAIN DRYER [address] [place] [address] [facility] [address] [place] [address] Referral ID Status Reason Start Date Expiration Date Visits Requested Visits Authorized [id number] Authorized Auto-Generat ed Referral 02/07/2023 03/08/2024 1 1 T [facility] for referral (narrative)* Diagnostic Procedure Only (Routine) - Pending Review Specialty Diagnoses / Procedures Referred By Contac t Referred To Contact [facility] Diagnoses Personal history of breast cancer Encounter for screening mammogram for high-risk patient Procedures DAMIAN SCREENING W AGUEDA SCREENING DIGITAL BREAST TOMOSYNTHESIS BI SCREENING MAMMOGRAPHY BI 2-VIEW BREAST INC [facility], CHRISTINE.SPENT GRAIN DRYER [address] [place] [address] [facility] [address] [place] [address] Referral ID Status Reason Start Date Expiration Date Visits Requested Visits Authorized [id number] Pending Review Auto-Generat ed Referral 01/24/2024 02/22/2025 1 1 [facility] for referral (narrative)* Outpatient Procedure (Routine) - Authorized Specialty Diagnoses / Procedures Referred By Contac t Referred To Contact [facility] Diagnoses Moderate COPD (chronic obstructive pulmonary disease) (HCC) Procedures SPIROMETRY WITH DILATOR IF OBSTRUCTED BRNCDILAT RSPSE SPMTRY PRE&POST-BRNCDILAT Galina Olson MD [address] [place] [address] Respiratory [place] [address] [place] [address] Referral ID Status Reason Start Date Expiration Date Visits Requested Visits Authorized [id number] Authorized Auto-Generat ed Referral 02/29/2024 03/30/2025 1 1 [facility] for visit Narrative* Diagnostic Procedure Only (Routine) - Closed Specialty Diagnoses / Procedures Referred By Gerardo escobedo Referred To Contact [facility] Diagnoses Personal history of breast cancer Encounter for screening mammogram for high-risk patient Procedures DAMIAN SCREENING W AGUEDA SCREENING DIGITAL BREAST TOMOSYNTHESIS BI SCREENING MAMMOGRAPHY BI 2-VIEW BREAST INC Gunjan Gee, FURNACE MECHANIC.SPENT GRAIN DRYER [address] [place] [address] [facility] [address] [place] [address] Referral ID Status Reason Start Date Expiration Date V isits Requested Visits Authorized [id number] Closed Auto-Generate d Referral 02/07/2023 03/08/2024 1 1 [facility] Summary Purpose Family History No Family History Records FoundNo Family History Records FoundNo Family History Records Found Advance Directives No Advanced Directives Records FoundNo Advanced Directives Records FoundNo Advanced Directives Records Found Reason for Referral Specialty Diagnoses / Procedures Referred By Gerardo escobedo Referred To Contact CT IMAGING Diagnoses Crohn's disease of small and large intestines with complication (HCC) Procedures CT ABD/PEL W IVCON CT ABD & PELVIS W/CONTRAST Naveed Nino MD [address] [place] [address] [place] [address] Referral ID Status Reason Start Date Expiration Date Visits Requested Visits Authorized [id number] New Request Auto-Generat ed Referral 04/29/2024 05/29/2025 1 1 Referral ID Status Reason Start Date Expiration Date V isits Requested Visits Authorized [id number] Closed Auto-Generate d Referral 04/29/2024 05/29/2025 1 1 Additional Source Comments INFORMATION SOURCE (unrecogn ized section and content) DATE CREATED AUTHOR 03/06/2018 [facility] DATE CREATED AUTHOR AUTHOR'S ORGANIZ ATION 12/18/2020 [facility] DATE CREATED AUTHOR AUTHOR'S ORGANIZ ATION 06/01/2024 [facility] Source Comments (unrecognize d section and content) In the event this informatio n is protected by the Federal Confidentiality of Alcohol and Drug Abuse Patient Records regulations: The Federal rules restrict any use of the information to criminally investigate or prosecute any alcohol or drug abuse patient.[facility] event this information is protected by the Federal Confidentiality of Alcohol and Drug Abuse Patient Records regulations: The Federal rules restrict any use of the information to criminally investigate or prosecute any alcohol or drug abuse patient.[facility] HospitalIn the event this information is protected by the Federal Confidentiality of Alcohol and Drug Abuse Patient Records regulations: The Federal rules restrict any use of the information to criminally investigate or prosecute any alcohol or drug abuse patient.[facility] HospitalIn the event this information is protected by the Federal Confidentiality of Alcohol and Drug Abuse Patient Records regulations: The Federal rules restrict any use of the information to criminally investigate or prosecute any alcohol or drug abuse patient.[facility] HospitalIn the event this information is protected by the Federal Confidentiality of Alcohol and Drug Abuse Patient Records regulations: The Federal rules restrict any use of the information to criminally investigate or prosecute any alcohol or drug abuse patient.[facility] HospitalIn the event this information is protected by the Federal Confidentiality of Alcohol and Drug Abuse Patient Records regulations: The Federal rules restrict any use of the information to criminally investigate or prosecute any alcohol or drug abuse patient.[facility] HospitalIn the event this information is protected by the Federal Confidentiality of Alcohol and Drug Abuse Patient Records regulations: The Federal rules restrict any use of the information to criminally investigate or prosecute any alcohol or drug abuse patient.[facility] HospitalIn the event this information is protected by the Federal Confidentiality of Alcohol and Drug Abuse Patient Records regulations: The Federal rules restrict any use of the information to criminally investigate or prosecute any alcohol or drug abuse patient.[facility] HospitalIn the event this information is protected by the Federal Confidentiality of Alcohol and Drug Abuse Patient Records regulations: The Federal rules restrict any use of the information to criminally investigate or prosecute any alcohol or drug abuse patient.[facility] HospitalIn the event this information is protected by the Federal Confidentiality of Alcohol and Drug Abuse Patient Records regulations: The Federal rules restrict any use of the information to criminally investigate or prosecute any alcohol or drug abuse patient.[facility] HospitalIn the event this information is protected by the Federal Confidentiality of Alcohol and Drug Abuse Patient Records regulations: The Federal rules restrict any use of the information to criminally investigate or prosecute any alcohol or drug abuse patient.[facility] HospitalIn the event this information is protected by the Federal Confidentiality of Alcohol and Drug Abuse Patient Records regulations: The Federal rules restrict any use of the information to criminally investigate or prosecute any alcohol or drug abuse patient.[facility] HospitalIn the event this information is protected by the Federal Confidentiality of Alcohol and Drug Abuse Patient Records regulations: The Federal rules restrict any use of the information to criminally investigate or prosecute any alcohol or drug abuse patient.[facility] HospitalIn the event this information is protected by the Federal Confidentiality of Alcohol and Drug Abuse Patient Records regulations: The Federal rules restrict any use of the information to criminally investigate or prosecute any alcohol or drug abuse patient.[facility] HospitalIn the event this information is protected by the Federal Confidentiality of Alcohol and Drug Abuse Patient Records regulations: The Federal rules restrict any use of the information to criminally investigate or prosecute any alcohol or drug abuse patient.[facility] HospitalIn the event this information is protected by the Federal Confidentiality of Alcohol and Drug Abuse Patient Records regulations: The Federal rules restrict any use of the information to criminally investigate or prosecute any alcohol or drug abuse patient.[facility] HospitalIn the event this information is protected by the Federal Confidentiality of Alcohol and Drug Abuse Patient Records regulations: The Federal rules restrict any use of the information to criminally investigate or prosecute any alcohol or drug abuse patient.[facility] HospitalIn the event this information is protected by the Federal Confidentiality of Alcohol and Drug Abuse Patient Records regulations: The Federal rules restrict any use of the information to criminally investigate or prosecute any alcohol or drug abuse patient.[facility] HospitalIn the event this information is protected by the Federal Confidentiality of Alcohol and Drug Abuse Patient Records regulations: The Federal rules restrict any use of the information to criminally investigate or prosecute any alcohol or drug abuse patient.[facility] HospitalIn the event this information is protected by the Federal Confidentiality of Alcohol and Drug Abuse Patient Records regulations: The Federal rules restrict any use of the information to criminally investigate or prosecute any alcohol or drug abuse patient.[facility] Reason for Visit (unrecogniz ed section and content) Reason Comments Appointment Reason Comments Patient Update Medication request Reason Comments Established Patient Reason Comments Crohns Reason Comments Patient Question Reason Comments Established Patient Crohns Crohn's flare up Reason Comments AVS 01/24/24 Reason Comments New Patient COPD Reason Comments Patient Update Reason Comments Crohns Reason Comments Radiology CT Specialty Diagnoses / Procedures Referred By Contac t Referred To Contact CT IMAGING Diagnoses Crohn's disease of small and large intestines with complication (HCC) Procedures CT ABD/PEL W IVCON CT ABD & PELVIS W/CONTRAST Naveed Nino MD [address] [place] [address] [facility] [place] [address] Referral ID Status Reason Start Date Expiration Date V isits Requested Visits Authorized [id number] Closed Auto-Generate d Referral 04/29/2024 05/29/2025 1 1 Care Teams (unrecognized sec tion and content) Pelt Salter Relationship Specialty Start Date End Date Good Franco DO PCP - General 11/24/09 Pelt Salter Relationship Specialty Start Date End Date Good Franco DO PCP - General 11/24/09 Pelt Salter Relationship Specialty Start Date End Date Good Franco DO PCP - General 11/24/09 Pelt Salter Relationship Specialty Start Date End Date Good Franco PCP - General 11/24/09 Pelt Salter Relationship Specialty Start Date End Date Joan Good R, PCP - General 11/24/09 Pelt Salter Relationship Specialty Start Date End Date Joan Good R, PCP - General 11/24/09 Pelt Salter Relationship Specialty Start Date End Date Joan Good R, PCP - General 11/24/09 Pelt Salter Relationship Specialty Start Date End Date hSaan Francohieu Mon PCP - General 11/24/09 Pelt Salter Relationship Specialty Start Date End Date Shaan Francohieu Mon PCP - General 11/24/09 Pelt Salter Relationship Specialty Start Date End Date Shaan Francohieu Mon PCP - General 11/24/09 Pelt Salter Relationship Specialty Start Date End Date Shaan Francohieu Mon PCP - General 11/24/09 Pelt Salter Relationship Specialty Start Date End Date Good Franco PCP - General 11/24/09 Pelt Salter Relationship Specialty Start Date End Date Good Franco PCP - General 11/24/09 Pelt Salter Relationship Specialty Start Date End Date Good Franco PCP - General 11/24/09 FOR RECORDS PERTAINING [...] BE BASED ON THE PRIMARY CLINICAL RECORDS. [facility] [employer], [facility]. provides no warranty or guarantee of the accuracy or completeness of information in this document.
== END 2024-06-30 17:41 | disposition short-term general hospital (02) ==
PROVIDERS: Emergency Provider Emergency Medicine; PCP Family Medicine; Visit Provider Emergency Medicine
DX: G96.08 Other cranial cerebrospinal fluid leak (principal); J44.9 Chronic obstructive pulmonary disease, unspecified; M54.9 Dorsalgia, unspecified; H53.8 Other visual disturbances; E78.5 Hyperlipidemia, unspecified; Z87.891 Personal history of nicotine dependence; R42 Dizziness and giddiness; R11.0 Nausea; K21.9 Gastro-esophageal reflux disease without esophagitis; R26.9 Unspecified abnormalities of gait and mobility
CPT/HCPCS: 70450; 80048; 81001; 83605; 84484; 85025; 85610; 85730; 93005; 96374; 96375; 99283; A4216; J2405

== ENCOUNTER 2024-07-17 14:52 | Emergency (ER) | payer MEDICARE, OTHER, SELFPAY ==
[2024-07-17 14:54] VITALS: BP 146/78; PULSE 87; RESP 24; TEMP 36.7; O2SAT 95; BMI 24.0
[2024-07-17 15:53] LABS: Mucous, Urine 0 SEEN /hpf (<or=2+); Red Blood Cells-Urine 0 SEEN /hpf (0-5)
[2024-07-17 15:54] LABS: Absolute Lymphocyte Count 1.26 X10^3/uL (0.83-4.51); Absolute Neutrophil Count 5.3 X10^3/uL (2.0-7.7); Basophil# 0.02 X10^3/uL; Basophil% 0.3 % (0-1); Eosinophil# 0.09 X10^3/uL; Eosinophils% 1.3 % (0-5); Hematocrit 43.1 % (37-47); Hemoglobin 13.8 g/dL (12.0-15.0); Lymphocyte # 1.26 X10^3/ul (0.83-4.51); Lymphocyte % 17.7 % (19-41); Mean Corpuscular Hgb 32.2 pg (27.0-32.0); Mean Corpuscular Volume 100.7 fL (81-99); Mean Platelet Vol. 9.9 fl (6.2-12.0); Monocyte# 0.41 X10^3/uL; Monocyte% 5.8 % (0-10); NRBC Flagged by Analyzer 0 % (0-5); Neutrophil # 5.33 X10^3/uL (2.7-7.7); Neutrophil % 74.6 % (47-70); Platelet Count 432 K/mm3 (150-450); RBC Distribution Width CV 12.9 % (11.6-14.6); RBC Distribution Width SD 48.2 fl (35.1-43.9); Red Blood Count 4.28 M/mm3 (4.2-5.4); White Blood Count 7.1 K/mm3 (4.4-11.0)
[2024-07-17 16:07] LABS: Color, Urine Yellow (Yellow); Glucose, Dipstick Normal (Normal); Ketone-Dipstick Negative (Negative); Leukocyte Esterase-Dipstick Negative /ul (Negative); Nitrite-Dipstick Negative (Negative); Occult Blood-Urine Negative /ul (Negative); Protein-Dipstick Negative (Negative); Urine Bilirubin Dipstick Negative (Negative); Urine Clarity Clear (Clear); Urine Urobilinogen Normal (Normal)
[2024-07-17 16:14] LABS: Anion Gap 6 (5-15); BUN 16 mg/dL (7-18); BUN/Creat Ratio 26.1 RATIO (10-20); Calcium,Total 10.1 mg/dL (8.5-10.1); Chloride 102 mmol/L (98-107); Creatinine, Serum 0.61 mg/dL (0.55-1.02); EST Glomerular Filtration Rate 100 mL/min (>60); Est Glom Filt Rate - Afr Amer 121 mL/min (>60); Estimated Creatinine Clearance 47.94 ml/min; Glucose 104 mg/dL (74-106); Sodium Level 134 mmol/L (136-145); Troponin-I HS (w/2H Reflex) 6 pg/mL (3.0-54.0)
[2024-07-17 16:15] LABS: Partial Thromboplast Time 26.2 Seconds (24.1-36.2)
[2024-07-17 16:19] LABS: Prothrombin Time (Protime)PT. 13.1 SECONDS (11.7-14.9)
[2024-07-17 16:20] VITALS: O2SAT 95
[2024-07-17 16:41] LABS: Bacteria RARE /hpf (None Seen); Squamous Epithelial Cells - UA 0-5 SEEN /hpf (5-10); White Blood Cells 0-5 SEEN /hpf (0-5)
[2024-07-17 16:52] VITALS: BP 170/74; PULSE 88; RESP 18; O2SAT 94
[2024-07-17 17:20] VITALS: O2SAT 96
[2024-07-17 17:44] LABS: Reflex Troponin-HS? (from REC) Y
[2024-07-17 17:54] LABS: BNP,B-Type NATRIURETIC PEPTIDE 26.2 pg/mL (0-100)
[2024-07-17 18:00] VITALS: BP 149/80; PULSE 87; RESP 18; O2SAT 95
[2024-07-17] MEDS: Acetaminophen 500 MG Tablet 1000 MG PO (18:25)
[2024-07-17 19:21] LABS: Troponin-I HS 8 pg/mL (3.0-54.0)
[2024-07-17] MEDS: Cephalexin 250 MG Capsule 500 MG PO (19:42)
[2024-07-17 19:46] VITALS: BP 149/80; PULSE 85; RESP 18; TEMP 36.6; O2SAT 95
== END 2024-07-17 19:48 | disposition home or self-care (01) ==
PROVIDERS: Emergency Provider Emergency Medicine; PCP Family Medicine; Referring Provider Emergency Medicine; Visit Provider Emergency Medicine
DX: L03.115 Cellulitis of right lower limb (principal); K50.90 Crohn's disease, unspecified, without complications; J44.9 Chronic obstructive pulmonary disease, unspecified; Z87.891 Personal history of nicotine dependence; M79.671 Pain in right foot; E78.5 Hyperlipidemia, unspecified; E03.9 Hypothyroidism, unspecified; K21.9 Gastro-esophageal reflux disease without esophagitis; R06.02 Shortness of breath; R42 Dizziness and giddiness; R51.9 Headache, unspecified
CPT/HCPCS: 70450; 71275; 73630; 80048; 81001; 83880; 84484; 85025; 85610; 85730; 93005; 99285; Q9967; A4216

== ENCOUNTER 2024-12-29 12:30 | Outpatient (RCR) | payer MEDICARE, OTHER, SELFPAY ==
--- NOTE | 2024-12-15 14:12 | HP.PTEVAL ---
Patient's Visit Information Visit Information Visit Information: AMADO HILARIO is a 79 year old F referred to Physical Therapy by Dr. Jose Roberto Clark DO with a diagnosis of ABNORMALITIES OF GAIT AND MOBILITY. Date of Evaluation: 12/15/24 Physical Therapist: Owen Rueda, PT, Cert MDT, OCS Visit Plan Frequency: 2x /Week Duration: 4 Weeks Plan: PT INTERVENTIONS PROGRESSIVE BALANCE TRAINING ,BLE STRENGTHENING ,FUNCTIONAL STRENGTHENING ,AND AEROBIC EX'S Subjective Subjective: This 79 y/o female presents to physical therapy with balance disorder . This balance had a fell Jun 2024 syncope episode was hosptilaized [facility] . Patient has Breast CA thus neuropathy left side. Patient has no falls just stubble. Denies dizziness /nausea/tinnitus. But when get OOB has dizziness wait for a few minutes to subside. Patient does not use device. Patient is able to do ADLS cooking cleaning except laundry due to be downstairs. Patient has morgan 1 story 4 steps with rail. Patient has walk in shower. Patient sleeping has sleeping difficulty. c/o paresthesia/tingling left leg .Patient just feels unsteady. Patient condition affects QOL . Patient foals to improve balance. SOCIAL: VOCATION: retired Objective Objective: POSTURE:mild forward posture GAIT: reciprocal pattern mild forward posture slightly unsteady NEURO: c/o paresthesia in left leg ,light touch intact .reflexes achilles and patella 1/3 STAIRS: ONE STEP AT TIME with rail FLEXABILITY: hamstrings min tight MMT: ( peak force) hamstrings 14.7 ,left 13.8 right ,quads right 18.8 ,17.9 left ,hip flexion right 12.8 ,left 11.9 ankle 4/5 Balance/Special Test Scores CATSIB Score (Max score 120 seconds): 110 Lower Extremity Functional Score: 28 30 Second Chair Rise Test Seconds: 8 Goals Goal 1:: Patient to be I with HEP strengthening and balance Goal Time Frame: 4-6 Weeks Goal 2:: Patient to improve peak force quads/hams/hip by 5-10# to improve function and gait Goal Time Frame: 4-6 Weeks Goal 3:: Patient to improve CTSIBE by 5 points to improve balnce Goal Time Frame: 4-6 Weeks Goal 4:: Patient to improve 30 sec sit-stand to 3-5 reps to improve function Goal Time Frame: 4-6 Weeks Goal 5:: Patient to improve LFES score by 5 points to improve QOL and gait Goal Time Frame: 4-6 Weeks Goal 6:: Patient to improve functional gait assessment score by 5 points to improve function Goal Time Frame: 4-6 Weeks Rehabilitation Potential Physical Therapy Diagnosis: This patient has decrease balance and weakness in legs thus benefit from skilled PT Rehabilitation Potential: Good Anticipated Interventions Patient/Client Instruction: Educate patient on: Condition and Plan of Care For the Purpose of:: To increase ROM, To improve muscle performance and motor function, To improve ability to perform ADL's, To increase tolerance to activity/condition/position, To improve ability of physical actions for home/community/work/leisure, To improve gait and locomotor functions, To improve health of tissue, To improve endurance, To improve balance and To reduce risk of recurrence Therapeutic Exercise to Include: Strength training, Endurance training, Balance training and Gait and locomotor training Comment: BLE For the Purpose of:: To improve muscle performance and motor function, To improve ability to perform ADL's, To increase tolerance to activity/condition/position, To improve performance and independence with ADL's, To improve ability of physical actions for home/community/work/leisure, To improve endurance and To improve balance Text: Thank you for the opportunity to evaluate your patient. For Medicare and Medicare HMO plans, please review the plan of care and approve it. It will need to be FAXED BACK to us at [phone] for Medicare purposes. For Medicare only, by signing this I certify the plan of care. Please let me know if there are questions or concerns regarding this plan of care. Physician Signature: Date:
--- NOTE | 2025-05-13 08:23 | HP.PTDCNRP_ITS ---
Patient Information Patient Information: AMADO HILARIO was seen in my office for initial evaluation on 12/15/24. The following Plan of Care was established for this patient: POC Established Initial Frequency: 2x /Week Initial Duration: 4 Weeks Anticipated Interventions Patient/Client Instruction: Educate patient on: Condition and Plan of Care For the Purpose of:: To increase ROM, To improve muscle performance and motor function, To improve ability to perform ADL's, To increase tolerance to activity/condition/position, To improve ability of physical actions for home/co mmunity/work/leisure, To improve gait and locomotor functions, To improve health of tissue, To improve endurance, To improve balance and To reduce risk of recurrence Therapeutic Exercise to Include: Strength training, Endurance training, Balance training and Gait and locomotor training For the Purpose of:: To improve muscle performance and motor function, To improve ability to perform ADL's, To increase tolerance to activity/condition/position, To improve performance and independence with ADL's, To improve ability of physical actions for home/community/work/leisure, To improve endurance and To improve balance Last Seen Last Seen: This patient was last seen in our office . Pertinent comments regarding their Physical therapy will appear below: Patient was seen for PT for gait abnormality thus is d/c to HEP At this point I will be discontinuing this patient from physical therapy. I would be happy to see this patient again in the future if found appropriate by the physician. Thank you! Owen Rueda, PT, Cert MDT, OCS Balance/Gait/Functional tests Balance/Special Test Scores CATSIB Score (Max score 120 seconds): 110 Lower Extremity Functional Score: 28 30 Second Chair Rise Test Seconds: 8
== END 2024-12-29 19:00 | disposition home or self-care (01) ==
LOC: PT 12:30
PROVIDERS: PCP Family Medicine; Referring Provider Family Medicine; Visit Provider Family Medicine
DX: R26.89 Other abnormalities of gait and mobility (principal)
CPT/HCPCS: 97110; 97162

== ENCOUNTER → 2025-01-07 | Outpatient (CLI) | payer MEDICARE, OTHER, SELFPAY ==
--- NOTE | 2025-01-07 14:50 | RAD_ITS ---
PROCEDURE: CHEST PA AND LATERAL 01/07/2025 REASON FOR EXAM: COUGH TECHNIQUE: Frontal and lateral views of the chest. COMPARISON: 06/24/2024 FINDINGS: Hardware: Status post right axillary lymph node dissection. Heart: The heart size is normal. Mediastinum: There are atherosclerotic calcifications of the thoracic aorta. Lungs: Hyperinflation of the lungs consistent with emphysematous changes. Bones: The bones are unremarkable. RAD/Chest PA and Lateral IMPRESSION: Emphysema without pneumonia or atelectasis. Reading Location: [id number]
== END | disposition home or self-care (01) ==
PROVIDERS: PCP Family Medicine; Referring Provider Physician Assistant; Visit Provider Physician Assistant
DX: J06.9 Acute upper respiratory infection, unspecified (principal); R05.9 Cough, unspecified
CPT/HCPCS: 71046; 87631

== ENCOUNTER → 2025-04-23 | Outpatient (CLI) | payer MEDICARE, OTHER, SELFPAY ==
--- NOTE | 2025-04-23 13:30 | BD_ITS ---
PROCEDURE: DEXA BONE DENSITY STUDY 04/23/2025 REASON FOR EXAM: OSTEOPOROSIS F, age 80 y/o . Postmenopausal. TECHNIQUE: DEXA BONE DENSITY STUDY COMPARISON: None FINDINGS: BMD and T-SCORES Lumbar spine: 0.852 g/cm2, T-score -1.7 Levels: 0.9 Left femoral neck: 0.500 g/cm2, T-score -3.1 Femoral neck comparison data not recommended for monitoring change. Left total hip: 0.715 g/cm2, T-score -1.9 Right femoral neck: 0.534 g/cm2, T-score -2.8 Femoral neck comparison data not recommended for monitoring change. Right total hip: 0.712 g/cm2, T-score -1.9 The World Health Organization has defined the following categories based on bone density: Normal bone density: T-score equal to or greater than -1.0 Osteopenia: T-score between -1.0 and -2.5 Osteoporosis: T-score equal to or less than -2.5 The patient does meet the pharmacological treatment recommendations for prevention of osteoporosis. BD/Dexa Bone Density Study IMPRESSION: OSTEOPOROSIS. Recommend follow-up as clinically warranted. Reading Location: [place] [id number]
== END | disposition home or self-care (01) ==
LOC: OPBD 13:23
PROVIDERS: PCP Family Medicine; Referring Provider Family Medicine; Visit Provider Family Medicine
DX: M81.0 Age-related osteoporosis without current pathological fracture (principal); Z78.0 Asymptomatic menopausal state
CPT/HCPCS: 77080

== ENCOUNTER → 2025-05-26 | Outpatient (CLI) | payer MEDICARE, OTHER, SELFPAY ==
--- NOTE | 2025-05-26 14:03 | VDLE_ITS ---
Reason For Study Reason For Study: PVD RIGHT LEFT CFV is compressible, spontaneous, phasic, competent CFV is compressible, spontaneous, phasic, competent, and demonstrates normal augmentation. and demonstrates normal augmentation. FV is compressible, spontaneous, phasic, competent FV is compressible, spontaneous, phasic, competent and demonstrates normal augmentation. and demonstrates normal augmentation. POP V is compressible, spontaneous, phasic, competent POP V is compressible, spontaneous, phasic, competent and demonstrates normal augmentation. and demonstrates normal augmentation. T/P Trunk is compressible. T/P Trunk is compressible. PTV is compressible. PTV is compressible. RT PerV is compressible. LT PerV is compressible. SFJ is competent and measures 0.64 cm. SFJ is competent and measures 0.68 cm. GSV proximal thigh measures 0.41 x 0.40 cm. GSV proximal thigh measures 0.29 x 0.29 cm. GSV at knee measures 0.22 x 0.20 cm. GSV above knee is competent. Unable to visualize GSV mid calf due to vessel size. GSV at knee measures 0.16 x 0.16 cm. GSV INCOMPETENT throughout for greater than 0.5 GSV below knee is INCOMPETENT for greater than 0.5 seconds. seconds. ASV at knee is INCOMPETENT for greater than 0.5 ASV mid thigh is INCOMPETENT for greater than 0.5 seconds and measures 0.30 x 0.32 cm. seconds and measures 0.21 x 0.23 cm. SSV mid calf is INCOMPETENT for greater than 0.5 ASV at knee is INCOMPETENT for greater than 0.5 seconds and measures 0.20 x 0.22 cm. seconds and measures 0.17 x 0.19 cm. Procedure SSV mid calf is competent and measures 0.17 x 0.20 This is a venous duplex using B-mode, color flow and cm. spectral Doppler. Exam performed in department. Patient was scanned in reverse Trendelenburg position during reflux assessment. VL/Venous Duplex US - Jethro Extrem Interpretation Summary Deep veins of the lower extremities are bilaterally patent and compressible seg mentally. There is no evidence of deep vein thrombosis on either side. Valvular competence appears intact within the p roximal deep venous systems bilaterally. The great saphenous veins appear bilaterally patent and compressible segmentall y. Sapheno-femoral junctions are bilaterally competent . The right great saphenous vein appears segmentally inco mpetent. The left great saphenous vein appears competent above the knee. The left great saphenous vein appears incompe tent below the knee. The right small saphenous vein is patent and incompetent. The left small saphenous vein is saenz nt and competent. The accessory saphenous vein at right knee level is incompetent. The accessory saphenous vein in the le ft mid-thigh is incompetent. The accessory saphenous vein at left knee level is incompetent. Ordering Physician: Tyrone Jasmine Referring Physician: Shaan Clark M.D. Performed By: Ariadne Gomes RVT
--- NOTE | 2025-05-26 14:03 | ART_ITS ---
Reason For Study Reason For Study: PVD Procedure A bilateral lower extremity continuous wave Doppler with analog waveform analysis,segmental pressures,and ankle brachial indexes with exercise. Left Segmental Pressures Left brachial= 165mmHg. Left posterior tibial artery = 174mmHg. Left dorsalis pedis artery = 164mmHg. Left digit = 141 mmHg. The left dorsalis pedis waveforms are triphasic. The left posterior tibial artery waveforms are triphasic. Right Segmental Pressures Right posterior tibial artery = 185mmHg. Right dorsalis pedis artery = 188mmHg. Right digit = 153 mmHg. The right dorsalis pedis waveforms are triphasic. The right posterior tibial artery waveforms are triphasic. Indices The right ankle brachial index by the dorsalis pedis is 1.14. The right ankle brachial index by the posterior tibial artery is 1.12. The right digital-brachial index is 0.93. The left ankle brachial index by the dorsalis pedis is 0.99. The left ankle brachial index by the posterior tibial artery is 1.05. The left digital-brachial index is 0.85. VL/Lower Ext Art Exam w/ Exercise Interpretation Summary Triphasic Doppler waveforms are noted at ankle level bilaterally. Pulse-volume recordings appear satisfactory at all levels bilaterally. Resting ankle-brachial indices are normal bilaterally. Digi brett-brachial indices are normal bilaterally. The patient ambulated for 5 minutes at 1.5 MPH and a 5% grade, fol lowing which ankle pressures augmented bilaterally, a normal physiological response. There is no evidence of significant arterial occlusive disease in the lower ext remities bilaterally. Ordering Physician: Tyrone Jasmine Referring Physician: Shaan Clark M.D. Performed By: Ariadne Gomes RVT
== END | disposition home or self-care (01) ==
LOC: CVS 13:59
PROVIDERS: PCP Family Medicine; Referring Provider Podiatrist; Visit Provider Podiatrist
DX: I87.2 Venous insufficiency (chronic) (peripheral) (principal); I73.89 Other specified peripheral vascular diseases
CPT/HCPCS: 93924; 93970